=== PATIENT | female | born 1965 | race Caucasian/White ===

== ENCOUNTER 2017-03-24 08:29 | Emergency (ER) | payer MEDICAID ==
--- NOTE | 2017-03-24 09:04 | ER Document Report ---
ED General - General Chief Complaint: Problem with Feeding Tube Stated Complaint: FEEDING TUBE PROBLEMS Time Seen by Provider: 03/24/17 08:35 Mode of Arrival: Ambulatory Information source: Patient Notes: 51-year-old female who has a G-tube in place presents with complaints of having difficulty with removal of her G-tube. Patient notes that [facility] care facility will remove her G-tube notes when I tried to remove it they were unable to deflate the balloon, they then decided to cut the G-tube. Patient denies any fevers or chills nausea vomiting or diarrhea patient notes mild tenderness from the traumatic pulling TRAVEL OUTSIDE OF THE [place] IN LAST 30 DAYS: No - HPI Onset: Just prior to arrival Onset/Duration: Sudden Quality of pain: No pain Severity: None Pain Level: Denies Associated symptoms: None Exacerbated by: Denies Relieved by: Denies Similar symptoms previously: Yes Recently seen / treated by doctor: No - Related Data Allergies/Adverse Reactions: acetaminophen [From Percocet] Allergy (Verified 07/16/16 11:27) codeine [Codeine] Allergy (Verified 07/16/16 11:27) oxycodone HCl [From Percocet] Allergy (Verified 07/16/16 11:27) Past Medical History - Social History Smoking Status: Never Smoker Cigarette use (# per day): No Chew tobacco use (# tins/day): No Smoking Education Provided: No Family History: Reviewed & Not Pertinent - Past Medical History Cardiac Medical History: Denies: Hx Coronary Artery Disease, Hx Heart Attack, Hx Hypertension Pulmonary Medical History: Denies: Hx Asthma, Hx Bronchitis, Hx COPD, Hx Pneumonia Neurological Medical History: Denies: Hx Cerebrovascular Accident, Hx Seizures Musculoskeltal Medical History: Denies Hx Arthritis - Immunizations Hx Diphtheria, Pertussis, Tetanus Vaccination: Yes Review of Systems - Review of Systems Notes: REVIEW OF SYSTEMS: CONSTITUTIONAL : Denies fever, chills, or sweats. Denies recent illness. EENT: Denies eye, ear, throat, or mouth pain or symptoms. Denies nasal or sinus congestion or discharge. Denies throat, tongue, or mouth swelling or difficulty swallowing. CARDIOVASCULAR: Denies chest pain. Denies palpitations or racing or irregular heart beat. Denies ankle edema. RESPIRATORY: Denies cough, cold, or chest congestion. Denies shortness of breath, difficulty breathing, or wheezing. GASTROINTESTINAL: Denies abdominal pain or distention. Denies nausea, vomiting , or diarrhea. Denies blood in vomitus, stools, or per rectum. Denies black, tarry stools. Denies constipation. admits to g tube issue GENITOURINARY: Denies difficulty urinating, painful urination, burning, frequency, blood in urine, or discharge. FEMALE GENITOURINARY: Denies vaginal bleeding, heavy or abnormal periods, irregular periods. Denies vaginal discharge or odor. MUSCULOSKELETAL: Denies back or neck pain or stiffness. Denies joint pain or swelling. SKIN: Denies rash, lesions or sores. HEMATOLOGIC : Denies easy bruising or bleeding. LYMPHATIC: Denies swollen, enlarged glands. NEUROLOGICAL: Denies confusion or altered mental status. Denies passing out or loss of consciousness. Denies dizziness or lightheadedness. Denies headache. Denies weakness or paralysis or loss of use of either side. Denies problems with gait or speech. Denies sensory loss, numbness, or tingling. Denies seizures. PHYSICAL EXAMINATION: GENERAL: Well-appearing, well-nourished and in no acute distress. HEAD: Atraumatic, normocephalic. EYES: Pupils equal round and reactive to light, extraocular movements intact, conjunctiva are normal. ENT: Nares patent, oropharynx clear without exudates. Moist mucous membranes. NECK: Normal range of motion, supple without lymphadenopathy LUNGS: Breath sounds clear to auscultation bilaterally and equal. No wheezes rales or rhonchi. HEART: Regular rate and rhythm without murmurs ABDOMEN: Soft, nontender, nondistended abdomen. No guarding, no rebound. No masses appreciated. g tube noted Female : deferred Musculoskeletal: Normal range of motion, no pitting or edema. No cyanosis. NEUROLOGICAL: Cranial nerves grossly intact. Normal speech, normal gait. Normal sensory, motor exams PSYCH: Normal mood, normal affect. SKIN: Warm, Dry, normal turgor, no rashes or lesions noted. PSYCHIATRIC: Denies anxiety or stress. Denies depression, suicidal ideation, or homicidal ideation. ALL OTHER SYSTEMS REVIEWED AND NEGATIVE. Dictation was performed using [employer] voice recognition software Physical Exam - Vital signs Vitals: Temp Pulse Resp BP Pulse Ox 97.8 F 68 18 141/86 H 94 03/24/17 08:53 03/24/17 08:53 03/24/17 08:53 03/24/17 08:53 03/24/17 08:53 Course - Re-evaluation Re-evalutation: 03/24/17 09:04 I am awaiting a replacement G-tube before I attempt any further 03/24/17 09:19 A 22 Iranian G tube was easily replaced, no complications I will discharge back to care facility at this time After performing a Medical Screening Examination, I estimate there is LOW risk for ACUTE APPENDICITIS, BOWEL OBSTRUCTION, ACUTE CHOLECYSTITIS, PERFORATED DIVERTICULITIS, INCARCERATED HERNIA, PANCREATITIS, PELVIC INFLAMMATORY DISEASE, PERFORATED ULCER, ECTOPIC , or TUBO-OVARIAN ABSCESS, thus I consider the discharge disposition reasonable. Also, there is no evidence or peritonitis , sepsis, or toxicity. I have reevaluated this patient multiple times and no significant life threatening changes are noted. The patient and I have discussed the diagnosis and risks, and we agree with discharging home with close follow-up with the understanding that symptoms and presentations can change. We also discussed returning to the Emergency Department immediately if new or worsening symptoms occur. We have discussed the symptoms which are most concerning (e.g., bloody stool, fever, changing or worsening pain, vomiting) that necessitate immediate return. - Vital Signs Vital signs: Temp Pulse Resp BP Pulse Ox 97.8 F 68 18 141/86 H 94 03/24/17 08:53 03/24/17 08:53 03/24/17 08:53 03/24/17 08:53 03/24/17 08:53 Procedures - Additional Procedures G tube replacement Time performed: 09:20 - using 22f g tube no complications Additional Procedures: Gastric tube replacement Discharge - Discharge Clinical Impression: Complication of gastrostomy tube Condition: Stable Disposition: HOME, SELF-CARE Additional Instructions: Return immediately if there are any other concerns Referrals: MIMI BLOUNT MD [Primary Care Provider] - Follow up tomorrow
[2017-03-24 12:23] VITALS: BP 101/70
== END 2017-03-24 12:15 | disposition home or self-care (01) ==
LOC: ER 08:29
PROC: 0D20XUZ Change Feeding Device in Upper Intestinal Tract, External Approach (ICD-10-PCS; principal; 2017-03-24)
DX: K94.20 Gastrostomy complication, unspecified (principal); Z88.6 Allergy status to analgesic agent
CPT/HCPCS: 99283

== ENCOUNTER → 2018-03-19 | Outpatient (CLI) | payer MEDICAID ==
--- NOTE | 2018-03-19 12:20 | RADIOLOGY REPORT (SQ) ---
EXAM DESCRIPTION: PELVIS AP COMPLETED DATE/TIME: 03/19/2018 11:46 am REASON FOR STUDY: PRESSURE ULCER OF SACRAL REGION, STAGE 4 L89.154 PRESSURE ULCER OF SACRAL REGION, STAGE 4 COMPARISON: None. NUMBER OF VIEWS: One view TECHNIQUE: AP Pelvis LIMITATIONS: None. FINDINGS: MINERALIZATION: Normal. HIPS: No acute fracture or dislocation. No worrisome bone lesions. PELVIS AND SACRUM: No acute fracture or dislocation. No worrisome bone lesions. PUBIS AND ISCHIUM: No acute fracture. LOWER LUMBAR SPINE: No significant findings as visualized. SOFT TISSUES: Multiple bladder stones are present. OTHER: No other significant finding. IMPRESSION: Bladder stones. No osseous abnormality is evident. TECHNICAL DOCUMENTATION: JOB ID: [id number] [employer]- All Rights Reserved Reading location - IP/workstation name: [email or web address]
== END ==
LOC: RAD 11:15
PROVIDERS: ATTEND Nurse Practitioner
DX: L89.154 Pressure ulcer of sacral region, stage 4 (principal)
CPT/HCPCS: 72170

== ENCOUNTER → 2018-04-12 | Day surgery (SDC) | payer MEDICAID ==
--- NOTE | 2018-04-12 15:05 | RADIOLOGY REPORT (SQ) ---
EXAM DESCRIPTION: PICC INSERTION; U/S GUIDE FOR VASCULAR ACCESS; FLUORO/CV PLACEMENT COMPLETED DATE/TIME: 04/12/2018 2:06 pm REASON FOR STUDY: N39.0 URINARY TRACT INFECTION, SITE NOT SPECIFIED; IV ACCESS N39.0 URINARY TRACT INFECTION, SITE NOT SPECIFIED COMPARISON: AP chest 07/16/2016 FLUOROSCOPY TIME: 4 seconds 1 digital fluoroscopic image and 1 ultrasound image saved to PACS. TECHNIQUE: Fluoroscopic and ultrasound guided PICC placement. LIMITATIONS: None. PROCEDURE: After written consent and assessment were obtained, the patient was brought into the fluo roscopy room and place supine on the table. Ultrasound evaluation of potential access sites were perf ormed. After successfully identifying a patent left basilic vein, the left arm was prepped and draped in a sterile fashion along with the ultrasound probe. The entry site was anesthetized with 1% lidoca ine. A 21 gauge 7 cm needle was advanced through the skin and into the basilic vein under live ultras ound guidance. An ultrasound image was saved to PACS confirming access site. A .018 guide wire was then inserted through the needle and into the venous system. The needle was the removed and an 11 lisa de scalpel was used to make a 1cm skin incision. A 5 fr peel-away sheath was advanced over the wire and into the venous system. A measurement was then made using the existing wire and live fluoroscopic guidance. The wire was then removed and the trimmed. The PICC was advanced through the peel-away she ath and into the venous system. The peel-away sheath was removed and the catheter was adhered to the patients arm with a stat lock. The catheter was then aspirated and flushed and a sterile bandage was placed over the access site. A fluoroscopic spot image was saved to PACS confirming the catheter tip within the superior vena cava. IMPRESSION: SUCCESSFUL PLACEMENT OF A 5 FR DUAL LUMEN 35 CM PICC IN THE LEFT BASILIC VEIN. COMMENT: Patient medication list reviewed: Yes- Quality ID# [id number]:Eligible professional attests to doc umenting in the medical record they obtained, updated, or reviewed the patient's current medications. . Quality ID 145: Final reports for procedures using fluoroscopy that document radiation exposure meng william, or exposure time and number of fluorographic images (if radiation exposure indices are not avail able) Quality ID #76: The patient was prepped and draped using maximum sterile barrier technique including cap, mask, sterile gown, sterile gloves, a large sterile sheet, hand hygiene, and 2% Chlorhexidine fo r cutaneous antisepsis. When ultrasound is used, sterile ultrasound techniques are followed requiring sterile gel and sterile probes. TECHNICAL DOCUMENTATION: JOB ID: [id number] [employer]- All Rights Reserved rev-02/26 Reading location - IP/workstation name: [email or web address]
== END ==
LOC: RAD 12:57
PROVIDERS: ATTEND Family Medicine Geriatric Medicine
DX: N39.0 Urinary tract infection, site not specified (principal)
CPT/HCPCS: 36569; 77001; 76937; J1642

== ENCOUNTER → 2018-05-25 | Day surgery (SDC) | payer MEDICAID ==
--- NOTE | 2018-05-25 14:17 | RADIOLOGY REPORT (SQ) ---
EXAM DESCRIPTION: PICC INSERTION; U/S GUIDE FOR VASCULAR ACCESS; FLUORO/CV PLACEMENT COMPLETED DATE/TIME: 05/25/2018 2:01 pm REASON FOR STUDY: IV ABX COMPARISON: None. FLUOROSCOPY TIME: 24 seconds 2 images saved to PACS. TECHNIQUE: Fluoroscopic and ultrasound guided PICC placement. LIMITATIONS: None. PROCEDURE: After written consent and assessment were obtained, the patient was brought into the fluo roscopy room and place supine on the table. Ultrasound evaluation of potential access sites were perf ormed. After successfully identifying a patent left basilic vein, the left arm was prepped and draped in a sterile fashion along with the ultrasound probe. The entry site was anesthetized with 1% lidoca ine. A 21 gauge 7 cm needle was advanced through the skin and into the basilic vein under live ultras ound guidance. An ultrasound image was saved to PACS confirming access site. A .018 guide wire was then inserted through the needle and into the venous system. The needle was the removed and an 11 lisa de scalpel was used to make a 1cm skin incision. A 5 fr peel-away sheath was advanced over the wire and into the venous system. A measurement was then made using the existing wire and live fluoroscopic guidance. The wire was then removed and the trimmed. The PICC was advanced through the peel-away she ath and into the venous system. The peel-away sheath was removed and the catheter was adhered to the patients arm with a stat lock. The catheter was then aspirated and flushed and a sterile bandage was placed over the access site. A fluoroscopic spot image was saved to PACS confirming the catheter tip within the superior vena cava. IMPRESSION: SUCCESSFUL PLACEMENT OF A 5 FR DUAL LUMEN 36 CM PICC IN THE LEFT BASILIC VEIN. COMMENT: Patient medication list reviewed: Yes- Quality ID# [id number]:Eligible professional attests to doc umenting in the medical record they obtained, updated, or reviewed the patient's current medications. . Quality ID 145: Final reports for procedures using fluoroscopy that document radiation exposure meng william, or exposure time and number of fluorographic images (if radiation exposure indices are not avail able) Quality ID #76: The patient was prepped and draped using maximum sterile barrier technique including cap, mask, sterile gown, sterile gloves, a large sterile sheet, hand hygiene, and 2% Chlorhexidine fo r cutaneous antisepsis. When ultrasound is used, sterile ultrasound techniques are followed requiring sterile gel and sterile probes. TECHNICAL DOCUMENTATION: JOB ID: [id number] [employer]- All Rights Reserved Reading location - IP/workstation name: [facility]
== END ==
LOC: RAD 12:46
PROVIDERS: ATTEND Family Medicine Geriatric Medicine
DX: Z45.2 Encounter for adjustment and management of vascular access device (principal)
CPT/HCPCS: 36569; 77001; 76937; J1642

== ENCOUNTER 2018-06-17 03:58 | Inpatient (IN) | payer MEDICAID ==
[2018-06-17] MEDS ORDERED: ONDANSETRON HCL INJ/PF 4 MG/2 ML SDV ONE (04:38)
[2018-06-17] MEDS ORDERED: ACETAMINOPHEN SUSP 160 MG/5 ML ORAL SYRING ONE (04:38)
[2018-06-17] MEDS ORDERED: FENTANYL CITRATE INJ/PF 100 MCG/2 ML AMPUL ONE (04:39)
[2018-06-17] MEDS ORDERED: ACETAMINOPHEN 325 MG TABLET PO PRN (09:13)
[2018-06-17] MEDS ORDERED: NORMAL SALINE 1000 ML 1,000 ML IV ONE (09:15)
[2018-06-17] MEDS ORDERED: CIPROFLOXACIN 400 MG/D5W RTU 400 MG/200 ML RTUPB IV SCH (10:00)
--- NOTE | 2018-06-17 10:35 | RADIOLOGY REPORT (SQ) ---
EXAM DESCRIPTION: CHEST 2 VIEWS COMPLETED DATE/TIME: 06/17/2018 9:34 am REASON FOR STUDY: ABDOMINAL PAIN N/V COMPARISON: AP chest 07/16/2016 EXAM PARAMETERS: NUMBER OF VIEWS: two views TECHNIQUE: Digital Frontal and Lateral radiographic views of the chest acquired. RADIATION DOSE: NA LIMITATIONS: none FINDINGS: LUNGS AND PLEURA: Minimal left basilar atelectasis. Lungs otherwise well inflated and jefe ar. Hyperlucency upper lobe suggests some underlying obstructive disease. No pleural effusion. No pneumothorax. MEDIASTINUM AND HILAR STRUCTURES: No masses or contour abnormalities. HEART AND VASCULAR STRUCTURES: Heart normal size. No evidence for failure. BONES: Osteoporotic HARDWARE: None in the chest. OTHER: No other significant finding. IMPRESSION: Obstructive lung disease. Minimal left basilar atelectasis TECHNICAL DOCUMENTATION: JOB ID: [id number] [employer]- All Rights Reserved Reading location - IP/workstation name: [email or web address]
[2018-06-17 10:37] LABS: ABSOLUTE BASOPHILS # (AUTO) 0.1 10^3/uL (0.0-0.2); ABSOLUTE LYMPHOCYTES (AUTO) 1.6 10^3/uL (0.5-4.7); ABSOLUTE MONOCYTES (AUTO) 0.9 10^3/uL (0.1-1.4); ABSOLUTE NEUT (AUTO) 12.8 10^3/uL (1.7-8.2); BASOPHILS % (AUTO) 0.3 % (0-2); HEMATOCRIT 36.9 % (36.0-47.0); HEMOGLOBIN 12.5 g/dL (12.0-15.5); LYMPHOCYTES % (AUTO) 10.5 % (13-45); MEAN CORPUSCULAR HEMOGLOBIN 27.5 pg (27.0-33.4); MEAN CORPUSCULAR HGB CONC 33.8 g/dL (32.0-36.0); MEAN CORPUSCULAR VOLUME 82 fl (80-97); MONOCYTES % (AUTO) 6.1 % (3-13); PLATELET COUNT 310 10^3/uL (150-450); RED BLOOD COUNT 4.53 10^6/uL (3.72-5.28); RED CELL DISTRIBUTION WIDTH 15.1 % (11.5-14.0); SEGMENTED NEUTROPHILS % (AUTO) 83.1 % (42-78); TOTAL CELLS COUNTED % (AUTO) 100 %; WHITE BLOOD COUNT 15.3 10^3/uL (4.0-10.5)
[2018-06-17 10:44] LABS: APPEARANCE,URINE CLOUDY; BILIRUBIN,URINE NEGATIVE (NEGATIVE); COLOR,URINE YELLOW; GLUCOSE, URINE NEGATIVE (NEGATIVE); KETONES,URINE TRACE mg/dL (NEGATIVE); LEUKOCYTE ESTERASE,URINE LARGE (NEGATIVE); NITRITE,URINE NEGATIVE (NEGATIVE); PROTEIN,URINE 100 mg/dL (NEGATIVE); TRIPLE PHOSPHATE CRYSTAL,URINE TOO NUMEROUS TO CNT /HPF; URINE SPECIFIC GRAVITY 1.018; UROBILINOGEN,URINE NEGATIVE mg/dL (<2.0)
[2018-06-17 10:53] LABS: ALANINE AMINOTRANSFERASE 22 U/L (9-52); ALBUMIN 4.5 g/dL (3.5-5.0); ALKALINE PHOSPHATASE 78 U/L (38-126); ANION GAP 13 (5-19); ASPARTATE AMINO TRANSFERASE 47 U/L (14-36); BILIRUBIN,DIRECT 0.5 mg/dL (0.0-0.4); BILIRUBIN,TOTAL 0.6 mg/dL (0.2-1.3); BLOOD UREA NITROGEN 28 mg/dL (7-20); CALCIUM 10.1 mg/dL (8.4-10.2); CARBON DIOXIDE 24 mmol/L (22-30); CHLORIDE 107 mmol/L (98-107); GLUCOSE 128 mg/dL (75-110); POTASSIUM 3.4 mmol/L (3.6-5.0); SODIUM 144.3 mmol/L (137-145); TOTAL PROTEIN 9.5 g/dL (6.3-8.2)
[2018-06-17] MEDS: VANCOMYCIN HCL INJ 500 MG VIAL PO SCH ×2 (11:25→14:35)
[2018-06-17] MEDS: ENOXAPARIN SODIUM INJ 30 MG/0.3 ML DISP.SYRIN SUBCUT SCH (11:26)
[2018-06-17] MEDS: NORMAL SALINE 1000 ML 1,000 ML IV PRN ×2 (11:27→17:06)
[2018-06-17] MEDS: FENTANYL CITRATE INJ/PF 100 MCG/2 ML AMPUL INJ PRN ×4 (12:27→19:47)
--- NOTE | 2018-06-17 17:42 | PDOC H&P ---
<LUISANAFEROZ A - Last Filed: 06/17/18 17:28> History of Present Illness Admission Date/PCP: 06/17/18 14:36 HÉCTOR BLOUNT MD Patient complains of: DIARRHEA History of Present Illness: ARTURO GILBERT is a 52 year old female is a long-term resident of [facility]. 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 The patient was sent to [facility] ED for nausea, vomiting and watery diarrhea x multiple days. Of note, the patient just completed 1 month of IV vancomycin for treatment of MRSA infection in a sacral decubitus ulcer. Upon arrival to the ED, the patient's blood pressure and heart rate were within normal limits. Low-grade temperature 100.1. The patient was actively vomiting and experiencing incontinent episodes of watery diarrhea. Laboratory studies reveal leukocytosis (WBC 15.1), hypokalemia (K 3.4), and urinalysis indicative of UTI. CXR benign, no significant pathology. Upon assessment, the patient is resting in bed on room air. Her face is grimaced and she appears to be uncomfortable. The patient is complaining of nausea and mild abdominal pain. She states she has been experiencing multiple episodes of vomiting and diarrhea for the last "few days." The patient states that her roommate at [facility] has recently been ill with unspecified symptoms. The roommate is currently admitted to [facility]. The patient appears pale and older than stated age. Skin is cool and dry. Mucous membranes are moist. Good skin turgor. Lungs clear to auscultation. S1-S2. Palpable pulses in upper extremities, very faint in lower extremities. Abdomen is soft but diffusely tender. PEG tube site has dark brown crusty drainage surrounding the insertion site, no erythema , denies TTP. Tunneled sacral decubitus ulcer. Admit to hospitalist service for complicated UTI and colitis (C. difficile versus other infectious organism). Past Medical History Cardiac Medical History: Denies: Coronary Artery Disease, Myocardial Infarction, Hypertension Pulmonary Medical History: Denies: Asthma, Bronchitis, Chronic Obstructive Pulmonary Disease (COPD), Pneumonia Neurological Medical History: Reports: Other - HEMIPLEGIA Denies: Seizures Musculoskeltal Medical History: Denies: Arthritis Psychiatric Medical History: Denies: Depression Hematology: Reports: Anemia Infectious History Note: SEPTIC EMBOLI STEMMING FROM PERIODONTAL ABSCESS Past Surgical History Past Surgical History: Reports: Other - PEG TUBE PLACEMENT Social History Information Source: Patient Lives with: [facility] Smoking Status: Former Smoker Frequency of Alcohol Use: None Hx Recreational Drug Use: No Drugs: None Hx Prescription Drug Abuse: No - Advance Directive Resuscitation Status: Full Code Family History Family History: Reviewed & Not Pertinent Parental Family History Reviewed: No Children Family History Reviewed: NA Sibling(s) Family History Reviewed.: NA Medication/Allergy Home Medications: Acetaminophen [Tylenol Soln 325 mg/10.15 ml Udcup] 325 mg PEG Q4HP PRN 06/17/18 Acetaminophen [Tylenol Soln 325 mg/10.15 ml Udcup] 500 mg PEG Q12 06/17/18 Ascorbic Acid [Vitamin C 500 mg Tablet] 500 mg PEG BID MDD until wound resolves 06/17/18 Bismuth Subsalicylate [Maalox] 20 ml PEG Q4HP PRN 06/17/18 Cephalexin [Cephalexin 500 MG Capsule] 500 mg PEG Q8 06/17/18 Duloxetine HCl [Cymbalta] 30 mg PEG DAILY 06/17/18 Flavoxate HCl [Urispas] 200 mg PEG Q8 06/17/18 Gabapentin [Neurontin 300 mg Capsule] 300 mg PEG Q8 06/17/18 Meloxicam 15 mg PEG DAILY 06/17/18 Metoclopramide HCl [Reglan Oral Soln 10 mg/10 ml Udcup] 5 mg PEG QID 06/17/18 Multivit-Minerals/Ferrous Gluc [Centrum Multivit-Mineral Liq] 10 ml PEG DAILY Omeprazole 40 mg PO Q6AM 06/17/18 Ondansetron [Zofran Odt 4 mg Tablet] 4 mg PEG Q6HP PRN 06/17/18 Oxycodone HCl [Oxy-Ir 5 mg Tablet] 5 mg PO Q4HP PRN 06/17/18 Oxycodone HCl [Oxycontin Sr 10 mg Tablet] 20 mg PO Q8 06/17/18 Promethazine HCl [Phenergan Inj 25 mg/1 ml Vial] 25 mg IM Q6HP PRN MDD 3 doses 06/17/18 Sennosides/Docusate Sodium [Senna-S Tablet] 1 each PEG Q12 MDD hold for loose stool 06/17/18 Solifenacin Succinate [Vesicare] 5 mg PO DAILY 06/17/18 Tizanidine HCl [Zanaflex 4 mg Tablet] 2 mg PEG Q8 06/17/18 Zinc Sulfate [Zinc-220 Capsule] 220 mg PEG DAILY 06/17/18 Allergies/Adverse Reactions: acetaminophen [From Percocet] Allergy (Verified 07/16/16 11:27) codeine [Codeine] Allergy (Verified 07/16/16 11:27) oxycodone HCl [From Percocet] Allergy (Verified 07/16/16 11:27) Review of Systems All systems: reviewed and no additional remarkable complaints except as stated Physical Exam Vital Signs: Temp Pulse Resp BP Pulse Ox 98.9 F 15 121/79 95 06/17/18 11:00 06/17/18 15:01 06/17/18 15:01 06/17/18 15:01 General appearance: PRESENT: mild distress Eye exam: PRESENT: conjunctiva pink, PERRLA Mouth exam: PRESENT: moist Teeth exam: PRESENT: poor dentation Neck exam: PRESENT: full ROM Respiratory exam: PRESENT: clear to auscultation justyna, symmetrical, unlabored Cardiovascular exam: PRESENT: RRR, +S1, +S2 Pulses: PRESENT: normal radial pulses, +1 pedal pulses bilateral Vascular exam: PRESENT: pallor GI/Abdominal exam: PRESENT: normal bowel sounds, soft, tenderness - diffuse, other - PEG TUBE. ABSENT: distended Rectal exam: PRESENT: deferred Gentrourinary exam: PRESENT: indwelling catheter Extremities exam: ABSENT: full ROM, joint swelling Musculoskeletal exam: ABSENT: ambulatory, full ROM Neurological exam: PRESENT: alert, awake, oriented to person, oriented to place , oriented to time, oriented to situation. ABSENT: normal gait Psychiatric exam: PRESENT: appropriate affect Skin exam: PRESENT: dry, intact, pallor. ABSENT: normal color, warm Results Impressions: Chest X-Ray 06/17/18 00:00 IMPRESSION: Obstructive lung disease. Minimal left basilar atelectasis Status: Imported from PACS Assessment & Plan - Diagnosis (1) Diarrhea QualifierTitle: Diarrhea type: presumed infectious Qualified Code(s): R19.7 - Diarrhea, unspecified Is this a current diagnosis for this admission?: Yes Plan: custodial reports watery diarrhea for "days" Recent completion of 1 month IV Vancoymycin for MRSA infected decubital ulcer +leukocytosis. Low grade temperature 100.1. C.Diff PCR negative Stool culture pending Flagyl IV for possible colitis If patient continues to have watery diarrhea, plan to repeat c.diff PCR in 48hrs 1L IVF in ED, continue maintenance IVF (2) VINI (acute kidney injury) Is this a current diagnosis for this admission?: Yes Plan: Pre-renal. Secondary to intravascular depletion related to #1 See plan as above (3) Decubital ulcer QualifierTitle: Pressure injury location: sacral region Pressure injury stage: stage 4 Qualified Code(s): L89.154 - Pressure ulcer of sacral region, stage 4 Is this a current diagnosis for this admission?: Yes Plan: Patient has a history of MRSA infected sacral decubital ulcer Treated for 1 month with IV Vancomycin Wound Vac attached to site while at [facility] Staff reports the vac was "not working well" Consult surgery for evaluation, possible need for debriedement and/or replacement of wound vac (4) MRSA (methicillin resistant Staphylococcus aureus) Is this a current diagnosis for this admission?: Yes Plan: History of MRSA in sacral wound Previously treated with IV vancomycin Contact isolation precautions (5) UTI (urinary tract infection) QualifierTitle: Urinary tract infection type: acute cystitis Is this a current diagnosis for this admission?: Yes Plan: Patient has significant history of UTI Urinalysis indicative of UTI Urine culture pending Plan to remove original indwelling catheter and replaced with new Claire Previous cultures have been positive for Pseudomonas, Klebsiella, E. coli - resistant to multiple antibiotics Initiate cefepime 2 g IV every 12 hours (6) Hypokalemia Is this a current diagnosis for this admission?: Yes Plan: Secondary to GI loss Replacement per electrolyte protocol - Time Time Spent: 30 to 50 Minutes Medications reviewed and adjusted accordingly: Yes Anticipated discharge: SNF - Inpatient Certification Based on my medical assessment, after consideration of the patient's comorbidities, presenting symptoms, or acuity I expect that the services needed warrant INPATIENT care.: Yes I certify that my determination is in accordance with my understanding of Medicare's requirements for reasonable and necessary INPATIENT services [42 CFR 412.3e].: Yes Medical Necessity: Need for IV Antibiotics, Risk of Complication if Not Cared For in Hospital - Plan Summary Plan Summary: ANTIBIOTICS. SURGERY CONSULT FOR WOUND VAC. RESTART ENTERAL FEEDING. IF DIARRHEA CONTINUES PLAN TO REPEAT C.DIFF PCR IN 48 HRS. <IRMA GASPAR M - Last Filed: 06/20/18 18:56> History of Present Illness Admission Date/PCP: 06/17/18 14:36 HÉCTOR BLOUNT MD History of Present Illness: ARTURO GILBERT is a 52 year old female Physical Exam Vital Signs: Temp Pulse Resp BP Pulse Ox 98.1 F 57 L 18 115/66 97 06/20/18 16:00 06/20/18 16:00 06/20/18 16:00 06/20/18 16:00 06/20/18 16:00 Intake & Output 06/19/18 06/20/18 06/21/18 06:59 06:59 06:59 Intake Total 2640 6619 1510 Output Total 2000 3700 2200 Balance 640 2919 -690 Weight 66.5 kg 68.2 kg Results Laboratory Results: 06/20/18 09:21 06/20/18 09:21 06/19/18 06/20/18 06/20/18 21:49 09:21 09:21 WBC 8.8 RBC 3.99 Hgb 11.3 L Hct 33.2 L MCV 83 MCH 28.2 MCHC 34.0 RDW 14.9 H Plt Count 222 Sodium 137.6 Potassium 3.3 L Chloride 104 Carbon Dioxide 26 Anion Gap 8 BUN 9 Creatinine 0.36 L Est GFR ( Amer) > 60 Est GFR (Non-Af Amer) > 60 Glucose 83 Calcium 8.1 L Magnesium 2.0 Total Bilirubin 0.2 AST 23 ALT 31 Alkaline Phosphatase 54 Total Protein 6.2 L Albumin 3.0 L Stool for White Cells NO WBCs SEEN Impressions: Chest X-Ray 06/17/18 00:00 IMPRESSION: Obstructive lung disease. Minimal left basilar atelectasis KUB X-Ray 06/19/18 00:00 IMPRESSION: PEG tube in place. Provider Note Provider Note: I have discussed the patient in detail with MALAIKA Mehta. I am in agreement with her evaluation and plan.
[2018-06-17] MEDS: METRONIDAZOLE 500 MG/NS RTU 500 MG/100 ML RTUPB IV SCH (18:57)
[2018-06-17] MEDS: ONDANSETRON 4 MG TAB.RAPDIS PO PRN (21:34)
[2018-06-17] MEDS: CEFEPIME 2 GM/D5W RTU 2 GM/50 ML RTUPB IV SCH (22:56)
[2018-06-18] MEDS: FENTANYL CITRATE INJ/PF 100 MCG/2 ML AMPUL INJ PRN ×4 (01:02→11:12)
[2018-06-18] MEDS: METRONIDAZOLE 500 MG/NS RTU 500 MG/100 ML RTUPB IV SCH ×4 (01:03→17:42)
[2018-06-18 06:58] LABS: ABSOLUTE LYMPHOCYTES (AUTO) 1.9 10^3/uL (0.5-4.7); ABSOLUTE MONOCYTES (AUTO) 1.1 10^3/uL (0.1-1.4); BASOPHILS % (AUTO) 0.1 % (0-2); EOSINOPHILS % (AUTO) 0.1 % (0-6); HEMATOCRIT 31.6 % (36.0-47.0); HEMOGLOBIN 10.7 g/dL (12.0-15.5); LYMPHOCYTES % (AUTO) 19.3 % (13-45); MEAN CORPUSCULAR HEMOGLOBIN 28.2 pg (27.0-33.4); MEAN CORPUSCULAR VOLUME 83 fl (80-97); MONOCYTES % (AUTO) 10.7 % (3-13); PLATELET COUNT 216 10^3/uL (150-450); RED CELL DISTRIBUTION WIDTH 14.6 % (11.5-14.0); SEGMENTED NEUTROPHILS % (AUTO) 69.8 % (42-78); TOTAL CELLS COUNTED % (AUTO) 100 %
[2018-06-18 07:19] LABS: AMYLASE 47 U/L (30-110); ANION GAP 8 (5-19); BLOOD UREA NITROGEN 17 mg/dL (7-20); CALCIUM 8.4 mg/dL (8.4-10.2); CARBON DIOXIDE 22 mmol/L (22-30); CHLORIDE 110 mmol/L (98-107); GLUCOSE 140 mg/dL (75-110); LIPASE 58.1 U/L (23-300); SODIUM 140.1 mmol/L (137-145)
[2018-06-18 07:23] LABS: POTASSIUM 2.7 mmol/L (3.6-5.0)
[2018-06-18] MEDS: NORMAL SALINE 1000 ML 1,000 ML IV PRN ×2 (08:58→22:15)
[2018-06-18] MEDS: CEFEPIME 2 GM/D5W RTU 2 GM/50 ML RTUPB IV SCH ×2 (08:59→22:04)
[2018-06-18] MEDS: ONDANSETRON 4 MG TAB.RAPDIS PO PRN (08:59)
[2018-06-18] MEDS: POTASSI CL 20 MEQ/50 ML RIDER 20 MEQ/50 ML RTUPB IV SCH ×2 (08:59→11:36)
[2018-06-18] MEDS: ENOXAPARIN SODIUM INJ 30 MG/0.3 ML DISP.SYRIN SUBCUT SCH (09:00)
[2018-06-18] MEDS: DULOXETINE HCL 30 MG CAPSULE.DR PEG SCH (09:24)
[2018-06-18] MEDS ORDERED: POTASSIUM CHLORIDE 20 MEQ/15 ML UDCUP PO ONE (09:30)
[2018-06-18] MEDS: ASCORBIC ACID 500 MG TABLET PEG SCH ×2 (11:12→17:42)
[2018-06-18] MEDS: ZINC SULFATE 220 MG CAPSULE PEG SCH (11:12)
[2018-06-18] MEDS: MULTIVITAMIN ORAL LIQUID 60 ML PEG SCH (11:12)
[2018-06-18] MEDS ORDERED: MORPHINE SULFATE 10 MG/ML INJ IV PRN ×2 (11:41→16:49)
[2018-06-18] MEDS: GABAPENTIN 300 MG CAPSULE PEG SCH ×2 (13:48→22:04)
[2018-06-18] MEDS: ONDANSETRON HCL INJ/PF 4 MG/2 ML SDV IV PRN (14:59)
--- NOTE | 2018-06-18 19:32 | PDOC PROGRESS REPORT ---
<FEROZ MEHTA - Last Filed: 06/18/18 19:16> Subjective Progress Note for:: 06/18/18 Subjective:: ARTURO GILBERT is a 52 year old female is a long-term resident of [facility] who presented to [facility] with nausea, vomiting and watery diarrhea x multiple days. 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 Of note, the patient just completed 1 month of IV vancomycin for treatment of MRSA infection in a sacral decubitus ulcer. The patient was seen this morning on rounds. Nursing staff reports multiple episodes of green watery diarrhea and vomiting this morning. Upon assessment, the patient resting in bed on room air. She appears uncomfortable and has an emesis bag positioned close to her face. The patient endorses abdominal pain and "too many to count" episodes of diarrhea. Staff reports she becomes extremely nauseated whenever she is turned/moved after having a bowel movement. Nursing staff offered to place a fecal collection device in the patient's rectum but she refused. Leukocytosis has improved (15-->10). The patient remains afebrile. If diarrhea persists, will re-check C.diff PCR tomorrow. Stool studies pending. Reason For Visit: DIARRHEA,UTI,COLITIS Physical Exam Vital Signs: Temp Pulse Resp BP Pulse Ox 98.1 F 56 L 18 138/72 H 94 06/18/18 14:54 06/18/18 14:54 06/18/18 14:54 06/18/18 14:54 06/18/18 14:54 Intake & Output 06/17/18 06/18/18 06/19/18 06:59 06:59 06:59 Intake Total 1830 1290 Output Total 2125 1100 Balance -295 190 Weight 66.2 kg General appearance: PRESENT: mild distress, thin Head exam: PRESENT: atraumatic Eye exam: PRESENT: conjunctiva pink, PERRLA Mouth exam: PRESENT: moist, tongue midline Teeth exam: PRESENT: poor dentation Neck exam: PRESENT: full ROM Respiratory exam: PRESENT: clear to auscultation justyna, symmetrical, unlabored Cardiovascular exam: PRESENT: bradycardia, RRR, +S1, +S2 Pulses: PRESENT: normal radial pulses, +1 pedal pulses bilateral Vascular exam: PRESENT: pallor GI/Abdominal exam: PRESENT: normal bowel sounds, soft, tenderness - diffuse, other - peg tube. ABSENT: distended Rectal exam: PRESENT: deferred Gentrourinary exam: PRESENT: indwelling catheter Extremities exam: ABSENT: full ROM, pedal edema Musculoskeletal exam: PRESENT: deformity - secondary to paraplegia. ABSENT: ambulatory, full ROM Neurological exam: PRESENT: alert, awake, oriented to person, oriented to place , oriented to time, oriented to situation. ABSENT: normal gait Skin exam: PRESENT: dry, pallor, warm Results Laboratory Results: 06/18/18 05:48 06/18/18 05:48 06/18/18 06/18/18 06/18/18 05:48 05:48 05:48 WBC 10.0 RBC 3.80 Hgb 10.7 L Hct 31.6 L MCV 83 MCH 28.2 MCHC 34.0 RDW 14.6 H Plt Count 216 Seg Neutrophils % 69.8 Lymphocytes % 19.3 Monocytes % 10.7 Eosinophils % 0.1 Basophils % 0.1 Absolute Neutrophils 7.0 Absolute Lymphocytes 1.9 Absolute Monocytes 1.1 Absolute Eosinophils 0.0 Absolute Basophils 0.0 Sodium 140.1 Potassium 2.7 L* Chloride 110 H Carbon Dioxide 22 Anion Gap 8 BUN 17 Creatinine 0.45 L Est GFR ( Amer) > 60 Est GFR (Non-Af Amer) > 60 Glucose 140 H Calcium 8.4 Magnesium Amylase 47 Lipase 58.1 TSH 0.47 06/18/18 05:48 WBC RBC Hgb Hct MCV MCH MCHC RDW Plt Count Seg Neutrophils % Lymphocytes % Monocytes % Eosinophils % Basophils % Absolute Neutrophils Absolute Lymphocytes Absolute Monocytes Absolute Eosinophils Absolute Basophils Sodium Potassium Chloride Carbon Dioxide Anion Gap BUN Creatinine Est GFR ( Amer) Est GFR (Non-Af Amer) Glucose Calcium Magnesium 1.6 Amylase Lipase TSH Impressions: Chest X-Ray 06/17/18 00:00 IMPRESSION: Obstructive lung disease. Minimal left basilar atelectasis Status: Imported from PACS Assessment & Plan - Diagnosis (1) Diarrhea QualifierTitle: Diarrhea type: presumed infectious Qualified Code(s): R19.7 - Diarrhea, unspecified Is this a current diagnosis for this admission?: Yes Plan: detention reports watery diarrhea for "days" Recent completion of 1 month IV Vancoymycin for MRSA infected decubital ulcer Initial leukocytosis 15.0, has since resolved (WBC 10.0) Afebrile Initial C.Diff PCR negative Stool studies are pending Flagyl IV for possible colitis If patient continues to have watery diarrhea, plan to repeat c.diff PCR 1L IVF in ED, continue maintenance IVF (2) VINI (acute kidney injury) Is this a current diagnosis for this admission?: Yes Plan: Pre-renal. Secondary to intravascular depletion related to #1 See plan as above (3) Decubital ulcer QualifierTitle: Pressure injury location: sacral region Pressure injury stage: stage 4 Qualified Code(s): L89.154 - Pressure ulcer of sacral region, stage 4 Is this a current diagnosis for this admission?: Yes Plan: Patient has a history of MRSA infected sacral decubital ulcer Treated for 1 month with IV Vancomycin Wound Vac attached to site while at [facility] Staff reports the vac was "not working well" Consult surgery for evaluation, do not recommend replacement of wound vac due to persistent diarrhea Keep wound covered with mepliex, change q24h or if soiled (4) MRSA (methicillin resistant Staphylococcus aureus) Is this a current diagnosis for this admission?: Yes Plan: History of MRSA in sacral wound Previously treated with IV vancomycin Contact isolation precautions (5) UTI (urinary tract infection) QualifierTitle: Urinary tract infection type: acute cystitis Is this a current diagnosis for this admission?: Yes Plan: Patient has significant history of UTI Urinalysis indicative of UTI Urine culture pending Plan to remove original indwelling catheter and replaced with new Claire Previous cultures have been positive for Pseudomonas, Klebsiella, E. coli - resistant to multiple antibiotics Initiate cefepime 2 g IV every 12 hours (6) Hypokalemia Is this a current diagnosis for this admission?: Yes Plan: Secondary to GI loss Replacement per electrolyte protocol Follow daily chemistries - Time Time Spent with patient: 15-24 minutes Medications reviewed and adjusted accordingly: Yes Anticipated discharge: SNF - Inpatient Certification Based on my medical assessment, after consideration of the patient's comorbidities, presenting symptoms, or acuity I expect that the services needed warrant INPATIENT care.: Yes I certify that my determination is in accordance with my understanding of Medicare's requirements for reasonable and necessary INPATIENT services [42 CFR 412.3e].: Yes Medical Necessity: Need for IV Antibiotics, Risk of Complication if Not Cared For in Hospital - Plan Summary Plan Summary: continue iv abx and ivf. repeat c.diff pcr tomorrow if patient still having diarrhea <SWAYZE,IRMA M - Last Filed: 06/20/18 18:58> Subjective Reason For Visit: DIARRHEA,UTI,COLITIS Physical Exam Vital Signs: Temp Pulse Resp BP Pulse Ox 98.1 F 57 L 18 115/66 97 06/20/18 16:00 06/20/18 16:00 06/20/18 16:00 06/20/18 16:00 06/20/18 16:00 Intake & Output 06/19/18 06/20/18 06/21/18 06:59 06:59 06:59 Intake Total 2640 6619 1510 Output Total 1999 3700 2200 Balance 640 2919 -690 Weight 66.5 kg 68.2 kg Results Laboratory Results: 06/20/18 09:21 06/20/18 09:21 06/19/18 06/20/18 06/20/18 21:49 09:21 09:21 WBC 8.8 RBC 3.99 Hgb 11.3 L Hct 33.2 L MCV 83 MCH 28.2 MCHC 34.0 RDW 14.9 H Plt Count 222 Sodium 137.6 Potassium 3.3 L Chloride 104 Carbon Dioxide 26 Anion Gap 8 BUN 9 Creatinine 0.36 L Est GFR ( Amer) > 60 Est GFR (Non-Af Amer) > 60 Glucose 83 Calcium 8.1 L Magnesium 2.0 Total Bilirubin 0.2 AST 23 ALT 31 Alkaline Phosphatase 54 Total Protein 6.2 L Albumin 3.0 L Stool for White Cells NO WBCs SEEN Impressions: Chest X-Ray 06/17/18 00:00 IMPRESSION: Obstructive lung disease. Minimal left basilar atelectasis KUB X-Ray 06/19/18 00:00 IMPRESSION: PEG tube in place. Provider Note Provider Note: I have discussed this patient with AMLAIKA Mehta in detail. I am in agreement with her evaluation with plan.
[2018-06-18] MEDS ORDERED: LIDOCAINE 5% (700 MG) TRANSDERMAL ADH..PATCH TP ONE (22:00)
[2018-06-18] MEDS ORDERED: LIDOCAINE 5% (700 MG) TRANSDERMAL ADH..PATCH ONE (22:52)
[2018-06-19] MEDS: METRONIDAZOLE 500 MG/NS RTU 500 MG/100 ML RTUPB IV SCH ×5 (00:10→23:39)
[2018-06-19] MEDS: GABAPENTIN 300 MG CAPSULE PEG SCH ×3 (05:54→21:13)
[2018-06-19 07:09] LABS: HEMATOCRIT 33.7 % (36.0-47.0); HEMOGLOBIN 11.4 g/dL (12.0-15.5); MEAN CORPUSCULAR HEMOGLOBIN 27.9 pg (27.0-33.4); MEAN CORPUSCULAR VOLUME 82 fl (80-97); PLATELET COUNT 227 10^3/uL (150-450); WHITE BLOOD COUNT 9.5 10^3/uL (4.0-10.5)
[2018-06-19 07:39] LABS: ALANINE AMINOTRANSFERASE 27 U/L (9-52); ALBUMIN 3.1 g/dL (3.5-5.0); ALKALINE PHOSPHATASE 52 U/L (38-126); ANION GAP 11 (5-19); ASPARTATE AMINO TRANSFERASE 16 U/L (14-36); BILIRUBIN,DIRECT 0.2 mg/dL (0.0-0.4); BILIRUBIN,TOTAL 0.2 mg/dL (0.2-1.3); BLOOD UREA NITROGEN 12 mg/dL (7-20); CALCIUM 8.2 mg/dL (8.4-10.2); CARBON DIOXIDE 22 mmol/L (22-30); CHLORIDE 106 mmol/L (98-107); GLUCOSE 116 mg/dL (75-110); POTASSIUM 3.2 mmol/L (3.6-5.0); SODIUM 138.6 mmol/L (137-145); TOTAL PROTEIN 6.4 g/dL (6.3-8.2)
[2018-06-19] MEDS ORDERED: MAGNESIUM SULFATE/D5W 1 GM/100 ML RTUPB IV ONE (10:31)
[2018-06-19] MEDS ORDERED: HYDROMORPHONE HCL INJ/PF 2 MG/ML AMPULE IV PRN (10:45)
[2018-06-19] MEDS: ASCORBIC ACID 500 MG TABLET PEG SCH ×2 (11:05→19:18)
[2018-06-19] MEDS: ZINC SULFATE 220 MG CAPSULE PEG SCH (11:06)
[2018-06-19] MEDS: MULTIVITAMIN ORAL LIQUID 60 ML PEG SCH (11:07)
[2018-06-19] MEDS: CEFEPIME 2 GM/D5W RTU 2 GM/50 ML RTUPB IV SCH ×2 (11:07→21:12)
[2018-06-19] MEDS: DULOXETINE HCL 30 MG CAPSULE.DR PEG SCH (11:07)
[2018-06-19] MEDS: ENOXAPARIN SODIUM INJ 30 MG/0.3 ML DISP.SYRIN SUBCUT SCH (11:08)
[2018-06-19] MEDS: NORMAL SALINE 1000 ML 1,000 ML IV PRN (11:27)
--- NOTE | 2018-06-19 13:14 | RADIOLOGY REPORT (SQ) ---
EXAM DESCRIPTION: KUB/ABDOMEN (SINGLE VIEW) COMPLETED DATE/TIME: 06/19/2018 12:31 pm REASON FOR STUDY: check PEG tube placement COMPARISON: None. NUMBER OF VIEWS: One view. TECHNIQUE: Supine radiographic image of the abdomen acquired. LIMITATIONS: None. FINDINGS: A single AP view the abdomen after injection of 30 mL dilute Gastrografin via PEG tube dem onstrates no extravasation. There is opacification of the cardia and body of the stomach. IMPRESSION: PEG tube in place. TECHNICAL DOCUMENTATION: JOB ID: [id number] [id number] 2010 [employer]- All Rights Reserved Reading location - IP/workstation name: [email or web address]
[2018-06-19] MEDS: POTASSI CL 20 MEQ/50 ML RIDER 20 MEQ/50 ML RTUPB IV SCH ×2 (15:20→17:27)
[2018-06-19] MEDS: HYDROMORPHONE HCL INJ/PF 2 MG/ML AMPULE IV PRN ×2 (15:57→21:15)
--- NOTE | 2018-06-19 17:40 | PDOC PROGRESS REPORT ---
<FEROZ LIEBERMAN - Last Filed: 06/19/18 17:32> Subjective Progress Note for:: 06/19/18 Subjective:: ARTURO GILBERT is a 52 year old female is a long-term resident of [facility] who presented to [facility] with nausea, vomiting and watery diarrhea x multiple days. 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 Of note, the patient just completed 1 month of IV vancomycin for treatment of MRSA infection in a sacral decubitus ulcer. The patient was seen this morning on rounds. Nursing staff reports the patient is still having diarrhea and that her abdominal pain is poorly controlled. Upon assessment, the patient resting in bed on room air. She appears uncomfortable and has an emesis bag positioned close to her face. The patient endorses abdominal pain and "multiple" episodes of diarrhea. No Leukocytosis. The patient remains afebrile. Re-check C.diff PCR today. Stool studies pending. Plan to expand pain regimen to include iv dilaudid. Reason For Visit: DIARRHEA,UTI,COLITIS Physical Exam Vital Signs: Temp Pulse Resp BP Pulse Ox 98.3 F 56 L 18 131/56 H 100 06/19/18 15:58 06/19/18 15:58 06/19/18 15:58 06/19/18 15:58 06/19/18 15:58 Intake & Output 06/18/18 06/19/18 06/20/18 06:59 06:59 06:59 Intake Total 1830 2640 1300 Output Total 2125 2000 Balance -006 402 3105 Weight 66.2 kg 66.5 kg General appearance: PRESENT: disheveled, thin Eye exam: PRESENT: conjunctiva pink, PERRLA Mouth exam: PRESENT: moist, tongue midline Teeth exam: PRESENT: poor dentation Neck exam: PRESENT: full ROM Respiratory exam: PRESENT: clear to auscultation justyna, symmetrical, unlabored Cardiovascular exam: PRESENT: RRR, +S1, +S2 Pulses: PRESENT: normal radial pulses, +1 pedal pulses bilateral Vascular exam: PRESENT: pallor GI/Abdominal exam: PRESENT: normal bowel sounds, soft, tenderness, other - PEG TUBE. ABSENT: distended Rectal exam: PRESENT: deferred Extremities exam: ABSENT: full ROM, joint swelling, pedal edema Musculoskeletal exam: ABSENT: ambulatory, full ROM Neurological exam: PRESENT: alert, awake, oriented to person, oriented to place , oriented to time, oriented to situation Skin exam: PRESENT: dry, erythema - SURROUNDING PEG TUBE SITE, pallor, warm Results Laboratory Results: 06/19/18 06:30 06/19/18 06:30 18 06/19/18 06:30 06:30 WBC 9.5 RBC 4.10 Hgb 11.4 L Hct 33.7 L MCV 82 MCH 27.9 MCHC 34.0 RDW 15.0 H Plt Count 227 Sodium 138.6 Potassium 3.2 L Chloride 106 Carbon Dioxide 22 Anion Gap 11 BUN 12 Creatinine 0.39 L Est GFR ( Amer) > 60 Est GFR (Non-Af Amer) > 60 Glucose 116 H Calcium 8.2 L Magnesium 1.6 Total Bilirubin 0.2 AST 16 ALT 27 Alkaline Phosphatase 52 Total Protein 6.4 Albumin 3.1 L Impressions: Chest X-Ray 06/17/18 00:00 IMPRESSION: Obstructive lung disease. Minimal left basilar atelectasis KUB X-Ray 06/19/18 00:00 IMPRESSION: PEG tube in place. Status: Imported from PACS Assessment & Plan - Diagnosis (1) Diarrhea QualifierTitle: Diarrhea type: presumed infectious Qualified Code(s): R19.7 - Diarrhea, unspecified Is this a current diagnosis for this admission?: Yes Plan: intermediate reports watery diarrhea for "days" Recent completion of 1 month IV Vancoymycin for MRSA infected decubital ulcer Initial leukocytosis 15.0, has since resolved (WBC 9.5) Afebrile Initial C.Diff PCR negative, plan to repeat today for continued diarrhea Stool studies are pending Flagyl IV for possible colitis Continue maintenance IVF (2) VINI (acute kidney injury) Is this a current diagnosis for this admission?: Yes Plan: Pre-renal. Secondary to intravascular depletion related to #1 See plan as above (3) Decubital ulcer QualifierTitle: Pressure injury location: sacral region Pressure injury stage: stage 4 Qualified Code(s): L89.154 - Pressure ulcer of sacral region, stage 4 Is this a current diagnosis for this admission?: Yes Plan: Patient has a history of MRSA infected sacral decubital ulcer Treated for 1 month with IV Vancomycin Wound Vac attached to site while at [facility] Staff reports the vac was "not working well" Consulted surgery for evaluation, do not recommend replacement of wound vac due to persistent diarrhea Keep wound covered with mepliex, change q24h or if soiled (4) MRSA (methicillin resistant Staphylococcus aureus) Is this a current diagnosis for this admission?: Yes Plan: History of MRSA in sacral wound Previously treated with IV vancomycin Contact isolation precautions (5) UTI (urinary tract infection) QualifierTitle: Urinary tract infection type: acute cystitis Is this a current diagnosis for this admission?: Yes Plan: Patient has significant history of UTI Urinalysis indicative of UTI Removed original indwelling catheter and replaced with new Claire MDR Morganella growing in urine, sensitive to Cefepime Continue cefepime 2 g IV every 12 hours (day 2) for complicated UTI (6) Hypokalemia Is this a current diagnosis for this admission?: Yes Plan: Secondary to GI loss Replacement per electrolyte protocol Follow daily chemistries - Time Time Spent with patient: 15-24 minutes Medications reviewed and adjusted accordingly: Yes Anticipated discharge: SNF Within: within 72 hours - Inpatient Certification Based on my medical assessment, after consideration of the patient's comorbidities, presenting symptoms, or acuity I expect that the services needed warrant INPATIENT care.: Yes I certify that my determination is in accordance with my understanding of Medicare's requirements for reasonable and necessary INPATIENT services [42 CFR 412.3e].: Yes Medical Necessity: Need for IV Antibiotics, Risk of Complication if Not Cared For in Hospital - Plan Summary Plan Summary: CONTINUE IV ABX. SEND REPEAT CDIFF PCR. PAIN REGIMEN TO INCLUDE IV DILAUDID <IRMA GASPAR - Last Filed: 06/20/18 18:59> Subjective Reason For Visit: DIARRHEA,UTI,COLITIS Physical Exam Vital Signs: Temp Pulse Resp BP Pulse Ox 98.1 F 57 L 18 115/66 97 06/20/18 16:00 06/20/18 16:00 06/20/18 16:00 06/20/18 16:00 06/20/18 16:00 Intake & Output 06/19/18 06/20/18 06/21/18 06:59 06:59 06:59 Intake Total 2640 6619 1510 Output Total 1999 3700 2200 Balance 640 2919 -690 Weight 66.5 kg 68.2 kg Results Laboratory Results: 06/20/18 09:21 06/20/18 09:21 06/19/18 06/20/18 06/20/18 21:49 09:21 09:21 WBC 8.8 RBC 3.99 Hgb 11.3 L Hct 33.2 L MCV 83 MCH 28.2 MCHC 34.0 RDW 14.9 H Plt Count 222 Sodium 137.6 Potassium 3.3 L Chloride 104 Carbon Dioxide 26 Anion Gap 8 BUN 9 Creatinine 0.36 L Est GFR ( Amer) > 60 Est GFR (Non-Af Amer) > 60 Glucose 83 Calcium 8.1 L Magnesium 2.0 Total Bilirubin 0.2 AST 23 ALT 31 Alkaline Phosphatase 54 Total Protein 6.2 L Albumin 3.0 L Stool for White Cells NO WBCs SEEN Impressions: Chest X-Ray 06/17/18 00:00 IMPRESSION: Obstructive lung disease. Minimal left basilar atelectasis KUB X-Ray 06/19/18 00:00 IMPRESSION: PEG tube in place.
[2018-06-20] MEDS: HYDROMORPHONE HCL INJ/PF 2 MG/ML AMPULE IV PRN ×6 (03:03→22:28)
[2018-06-20] MEDS: NORMAL SALINE 1000 ML 1,000 ML IV PRN ×2 (03:06→15:47)
[2018-06-20] MEDS: GABAPENTIN 300 MG CAPSULE PEG SCH ×3 (05:54→22:31)
[2018-06-20] MEDS: METRONIDAZOLE 500 MG/NS RTU 500 MG/100 ML RTUPB IV SCH ×3 (05:54→18:21)
[2018-06-20 10:13] LABS: HEMATOCRIT 33.2 % (36.0-47.0); HEMOGLOBIN 11.3 g/dL (12.0-15.5); MEAN CORPUSCULAR HEMOGLOBIN 28.2 pg (27.0-33.4); MEAN CORPUSCULAR VOLUME 83 fl (80-97); PLATELET COUNT 222 10^3/uL (150-450); RED BLOOD COUNT 3.99 10^6/uL (3.72-5.28); RED CELL DISTRIBUTION WIDTH 14.9 % (11.5-14.0); WHITE BLOOD COUNT 8.8 10^3/uL (4.0-10.5)
[2018-06-20] MEDS: DULOXETINE HCL 30 MG CAPSULE.DR PEG SCH (10:22)
[2018-06-20] MEDS: ZINC SULFATE 220 MG CAPSULE PEG SCH (10:22)
[2018-06-20] MEDS: MULTIVITAMIN ORAL LIQUID 60 ML PEG SCH (10:22)
[2018-06-20] MEDS: ASCORBIC ACID 500 MG TABLET PEG SCH ×2 (10:22→18:24)
[2018-06-20] MEDS: ENOXAPARIN SODIUM INJ 30 MG/0.3 ML DISP.SYRIN SUBCUT SCH (10:24)
[2018-06-20] MEDS: CEFEPIME 2 GM/D5W RTU 2 GM/50 ML RTUPB IV SCH ×2 (10:24→22:25)
[2018-06-20 10:38] LABS: ALANINE AMINOTRANSFERASE 31 U/L (9-52); ALKALINE PHOSPHATASE 54 U/L (38-126); ANION GAP 8 (5-19); ASPARTATE AMINO TRANSFERASE 23 U/L (14-36); BILIRUBIN,DIRECT 0.2 mg/dL (0.0-0.4); BILIRUBIN,TOTAL 0.2 mg/dL (0.2-1.3); BLOOD UREA NITROGEN 9 mg/dL (7-20); CALCIUM 8.1 mg/dL (8.4-10.2); CARBON DIOXIDE 26 mmol/L (22-30); CHLORIDE 104 mmol/L (98-107); GLUCOSE 83 mg/dL (75-110); POTASSIUM 3.3 mmol/L (3.6-5.0); SODIUM 137.6 mmol/L (137-145); TOTAL PROTEIN 6.2 g/dL (6.3-8.2)
[2018-06-20] MEDS ORDERED: DIPHENOXYLATE HCL/ATROP SULF 2.5-0.025 MG TABLET PO PRN (18:17)
[2018-06-20] MEDS ORDERED: DIPHENOXYLATE HCL/ATROP SULF 2.5-0.025 MG TABLET PO ONE (18:17)
--- NOTE | 2018-06-20 18:30 | PDOC PROGRESS REPORT ---
<FEROZ LIEBERMAN - Last Filed: 06/20/18 18:30> Subjective Progress Note for:: 06/20/18 Subjective:: ARTURO GILBERT is a 52 year old female is a long-term resident of [facility] who presented to [facility]EDS AT [facility] with nausea, vomiting and watery diarrhea x multiple days. 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 Of note, the patient just completed 1 month of IV vancomycin for treatment of MRSA infection in a sacral decubitus ulcer. The patient was seen this morning on rounds. Nursing staff reports the patient is still having diarrhea but that her abdominal pain is now controlled with dilaudid. She states that the medication "wears off quickly," plan to decrease dose but increase frequency. Upon assessment, the patient resting in bed on room air. She appears much more comfortable today. The patient endorses mild abdominal pain and diarrhea overnight. No Leukocytosis. The patient remains afebrile. Multiple C.diff PCRs negative. Stool studies negative for WBC. Plan to initiate lomitil for relief of diarrhea. Once diarrhea is resolved, patient will need wound vac replaced on sacral decub ulcer. Reason For Visit: DIARRHEA,UTI,COLITIS Physical Exam Vital Signs: Temp Pulse Resp BP Pulse Ox 98.1 F 57 L 18 115/66 97 06/20/18 16:00 06/20/18 16:00 06/20/18 16:00 06/20/18 16:00 06/20/18 16:00 Intake & Output 06/19/18 06/20/18 06/21/18 06:59 06:59 06:59 Intake Total 2640 6619 1000 Output Total 1999 3700 Balance 640 2919 1000 Weight 66.5 kg 68.2 kg General appearance: PRESENT: no acute distress Head exam: PRESENT: atraumatic Eye exam: PRESENT: conjunctiva pink, PERRLA Mouth exam: PRESENT: moist, tongue midline Teeth exam: PRESENT: poor dentation Neck exam: PRESENT: full ROM Respiratory exam: PRESENT: clear to auscultation justyna, symmetrical, unlabored Cardiovascular exam: PRESENT: +S1, +S2 Pulses: PRESENT: normal radial pulses, normal dorsalis pedis pul Vascular exam: PRESENT: pallor GI/Abdominal exam: PRESENT: normal bowel sounds, soft, tenderness - MILD. DIFFUSE. Rectal exam: PRESENT: deferred Extremities exam: ABSENT: full ROM, pedal edema Musculoskeletal exam: ABSENT: ambulatory, full ROM Neurological exam: PRESENT: alert, awake, oriented to person, oriented to place , oriented to time, oriented to situation Psychiatric exam: PRESENT: appropriate affect Skin exam: PRESENT: dry, intact, pallor, other - UNSTAGABLE TUNNELED SACRAL DECUB Results Laboratory Results: 06/20/18 09:21 06/20/18 09:21 06/19/18 06/20/18 06/20/18 21:49 09:21 09:21 WBC 8.8 RBC 3.99 Hgb 11.3 L Hct 33.2 L MCV 83 MCH 28.2 MCHC 34.0 RDW 14.9 H Plt Count 222 Sodium 137.6 Potassium 3.3 L Chloride 104 Carbon Dioxide 26 Anion Gap 8 BUN 9 Creatinine 0.36 L Est GFR ( Amer) > 60 Est GFR (Non-Af Amer) > 60 Glucose 83 Calcium 8.1 L Magnesium 2.0 Total Bilirubin 0.2 AST 23 ALT 31 Alkaline Phosphatase 54 Total Protein 6.2 L Albumin 3.0 L Stool for White Cells NO WBCs SEEN Impressions: Chest X-Ray 06/17/18 00:00 IMPRESSION: Obstructive lung disease. Minimal left basilar atelectasis KUB X-Ray 06/19/18 00:00 IMPRESSION: PEG tube in place. Status: Imported from PACS Assessment & Plan - Diagnosis (1) Diarrhea QualifierTitle: Diarrhea type: presumed infectious Qualified Code(s): R19.7 - Diarrhea, unspecified Is this a current diagnosis for this admission?: Yes Plan: intermediate reports watery diarrhea for "days" Recent completion of 1 month IV Vancoymycin for MRSA infected decubital ulcer Initial leukocytosis 15.0, has since resolved (WBC 9.5) Afebrile C.Diff PCR negative x2 Stool studies negative for WBC Stool culture pending Flagyl IV for possible colitis Continue maintenance IVF (2) VINI (acute kidney injury) Is this a current diagnosis for this admission?: Yes Plan: Pre-renal. Secondary to intravascular depletion related to #1 See plan as above (3) Decubital ulcer QualifierTitle: Pressure injury location: sacral region Pressure injury stage: stage 4 Qualified Code(s): L89.154 - Pressure ulcer of sacral region, stage 4 Is this a current diagnosis for this admission?: Yes Plan: Patient has a history of MRSA infected sacral decubital ulcer Treated for 1 month with IV Vancomycin Wound culture growing E.coli and MDR Morganella - covered with Cefepime Wound Vac attached to site while at [facility] Staff reports the vac was "not working well" Consulted surgery for evaluation, do not recommend replacement of wound vac due to persistent diarrhea Keep wound covered with mepliex, change q24h or if soiled (4) MRSA (methicillin resistant Staphylococcus aureus) Is this a current diagnosis for this admission?: Yes Plan: History of MRSA in sacral wound Previously treated with IV vancomycin Contact isolation precautions (5) UTI (urinary tract infection) QualifierTitle: Urinary tract infection type: acute cystitis Is this a current diagnosis for this admission?: Yes Plan: Patient has significant history of UTI Urinalysis indicative of UTI Removed original indwelling catheter and replaced with new Claire MDR Morganella growing in urine, sensitive to Cefepime Continue cefepime 2 g IV every 12 hours (day 2) for complicated UTI (6) Hypokalemia Is this a current diagnosis for this admission?: Yes Plan: Secondary to GI loss Replacement per electrolyte protocol Follow daily chemistries - Time Time Spent with patient: 15-24 minutes Medications reviewed and adjusted accordingly: Yes Anticipated discharge: Home Within: within 24 hours - Inpatient Certification Based on my medical assessment, after consideration of the patient's comorbidities, presenting symptoms, or acuity I expect that the services needed warrant INPATIENT care.: Yes I certify that my determination is in accordance with my understanding of Medicare's requirements for reasonable and necessary INPATIENT services [42 CFR 412.3e].: Yes Medical Necessity: Need for IV Antibiotics, Risk of Complication if Not Cared For in Hospital - Plan Summary Plan Summary: INITIATE LOMOTIL. <IRMA GASPAR - Last Filed: 06/20/18 19:01> Subjective Reason For Visit: DIARRHEA,UTI,COLITIS Physical Exam Vital Signs: Temp Pulse Resp BP Pulse Ox 98.1 F 57 L 18 115/66 97 06/20/18 16:00 06/20/18 16:00 06/20/18 16:00 06/20/18 16:00 06/20/18 16:00 Intake & Output 06/19/18 06/20/18 06/21/18 06:59 06:59 06:59 Intake Total 2640 6619 1510 Output Total 1999 3700 2200 Balance 640 6854 -352 Weight 66.5 kg 68.2 kg Results Laboratory Results: 06/20/18 09:21 06/20/18 09:21 06/19/18 06/20/18 06/20/18 21:49 09:21 09:21 WBC 8.8 RBC 3.99 Hgb 11.3 L Hct 33.2 L MCV 83 MCH 28.2 MCHC 34.0 RDW 14.9 H Plt Count 222 Sodium 137.6 Potassium 3.3 L Chloride 104 Carbon Dioxide 26 Anion Gap 8 BUN 9 Creatinine 0.36 L Est GFR ( Amer) > 60 Est GFR (Non-Af Amer) > 60 Glucose 83 Calcium 8.1 L Magnesium 2.0 Total Bilirubin 0.2 AST 23 ALT 31 Alkaline Phosphatase 54 Total Protein 6.2 L Albumin 3.0 L Stool for White Cells NO WBCs SEEN Impressions: Chest X-Ray 06/17/18 00:00 IMPRESSION: Obstructive lung disease. Minimal left basilar atelectasis KUB X-Ray 06/19/18 00:00 IMPRESSION: PEG tube in place. Provider Note Provider Note: I have discussed the patient with MALAIKA Lieberman in detail. I am in agreement with her evaluation and plan.
[2018-06-21] MEDS: METRONIDAZOLE 500 MG/NS RTU 500 MG/100 ML RTUPB IV SCH ×5 (00:22→23:13)
[2018-06-21] MEDS: HYDROMORPHONE HCL INJ/PF 2 MG/ML AMPULE IV PRN ×7 (03:06→23:13)
[2018-06-21] MEDS: GABAPENTIN 300 MG CAPSULE PEG SCH ×3 (06:24→21:22)
[2018-06-21] MEDS: NORMAL SALINE 1000 ML 1,000 ML IV PRN (06:25)
[2018-06-21] MEDS: CEFEPIME 2 GM/D5W RTU 2 GM/50 ML RTUPB IV SCH ×2 (09:37→21:22)
[2018-06-21] MEDS: DULOXETINE HCL 30 MG CAPSULE.DR PEG SCH (09:38)
[2018-06-21] MEDS: ENOXAPARIN SODIUM INJ 30 MG/0.3 ML DISP.SYRIN SUBCUT SCH (09:38)
[2018-06-21] MEDS: ASCORBIC ACID 500 MG TABLET PEG SCH ×2 (09:38→17:44)
[2018-06-21] MEDS: ZINC SULFATE 220 MG CAPSULE PEG SCH (09:39)
[2018-06-21] MEDS: MULTIVITAMIN ORAL LIQUID 60 ML PEG SCH (09:39)
[2018-06-21] MEDS: DIPHENOXYLATE HCL/ATROP SULF 2.5-0.025 MG TABLET PO SCH ×3 (13:13→17:44)
[2018-06-21] MEDS: PROMETHAZINE HCL INJ 25 MG/1 ML VIAL IV PRN (19:51)
[2018-06-21] MEDS: ONDANSETRON HCL INJ/PF 4 MG/2 ML SDV IV PRN (23:13)
--- NOTE | 2018-06-22 00:32 | PDOC PROGRESS REPORT ---
Subjective Progress Note for:: 06/22/18 Subjective:: ARTURO GILBERT is a 52 year old female is a long-term resident of [facility] who presented to [facility] with nausea, vomiting and watery diarrhea x multiple days. 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 Of note, the patient just completed 1 month of IV vancomycin for treatment of MRSA infection in a sacral decubitus ulcer. The patient was seen this morning on rounds. Nursing staff reports the patient is still having diarrhea but that her abdominal pain is now controlled with dilaudid. Upon assessment, the patient resting in bed on room air. She appears much more comfortable today. The patient endorses mild abdominal pain and incontinence of stool overnight. No Leukocytosis. The patient remains afebrile. Multiple C.diff PCRs negative. Stool studies negative for WBC. Initiated lomitil for relief of diarrhea. Once diarrhea is resolved, patient will need wound vac replaced on sacral decub ulcer. Reason For Visit: DIARRHEA,UTI,COLITIS Physical Exam Vital Signs: Temp Pulse Resp BP Pulse Ox 97.9 F 60 18 138/60 H 95 06/21/18 20:05 06/21/18 20:05 06/21/18 20:05 06/21/18 20:05 06/21/18 20:05 Intake & Output 06/20/18 06/21/18 06/22/18 06:59 06:59 06:59 Intake Total 6619 2760 3635 Output Total 3700 3880 2075 Balance 2919 -1120 1560 Weight 68.2 kg 66.1 kg General appearance: PRESENT: no acute distress, well-developed, well-nourished Eye exam: PRESENT: conjunctiva pink, PERRLA Mouth exam: PRESENT: moist Teeth exam: PRESENT: poor dentation Neck exam: PRESENT: full ROM Respiratory exam: PRESENT: clear to auscultation justyna, symmetrical, unlabored Cardiovascular exam: PRESENT: +S1, +S2 Pulses: PRESENT: normal radial pulses, normal dorsalis pedis pul Vascular exam: PRESENT: pallor GI/Abdominal exam: PRESENT: normal bowel sounds, soft. ABSENT: distended, tenderness Rectal exam: PRESENT: deferred Gentrourinary exam: PRESENT: indwelling catheter Extremities exam: ABSENT: full ROM, pedal edema Musculoskeletal exam: PRESENT: other - hemiplegia. ABSENT: ambulatory, full ROM Neurological exam: PRESENT: alert, awake, oriented to person, oriented to place , oriented to time, oriented to situation Skin exam: PRESENT: dry, intact, pallor Results Laboratory Results: 06/20/18 09:21 06/20/18 09:21 Impressions: Chest X-Ray 06/17/18 00:00 IMPRESSION: Obstructive lung disease. Minimal left basilar atelectasis KUB X-Ray 06/19/18 00:00 IMPRESSION: PEG tube in place. Status: Imported from PACS Assessment & Plan - Diagnosis (1) Diarrhea Qualifiers: Diarrhea type: presumed infectious Qualified Code(s): R19.7 - Diarrhea, unspecified Is this a current diagnosis for this admission?: Yes Plan: custodial reports watery diarrhea for "days" Recent completion of 1 month IV Vancoymycin for MRSA infected decubital ulcer Initial leukocytosis 15.0, has since resolved (WBC 9.5) Afebrile C.Diff PCR negative x2 Stool studies negative for WBC Stool culture pending Flagyl IV for possible colitis Continue maintenance IVF (2) VINI (acute kidney injury) Is this a current diagnosis for this admission?: Yes Plan: Pre-renal. Secondary to intravascular depletion related to #1 See plan as above (3) Decubital ulcer Qualifiers: Pressure injury location: sacral region Pressure injury stage: stage 4 Qualified Code(s): L89.154 - Pressure ulcer of sacral region, stage 4 Is this a current diagnosis for this admission?: Yes Plan: Stage 4 decub ulcer - chronic. Patient presented to hospital with this ilcer. Patient has a history of MRSA infected sacral decubital ulcer Treated for 1 month with IV Vancomycin Wound culture growing E.coli and MDR Morganella - covered with Cefepime Wound Vac attached to site while at [facility] Staff reports the vac was "not working well" Consulted surgery for evaluation, do not recommend replacement of wound vac due to persistent diarrhea Keep wound covered with mepliex, change q24h or if soiled (4) MRSA (methicillin resistant Staphylococcus aureus) Is this a current diagnosis for this admission?: Yes Plan: History of MRSA in sacral wound Previously treated with IV vancomycin Contact isolation precautions (5) UTI (urinary tract infection) Qualifiers: Urinary tract infection type: acute cystitis Is this a current diagnosis for this admission?: Yes Plan: Patient has significant history of UTI Urinalysis indicative of UTI Removed original indwelling catheter and replaced with new Claire MDR Morganella growing in urine, sensitive to Cefepime Continue cefepime 2 g IV every 12 hours (day 2) for complicated UTI (6) Hypokalemia Is this a current diagnosis for this admission?: Yes Plan: Secondary to GI loss Replacement per electrolyte protocol Follow daily chemistries - Time Time Spent with patient: 15-24 minutes Medications reviewed and adjusted accordingly: Yes Anticipated discharge: SNF Within: within 72 hours - Inpatient Certification Based on my medical assessment, after consideration of the patient's comorbidities, presenting symptoms, or acuity I expect that the services needed warrant INPATIENT care.: Yes I certify that my determination is in accordance with my understanding of Medicare's requirements for reasonable and necessary INPATIENT services [42 CFR 412.3e].: Yes Medical Necessity: Need for IV Antibiotics - Plan Summary Plan Summary: continue abx. consult surgery re: replacing wound vac.
[2018-06-22] MEDS: NORMAL SALINE 1000 ML 1,000 ML IV PRN ×3 (02:10→22:16)
[2018-06-22] MEDS: GABAPENTIN 300 MG CAPSULE PEG SCH ×3 (05:10→22:02)
[2018-06-22] MEDS: HYDROMORPHONE HCL INJ/PF 2 MG/ML AMPULE IV PRN ×4 (05:10→22:14)
[2018-06-22] MEDS: PROMETHAZINE HCL INJ 25 MG/1 ML VIAL IV PRN ×2 (05:10→22:15)
[2018-06-22] MEDS: METRONIDAZOLE 500 MG/NS RTU 500 MG/100 ML RTUPB IV SCH ×3 (05:11→17:17)
[2018-06-22 06:01] LABS: HEMATOCRIT 31.7 % (36.0-47.0); HEMOGLOBIN 10.7 g/dL (12.0-15.5); MEAN CORPUSCULAR HEMOGLOBIN 28.3 pg (27.0-33.4); MEAN CORPUSCULAR HGB CONC 33.8 g/dL (32.0-36.0); MEAN CORPUSCULAR VOLUME 84 fl (80-97); PLATELET COUNT 190 10^3/uL (150-450); RED BLOOD COUNT 3.79 10^6/uL (3.72-5.28); RED CELL DISTRIBUTION WIDTH 14.7 % (11.5-14.0); WHITE BLOOD COUNT 7.4 10^3/uL (4.0-10.5)
[2018-06-22 06:31] LABS: ANION GAP 9 (5-19); BLOOD UREA NITROGEN 9 mg/dL (7-20); CARBON DIOXIDE 27 mmol/L (22-30); CHLORIDE 104 mmol/L (98-107); GLUCOSE 109 mg/dL (75-110); POTASSIUM 3.1 mmol/L (3.6-5.0); SODIUM 139.5 mmol/L (137-145)
[2018-06-22] MEDS: ONDANSETRON HCL INJ/PF 4 MG/2 ML SDV IV PRN (08:20)
[2018-06-22] MEDS ORDERED: OXYCODONE HCL IR 5 MG TABLET PO PRN ×2 (08:41→12:00)
[2018-06-22] MEDS ORDERED: POTASSIUM CHLORIDE 10 MEQ CAPSULE.ER PO ONE (09:30)
[2018-06-22] MEDS: ENOXAPARIN SODIUM INJ 30 MG/0.3 ML DISP.SYRIN SUBCUT SCH (09:36)
[2018-06-22] MEDS: DULOXETINE HCL 30 MG CAPSULE.DR PEG SCH (09:38)
[2018-06-22] MEDS: MULTIVITAMIN ORAL LIQUID 60 ML PEG SCH (09:38)
[2018-06-22] MEDS: ASCORBIC ACID 500 MG TABLET PEG SCH ×2 (09:38→17:17)
[2018-06-22] MEDS: ZINC SULFATE 220 MG CAPSULE PEG SCH (09:39)
[2018-06-22] MEDS: CEFEPIME 2 GM/D5W RTU 2 GM/50 ML RTUPB IV SCH (09:39)
[2018-06-22] MEDS: DIPHENOXYLATE HCL/ATROP SULF 2.5-0.025 MG TABLET PO SCH ×3 (09:39→17:17)
[2018-06-22] MEDS ORDERED: OXYCODONE HCL IR 5 MG TABLET PO ONE (11:59)
[2018-06-22] MEDS: OXYCODONE HCL IR 5 MG TABLET PO PRN ×2 (14:07→18:45)
[2018-06-22] MEDS: OXYCODONE HCL SR 10 MG TABLET PO SCH ×2 (15:30→22:02)
--- NOTE | 2018-06-22 16:13 | Progress Note ---
Provider Note Provider Note: ID Consult Note Asked to review patient's chart. Pt not seen or examined. Reviewed VS, labs, provider notes. Ms. Aguilar is a 52 [facility] female [facility] with PMH including hemiplegia. She has an indwelling salazar. She was admitted for c/o vomiting and watery diarrhea x several days. According to the H&P, pt recently completed a course of IV vancomycin and PO Augmentin for infected sacral decubitus ulcer with osteomyelitis. At current admission, the patient c/ o nausea and abdominal pain and endorsed having a sick contact - reported that her roommate at the SNF was ill. Pt was noted to be actively vomiting and having episodes of watery diarrhea. She had diffusely tender but soft abdomen. Her labs revealed leukocytosis with WBC 15.1, hypokalemia 3.4. She also had U/A that showed pyuria and bacteriuria. She had no fecal leukocytes, C difficile stool assay was negative, Stool culture for enteric bacterial pathogens was negative, blood cultures were negative. Urine culture grew >100k cfu Morganella morganii. A swab of the sacral decubitus ulcer on admission grew 2+ E coli, 2+ Morganella morganii, and 3 colonies of Pseudomonas aeruginosa. Empirically cefepime and Flagyl were started for suspected catheter associated UTI and colitis on 06/17 and continued to present. Pt has remained afebrile. Leukocytosis resolved. Input was sought regarding wound swab cultures from sacral ulcer. Impression/Recommendations Diarrhea - C diff negative, stool cx negative for enteric bacteria pathogens, fecal leukocytes negative. - Most cases of acute infectious diarrhea are viral, can cause vomiting and fever also. Fecal leukocytes are typically absent in noninflammatory diarrhea, which can include causes such as norovirus, for instance. - At this point, abx therapy not indicated, continue symptomatic management/ supportive care. asymptomatic bacteriuria vs catheter associated UTI - In a patient with indwelling urinary catheter, pyuria is common and is not diagnostic of UTI. Absence of pyuria has good negative predictive value against UTI, but presence of pyuria does not have good positive predictive value for UTI in catheterized patient. Asymptomatic colonization of the urine in someone with an indwelling catheter is common. - It is possible that the patient has acute gastroenteritis without a UTI. Signs or symptoms of a catheter associated UTI could include new fever or altered mental status without other identified cause, flank pain or CVA tenderness or suprapubic pain or pelvic discomfort. If the patient has no other suggestive symptoms or signs besides diffuse abdominal tenderness due to her gastroenteritis, she would be best characterized as having asymptomatic bacteriuria rather than a catheter associated UTI and would not be in need of antibiotic therapy. Sacral decubitus ulcer - Generally superficial wound swabs are not useful in diagnosing infection in chronic ulcers. If the wound appears clinically uninfected, no dedicated antimicrobial therapy would be indicated. If there are cardinal signs of inflammation present (e.g. erythema, purulent drainage), the wound may be infected and would be in need of debridement for source control and deep tissue cultures to guide adjunctive antimicrobial therapy. Deep tissue cultures, if the wound appears to be infected, are best obtained off of antimicrobial therapy as long as the patient is stable from an hemodynamic perspective and not septic, not demonstrating systemic signs of infection. If the wound is clean appearing, the results of a superficial swab likely represent bacterial colonization. Roldan Curry MD [facility] Infectious Diseases pager [phone]
--- NOTE | 2018-06-22 18:15 | PDOC PROGRESS REPORT ---
Subjective Progress Note for:: 06/22/18 Subjective:: The patient is 52 year old female is a long-term resident of [facility]. 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 The patient was sent to [facility] ED for nausea, vomiting and watery diarrhea x multiple days. Of note, the patient just completed 1 month of IV vancomycin for treatment of MRSA infection in a sacral decubitus ulcer admitted for VINI, UTI, loose stools, and a chronic decubital wound. The patient is seen on afternoon rounds. She is found resting in bed comfortably on room air. She is alert and oriented to herself but disoriented to place, time, situation. She denies fevers, chills, chest pain, dyspnea, cough, abdominal pain, nausea and vomiting today. She does not believe that she has had any stools and this is confirmed by nursing; no incontinence of stool today. Overall, she feels that she is in good health and has no new questions or concerns. Reason For Visit: DIARRHEA,UTI,COLITIS Physical Exam Vital Signs: Temp Pulse Resp BP Pulse Ox 98.3 F 55 L 16 122/65 94 06/22/18 15:43 06/22/18 15:43 06/22/18 15:43 06/22/18 15:43 06/22/18 15:43 Intake & Output 06/21/18 06/22/18 06/23/18 06:59 06:59 06:59 Intake Total 2760 4940 623 Output Total 3880 4325 1300 Balance -1120 615 -677 Weight 66.1 kg 65.2 kg General appearance: PRESENT: no acute distress, cooperative, well-developed, well-nourished - Overweight Head exam: PRESENT: atraumatic, normocephalic Eye exam: PRESENT: conjunctiva pink, EOMI, PERRLA. ABSENT: scleral icterus Ear exam: PRESENT: normal external ear exam Mouth exam: PRESENT: moist, tongue midline Teeth exam: PRESENT: poor dentation Neck exam: ABSENT: carotid bruit, JVD, lymphadenopathy, thyromegaly Respiratory exam: PRESENT: clear to auscultation justyna, symmetrical, unlabored. ABSENT: rales, rhonchi, wheezes Cardiovascular exam: PRESENT: RRR. ABSENT: diastolic murmur, rubs, systolic murmur Pulses: PRESENT: normal dorsalis pedis pul Vascular exam: PRESENT: normal capillary refill GI/Abdominal exam: PRESENT: normal bowel sounds, soft, tenderness - mild; none elicited on exam, other - PEG tube. ABSENT: distended, guarding, mass, organolmegaly, rebound Rectal exam: PRESENT: deferred Extremities exam: PRESENT: other - Baseline limited mobility all extremities. ABSENT: calf tenderness, clubbing, pedal edema Neurological exam: PRESENT: alert, awake, oriented to person, oriented to place , oriented to time, oriented to situation, CN II-XII grossly intact. ABSENT: motor sensory deficit Psychiatric exam: PRESENT: appropriate affect, normal mood. ABSENT: homicidal ideation, suicidal ideation Skin exam: PRESENT: dry, warm, other - Chronic decubital ulcer. ABSENT: cyanosis, rash Results Laboratory Results: 06/22/18 05:01 06/22/18 05:01 06/22/18 06/22/18 05:01 05:01 WBC 7.4 RBC 3.79 Hgb 10.7 L Hct 31.7 L MCV 84 MCH 28.3 MCHC 33.8 RDW 14.7 H Plt Count 190 Sodium 139.5 Potassium 3.1 L Chloride 104 Carbon Dioxide 27 Anion Gap 9 BUN 9 Creatinine 0.37 L Est GFR ( Amer) > 60 Est GFR (Non-Af Amer) > 60 Glucose 109 Calcium 8.0 L Phosphorus 3.0 Magnesium 2.0 06/19/18 21:49 Stool - Stool - Final 06/19/18 21:49 Stool - Stool Stool Culture - Final NO SALMONELLA, SHIGELLA, CAMPYLOBACTER, OR E.COLI 0157 RECOVERED. NEGATIVE FOR SHIGA TOXINS 1&2. Impressions: Chest X-Ray 06/17/18 00:00 IMPRESSION: Obstructive lung disease. Minimal left basilar atelectasis KUB X-Ray 06/19/18 00:00 IMPRESSION: PEG tube in place. Assessment & Plan - Diagnosis (1) Diarrhea Qualifiers: Diarrhea type: unspecified type Qualified Code(s): R19.7 - Diarrhea, unspecified Is this a current diagnosis for this admission?: Yes Plan: Resolved; the patient was admitted from a intermediate with report of watery diarrhea for several days following completion of IV vancomycin for MRSA in the decubital ulcer. Leukocytosis has resolved. Patient remains afebrile. C.Diff PCR negative x2 Stool studies negative for WBC Stool culture is negative. The patient was admitted to the medical floor and empirically placed on IV Flagyl for possible colitis and supported with maintenance IV fluids. The patient's loose stools, incontinence, abdominal discomfort have all resolved. She denies nausea or vomiting today and has tolerated tube feeds without difficulty. Infectious disease was consulted; greatly appreciate Dr. Curry's evaluation and recommendations. Will discontinue IV Flagyl per her recommendations as the patient has a benign abdominal exam and no indications of acute infectious process at this time. (2) VINI (acute kidney injury) Is this a current diagnosis for this admission?: Yes Plan: Resolved; prerenal secondary to dehydration in the setting of loose stools. (3) Decubital ulcer Qualifiers: Pressure injury location: sacral region Pressure injury stage: stage 4 Qualified Code(s): L89.154 - Pressure ulcer of sacral region, stage 4 Is this a current diagnosis for this admission?: Yes Plan: Stage 4 decub ulcer - chronic and present on arrival. Patient has a history of MRSA infected sacral decubital ulcer; per outpatient records she is just completed a one-month course of IV Wound culture growing E.coli and MDR Morganella Final blood cultures have no growth at 5 days. The patient was empirically covered with IV cefepime. Surgery was consulted for wound VAC recommendations; advised to hold wound VAC while patient having persistent incontinence of diarrhea. I have reconsulted surgery today; spoke with Dr. Lazcano who will reevaluate the wounds to determine if it requires surgical intervention prior to discharge and provide wound care recommendations. Greatly appreciate his assistance. Infectious disease was consulted; advised against continued IV antibiotics for chronic sacral decubitus ulcer utilizing surface wound culture results. Will discontinue antibiotics as the patient does not appear acutely ill at this time. (4) UTI (urinary tract infection) Qualifiers: Urinary tract infection type: acute cystitis Is this a current diagnosis for this admission?: Yes Plan: Patient has significant history of UTI Urinalysis indicative of UTI Removed original indwelling catheter and replaced with new Claire MDR Morganella growing in urine The patient was empirically placed on IV cefepime. Infectious disease was consulted; as the patient is afebrile, WBCs are normal, with chronic indwelling Claire catheter it is likely that her urinalysis is suggestive of pyuria related to catheter presents with colonized urine and not necessarily office services representative of active infectious process. We will discontinue antibiotics per their recommendation and continue to monitor closely. (5) Hypokalemia Is this a current diagnosis for this admission?: Yes Plan: Secondary to GI losses; anticipate this should improve as nursing reports that her diarrhea has now resolved. Will monitor and continue to replace as necessary. (6) MRSA (methicillin resistant Staphylococcus aureus) Is this a current diagnosis for this admission?: Yes Plan: Contact precautions. Cultures and antibiotics as above. - Time Time Spent with patient: 25-34 minutes Anticipated discharge: SNF - Established resident at [facility] Within: within 24 hours - Pending surgical evaluation
--- NOTE | 2018-06-22 19:32 | PDOC CONSULTATION ---
Consultation Consult Date: 06/22/18 Consult reason:: evaluate sacral decubitus History of Present Illness Admission Date/PCP: 06/17/18 14:36 HÉCTOR BLOUNT MD Patient complains of: Claims has chronic sacral decubitus History of Present Illness: ARTURO GILBERT is a 52 year old female paraplegic from septic emboli about 3 years ago. Developed a sacral decubitus and was treated with Vancomycin for 1 month. Admitted this time for diarrhea. Surgery is consulted to evaluate decubitus. Past Medical History Cardiac Medical History: Denies: Coronary Artery Disease, Myocardial Infarction, Hypertension Pulmonary Medical History: Denies: Asthma, Bronchitis, Chronic Obstructive Pulmonary Disease (COPD), Pneumonia Neurological Medical History: Reports: Other - HEMIPLEGIA Denies: Seizures Musculoskeltal Medical History: Denies: Arthritis Psychiatric Medical History: Denies: Depression Hematology: Reports: Anemia Past Surgical History Past Surgical History: Reports: Other - PEG TUBE PLACEMENT Social History Lives with: [facility] Smoking Status: Former Smoker Frequency of Alcohol Use: None Hx Recreational Drug Use: No Drugs: None Hx Prescription Drug Abuse: No - Advance Directive Resuscitation Status: Full Code Family History Family History: Reviewed & Not Pertinent Parental Family History Reviewed: Yes Children Family History Reviewed: No Sibling(s) Family History Reviewed.: No Medication/Allergy Home Medications: Acetaminophen [Tylenol Soln 325 mg/10.15 ml Udcup] 325 mg PEG Q4HP PRN 06/17/18 Acetaminophen [Tylenol Soln 325 mg/10.15 ml Udcup] 500 mg PEG Q12 06/17/18 Ascorbic Acid [Vitamin C 500 mg Tablet] 500 mg PEG BID MDD until wound resolves 06/17/18 Bismuth Subsalicylate [Maalox] 20 ml PEG Q4HP PRN 06/17/18 Cephalexin [Cephalexin 500 MG Capsule] 500 mg PEG Q8 06/17/18 Duloxetine HCl [Cymbalta] 30 mg PEG DAILY 06/17/18 Flavoxate HCl [Urispas] 200 mg PEG Q8 06/17/18 Gabapentin [Neurontin 300 mg Capsule] 300 mg PEG Q8 06/17/18 Meloxicam 15 mg PEG DAILY 06/17/18 Metoclopramide HCl [Reglan Oral Soln 10 mg/10 ml Udcup] 5 mg PEG QID 06/17/18 Multivit-Minerals/Ferrous Gluc [Centrum Multivit-Mineral Liq] 10 ml PEG DAILY Omeprazole 40 mg PO Q6AM 06/17/18 Ondansetron [Zofran Odt 4 mg Tablet] 4 mg PEG Q6HP PRN 06/17/18 Oxycodone HCl [Oxy-Ir 5 mg Tablet] 5 mg PO Q4HP PRN 06/17/18 Oxycodone HCl [Oxycontin Sr 10 mg Tablet] 20 mg PO Q8 06/17/18 Promethazine HCl [Phenergan Inj 25 mg/1 ml Vial] 25 mg IM Q6HP PRN MDD 3 doses 06/17/18 Sennosides/Docusate Sodium [Senna-S Tablet] 1 each PEG Q12 MDD hold for loose stool 06/17/18 Solifenacin Succinate [Vesicare] 5 mg PO DAILY 06/17/18 Tizanidine HCl [Zanaflex 4 mg Tablet] 2 mg PEG Q8 06/17/18 Zinc Sulfate [Zinc-220 Capsule] 220 mg PEG DAILY 06/17/18 Allergies/Adverse Reactions: codeine [Codeine] Allergy (Verified 07/16/16 11:27) oxycodone HCl [From Percocet] Allergy (Verified 07/16/16 11:27) Review of Systems Constitutional: PRESENT: other - no fever/chills Eyes: PRESENT: other - no visual/hearing changes Cardiovascular: PRESENT: other - no chest pains/cough Gastrointestinal: PRESENT: other - no abdominal pains Musculoskeletal: PRESENT: muscle weakness - paralyze Integumentary: PRESENT: other - Grade 4 sacral decubitus ulcer Neurological: PRESENT: other - contracted upper extremities and paralyzed legs Physical Exam Vital Signs: Temp Pulse Resp BP Pulse Ox 98.3 F 55 L 16 122/65 94 06/22/18 15:43 06/22/18 15:43 06/22/18 15:43 06/22/18 15:43 06/22/18 15:43 Intake & Output 06/21/18 06/22/18 06/23/18 06:59 06:59 06:59 Intake Total 2760 4940 623 Output Total 3880 4325 1300 Balance -1120 615 -677 Weight 66.1 kg 65.2 kg General appearance: PRESENT: no acute distress Head exam: PRESENT: atraumatic Eye exam: PRESENT: conjunctiva pink Mouth exam: PRESENT: moist Neck exam: PRESENT: other - no thyromegaly Respiratory exam: PRESENT: clear to auscultation justyna Cardiovascular exam: PRESENT: RRR Pulses: PRESENT: normal radial pulses GI/Abdominal exam: PRESENT: soft Rectal exam: PRESENT: other - sacral decubitus ulcer about 2.5 cm in dameter that looks clean and dry Musculoskeletal exam: PRESENT: other - paraplegic Neurological exam: PRESENT: alert, oriented to person, oriented to place, oriented to time, oriented to situation Psychiatric exam: PRESENT: appropriate affect Skin exam: PRESENT: normal color, warm Results Laboratory Results: 06/22/18 05:01 06/22/18 05:01 06/22/18 06/22/18 05:01 05:01 WBC 7.4 RBC 3.79 Hgb 10.7 L Hct 31.7 L MCV 84 MCH 28.3 MCHC 33.8 RDW 14.7 H Plt Count 190 Sodium 139.5 Potassium 3.1 L Chloride 104 Carbon Dioxide 27 Anion Gap 9 BUN 9 Creatinine 0.37 L Est GFR ( Amer) > 60 Est GFR (Non-Af Amer) > 60 Glucose 109 Calcium 8.0 L Phosphorus 3.0 Magnesium 2.0 06/19/18 21:49 Stool - Stool - Final 06/19/18 21:49 Stool - Stool Stool Culture - Final NO SALMONELLA, SHIGELLA, CAMPYLOBACTER, OR E.COLI 0157 RECOVERED. NEGATIVE FOR SHIGA TOXINS 1&2. Impressions: Chest X-Ray 06/17/18 00:00 IMPRESSION: Obstructive lung disease. Minimal left basilar atelectasis KUB X-Ray 06/19/18 00:00 IMPRESSION: PEG tube in place. Assessment & Plan - Diagnosis (1) Decubital ulcer Qualifiers: Pressure injury location: sacral region Pressure injury stage: stage 4 Qualified Code(s): L89.154 - Pressure ulcer of sacral region, stage 4 Is this a current diagnosis for this admission?: Yes - Time Time Spent: 30 to 50 Minutes - Plan Summary Plan Summary: The sacral ulcer looks clean. Continue with wet to dry dressings BID No need for surgical intervention at this time.
[2018-06-23] MEDS: ONDANSETRON HCL INJ/PF 4 MG/2 ML SDV IV PRN (04:34)
[2018-06-23] MEDS: HYDROMORPHONE HCL INJ/PF 2 MG/ML AMPULE IV PRN ×2 (04:34→10:44)
[2018-06-23 05:41] LABS: ANION GAP 8 (5-19); BLOOD UREA NITROGEN 8 mg/dL (7-20); CALCIUM 8.3 mg/dL (8.4-10.2); CARBON DIOXIDE 28 mmol/L (22-30); CHLORIDE 103 mmol/L (98-107); GLUCOSE 117 mg/dL (75-110); POTASSIUM 3.5 mmol/L (3.6-5.0)
[2018-06-23] MEDS: GABAPENTIN 300 MG CAPSULE PEG SCH ×2 (06:38→13:58)
[2018-06-23] MEDS: OXYCODONE HCL SR 10 MG TABLET PO SCH ×2 (06:38→13:58)
--- NOTE | 2018-06-23 09:25 | PDOC TRANSFER SUMMARY ---
General - Admit/Disc Date/PCP Admission Date/Primary Care Provider: 06/17/18 14:36 HÉCTOR BLOUNT MD Discharge Date: 06/23/18 - Discharge Diagnosis (1) Diarrhea Is this a current diagnosis for this admission?: Yes Summary: Resolved. Leukocytosis has resolved. Patient remains afebrile. C.Diff PCR negative x2 Stool studies negative for WBC Stool culture is negative. The patient was admitted to the medical floor and empirically placed on IV Flagyl for possible colitis and supported with maintenance IV fluids. Infectious disease was consulted; antibiotics were discontinued per their recommendations as the patient has a benign abdominal exam and no indications of acute infectious process at this time. At time of discharge, the patient is in stable condition, asymtomatic, and tolerating tube feeds at her goal rate. She is discharged to [facility] where she is an established resident. (2) VINI (acute kidney injury) Is this a current diagnosis for this admission?: Yes Summary: Resolved; prerenal secondary to dehydration in the setting of loose stools. (3) Decubital ulcer Is this a current diagnosis for this admission?: Yes Summary: Stage 4 decub ulcer - chronic and present on arrival. Patient has a history of MRSA infected sacral decubital ulcer; per outpatient records she is just completed a one-month course of IV Wound culture growing E.coli and MDR Morganella Final blood cultures have no growth at 5 days. The patient was empirically covered with IV cefepime. Surgery was consulted for wound VAC recommendations; advised to hold wound VAC while patient having persistent incontinence of diarrhea. They were reconsulted to evaluate yesterday for wound care recommendations. Dr. Lazcano did see the patient and did not find indications for surgical interventions; he recommends twice daily wet-to-dry dressings. Infectious disease was consulted; advised against continued IV antibiotics for chronic sacral decubitus ulcer utilizing surface wound culture results, therefore the IV Cefempime was discontinued. Recommend continued wet-to-dry dressing changes twice daily and for the patient to follow up with the [facility] as scheduled. (4) UTI (urinary tract infection) Is this a current diagnosis for this admission?: Yes Summary: Ruled out; likely asymptomatic bacteriuria with pyuria secondary to chronic salazar. Patient has significant history of UTI Removed original indwelling catheter and replaced with new Salazar MDR Morganella growing in urine Infectious disease was consulted; as the patient has a chronic indwelling Salazar catheter, has remained afebrile, with normal WBCs, with chronic indwelling Salazar catheter it is likely that her urinalysis is suggestive of pyuria related to catheter presence with colonized urine and not necessarily special service representative of active infectious process. The patient had been empirically covered with IV Cefepime which has been discontinued per ID's recommendations. (5) Hypokalemia Is this a current diagnosis for this admission?: Yes Summary: Resolved; secondary to GI losses. Recommend repeat BMP in 7-10 days. (6) MRSA (methicillin resistant Staphylococcus aureus) Is this a current diagnosis for this admission?: Yes - Additional Information Resuscitation Status: Full Code Discharge Diet: Tube Feeding (Comments) Home Medications: Acetaminophen [Tylenol Soln 325 mg/10.15 ml Udcup] 325 mg PEG Q4HP PRN 06/17/18 Acetaminophen [Tylenol Soln 325 mg/10.15 ml Udcup] 500 mg PEG Q12 06/17/18 Ascorbic Acid [Vitamin C 500 mg Tablet] 500 mg PEG BID MDD until wound resolves 06/17/18 Bismuth Subsalicylate [Maalox] 20 ml PEG Q4HP PRN 06/17/18 Duloxetine HCl [Cymbalta] 30 mg PEG DAILY 06/17/18 Flavoxate HCl [Urispas] 200 mg PEG Q8 06/17/18 Gabapentin [Neurontin 300 mg Capsule] 300 mg PEG Q8 06/17/18 Meloxicam 15 mg PEG DAILY 06/17/18 Metoclopramide HCl [Reglan Oral Soln 10 mg/10 ml Udcup] 5 mg PEG QID 06/17/18 Multivit-Minerals/Ferrous Gluc [Centrum Multivit-Mineral Liq] 10 ml PEG DAILY Omeprazole 40 mg PO Q6AM 06/17/18 Ondansetron [Zofran Odt 4 mg Tablet] 4 mg PEG Q6HP PRN 06/17/18 Oxycodone HCl [Oxy-Ir 5 mg Tablet] 5 mg PO Q4HP PRN 06/17/18 Oxycodone HCl [Oxycontin Sr 10 mg Tablet] 20 mg PO Q8 06/17/18 Promethazine HCl [Phenergan Inj 25 mg/1 ml Vial] 25 mg IM Q6HP PRN MDD 3 doses 06/17/18 Sennosides/Docusate Sodium [Senna-S Tablet] 1 each PEG Q12 MDD hold for loose stool 06/17/18 Solifenacin Succinate [Vesicare] 5 mg PO DAILY 06/17/18 Tizanidine HCl [Zanaflex 4 mg Tablet] 2 mg PEG Q8 06/17/18 Zinc Sulfate [Zinc-220 Capsule] 220 mg PEG DAILY 06/17/18 History of Present Illness Admission Date/PCP: 06/17/18 14:36 HÉCTOR BLOUNT MD History of Present Illness: Per H&P by Rishi Mehta NP-C: ARTURO GILBERT is a 52 year old female is a long- term resident of [facility]. 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 The patient was sent to [facility] ED for nausea, vomiting and watery diarrhea x multiple days. Of note, the patient just completed 1 month of IV vancomycin for treatment of MRSA infection in a sacral decubitus ulcer. Upon arrival to the ED, the patient's blood pressure and heart rate were within normal limits. Low-grade temperature 100.1. The patient was actively vomiting and experiencing incontinent episodes of watery diarrhea. Laboratory studies reveal leukocytosis (WBC 15.1), hypokalemia (K 3.4), and urinalysis indicative of UTI. CXR benign, no significant pathology. Upon assessment, the patient is resting in bed on room air. Her face is grimaced and she appears to be uncomfortable. The patient is complaining of nausea and mild abdominal pain. She states she has been experiencing multiple episodes of vomiting and diarrhea for the last "few days." The patient states that her roommate at [facility] has recently been ill with unspecified symptoms. The roommate is currently admitted to [facility]. The patient appears pale and older than stated age. Skin is cool and dry. Mucous membranes are moist. Good skin turgor. Lungs clear to auscultation. S1-S2. Palpable pulses in upper extremities, very faint in lower extremities. Abdomen is soft but diffusely tender. PEG tube site has dark brown crusty drainage surrounding the insertion site, no erythema , denies TTP. Tunneled sacral decubitus ulcer. Admit to hospitalist service for complicated UTI and colitis (C. difficile versus other infectious organism). Physical Exam Vital Signs: Temp Pulse Resp BP Pulse Ox 98.2 F 75 16 102/80 93 06/23/18 07:27 06/23/18 07:27 06/23/18 07:27 06/23/18 07:27 06/23/18 07:27 Intake & Output 06/22/18 06/23/18 06/24/18 06:59 06:59 06:59 Intake Total 4940 3331 Output Total 4325 3000 Balance 615 331 Weight 65.2 kg 67.1 kg General appearance: PRESENT: no acute distress, cooperative, well-developed, well-nourished Head exam: PRESENT: atraumatic, normocephalic Eye exam: PRESENT: conjunctiva pink, EOMI, PERRLA. ABSENT: scleral icterus Ear exam: PRESENT: normal external ear exam Mouth exam: PRESENT: moist, tongue midline Teeth exam: PRESENT: poor dentation Neck exam: ABSENT: carotid bruit, JVD, lymphadenopathy, thyromegaly Respiratory exam: PRESENT: clear to auscultation justyna, symmetrical, unlabored. ABSENT: rales, rhonchi, wheezes Cardiovascular exam: PRESENT: RRR, +S1, +S2. ABSENT: diastolic murmur, rubs, systolic murmur Pulses: PRESENT: normal dorsalis pedis pul Vascular exam: PRESENT: normal capillary refill GI/Abdominal exam: PRESENT: normal bowel sounds, soft. ABSENT: distended, guarding, mass, organolmegaly, rebound, tenderness Rectal exam: PRESENT: deferred Extremities exam: PRESENT: other - Baseline limited mobility. ABSENT: calf tenderness, clubbing, pedal edema Neurological exam: PRESENT: alert, awake, oriented to person, oriented to place , oriented to time, oriented to situation, CN II-XII grossly intact. ABSENT: motor sensory deficit Psychiatric exam: PRESENT: appropriate affect, normal mood. ABSENT: homicidal ideation, suicidal ideation Skin exam: PRESENT: dry, warm, other - Chronic decubital ulcer. ABSENT: cyanosis, intact, rash Results Laboratory Results: 06/22/18 05:01 06/23/18 04:18 06/23/18 04:18 Sodium 139.0 Potassium 3.5 L Chloride 103 Carbon Dioxide 28 Anion Gap 8 BUN 8 Creatinine 0.41 L Est GFR ( Amer) > 60 Est GFR (Non-Af Amer) > 60 Glucose 117 H Calcium 8.3 L Magnesium 1.9 06/19/18 21:49 Stool - Stool - Final 06/19/18 21:49 Stool - Stool Stool Culture - Final NO SALMONELLA, SHIGELLA, CAMPYLOBACTER, OR E.COLI 0157 RECOVERED. NEGATIVE FOR SHIGA TOXINS 1&2. Impressions: Chest X-Ray 06/17/18 00:00 IMPRESSION: Obstructive lung disease. Minimal left basilar atelectasis KUB X-Ray 06/19/18 00:00 IMPRESSION: PEG tube in place. Transfer Plan - Disposition Transfer Plan: Discharge to [facility]. Qualifiers - * PATIENT BEING DISCHARGED WITH ANY OF THE FOLLOWING DIAGNOSIS: No Plan Discharge Plan: Discharge to [facility] where the patient is an established resident. Recommend follow up with her primary care provider within 1 week. Recommend she follow up with the [facility] as scheduled; continue twice daily wet-to-dry dressing changes. Recommend repeat CBC and BMP in 7-10 days. Time Spent: Less than 30 Minutes
[2018-06-23] MEDS: ENOXAPARIN SODIUM INJ 30 MG/0.3 ML DISP.SYRIN SUBCUT SCH (10:44)
[2018-06-23] MEDS: DULOXETINE HCL 30 MG CAPSULE.DR PEG SCH (10:45)
[2018-06-23] MEDS: ZINC SULFATE 220 MG CAPSULE PEG SCH (10:45)
[2018-06-23] MEDS: DIPHENOXYLATE HCL/ATROP SULF 2.5-0.025 MG TABLET PO SCH (10:45)
[2018-06-23] MEDS: MULTIVITAMIN ORAL LIQUID 60 ML PEG SCH (10:45)
[2018-06-23] MEDS: ASCORBIC ACID 500 MG TABLET PEG SCH (10:45)
[2018-06-23 12:29] VITALS: BP 121/75
[2018-06-23] MEDS: OXYCODONE HCL IR 5 MG TABLET PO PRN (12:39)
== END 2018-06-23 14:30 | DRG 391 ==
LOC: ER 03:58 → EH 14:36 → 4N 16:01
PROVIDERS: ADMIT Internal Medicine; ATTEND Internal Medicine
DX: K52.9 Noninfective gastroenteritis and colitis, unspecified (principal); L89.154 Pressure ulcer of sacral region, stage 4; N30.00 Acute cystitis without hematuria; G81.90 Hemiplegia, unspecified affecting unspecified side; E86.0 Dehydration; B96.20 Unspecified Escherichia coli [E. coli] as the cause of diseases classified elsewhere; B96.4 Proteus (mirabilis) (morganii) as the cause of diseases classified elsewhere; E87.6 Hypokalemia; B96.1 Klebsiella pneumoniae [K. pneumoniae] as the cause of diseases classified elsewhere; D64.9 Anemia, unspecified; Z93.1 Gastrostomy status; Z79.899 Other long term (current) drug therapy; Z87.891 Personal history of nicotine dependence; Z88.6 Allergy status to analgesic agent; Z86.14 Personal history of Methicillin resistant Staphylococcus aureus infection
CPT/HCPCS: 36415; 51702; 71046; 74018; 80048; 80053; 81001; 82150; 83605; 83690; 83735; 84100; 84443; 85025; 85027; 87040; 87045; 87070; 87077; 87086; 87088; 87186; 87205; 87493; 89055; 96361; 96365; 96367; 96375; 96376; 99285; C1758; J0692; J0744; J1170; J1650; J2270; J2405; J2550; J3010; J3370; J3475; J3480; J3490; J7030; S0119

== ENCOUNTER 2018-07-18 10:00 | Emergency (ER) | payer MEDICAID ==
[2018-07-18] MEDS ORDERED: NORMAL SALINE 1000 ML 1,000 ML IV ONE (10:12)
[2018-07-18] MEDS ORDERED: ONDANSETRON HCL INJ/PF 4 MG/2 ML SDV IV ONE (10:21)
[2018-07-18] MEDS ORDERED: MORPHINE SULFATE 10 MG/ML INJ IV ONE (10:21)
--- NOTE | 2018-07-18 11:19 | RADIOLOGY REPORT (SQ) ---
EXAM DESCRIPTION: KUB/ABDOMEN (SINGLE VIEW) COMPLETED DATE/TIME: 07/18/2018 10:55 am REASON FOR STUDY: n/v/d COMPARISON: KUB 06/19/2018. AP pelvis 03/19/2018. NUMBER OF VIEWS: One view. TECHNIQUE: Supine radiographic image of the abdomen acquired. LIMITATIONS: None. FINDINGS: BOWEL GAS PATTERN: Nonspecific bowel-gas pattern. CALCIFICATIONS: There are multiple calcifications within the urinary bladder compatible with bladder calculi. SOFT TISSUES: No gross mass or suggestion of organomegaly. HARDWARE: None in the abdomen. BONES: No acute fracture. No worrisome bone lesions. OTHER: PEG tube overlying left upper quadrant. IMPRESSION: Bladder calculi. Peg tube in in position. Nonspecific bowel-gas pattern. TECHNICAL DOCUMENTATION: JOB ID: [id number] 2010 [employer] All Rights Reserved Reading location - IP/workstation name: [email or web address]
[2018-07-18 11:30] LABS: ABSOLUTE LYMPHOCYTES (AUTO) 1.4 10^3/uL (0.5-4.7); ABSOLUTE MONOCYTES (AUTO) 0.4 10^3/uL (0.1-1.4); ABSOLUTE NEUT (AUTO) 8.2 10^3/uL (1.7-8.2); BASOPHILS % (AUTO) 0.2 % (0-2); EOSINOPHILS % (AUTO) 0.1 % (0-6); HEMATOCRIT 36.3 % (36.0-47.0); HEMOGLOBIN 12.1 g/dL (12.0-15.5); LYMPHOCYTES % (AUTO) 14.1 % (13-45); MEAN CORPUSCULAR HEMOGLOBIN 27.3 pg (27.0-33.4); MEAN CORPUSCULAR HGB CONC 33.4 g/dL (32.0-36.0); MEAN CORPUSCULAR VOLUME 82 fl (80-97); PLATELET COUNT 359 10^3/uL (150-450); RED BLOOD COUNT 4.44 10^6/uL (3.72-5.28); RED CELL DISTRIBUTION WIDTH 15.3 % (11.5-14.0); SEGMENTED NEUTROPHILS % (AUTO) 81.6 % (42-78); TOTAL CELLS COUNTED % (AUTO) 100 %
[2018-07-18 11:31] LABS: AMORPHOUS SEDIMENT,URINE 1+ /HPF; APPEARANCE,URINE TURBID; BILIRUBIN,URINE NEGATIVE (NEGATIVE); COLOR,URINE AMBER; GLUCOSE, URINE NEGATIVE (NEGATIVE); KETONES,URINE NEGATIVE (NEGATIVE); LEUKOCYTE ESTERASE,URINE LARGE (NEGATIVE); NITRITE,URINE NEGATIVE (NEGATIVE); PROTEIN,URINE >=500 mg/dL (NEGATIVE); TRIPLE PHOSPHATE CRYSTAL,URINE TOO NUMEROUS TO CNT /HPF; URINE SPECIFIC GRAVITY 1.018; UROBILINOGEN,URINE NEGATIVE mg/dL (<2.0)
[2018-07-18] MEDS ORDERED: KETOROLAC TROMETHAMINE INJ/PF 30 MG/1 ML SDV IV ONE (12:04)
[2018-07-18 14:25] LABS: ALANINE AMINOTRANSFERASE 22 U/L (9-52); ALBUMIN 3.7 g/dL (3.5-5.0); ALKALINE PHOSPHATASE 75 U/L (38-126); ANION GAP 10 (5-19); ASPARTATE AMINO TRANSFERASE 19 U/L (14-36); BILIRUBIN,DIRECT 0.4 mg/dL (0.0-0.4); BILIRUBIN,TOTAL 0.4 mg/dL (0.2-1.3); BLOOD UREA NITROGEN 19 mg/dL (7-20); CALCIUM 9.3 mg/dL (8.4-10.2); CARBON DIOXIDE 22 mmol/L (22-30); CHLORIDE 109 mmol/L (98-107); GLUCOSE 104 mg/dL (75-110); LIPASE 75.8 U/L (23-300); POTASSIUM 4.1 mmol/L (3.6-5.0); SODIUM 140.6 mmol/L (137-145); TOTAL PROTEIN 7.6 g/dL (6.3-8.2)
[2018-07-18] MEDS ORDERED: OXYCODONE HCL IR 5 MG TABLET PO ONE (14:38)
--- NOTE | 2018-07-18 14:46 | ER Document Report ---
ED General - General Chief Complaint: Nausea/Vomiting/Diarrhea Stated Complaint: NAUSEA Time Seen by Provider: 07/18/18 10:13 TRAVEL OUTSIDE OF THE [place] IN LAST 30 DAYS: No - HPI Patient complains to provider of: Nausea vomiting diarrhea Notes: Patient coming in for nausea vomiting diarrhea diffuse body aches ongoing for approximately 1 week body aches 2 days according to residential notes. Patient states recently was admitted to the hospital felt better however worse over the last week. Patient has a feeding tube in place along with a Claire catheter. Patient states Claire catheter was recently changed approximately 1 week ago. Patient denies any specific area of pain just complains of diffuse body aches. Patient denies any fevers chills. Patient is on chronic pain medication states that she did receive her pain medication earlier this morning at 7:00 in the morning however is unaware she was given this by mouth or by feeding tube. Patient otherwise looks to be no obvious distress upon my evaluation. - Related Data Allergies/Adverse Reactions: codeine [Codeine] Allergy (Verified 07/16/16 11:27) oxycodone HCl [From Percocet] Allergy (Verified 07/16/16 11:27) Past Medical History - Social History Smoking Status: Unknown if Ever Smoked Chew tobacco use (# tins/day): No Frequency of alcohol use: None Drug Abuse: None Family History: Reviewed & Not Pertinent Patient has suicidal ideation: No Patient has homicidal ideation: No - Past Medical History Cardiac Medical History: Denies: Hx Coronary Artery Disease, Hx Heart Attack, Hx Hypertension Pulmonary Medical History: Denies: Hx Asthma, Hx Bronchitis, Hx COPD, Hx Pneumonia Neurological Medical History: Denies: Hx Cerebrovascular Accident, Hx Seizures Renal/ Medical History: Denies: Hx Peritoneal Dialysis Musculoskeletal Medical History: Denies Hx Arthritis Psychiatric Medical History: Denies: Hx Depression Past Surgical History: Reports: Other - PEG TUBE PLACEMENT - Immunizations Hx Diphtheria, Pertussis, Tetanus Vaccination: Yes Review of Systems - Review of Systems Constitutional: No symptoms reported EENT: No symptoms reported Cardiovascular: No symptoms reported Respiratory: No symptoms reported Gastrointestinal: Diarrhea, Nausea, Vomiting Genitourinary: No symptoms reported Female Genitourinary: No symptoms reported Musculoskeletal: No symptoms reported Skin: No symptoms reported Hematologic/Lymphatic: No symptoms reported Neurological/Psychological: No symptoms reported -: Yes All other systems reviewed and negative Physical Exam - Vital signs Vitals: Resp Pulse Ox 17 93 07/18/18 10:58 07/18/18 10:58 Interpretation: Normal - General General appearance: Appears well, Alert - HEENT Head: Normocephalic, Atraumatic Eyes: Normal Pupils: PERRL - Respiratory Respiratory status: No respiratory distress Chest status: Nontender Breath sounds: Normal Chest palpation: Normal - Cardiovascular Rhythm: Regular Heart sounds: Normal auscultation Murmur: No - Abdominal Inspection: Normal Distension: No distension Bowel sounds: Normal Tenderness: Nontender Organomegaly: No organomegaly Notes: Claire catheter in place - Rectal Notes: History of decubitus ulcer patient was rolled area was dressed there is no blushing of the dressing no signs of cellulitic process around the dressing - Back Back: Normal, Nontender - Extremities General upper extremity: Nontender, Normal temperature General lower extremity: Nontender, Normal temperature - Neurological Neuro grossly intact: Yes Cognition: Normal Orientation: AAOx4 Fenton Coma Scale Eye Opening: Spontaneous Fenton Coma Scale Verbal: Oriented Lluvia Coma Scale Motor: Obeys Commands Fenton Coma Scale Total: 15 Speech: Normal Sensory: Normal - Psychological Associated symptoms: Normal affect, Normal mood - Skin Skin Temperature: Warm Skin Moisture: Dry Skin Color: Normal Course - Re-evaluation Re-evalutation: 07/18/18 15:11 Laboratory studies not show any acute pathology. KUB also was negative for any signs of obstructive etiology. Patient had no vomiting nor any diarrhea. Unable to obtain a stool sample for stool testing. Patient requesting pain medication initially was given morphine patient upon discharge again was asking for pain medication and a dose of the patient's home medication was ordered oxycodone however patient refused to take her pain medication. Otherwise no critical etiology seen upon her evaluation at this time will discharge patient back to her residential. - Vital Signs Vital signs: Temp Pulse Resp BP Pulse Ox 19 96 07/18/18 11:00 07/18/18 11:00 - Laboratory Result Diagrams: 07/18/18 11:05 07/18/18 13:48 Laboratory results interpreted by me: 07/18/18 07/18/18 07/18/18 11:05 11:05 13:48 RDW 15.3 H Seg Neutrophils % 81.6 H Chloride 109 H Creatinine 0.48 L Urine Protein >=500 H Ur Leukocyte Esterase LARGE H Urine Ascorbic Acid 40 H Discharge - Discharge Clinical Impression: Nausea vomiting and diarrhea Instructions: Abdominal Pain ([facility]), Gastroenteritis (adult) ([facility]) Additional Instructions: Patient coming in for evaluation of nausea vomiting diarrhea. Patient has not had any vomiting and tolerating water at this time. No stool sample was obtained to send to the laboratory today for testing the patient is not having diarrhea during her ER visit. Would highly recommend that the diarrhea continues that this to be sent out as an outpatient. Otherwise patient's laboratory studies showed no leukocytosis no electrolyte abnormalities. Patient can be followed up from her primary care physician for further evaluation. Recommend Zofran or Reglan for her nausea control patient received Zofran here in the ER. Prior to discharge patient was given a dose of her oxycodone 5 mg Prescriptions: Metoclopramide HCl [Reglan] 5 mg PO Q6 #30 tablet Ondansetron [Zofran Odt] 4 mg PO Q6 PRN #30 tab.rapdis PRN Reason: For Nausea/Vomiting Referrals: HÉCTOR BLOUNT MD [Primary Care Provider] - Follow up as needed
[2018-07-18 21:29] VITALS: BP 151/91
== END 2018-07-18 21:15 ==
LOC: ER 10:00
DX: R11.2 Nausea with vomiting, unspecified (principal); R19.7 Diarrhea, unspecified; M79.10 Myalgia, unspecified site; Z88.6 Allergy status to analgesic agent; Z93.1 Gastrostomy status
CPT/HCPCS: 99285; 96361; 96374; 96375; 36415; 83690; 85025; 80053; 81001; 74018; J1885; J2270; J2405; J7030; J3490

== ENCOUNTER 2018-08-15 04:42 | Emergency (ER) | payer MEDICAID ==
[2018-08-15] MEDS ORDERED: NORMAL SALINE 1000 ML 1,000 ML IV PRN (04:56)
--- NOTE | 2018-08-15 04:56 | ER Document Report ---
ED Medical Screen (RME) - General Stated Complaint: ALTERED MENTAL STATUS Mode of Arrival: Medic Information source: Emergency Med Personnel, [facility] Records Notes: 52-year-old quadriplegic with known hypotension, hypokalemia, dysphagia, chronic pain syndrome, remote history of osteomyelitis, presents via EMS from [facility] who reports that the patient had a fever and was hypotensive. Upon EMS her arrival patient is afebrile but had a blood pressure of 70/40. Patient was not tachycardic at that time. Patient is alert , awake and complaining of abdominal pain. She states abdominal pain started 3 days prior to arrival. She does have a stage IV sacral wound which was found to have MRSA per EMS and nursing facility records. I have greeted and performed a rapid initial assessment of this patient. A comprehensive ED assessment and evaluation of the patient, analysis of test results and completion of medical decision making process we will be contacted by additional ED providers. General; alert, no acute distress Abdomen; G-tube appears dislodged and there is associated erythema and liquid drainage from a stoma. Respiratory; on nasal cannula no respiratory distress TRAVEL OUTSIDE OF THE [place] IN LAST 30 DAYS: No - HPI Onset: Other Quality of pain: Achy, Cramping Severity: Mild Associated Symptoms: Abdominal pain, Fever Exacerbated by: Denies Relieved by: Denies Similar symptoms previously: No Recently seen / treated by doctor: No - Related Data Smoking: Non-smoker Frequency of alcohol use: None Drug Abuse: None Allergies/Adverse Reactions: codeine [Codeine] Allergy (Verified 07/16/16 11:27) oxycodone HCl [From Percocet] Allergy (Verified 07/16/16 11:27) Past Medical History - Past Medical History Cardiac Medical History: Denies: Hx Coronary Artery Disease, Hx Heart Attack, Hx Hypertension Pulmonary Medical History: Denies: Hx Asthma, Hx Bronchitis, Hx COPD, Hx Pneumonia Neurological Medical History: Denies: Hx Cerebrovascular Accident, Hx Seizures Renal/ Medical History: Denies: Hx Peritoneal Dialysis Musculoskeltal Medical History: Denies Hx Arthritis Psychiatric Medical History: Denies: Hx Depression Past Surgical History: Reports: Other - PEG TUBE PLACEMENT - Immunizations Hx Diphtheria, Pertussis, Tetanus Vaccination: Yes Doctor's Discharge - Discharge Referrals: HÉCTOR BLOUNT MD [Primary Care Provider] - Follow up as needed
[2018-08-15 05:13] LABS: INTERNATIONAL RATION (INR) 1.13; PROTHROMBIN TIME 15.1 SEC (11.4-15.4)
[2018-08-15 05:16] LABS: HEMATOCRIT 32.9 % (36.0-47.0); HEMOGLOBIN 10.6 g/dL (12.0-15.5); MEAN CORPUSCULAR HEMOGLOBIN 27.3 pg (27.0-33.4); MEAN CORPUSCULAR HGB CONC 32.4 g/dL (32.0-36.0); MEAN CORPUSCULAR VOLUME 85 fl (80-97); PLATELET COUNT 197 10^3/uL (150-450); RED BLOOD COUNT 3.89 10^6/uL (3.72-5.28); RED CELL DISTRIBUTION WIDTH 15.6 % (11.5-14.0); WHITE BLOOD COUNT 17.2 10^3/uL (4.0-10.5)
[2018-08-15 05:27] LABS: VENOUS BLOOD HCO3 21.9 mmol/L (20-32); VENOUS BLOOD PCO2 48.4 mmHg (35-63); VENOUS BLOOD PH 7.27 (7.30-7.42)
[2018-08-15 05:32] LABS: ALANINE AMINOTRANSFERASE 18 U/L (9-52); ALBUMIN 2.9 g/dL (3.5-5.0); ALKALINE PHOSPHATASE 61 U/L (38-126); ANION GAP 14 (5-19); ASPARTATE AMINO TRANSFERASE 20 U/L (14-36); BILIRUBIN,DIRECT 0.5 mg/dL (0.0-0.4); BILIRUBIN,TOTAL 0.7 mg/dL (0.2-1.3); BLOOD UREA NITROGEN 42 mg/dL (7-20); CALCIUM 8.5 mg/dL (8.4-10.2); CARBON DIOXIDE 22 mmol/L (22-30); CHLORIDE 101 mmol/L (98-107); GLUCOSE 121 mg/dL (75-110); POTASSIUM 4.7 mmol/L (3.6-5.0); SODIUM 137.2 mmol/L (137-145); TOTAL PROTEIN 6.2 g/dL (6.3-8.2)
[2018-08-15 05:57] LABS: ABSOLUTE LYMPHOCYTES# (MANUAL) 2.8 10^3/uL (0.5-4.7); ABSOLUTE MONOCYTES # (MANUAL) 0.5 10^3/uL (0.1-1.4); ABSOLUTE NEUTROPHILS# (MANUAL) 13.8 10^3/uL (1.7-8.2); ANISOCYTOSIS 1+; BAND NEUTROPHILS % (MANUAL) 6 % (3-5); BASOPHILS % (MANUAL) 1 % (0-2); EOSINOPHILS % (MANUAL) 0 % (0-6); LYMPHOCYTES % (MANUAL) 16 % (13-45); MONOCYTES % (MANUAL) 3 % (3-13); POLYCHROMASIA SLIGHT; SEGMENTED NEUTROPHILS % (MAN) 74 % (42-78); TOTAL CELLS COUNTED 100; TOXIC GRANULATION SLIGHT; TOXIC VACUOLATION PRESENT
[2018-08-15 05:58] LABS: HYPOCHROMASIA SLIGHT; PLATELET COMMENT ADEQUATE
--- NOTE | 2018-08-15 06:09 | RADIOLOGY REPORT (SQ) ---
EXAM DESCRIPTION: X-ray single view chest. CLINICAL HISTORY: 52 years Female, sepsis COMPARISON: None. TECHNIQUE: Single portable view of the chest performed on 08/15/2018 at 5:42 AM FINDINGS: The lungs are well expanded. The patient is rotated towards the left. There appears to be airspace disease in the left lower lobe. Evaluation is somewhat difficult due to the rotation of the patient. The lateral costophrenic sulci are clear. There is no evidence of a pneumothorax. The cardiac silhouette is normal in size and configuration. The mediastinal contours are normal. No acute osseous abnormality is identified. There are remote postsurgical changes of the cervical spine. No focal soft tissue abnormalities are seen. Lines and tubes: There are overlying monitor car operator leads. IMPRESSION: 1. Leftward rotation of the patient. 2. Findings suspicious for an airspace process in the left lower lobe concerning for possible pneumonic infiltrate.
[2018-08-15] MEDS ORDERED: VANCOMYCIN HCL INJ 1000 MG VIAL IV ONE ×2 (06:14→09:00)
[2018-08-15] MEDS ORDERED: PIPERACILLIN/TAZOBACTAM 3.375 GM VIAL IV ONE (06:14)
--- NOTE | 2018-08-15 06:20 | ER Document Report ---
ED General - General Chief Complaint: Fever Stated Complaint: ALTERED MENTAL STATUS Time Seen by Provider: 08/15/18 05:55 Mode of Arrival: Medic TRAVEL OUTSIDE OF THE [place] IN LAST 30 DAYS: No - HPI Patient complains to provider of: altered mental status Onset: Other - 52-year-old quadriplegic as a result of a fall 3 years prior at a level in the mid thoracic spine that presents for evaluation of altered mental status from her nursing facility. She was noted to be more confused last night and then this morning became febrile. Her temperature was around 100 degrees her blood pressure was 160/80 at that time per nursing staff, they noted that 2 days prior her chronic indwelling Claire catheter have been changed , she does have what they report is a stage II decubitus ulcer which they have been dressing, she also is fed via G-tube and there is some noted leakage around the G-tube which started this morning that had not been there last night. Currently the woman complains of pain which is documented chronically throughout her entire body, she denies specifically anything that is bothering her however saying that she does not feel that bad other than the pain. - Related Data Allergies/Adverse Reactions: codeine [Codeine] Allergy (Verified 07/16/16 11:27) oxycodone HCl [From Percocet] Allergy (Verified 07/16/16 11:27) Past Medical History - General Information source: Emergency Med Personnel, [facility] Records - Social History Smoking Status: Former Smoker Frequency of alcohol use: None Drug Abuse: None Family History: Reviewed & Not Pertinent - Past Medical History Cardiac Medical History: Denies: Hx Coronary Artery Disease, Hx Heart Attack, Hx Hypertension Pulmonary Medical History: Denies: Hx Asthma, Hx Bronchitis, Hx COPD, Hx Pneumonia Neurological Medical History: Denies: Hx Cerebrovascular Accident, Hx Seizures Renal/ Medical History: Denies: Hx Peritoneal Dialysis Musculoskeletal Medical History: Denies Hx Arthritis Psychiatric Medical History: Denies: Hx Depression Past Surgical History: Reports: Other - PEG TUBE PLACEMENT - Immunizations Hx Diphtheria, Pertussis, Tetanus Vaccination: Yes Review of Systems - Review of Systems -: Yes All other systems reviewed and negative Physical Exam - Vital signs Vitals: Resp Pulse Ox 14 91 L 08/15/18 04:48 08/15/18 04:48 Interpretation: Hypotensive, Tachycardic - General General appearance: Anxious In distress: Moderate - HEENT Head: Normocephalic Eyes: Normal Conjunctiva: Normal Cornea: Normal Extraocular movements intact: Yes Eyelashes: Normal Pupils: PERRL - Respiratory Respiratory status: Tachypnea Chest status: Nontender Breath sounds: Rhonchi Chest palpation: Normal - Cardiovascular Rhythm: Regular Heart sounds: Normal auscultation Murmur: No - Abdominal Inspection: Other - There is a G-tube in the left upper quadrant with a irritated and inflamed stoma at the base that is actively draining what appears to be a combination of purulent material as well as tube feeds Distension: Distended Bowel sounds: Hypoactive Tenderness: Tender Organomegaly: No organomegaly - Back Back: Other - stage 3 sacral decubitus ulcer over the sacrum - Extremities General upper extremity: Other - Marked atrophy of the upper extremities, minimal strength in the flexors General lower extremity: Other - Marked atrophy in the lower extremities, slightly contracted externally rotated - Neurological Neuro grossly intact: No Cognition: Inattentive Orientation: AAOx4 Lluvia Coma Scale Eye Opening: Spontaneous Lluvia Coma Scale Verbal: Oriented Hume Coma Scale Motor: Obeys Commands Lluvia Coma Scale Total: 15 Speech: Normal Cranial nerves: Normal Cerebellar coordination: Other - Paralysis from the level of approximately T3 inferiorly - Psychological Associated symptoms: Flat affect Course - Re-evaluation Re-evalutation: 08/15/18 06:28 This 52-year-old quadriplegic presented for evaluation of fever and can fusion. On examination she has multiple potential sources to have an underlying infectious etiology including but not limited to stage III decubitus ulcer, contaminated appearing urine from an indwelling Claire catheter, G-tube site which is actively draining purulent material, and a recurrent history of aspiration pneumonias. Because I have a concern that she is likely developing what appears to be septic shock given her hypotension will initiate broad-spectrum antibiotics including vancomycin and Zosyn, will initiate fluid resuscitation, currently she is getting 2 L of normal saline 1 through an intraosseous line 1 through a ankle IV. If she is unable to respond appropriately to fluid resuscitation will consider initiation of vasoactive medication. We will obtain a chest x-ray in addition to his CT of the abdomen and pelvis without contrast. This patient does have new onset kidney injury with a markedly elevated creatinine which she is continuing to create urine at this time. 08/15/18 09:25 This ill-appearing woman has continued to decline despite having received 2 L of intra-venous fluids, she is persistently hypotensive has an elevated lactate does have an elevated white count has multiple potential sources of infection. She is received vancomycin as well as Zosyn. We will plan for initiation of vasoactive medication with levo fed initiating at 4 for a goal map of [address] place a central line is currently she has a ankle IV as well as an intraosseous line. Have contacted the medical intensive care unit with Dr. Le at [facility] who agrees to accept this patient in transfer to the medical intensive care unit. Patient be transported to the medical intensive care unit at [facility]. Currently she is hemodynamically stable improved on Levophed to a heart rate of 95 with a map of 90. Currently her legal flat is at 8/kg/min. - Vital Signs Vital signs: Temp Pulse Resp BP Pulse Ox 16 142/77 H 97 08/15/18 09:35 08/15/18 09:35 08/15/18 09:30 - Laboratory Result Diagrams: 08/15/18 04:50 08/15/18 04:50 Laboratory results interpreted by me: 08/15/18 08/15/18 08/15/18 04:50 04:50 04:50 WBC 17.2 H Hgb 10.6 L Hct 32.9 L RDW 15.6 H Band Neutrophils % 6 H Abs Neuts (Manual) 13.8 H VBG pH BUN 42 H Creatinine 2.81 H Est GFR ( Amer) 21 L Est GFR (Non-Af Amer) 18 L Glucose 121 H Lactic Acid 2.3 H Direct Bilirubin 0.5 H Total Protein 6.2 L Albumin 2.9 L Urine Protein Urine Blood Ur Leukocyte Esterase 08/15/18 08/15/18 04:50 09:19 WBC Hgb Hct RDW Band Neutrophils % Abs Neuts (Manual) VBG pH 7.27 L BUN Creatinine Est GFR ( Amer) Est GFR (Non-Af Amer) Glucose Lactic Acid Direct Bilirubin Total Protein Albumin Urine Protein 100 H Urine Blood MODERATE H Ur Leukocyte Esterase LARGE H Procedures - Central Line Right Internal jugular Consent obtained: Yes Central line pre-insertion: Sterile PPE donned Central line lumen type: Triple Anesthetic type: 1% Lidocaine w/epi mL's of anesthesia: 5 Ultrasound guided: Yes CM at insertion site: 15 Line secured with sutures: Yes Central line post-insertion: Blood return from lumens, Biopatch applied, Sutured , Sterile dressing applied Number of attempts: 1 Complications: No Critical Care Note - Critical Care Note Total time excluding time spent on procedures (mins): 65 Discharge - Discharge Clinical Impression: VINI (acute kidney injury) Decubital ulcer Qualifiers: Pressure injury location: unspecified location Pressure injury stage: stage 3 Qualified Code(s): L89.93 - Pressure ulcer of unspecified site, stage 3 UTI (urinary tract infection) Qualifiers: Urinary tract infection type: catheter-associated UTI Indwelling urinary catheter type: indwelling urethral catheter Diarrhea Qualifiers: Diarrhea type: presumed infectious Qualified Code(s): R19.7 - Diarrhea, unspecified Sepsis Qualifiers: Sepsis type: sepsis due to unspecified organism Qualified Code(s): A41.9 - Sepsis, unspecified organism Condition: Serious Disposition: [facility] Referrals: HÉCTOR BLOUNT MD [Primary Care Provider] - Follow up as needed
[2018-08-15] MEDS ORDERED: FENTANYL CITRATE INJ/PF 100 MCG/2 ML AMPUL IV ONE (07:17)
--- NOTE | 2018-08-15 07:38 | RADIOLOGY REPORT (SQ) ---
EXAM DESCRIPTION: CT ABDOMEN PELVIS WITHOUT IV CONTRAST COMPLETED DATE/TME: 08/15/2018 04:51 CLINICAL HISTORY: Diffuse abdominal pain COMPARISON: None Available. TECHNIQUE: CT of the abdomen and pelvis without IV contrast. Evaluation of the solid organs and vasculature is suboptimal due to lack of IV contrast. DLP: 715.63 mGy-cm FINDINGS: Lung Bases: Bibasilar dependent atelectasis. Small foci of air in the right breast soft tissues. Bones: Degenerative change of the spine and hips. Abdomen: Liver: The liver has normal size and density. Gallbladder: No calcified gallstones. Spleen, Pancreas, and Adrenal Glands: The spleen, pancreas, and adrenal glands are unremarkable. Kidneys: Staghorn calculus involving the right renal pelvis and calyces. There is a nonobstructing calculus involving the left renal pelvis. Vasculature: The aorta and IVC have normal caliber and position. Stomach: Gastrostomy tube present. Other: No free intraperitoneal air. No free fluid or lymphadenopathy. Pelvis: Bladder: Claire catheter in the urinary bladder. Multiple large stones identified in the urinary bladder. Bowel: No dilated loops of large or small bowel. Mild wall thickening of the descending and sigmoid colon. No definite pericolic inflammatory change. Appendix: Normal appendix. Pelvis: Uterus is not enlarged. IMPRESSION: 1. Staghorn calculus of the right kidney. Nonobstructing calculus in the left renal pelvis. 2. Numerous large calcified stones within the urinary bladder. 3. Mild wall thickening of the descending and sigmoid colon. This could be seen with colitis of infectious or inflammatory etiology. 4. Punctate foci of air in the right breast subcutaneous soft tissues of indeterminate etiology. This exam was performed according to our departmental dose-optimization program, which includes automated exposure control, adjustment of the mA and/or kV according to patient size and/or use of iterative reconstruction technique.
[2018-08-15] MEDS ORDERED: VANCOMYCIN HCL INJ 1000 MG VIAL ONE (08:26)
[2018-08-15] MEDS ORDERED: NOREPINEPHRINE BITARTRATE INJ/PF 4 MG/4 ML SDV IV ONE (08:41)
[2018-08-15] MEDS: DEXTROSE 5%-WATER 250 ML with NOREPINEPHRINE BITARTRATE 4 MG IV PRN ×4 (08:55→09:30)
[2018-08-15] MEDS ORDERED: FENTANYL CITRATE INJ/PF 100 MCG/2 ML AMPUL ONE (09:21)
[2018-08-15 09:39] LABS: AMORPHOUS SEDIMENT,URINE TRACE /HPF; APPEARANCE,URINE CLOUDY; BILIRUBIN,URINE NEGATIVE (NEGATIVE); COLOR,URINE YELLOW; GLUCOSE, URINE NEGATIVE (NEGATIVE); KETONES,URINE NEGATIVE (NEGATIVE); LEUKOCYTE ESTERASE,URINE LARGE (NEGATIVE); NITRITE,URINE NEGATIVE (NEGATIVE); PROTEIN,URINE 100 mg/dL (NEGATIVE); URINE SPECIFIC GRAVITY 1.013; UROBILINOGEN,URINE NEGATIVE mg/dL (<2.0)
--- NOTE | 2018-08-15 09:39 | EKG REPORT ---
SEVERITY:- NORMAL ECG - SINUS RHYTHM : Confirmed by: Elisha Petersen MD 15-Aug-2018 09:38:33
--- NOTE | 2018-08-15 09:42 | RADIOLOGY REPORT (SQ) ---
EXAM DESCRIPTION: CHEST SINGLE VIEW COMPLETED DATE/TIME: 08/15/2018 9:32 am REASON FOR STUDY: bed 8 s/p central line placement COMPARISON: 08/15/2018 at 0542 hours. EXAM PARAMETERS: NUMBER OF VIEWS: One view. TECHNIQUE: Single frontal radiographic view of the chest acquired. RADIATION DOSE: NA LIMITATIONS: None. FINDINGS: LUNGS AND PLEURA: No opacities, masses or pneumothorax. No pleural effusion. MEDIASTINUM AND HILAR STRUCTURES: No masses. Contour normal. HEART AND VASCULAR STRUCTURES: Heart normal in size. Normal vasculature. BONES: No acute findings. HARDWARE: Central line with the tip at the level of the cavoatrial junction. Hardware in the cervica l spine. OTHER: No other significant finding. IMPRESSION: CENTRAL LINE APPEARS TO BE IN SATISFACTORY POSITION. NO PNEUMOTHORAX. TECHNICAL DOCUMENTATION: JOB ID: [id number] [employer]- All Rights Reserved Reading location - IP/workstation name: [email or web address]
[2018-08-15 09:59] VITALS: BP 142/77
== END 2018-08-15 09:40 | disposition short-term general hospital (02) ==
LOC: ER 04:42
DX: N17.9 Acute kidney failure, unspecified (principal); L89.93 Pressure ulcer of unspecified site, stage 3; T83.511A Infection and inflammatory reaction due to indwelling urethral catheter, initial encounter; Y84.6 Urinary catheterization as the cause of abnormal reaction of the patient, or of later complication, without mention of misadventure at the time of the procedure; A41.9 Sepsis, unspecified organism; R50.9 Fever, unspecified; R41.82 Altered mental status, unspecified; R19.7 Diarrhea, unspecified; Z88.6 Allergy status to analgesic agent; Z93.1 Gastrostomy status
CPT/HCPCS: 36556; 93005; 96376; 99291; 96375; 96365; 96367; 36415; 87040; 87086; 87070; 87205; 85025; 85610; 87075; 87077; 87088; 80053; 81001; 87186; 82803; 83605; 71045; 74176; 93010; C1751; J3010; J3490; J7060; J3370; J2543

== ENCOUNTER 2018-09-02 18:44 | Inpatient (IN) | payer MEDICAID ==
[2018-09-02] MEDS ORDERED: RINGERS SOLUTION,LACTATED 2,000 ML IV ONE (19:05)
[2018-09-02] MEDS ORDERED: ONDANSETRON HCL INJ/PF 4 MG/2 ML SDV IV ONE (19:30)
[2018-09-02] MEDS ORDERED: ACETAMINOPHEN 325 MG TABLET PO ONE (19:30)
--- NOTE | 2018-09-02 19:38 | ER Document Report ---
ED General - General Chief Complaint: Altered Mental Status Stated Complaint: ALTERED MENTAL STATUS Time Seen by Provider: 09/02/18 19:02 Notes: Patient is a 52-year old female, quadriplegic from a prior cord injury for 3 years ago, had a suprapubic catheter in at baseline, recently hospitalized for pyelonephritis with associated sepsis at [facility] who presents from [facility] with concerns of not acting like herself. Apparently staff was worried that the patient was not eating. Her PEG tube had been discontinued well in the hospital at [facility]. The patient herself denies any specific complaints. States she feels slightly tired. Denies that anything seems to improve or worsen her symptoms. States that she is not eating because she does not have a desire to eat. She does have a sacral wound that she complains has a dull, throbbing, constant pain associated with it but that that is not new or different tonight. She states positional changes seem to help that pain and sitting directly worsens the pain. She denies any fever, vomiting, abdominal pain, flank pain, headache or neck pain. TRAVEL OUTSIDE OF THE [place] IN LAST 30 DAYS: No - Related Data Allergies/Adverse Reactions: codeine [Codeine] Allergy (Verified 07/16/16 11:27) oxycodone HCl [From Percocet] Allergy (Verified 07/16/16 11:27) Past Medical History - General Information source: Patient - Social History Smoking Status: Former Smoker Frequency of alcohol use: None Drug Abuse: None Lives with: [facility] Family History: Reviewed & Not Pertinent - Past Medical History Cardiac Medical History: Denies: Hx Coronary Artery Disease, Hx Heart Attack, Hx Hypertension Pulmonary Medical History: Denies: Hx Asthma, Hx Bronchitis, Hx COPD, Hx Pneumonia Neurological Medical History: Denies: Hx Cerebrovascular Accident, Hx Seizures Renal/ Medical History: Denies: Hx Peritoneal Dialysis Musculoskeletal Medical History: Denies Hx Arthritis Psychiatric Medical History: Denies: Hx Depression Past Surgical History: Reports: Other - PEG TUBE PLACEMENT - Immunizations Hx Diphtheria, Pertussis, Tetanus Vaccination: Yes Review of Systems - Review of Systems Notes: Constitutional: Negative for fever. HENT: Negative for sore throat. Eyes: Negative for visual changes. Cardiovascular: Negative for chest pain. Respiratory: Negative for shortness of breath. Gastrointestinal: Negative for abdominal pain, vomiting or diarrhea. Genitourinary: Negative for dysuria. Musculoskeletal: Negative for back pain. Skin: Negative for rash. Neurological: Negative for headaches, weakness or numbness. 10 point ROS negative except as marked above and in HPI. Physical Exam - Vital signs Vitals: Resp Pulse Ox 10 L 95 09/02/18 20:08 09/02/18 20:08 Interpretation: Hypotensive Notes: PHYSICAL EXAMINATION: GENERAL: Appears chronically ill but in no acute distress HEAD: Atraumatic, normocephalic. EYES: Pupils equal round and reactive to light, extraocular movements intact, sclera anicteric, conjunctiva are normal. ENT: nares patent, oropharynx clear without exudates. Moderate dry mucous membranes. NECK: Normal range of motion, supple without lymphadenopathy LUNGS: Breath sounds clear to auscultation bilaterally and equal. No wheezes rales or rhonchi. HEART: Regular rate and rhythm without murmurs ABDOMEN: Soft, nontender, normoactive bowel sounds. No guarding, no rebound. No masses appreciated. EXTREMITIES: no pitting or edema. No cyanosis. NEUROLOGICAL: Quadriplegia at baseline PSYCH: Normal mood, normal affect. SKIN: Warm, Dry, normal turgor, no rashes or lesions noted. 2 x 1 cm well- healing stage II decubitus ulcer without evidence of associated infection Course - Re-evaluation Re-evalutation: 09/02/18 19:37 Patient presents by EMS with concerns of altered mental status. The patient is however alert, oriented x4, does not appear altered. She does seem mildly lethargic, noted to have mild hypotension by EMS. On exam she does have a stage II sacral decubitus ulcer approximately 2 x 1 7 m in size that appears to be healing relatively well, appropriate granulation tissue, no evidence of associated infection. She does have a suprapubic catheter in place with urine that does appear grossly infected. The remainder of her examination is otherwise at baseline as she has a known history of quadriplegia. Her PEG tube has been removed. She states that the nursing facility is main concern was that she is not eating in conjunction with her hypotension. Will begin fluids, obtain sepsis labs, chest x-ray and reassess the patient. 09/02/18 20:48 Map is currently 69. Heart rate 70. Patient sitting in the bed, relatively comfortable in no acute distress. Laboratories do show findings consistent with acute pyelonephritis, associated leukocytosis. Possible left associated basal pneumonia which would be healthcare acquired given that the patient does reside a nursing facility and was recently hospitalized for sepsis. Broad- spectrum antibiotics including cefepime, vancomycin and levofloxacin have been initiated to cover for both healthcare associated pneumonia as well as her urinary tract infection. No indication for initiation of vasopressor agents at this point his map is currently sufficiently elevated and she has not yet received a full fluid resuscitation. She is currently working through her second liter of lactated Ringer's. Will discuss with the hospitalist for admission. - Vital Signs Vital signs: Temp Pulse Resp BP Pulse Ox 76 10 L 92/69 L 96 09/03/18 00:00 09/03/18 00:01 09/03/18 00:01 09/03/18 00:30 - Laboratory Result Diagrams: 09/02/18 19:45 09/02/18 19:45 Laboratory results interpreted by me: 09/02/18 09/02/18 09/02/18 19:45 19:45 19:45 WBC 11.9 H Hgb 11.8 L Hct 35.4 L RDW 16.6 H Sodium 133.1 L Chloride 92 L BUN 60 H Creatinine 2.80 H Est GFR ( Amer) 21 L Est GFR (Non-Af Amer) 18 L AST 43 H Total Protein 8.9 H Urine Blood SMALL H Ur Leukocyte Esterase LARGE H - Diagnostic Test Radiology reviewed: Image reviewed, Reports reviewed Radiology results interpreted by me: 09/02/18 20:48 Chest x-ray: Possible left basilar pneumonia Discharge - Discharge Clinical Impression: Pyelonephritis, Prerenal azotemia Left lower lobe pneumonia Qualifiers: Pneumonia type: due to unspecified organism Qualified Code(s): J18.1 - Lobar pneumonia, unspecified organism Condition: Fair Disposition: ADMITTED INPATIENT Admitting Provider: Hospitalist Unit Admitted: [facility]
--- NOTE | 2018-09-02 19:39 | RADIOLOGY REPORT (SQ) ---
EXAM DESCRIPTION: CHEST SINGLE VIEW COMPLETED DATE/TIME: 09/02/2018 7:27 pm REASON FOR STUDY: sob COMPARISON: 08/15/2018. NUMBER OF VIEWS: One view. TECHNIQUE: Single frontal radiographic view of the chest acquired. LIMITATIONS: None. FINDINGS: LUNGS AND PLEURA: Left basilar airspace disease. Potential pneumonia. Subcentimeter nodu le overlies the left 1st rib end. Lungs otherwise clear. MEDIASTINUM AND HILAR STRUCTURES: No masses. Contour normal. HEART AND VASCULAR STRUCTURES: Cardiac enlargement without failure. BONES: Osteopenic. HARDWARE: None in the chest. OTHER: No other significant finding. IMPRESSION: 1. Suspicious for left basilar pneumonia. 2. Potential left upper lobe nodule. Chest C T if warranted. TECHNICAL DOCUMENTATION: JOB ID: [id number] [employer]- All Rights Reserved Reading location - IP/workstation name: [email or web address]
[2018-09-02 20:10] LABS: ABSOLUTE BASOPHILS # (AUTO) 0.1 10^3/uL (0.0-0.2); ABSOLUTE EOSINOPHILS # (AUTO) 0.4 10^3/uL (0.0-0.6); ABSOLUTE LYMPHOCYTES (AUTO) 2.2 10^3/uL (0.5-4.7); ABSOLUTE MONOCYTES (AUTO) 1.2 10^3/uL (0.1-1.4); BASOPHILS % (AUTO) 1.1 % (0-2); EOSINOPHILS % (AUTO) 3.2 % (0-6); HEMATOCRIT 35.4 % (36.0-47.0); HEMOGLOBIN 11.8 g/dL (12.0-15.5); LYMPHOCYTES % (AUTO) 18.7 % (13-45); MEAN CORPUSCULAR HEMOGLOBIN 27.9 pg (27.0-33.4); MEAN CORPUSCULAR HGB CONC 33.3 g/dL (32.0-36.0); MEAN CORPUSCULAR VOLUME 84 fl (80-97); MONOCYTES % (AUTO) 9.9 % (3-13); PLATELET COUNT 405 10^3/uL (150-450); RED BLOOD COUNT 4.23 10^6/uL (3.72-5.28); RED CELL DISTRIBUTION WIDTH 16.6 % (11.5-14.0); SEGMENTED NEUTROPHILS % (AUTO) 67.1 % (42-78); TOTAL CELLS COUNTED % (AUTO) 100 %; WHITE BLOOD COUNT 11.9 10^3/uL (4.0-10.5)
[2018-09-02 20:33] LABS: ALANINE AMINOTRANSFERASE 28 U/L (9-52); ALBUMIN 4.3 g/dL (3.5-5.0); ALKALINE PHOSPHATASE 96 U/L (38-126); ANION GAP 16 (5-19); ASPARTATE AMINO TRANSFERASE 43 U/L (14-36); BILIRUBIN,DIRECT 0.3 mg/dL (0.0-0.4); BILIRUBIN,TOTAL 0.4 mg/dL (0.2-1.3); BLOOD UREA NITROGEN 60 mg/dL (7-20); CALCIUM 9.2 mg/dL (8.4-10.2); CARBON DIOXIDE 25 mmol/L (22-30); CHLORIDE 92 mmol/L (98-107); GLUCOSE 101 mg/dL (75-110); SODIUM 133.1 mmol/L (137-145); TOTAL PROTEIN 8.9 g/dL (6.3-8.2)
[2018-09-02 20:34] LABS: AMORPHOUS SEDIMENT,URINE TRACE /HPF; APPEARANCE,URINE CLOUDY; BILIRUBIN,URINE NEGATIVE (NEGATIVE); CALCIUM OXALATE CRYSTALS,URINE FEW /HPF; COLOR,URINE YELLOW; GLUCOSE, URINE NEGATIVE (NEGATIVE); KETONES,URINE NEGATIVE (NEGATIVE); LEUKOCYTE ESTERASE,URINE LARGE (NEGATIVE); NITRITE,URINE NEGATIVE (NEGATIVE); PROTEIN,URINE NEGATIVE (NEGATIVE); URINE SPECIFIC GRAVITY 1.006; UROBILINOGEN,URINE NEGATIVE mg/dL (<2.0)
[2018-09-02] MEDS ORDERED: CEFEPIME 2 GM/D5W RTU 2 GM/50 ML RTUPB IV ONE (20:44)
[2018-09-02] MEDS ORDERED: LEVOFLOXACIN 750 MG/D5W RTU 750 MG/150 ML RTUPB IV ONE (20:44)
[2018-09-02] MEDS ORDERED: VANCOMYCIN HCL INJ 1000 MG VIAL IV ONE (20:44)
[2018-09-02] MEDS ORDERED: IPRATROPIUM/ALBUTEROL 0.5-2.5 MG/3 ML AMPUL NEB PRN (21:28)
[2018-09-02] MEDS ORDERED: GUAIFENESIN SYRP 200 MG/10 ML UDC PO PRN (21:28)
[2018-09-02] MEDS ORDERED: NORMAL SALINE 1000 ML 1,000 ML IV PRN (21:30)
[2018-09-02] MEDS ORDERED: VANCOMYCIN HCL 0 MG in DEXTROSE 5%-WATER 250 ML IV NR (21:30)
[2018-09-02] MEDS ORDERED: CEFEPIME 1 GM/D5W RTU 1 GM/50 ML RTUPB IV SCH (22:00)
--- NOTE | 2018-09-02 23:04 | RADIOLOGY REPORT (SQ) ---
EXAM DESCRIPTION: US RETROPERITONEUM LIMITED COMPLETED DATE/TME: 09/02/2018 00:00 CLINICAL HISTORY: 52 years Female, arf, pyelo, hx of nephrolith Comparison:08/15/2018 LIMITATIONS: None. FINDINGS: 9-cm right kidney with staghorn calculus of the right renal pelvis and mild right hydronephrosis; 10-cm left kidney with more than one nonobstructing renal stone at the renal pelvis better discerned with CT August 15, 2018, and decompressed/catheterized urinary bladder appear otherwise of normal size, shape, echotexture, and vascularity. IMPRESSION: 1. Mild right hydronephrosis. 2. Bilateral nephrolithiasis.
[2018-09-02] MEDS ORDERED: VANCOMYCIN HCL INJ 1000 MG VIAL ONE (23:19)
[2018-09-02] MEDS ORDERED: VANCOMYCIN HCL INJ 500 MG VIAL ONE (23:19)
[2018-09-02] MEDS: IPRATROPIUM/ALBUTEROL 0.5-2.5 MG/3 ML AMPUL NEB SCH (23:22)
[2018-09-02] MEDS: GABAPENTIN 300 MG CAPSULE PEG SCH (23:22)
[2018-09-02] MEDS: OXYCODONE HCL SR 10 MG TABLET PO SCH (23:22)
[2018-09-02] MEDS: TIZANIDINE HCL 4 MG TABLET PEG SCH (23:23)
[2018-09-02] MEDS: HEPARIN SOD (PORCINE) 5,000 UNIT/ML 1 ML SYRINGE SUBCUT SCH (23:23)
[2018-09-03] MEDS: METOCLOPRAMIDE HCL ORAL SOLN 10 MG/10 ML UDCUP PO SCH ×5 (00:07→23:05)
[2018-09-03 05:38] LABS: ABSOLUTE BASOPHILS # (AUTO) 0.1 10^3/uL (0.0-0.2); ABSOLUTE EOSINOPHILS # (AUTO) 0.3 10^3/uL (0.0-0.6); ABSOLUTE LYMPHOCYTES (AUTO) 1.4 10^3/uL (0.5-4.7); ABSOLUTE MONOCYTES (AUTO) 0.8 10^3/uL (0.1-1.4); ABSOLUTE NEUT (AUTO) 4.7 10^3/uL (1.7-8.2); BASOPHILS % (AUTO) 1.4 % (0-2); EOSINOPHILS % (AUTO) 3.5 % (0-6); HEMATOCRIT 29.1 % (36.0-47.0); LYMPHOCYTES % (AUTO) 19.5 % (13-45); MEAN CORPUSCULAR HGB CONC 34.1 g/dL (32.0-36.0); MEAN CORPUSCULAR VOLUME 82 fl (80-97); MONOCYTES % (AUTO) 10.8 % (3-13); PLATELET COUNT 309 10^3/uL (150-450); RED BLOOD COUNT 3.54 10^6/uL (3.72-5.28); RED CELL DISTRIBUTION WIDTH 16.1 % (11.5-14.0); SEGMENTED NEUTROPHILS % (AUTO) 64.8 % (42-78); TOTAL CELLS COUNTED % (AUTO) 100 %; WHITE BLOOD COUNT 7.3 10^3/uL (4.0-10.5)
[2018-09-03 05:44] LABS: HEMOGLOBIN 9.9 g/dL (12.0-15.5)
[2018-09-03 05:49] LABS: ANION GAP 13 (5-19); BLOOD UREA NITROGEN 48 mg/dL (7-20); CALCIUM 8.8 mg/dL (8.4-10.2); CARBON DIOXIDE 23 mmol/L (22-30); CHLORIDE 100 mmol/L (98-107); GLUCOSE 86 mg/dL (75-110); POTASSIUM 4.2 mmol/L (3.6-5.0); SODIUM 135.7 mmol/L (137-145)
--- NOTE | 2018-09-03 06:00 | PDOC H&P ---
History of Present Illness Admission Date/PCP: 09/02/18 21:38 HÉCTOR BLOUNT MD Patient complains of: Altered mental status History of Present Illness: ARTURO GILBERT is a 52 year old female, quadriplegic from prior cord injury 3 years ago, had a suprapubic catheter and PEG tube with recent discontinuation. Patient was hospitalized for pyelonephritis with sepsis at [facility] within the last 2 months and was in rehab at [facility] when nursing staff was concerned for poor p.o. intake and confusion. In the emergency room she is found to have severe sepsis with hypotension, acute renal failure, pyuria and a left-sided infiltrate concerning for pneumonia. A 3 x 3 cm stage IV decubitus ulcer, necrotic discharge from suprapubic catheter site and PEG tube site. Patient complains of diffuse pain. In the emergency room she started on empiric antibiotics of Levaquin, vancomycin and cefepime then referred to the hospitalist for admission. Past Medical History Cardiac Medical History: Denies: Coronary Artery Disease, Myocardial Infarction, Hypertension Pulmonary Medical History: Denies: Asthma, Bronchitis, Chronic Obstructive Pulmonary Disease (COPD), Pneumonia Neurological Medical History: Denies: Seizures Musculoskeltal Medical History: Denies: Arthritis Psychiatric Medical History: Denies: Depression Hematology: Reports: Anemia Past Surgical History Past Surgical History: Reports: Other - Suprapubic catheter, PEG TUBE PLACEMENT Social History Information Source: Emergency [facility] Personnel, [facility] Records [facility] with: [facility] Smoking Status: Former Smoker Number of Years Smokin Frequency of Alcohol Use: None Hx Recreational Drug Use: No Drugs: None Hx Prescription Drug Abuse: No - Advance Directive Resuscitation Status: Full Code Family History Family History: Hypertension Parental Family History Reviewed: No Children Family History Reviewed: No Sibling(s) Family History Reviewed.: No Medication/Allergy Home Medications: Acetaminophen [Tylenol Soln 325 mg/10.15 ml Udcup] 325 mg PEG Q4HP PRN 06/17/18 Acetaminophen [Tylenol Soln 325 mg/10.15 ml Udcup] 500 mg PEG Q12 06/17/18 Ascorbic Acid [Vitamin C 500 mg Tablet] 500 mg PEG BID MDD until wound resolves 06/17/18 Bismuth Subsalicylate [Maalox] 20 ml PEG Q4HP PRN 06/17/18 Duloxetine HCl [Cymbalta] 30 mg PEG DAILY 06/17/18 Flavoxate HCl [Urispas] 200 mg PEG Q8 06/17/18 Gabapentin [Neurontin 300 mg Capsule] 300 mg PEG Q8 06/17/18 Meloxicam 15 mg PEG DAILY 06/17/18 Metoclopramide HCl [Reglan Oral Soln 10 mg/10 ml Udcup] 5 mg PEG QID 06/17/18 Multivit-Minerals/Ferrous Gluc [Centrum Multivit-Mineral Liq] 10 ml PEG DAILY Omeprazole 40 mg PO Q6AM 06/17/18 Ondansetron [Zofran Odt 4 mg Tablet] 4 mg PEG Q6HP PRN 06/17/18 Oxycodone HCl [Oxy-Ir 5 mg Tablet] 5 mg PO Q4HP PRN 06/17/18 Oxycodone HCl [Oxycontin Sr 10 mg Tablet] 20 mg PO Q8 06/17/18 Promethazine HCl [Phenergan Inj 25 mg/1 ml Vial] 25 mg IM Q6HP PRN MDD 3 doses 06/17/18 Sennosides/Docusate Sodium [Senna-S Tablet] 1 each PEG Q12 MDD hold for loose stool 06/17/18 Solifenacin Succinate [Vesicare] 5 mg PO DAILY 06/17/18 Tizanidine HCl [Zanaflex 4 mg Tablet] 2 mg PEG Q8 06/17/18 Zinc Sulfate [Zinc-220 Capsule] 220 mg PEG DAILY 06/17/18 Metoclopramide HCl [Reglan] 5 mg PO Q6 #30 tablet 07/18/18 Ondansetron [Zofran Odt] 4 mg PO Q6 PRN #30 tab.rapdis 07/18/18 Allergies/Adverse Reactions: codeine [Codeine] Allergy (Verified 07/16/16 11:27) oxycodone HCl [From Percocet] Allergy (Verified 07/16/16 11:27) Review of Systems ROS unobtainable: Due to mental status - Altered mental status secondary to sepsis Physical Exam Vital Signs: Temp Pulse Resp BP Pulse Ox 97.2 F 61 16 89/54 L 97 09/03/18 03:25 09/03/18 03:25 09/03/18 03:25 09/03/18 03:42 09/03/18 03:25 Intake & Output 09/01/18 09/02/18 09/03/18 11:59 11:59 11:59 Intake Total 150 Balance 150 Weight 62.6 kg General appearance: PRESENT: mild distress. ABSENT: disheveled, hard of hearing , morbidly obese Head exam: PRESENT: atraumatic, normocephalic Eye exam: PRESENT: conjunctiva pink, EOMI, PERRLA. ABSENT: scleral icterus Mouth exam: PRESENT: dry mucosa. ABSENT: laceration, moist Neck exam: ABSENT: carotid bruit, JVD, lymphadenopathy, thyromegaly Respiratory exam: PRESENT: accessory muscle use, crackles, decreased breath sounds, rales, retraction, tachypnea Cardiovascular exam: PRESENT: tachycardia. ABSENT: diastolic murmur, rubs, systolic murmur Pulses: PRESENT: normal dorsalis pedis pul Vascular exam: PRESENT: normal capillary refill GI/Abdominal exam: PRESENT: distended, hyperactive bowel sounds, soft. ABSENT: firm, hypoactive bowel sounds, tenderness Torso Front/Back Image: 1 - PEG ostomy with necrotic discharge 2 - Suprapubic ostomy with necrotic discharge 3 - 3 x 3 cm stage IV sacral decub Rectal exam: PRESENT: deferred Extremities exam: PRESENT: full ROM. ABSENT: calf tenderness, clubbing, pedal edema Neurological exam: PRESENT: alert, awake, oriented to person, oriented to place , oriented to situation, CN II-XII grossly intact. ABSENT: motor sensory deficit Psychiatric exam: PRESENT: appropriate affect, normal mood. ABSENT: homicidal ideation, suicidal ideation Skin exam: PRESENT: dry, intact, warm, other - As described on torso image. ABSENT: cyanosis, rash Results Laboratory Results: 09/03/18 05:17 09/03/18 05:17 WBC 7.3 RBC 3.54 L Hgb 9.9 L Hct 29.1 L MCV 82 MCH 28.0 MCHC 34.1 RDW 16.1 H Plt Count 309 Seg Neutrophils % 64.8 Lymphocytes % 19.5 Monocytes % 10.8 Eosinophils % 3.5 Basophils % 1.4 Absolute Neutrophils 4.7 Absolute Lymphocytes 1.4 Absolute Monocytes 0.8 Absolute Eosinophils 0.3 Absolute Basophils 0.1 Impressions: Renal Ultrasound 09/02/18 00:00 IMPRESSION: 1. Mild right hydronephrosis. 2. Bilateral nephrolithiasis. Chest X-Ray 09/02/18 19:04 IMPRESSION: 1. Suspicious for left basilar pneumonia. 2. Potential left upper lobe nodule. Chest CT if warranted. Assessment & Plan - Diagnosis (1) Left lower lobe pneumonia Qualifiers: Pneumonia type: due to unspecified organism Qualified Code(s): J18.1 - Lobar pneumonia, unspecified organism Is this a current diagnosis for this admission?: Yes Plan: Pneumonia care set, coverage for healthcare associated organism, follow-up blood culture and CBC (2) Complication of ostomy Is this a current diagnosis for this admission?: Yes Plan: Both PEG and suprapubic cath with necrotic discharge, surgery consulted, follow- up wound cultures (3) Prerenal azotemia Is this a current diagnosis for this admission?: Yes Plan: Aggressive IV fluid challenge, avoid nephrotoxic meds and doses reevaluate chemistry (4) Pyelonephritis Is this a current diagnosis for this admission?: Yes Plan: History of staghorn calculi, ultrasound does not suggest hydronephrosis or obstruction, microbiology available, follow-up repeat culture (5) Hypokalemia Is this a current diagnosis for this admission?: Yes Plan: Repletion and reevaluate chemistry (6) Osteomyelitis Is this a current diagnosis for this admission?: Yes Plan: Stage IV sacral decub, surgical consult (7) Acute renal failure Is this a current diagnosis for this admission?: Yes Plan: Secondary to sepsis, IV fluid challenge, avoid nephrotoxic meds and doses, follow-up chemistry - Time Time Spent: 50 to 70 Minutes - Inpatient Certification Medical Necessity: Need Close Monitoring Due to Risk of Patient Decompensation
[2018-09-03] MEDS: OXYCODONE HCL SR 10 MG TABLET PO SCH ×3 (06:43→21:42)
[2018-09-03] MEDS: HEPARIN SOD (PORCINE) 5,000 UNIT/ML 1 ML SYRINGE SUBCUT SCH ×4 (06:45→21:42)
[2018-09-03] MEDS: GABAPENTIN 300 MG CAPSULE PEG SCH (06:45)
[2018-09-03] MEDS: IPRATROPIUM/ALBUTEROL 0.5-2.5 MG/3 ML AMPUL NEB SCH (08:09)
[2018-09-03] MEDS ORDERED: DULOXETINE HCL 30 MG CAPSULE.DR PEG SCH (10:00)
[2018-09-03] MEDS: TIZANIDINE HCL 4 MG TABLET PEG SCH (11:39)
[2018-09-03] MEDS: ASCORBIC ACID 500 MG TABLET PEG SCH ×2 (11:48→11:54)
[2018-09-03] MEDS: CEFEPIME 1 GM/D5W RTU 1 GM/50 ML RTUPB IV SCH ×2 (12:01→21:42)
[2018-09-03] MEDS ORDERED: IPRATROPIUM/ALBUTEROL 0.5-2.5 MG/3 ML AMPUL NEB PRN (13:03)
--- NOTE | 2018-09-03 13:23 | PDOC CONSULTATION ---
History of Present Illness Admission Date/PCP: 09/02/18 21:38 HÉCTOR BLOUNT MD Patient complains of: Drainage at PEG site. History of Present Illness: ARTURO GILBERT is a 52 year old female paraplegic with history of PEG placement for the past 3 years which was removed about 2 weeks ago since patient was taking good p.o. intake. Patient also has a suprapubic catheter for apparent urosepsis for which she was hospitalized. Patient also has long- standing sacral decubitus ulcer. She has had drainage from the PEG site since removal. With irritation of her skin. Past Medical History Cardiac Medical History: Denies: Coronary Artery Disease, Myocardial Infarction, Hypertension Pulmonary Medical History: Denies: Asthma, Bronchitis, Chronic Obstructive Pulmonary Disease (COPD), Pneumonia Neurological Medical History: Reports: Other - Paraplegia along with a limited movement of the upper extremity Denies: Seizures Musculoskeltal Medical History: Denies: Arthritis Psychiatric Medical History: Denies: Depression Hematology: Reports: Anemia Past Surgical History Past Surgical History: Reports: Other - Suprapubic catheter, PEG TUBE PLACEMENT Social History Lives with: [facility] Smoking Status: Former Smoker Number of Years Smokin Frequency of Alcohol Use: None Hx Recreational Drug Use: No Drugs: None Hx Prescription Drug Abuse: No - Advance Directive Resuscitation Status: Full Code Family History Family History: Hypertension Parental Family History Reviewed: No Children Family History Reviewed: No Sibling(s) Family History Reviewed.: No Medication/Allergy Home Medications: Acetaminophen [Tylenol Soln 325 mg/10.15 ml Udcup] 325 mg PEG Q4HP PRN 06/17/18 Acetaminophen [Tylenol Soln 325 mg/10.15 ml Udcup] 500 mg PEG Q12 06/17/18 Ascorbic Acid [Vitamin C 500 mg Tablet] 500 mg PEG BID MDD until wound resolves 06/17/18 Bismuth Subsalicylate [Maalox] 20 ml PEG Q4HP PRN 06/17/18 Duloxetine HCl [Cymbalta] 30 mg PEG DAILY 06/17/18 Flavoxate HCl [Urispas] 200 mg PEG Q8 06/17/18 Gabapentin [Neurontin 300 mg Capsule] 300 mg PEG Q8 06/17/18 Meloxicam 15 mg PEG DAILY 06/17/18 Metoclopramide HCl [Reglan Oral Soln 10 mg/10 ml Udcup] 5 mg PEG QID 06/17/18 Multivit-Minerals/Ferrous Gluc [Centrum Multivit-Mineral Liq] 10 ml PEG DAILY Omeprazole 40 mg PO Q6AM 06/17/18 Ondansetron [Zofran Odt 4 mg Tablet] 4 mg PEG Q6HP PRN 06/17/18 Oxycodone HCl [Oxy-Ir 5 mg Tablet] 5 mg PO Q4HP PRN 06/17/18 Oxycodone HCl [Oxycontin Sr 10 mg Tablet] 20 mg PO Q8 06/17/18 Promethazine HCl [Phenergan Inj 25 mg/1 ml Vial] 25 mg IM Q6HP PRN MDD 3 doses 06/17/18 Sennosides/Docusate Sodium [Senna-S Tablet] 1 each PEG Q12 MDD hold for loose stool 06/17/18 Solifenacin Succinate [Vesicare] 5 mg PO DAILY 06/17/18 Tizanidine HCl [Zanaflex 4 mg Tablet] 2 mg PEG Q8 06/17/18 Zinc Sulfate [Zinc-220 Capsule] 220 mg PEG DAILY 06/17/18 Metoclopramide HCl [Reglan] 5 mg PO Q6 #30 tablet 07/18/18 Ondansetron [Zofran Odt] 4 mg PO Q6 PRN #30 tab.rapdis 07/18/18 Allergies/Adverse Reactions: codeine [Codeine] Allergy (Verified 07/16/16 11:27) oxycodone HCl [From Percocet] Allergy (Verified 07/16/16 11:27) Physical Exam Vital Signs: Temp Pulse Resp BP Pulse Ox 97.7 F 63 16 86/51 L 97 09/03/18 08:23 09/03/18 08:23 09/03/18 08:23 09/03/18 08:23 09/03/18 08:23 Intake & Output 09/02/18 09/03/18 09/04/18 06:59 06:59 06:59 Intake Total 150 50 Output Total 1250 Balance -1100 50 Weight 62.6 kg General appearance: PRESENT: no acute distress, cooperative Respiratory exam: PRESENT: clear to auscultation justyna Cardiovascular exam: PRESENT: RRR GI/Abdominal exam: PRESENT: other - Soft, nondistended, nontender other than at the PEG site where there is irritated skin with a small opening with gauze dressing that had central staining (apparently the gauze dressing was placed last night). Suprapubic catheter in place. No surrounding erythema nor induration. Site appears clean with minimal discharge at this exit point. Neurological exam: PRESENT: alert, awake Psychiatric exam: PRESENT: appropriate affect Skin exam: PRESENT: warm - Sacral decubitus ulcer that appears clean with granulation tissue with no necrotic tissue. It measures about 3-4 cm in size and about 2 cm deep. Results Laboratory Results: 09/03/18 05:17 09/03/18 05:17 09/03/18 09/03/18 05:17 05:17 WBC 7.3 RBC 3.54 L Hgb 9.9 L Hct 29.1 L MCV 82 MCH 28.0 MCHC 34.1 RDW 16.1 H Plt Count 309 Seg Neutrophils % 64.8 Lymphocytes % 19.5 Monocytes % 10.8 Eosinophils % 3.5 Basophils % 1.4 Absolute Neutrophils 4.7 Absolute Lymphocytes 1.4 Absolute Monocytes 0.8 Absolute Eosinophils 0.3 Absolute Basophils 0.1 Sodium 135.7 L Potassium 4.2 Chloride 100 Carbon Dioxide 23 Anion Gap 13 BUN 48 H Creatinine 1.66 H Est GFR ( Amer) 39 L Est GFR (Non-Af Amer) 32 L Glucose 86 Calcium 8.8 Impressions: Renal Ultrasound 09/02/18 00:00 IMPRESSION: 1. Mild right hydronephrosis. 2. Bilateral nephrolithiasis. Chest X-Ray 09/02/18 19:04 IMPRESSION: 1. Suspicious for left basilar pneumonia. 2. Potential left upper lobe nodule. Chest CT if warranted. Assessment & Plan - Diagnosis (1) Suprapubic catheter Is this a current diagnosis for this admission?: Yes Plan: Site looks okay. Typical appearance for suprapubic catheter. I do not think there is an underlying subcutaneous abscess. It appears to be functioning well with good urine output. (2) Sacral decubitus ulcer, stage IV Is this a current diagnosis for this admission?: Yes Plan: Appears very clean with no necrotic tissue no evidence of infection. Recommend wound VAC. 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 Low output as indicated by just central staining of the gauze that was placed yesterday. Recommend managing it conservatively with proton pump inhibitor to reduce the acid irritating effect on the skin, zinc oxide to protect the skin, frequent gauze dressing changes to keep that area dry. Give it some more time for it to spontaneously closed. If it persists more than a few weeks, will consider surgical intervention to close the fistula.
[2018-09-03] MEDS: GABAPENTIN 300 MG CAPSULE PO SCH ×2 (14:47→21:43)
[2018-09-03] MEDS: TIZANIDINE HCL 4 MG TABLET PO SCH ×2 (14:55→23:05)
[2018-09-03] MEDS: LANSOPRAZOLE 30 MG TAB.RAP.DR PO SCH (16:04)
[2018-09-03] MEDS: HYDROCODONE/ACETAMINOPHEN 5-325 MG TABLET PO PRN (16:04)
--- NOTE | 2018-09-03 17:19 | PDOC PROGRESS REPORT ---
Subjective Progress Note for:: 09/03/18 Subjective:: ARTURO GILBERT is a 52 year old female, paraplegic from prior cord injury 3 years ago, had a suprapubic catheter and PEG tube with recent discontinuation. Patient was hospitalized for pyelonephritis with sepsis at [facility] within the last 2 months and was in rehab at [facility] when nursing staff was concerned for poor p.o. intake and confusion. In the emergency room she is found to have severe sepsis with hypotension, acute renal failure, pyuria and a left-sided infiltrate concerning for pneumonia. A 3 x 3 cm stage IV decubitus ulcer, necrotic discharge from suprapubic catheter site and PEG tube site. Patient complains of diffuse pain. In the emergency room she started on empiric antibiotics of Levaquin, vancomycin and cefepime then referred to the hospitalist for admission 09/03/2018. On my encounter patient is resting in bed not in apparent acute distress been complaining of having generalized chronic pain from neck down. She denies any fever, nausea, vomiting, diarrhea, chills, chest pain or any shortness of breath. Reason For Visit: PYELONEPHRITIS ARF PNEUMONIA Physical Exam Vital Signs: Temp Pulse Resp BP Pulse Ox 98.3 F 66 16 92/48 L 96 09/03/18 16:30 09/03/18 12:56 09/03/18 16:30 09/03/18 16:30 09/03/18 12:56 Intake & Output 09/02/18 09/03/18 09/04/18 06:59 06:59 06:59 Intake Total 150 50 Output Total 1250 Balance -1100 50 Weight 62.6 kg General appearance: PRESENT: no acute distress, well-developed, well-nourished Head exam: PRESENT: atraumatic, normocephalic Respiratory exam: PRESENT: clear to auscultation justyna. ABSENT: rales, rhonchi, wheezes Cardiovascular exam: PRESENT: RRR. ABSENT: diastolic murmur, rubs, systolic murmur GI/Abdominal exam: PRESENT: normal bowel sounds, soft, other - Site of PICC to looks irritated with no sign of active discharge process. Suprapubic catheter in place. Mild irritation and erythema around the tube otherwise no active discharge.. ABSENT: distended, guarding, mass, organolmegaly, rebound, tenderness Results Laboratory Results: 09/03/18 05:17 09/03/18 05:17 09/03/18 09/03/18 05:17 05:17 WBC 7.3 RBC 3.54 L Hgb 9.9 L Hct 29.1 L MCV 82 MCH 28.0 MCHC 34.1 RDW 16.1 H Plt Count 309 Seg Neutrophils % 64.8 Lymphocytes % 19.5 Monocytes % 10.8 Eosinophils % 3.5 Basophils % 1.4 Absolute Neutrophils 4.7 Absolute Lymphocytes 1.4 Absolute Monocytes 0.8 Absolute Eosinophils 0.3 Absolute Basophils 0.1 Sodium 135.7 L Potassium 4.2 Chloride 100 Carbon Dioxide 23 Anion Gap 13 BUN 48 H Creatinine 1.66 H Est GFR ( Amer) 39 L Est GFR (Non-Af Amer) 32 L Glucose 86 Calcium 8.8 Impressions: Renal Ultrasound 09/02/18 00:00 IMPRESSION: 1. Mild right hydronephrosis. 2. Bilateral nephrolithiasis. Chest X-Ray 09/02/18 19:04 IMPRESSION: 1. Suspicious for left basilar pneumonia. 2. Potential left upper lobe nodule. Chest CT if warranted. Assessment & Plan - Diagnosis (1) Left lower lobe pneumonia Qualifiers: Pneumonia type: due to unspecified organism Qualified Code(s): J18.1 - Lobar pneumonia, unspecified organism Is this a current diagnosis for this admission?: Yes Plan: Likely healthcare associated. Broad-spectrum antibiotics. Blood cultures negative so far. Leukocytosis improving. (2) Pyelonephritis Is this a current diagnosis for this admission?: Yes Plan: History of staghorn calculi. Ultrasound does not suggest hydronephrosis or obstruction. Continue broad-spectrum antibiotic. Urine culture positive for gram-negative rods likely E. coli. (3) Acute renal failure Is this a current diagnosis for this admission?: Yes Plan: Improving. Likely prerenal caused by hypotension but the underlying infectious process. Continue volume resuscitation. Avoid nephrotoxic agents. Monitor vitals and electrolytes. BMP tomorrow. (4) Complication of ostomy Is this a current diagnosis for this admission?: Yes Plan: Ostomy site has been evaluated by surgery. No intervention indicated. Follow- up wound culture. Follow wound care. Started on PPI. (5) Prerenal azotemia Is this a current diagnosis for this admission?: Yes Plan: Aggressive volume fluid challenge. Avoid nephrotoxic agents. BMP tomorrow (6) Sacral decubitus ulcer, stage IV Is this a current diagnosis for this admission?: Yes Plan: Cubitus ulcer has been evaluated by surgery. Recommending VAC placement. Continue wound care and broad-spectrum antibiotics. (7) Suprapubic catheter Is this a current diagnosis for this admission?: Yes
[2018-09-03] MEDS: ASCORBIC ACID 500 MG TABLET PO SCH (19:04)
[2018-09-03] MEDS ORDERED: VANCOMYCIN HCL 1,000 MG in DEXTROSE 5%-WATER 250 ML IV SCH (22:00)
[2018-09-04] MEDS: HYDROCODONE/ACETAMINOPHEN 5-325 MG TABLET PO PRN ×3 (04:45→21:09)
[2018-09-04] MEDS: ZINC OXIDE 20% OINTMENT 28.35 GM TP PRN ×2 (04:47→21:20)
[2018-09-04 04:57] LABS: ABSOLUTE BASOPHILS # (AUTO) 0.1 10^3/uL (0.0-0.2); ABSOLUTE EOSINOPHILS # (AUTO) 0.4 10^3/uL (0.0-0.6); ABSOLUTE MONOCYTES (AUTO) 0.8 10^3/uL (0.1-1.4); ABSOLUTE NEUT (AUTO) 4.2 10^3/uL (1.7-8.2); EOSINOPHILS % (AUTO) 5.3 % (0-6); HEMATOCRIT 31.2 % (36.0-47.0); HEMOGLOBIN 10.2 g/dL (12.0-15.5); LYMPHOCYTES % (AUTO) 26.5 % (13-45); MEAN CORPUSCULAR HEMOGLOBIN 27.3 pg (27.0-33.4); MEAN CORPUSCULAR HGB CONC 32.7 g/dL (32.0-36.0); MEAN CORPUSCULAR VOLUME 84 fl (80-97); MONOCYTES % (AUTO) 10.3 % (3-13); PLATELET COUNT 314 10^3/uL (150-450); RED BLOOD COUNT 3.74 10^6/uL (3.72-5.28); RED CELL DISTRIBUTION WIDTH 16.6 % (11.5-14.0); SEGMENTED NEUTROPHILS % (AUTO) 56.9 % (42-78); TOTAL CELLS COUNTED % (AUTO) 100 %; WHITE BLOOD COUNT 7.4 10^3/uL (4.0-10.5)
[2018-09-04] MEDS: OXYCODONE HCL SR 10 MG TABLET PO SCH ×3 (05:14→21:08)
[2018-09-04] MEDS: LANSOPRAZOLE 30 MG TAB.RAP.DR PO SCH ×2 (05:14→17:57)
[2018-09-04] MEDS: METOCLOPRAMIDE HCL ORAL SOLN 10 MG/10 ML UDCUP PO SCH ×3 (05:15→17:58)
[2018-09-04] MEDS: HEPARIN SOD (PORCINE) 5,000 UNIT/ML 1 ML SYRINGE SUBCUT SCH ×3 (05:15→21:08)
[2018-09-04] MEDS: GABAPENTIN 300 MG CAPSULE PO SCH ×3 (05:15→21:09)
[2018-09-04] MEDS: TIZANIDINE HCL 4 MG TABLET PO SCH ×3 (05:16→21:09)
[2018-09-04 05:18] LABS: ALANINE AMINOTRANSFERASE 22 U/L (9-52); ALBUMIN 3.4 g/dL (3.5-5.0); ALKALINE PHOSPHATASE 74 U/L (38-126); ANION GAP 11 (5-19); ASPARTATE AMINO TRANSFERASE 20 U/L (14-36); BILIRUBIN,DIRECT 0.2 mg/dL (0.0-0.4); BILIRUBIN,TOTAL 0.2 mg/dL (0.2-1.3); BLOOD UREA NITROGEN 34 mg/dL (7-20); CALCIUM 9.3 mg/dL (8.4-10.2); CARBON DIOXIDE 26 mmol/L (22-30); CHLORIDE 105 mmol/L (98-107); GLUCOSE 99 mg/dL (75-110); POTASSIUM 4.8 mmol/L (3.6-5.0); SODIUM 142.4 mmol/L (137-145)
--- NOTE | 2018-09-04 09:02 | PDOC PROGRESS REPORT ---
Subjective Subjective:: States drainage is less Reason For Visit: PYELONEPHRITIS ARF PNEUMONIA Physical Exam Vital Signs: Temp Pulse Resp BP Pulse Ox 98.1 F 58 L 16 88/48 L 95 09/04/18 08:17 09/04/18 08:38 09/04/18 08:38 09/04/18 08:17 09/04/18 08:38 Intake & Output 09/03/18 09/04/18 09/05/18 06:59 06:59 06:59 Intake Total 150 1091 Output Total 1250 2024 Balance -1100 -934 Weight 62.6 kg 68.2 kg General appearance: PRESENT: other - Patient prefers to lean on her left side GI/Abdominal exam: PRESENT: other - Dressing removed; zinc oxide around fistula site. No active drainage. Patient in a left lateral semi-decubitus position Results Laboratory Results: 09/04/18 04:25 09/04/18 04:25 09/04/18 09/04/18 09/04/18 04:25 04:25 04:25 WBC 7.4 RBC 3.74 Hgb 10.2 L Hct 31.2 L MCV 84 MCH 27.3 MCHC 32.7 RDW 16.6 H Plt Count 314 Seg Neutrophils % 56.9 Lymphocytes % 26.5 Monocytes % 10.3 Eosinophils % 5.3 Basophils % 1.0 Absolute Neutrophils 4.2 Absolute Lymphocytes 2.0 Absolute Monocytes 0.8 Absolute Eosinophils 0.4 Absolute Basophils 0.1 Sodium 142.4 Potassium 4.8 Chloride 105 Carbon Dioxide 26 Anion Gap 11 BUN 34 H Creatinine 0.85 Est GFR ( Amer) > 60 Est GFR (Non-Af Amer) > 60 Glucose 99 Calcium 9.3 Magnesium 2.2 Total Bilirubin 0.2 AST 20 ALT 22 Alkaline Phosphatase 74 Total Protein 7.0 Albumin 3.4 L Impressions: Renal Ultrasound 09/02/18 00:00 IMPRESSION: 1. Mild right hydronephrosis. 2. Bilateral nephrolithiasis. Chest X-Ray 09/02/18 19:04 IMPRESSION: 1. Suspicious for left basilar pneumonia. 2. Potential left upper lobe nodule. Chest CT if warranted. 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 Explained to patient leaning on her right rather than left side will facilitate gastric emptying, and may decrease drainage 2. No indication for surgical intervention at this time. Hopefully drainage will diminish over the next several days and eventually fistula will close spontaneously. 3. Reconsult surgery if needed.
[2018-09-04] MEDS: DULOXETINE HCL 30 MG CAPSULE.DR PO SCH (09:32)
[2018-09-04] MEDS: ASCORBIC ACID 500 MG TABLET PO SCH ×2 (09:32→17:57)
[2018-09-04] MEDS: CEFEPIME 1 GM/D5W RTU 1 GM/50 ML RTUPB IV SCH ×2 (09:33→21:13)
--- NOTE | 2018-09-04 09:57 | PDOC PROGRESS REPORT ---
Subjective Progress Note for:: 09/04/18 Subjective:: ARTURO GILBERT is a 52 year old female, paraplegic from prior cord injury 3 years ago, had a suprapubic catheter and PEG tube with recent discontinuation. Patient was hospitalized for pyelonephritis with sepsis at [facility] within the last 2 months and was in rehab at [facility] when nursing staff was concerned for poor p.o. intake and confusion. In the emergency room she is found to have severe sepsis with hypotension, acute renal failure, pyuria and a left-sided infiltrate concerning for pneumonia. A 3 x 3 cm stage IV decubitus ulcer, necrotic discharge from suprapubic catheter site and PEG tube site. Patient complains of diffuse pain. In the emergency room she started on empiric antibiotics of Levaquin, vancomycin and cefepime then referred to the hospitalist for admission 09/03/2018. On my encounter patient is resting in bed not in apparent acute distress been complaining of having generalized chronic pain from neck down. She denies any fever, nausea, vomiting, diarrhea, chills, chest pain or any shortness of breath. 09/04/2018. No acute events overnight. Patient is stating that she has been having persistent chronic generalized pain below the neck as a result she could not sleep too well. She has not had any fever, chills, nausea, vomiting, diarrhea or constipation. Reason For Visit: PYELONEPHRITIS ARF PNEUMONIA Physical Exam Vital Signs: Temp Pulse Resp BP Pulse Ox 98.1 F 58 L 16 88/48 L 95 09/04/18 08:17 09/04/18 08:38 09/04/18 08:38 09/04/18 08:17 09/04/18 08:38 Intake & Output 09/03/18 09/04/18 09/05/18 06:59 06:59 06:59 Intake Total 150 1315 Output Total 1250 2024 Balance -1100 -710 Weight 62.6 kg 68.2 kg General appearance: PRESENT: no acute distress, well-developed, well-nourished Respiratory exam: PRESENT: clear to auscultation justyna. ABSENT: rales, rhonchi, wheezes GI/Abdominal exam: PRESENT: normal bowel sounds, soft, other - Ostomy site looks clean no active drainage skin irritation improving. Suprapubic cath site clean no active discharge or skin irritation improving.. ABSENT: distended, guarding, mass, organolmegaly, rebound, tenderness Neurological exam: PRESENT: alert, altered, awake, oriented to person, oriented to place, oriented to time, CN II-XII grossly intact Results Laboratory Results: 09/04/18 04:25 09/04/18 04:25 09/04/18 09/04/18 09/04/18 04:25 04:25 04:25 WBC 7.4 RBC 3.74 Hgb 10.2 L Hct 31.2 L MCV 84 MCH 27.3 MCHC 32.7 RDW 16.6 H Plt Count 314 Seg Neutrophils % 56.9 Lymphocytes % 26.5 Monocytes % 10.3 Eosinophils % 5.3 Basophils % 1.0 Absolute Neutrophils 4.2 Absolute Lymphocytes 2.0 Absolute Monocytes 0.8 Absolute Eosinophils 0.4 Absolute Basophils 0.1 Sodium 142.4 Potassium 4.8 Chloride 105 Carbon Dioxide 26 Anion Gap 11 BUN 34 H Creatinine 0.85 Est GFR ( Amer) > 60 Est GFR (Non-Af Amer) > 60 Glucose 99 Calcium 9.3 Magnesium 2.2 Total Bilirubin 0.2 AST 20 ALT 22 Alkaline Phosphatase 74 Total Protein 7.0 Albumin 3.4 L Impressions: Renal Ultrasound 09/02/18 00:00 IMPRESSION: 1. Mild right hydronephrosis. 2. Bilateral nephrolithiasis. Chest X-Ray 09/02/18 19:04 IMPRESSION: 1. Suspicious for left basilar pneumonia. 2. Potential left upper lobe nodule. Chest CT if warranted. Assessment & Plan - Diagnosis (1) Left lower lobe pneumonia Qualifiers: Pneumonia type: due to unspecified organism Qualified Code(s): J18.1 - Lobar pneumonia, unspecified organism Is this a current diagnosis for this admission?: Yes Plan: Likely healthcare associated. Day 2 of cefepime and vancomycin. Blood cultures negative so far. Leukocytosis improving. (2) Pyelonephritis Is this a current diagnosis for this admission?: Yes Plan: History of staghorn calculi. Ultrasound does not suggest hydronephrosis or obstruction. On Vanco and Zosyn for underlying pneumonia. Urine culture positive for gram-negative rods likely E. coli. (3) Acute renal failure Is this a current diagnosis for this admission?: Yes Plan: Resolved. Likely prerenal caused by hypotension but the underlying infectious process. Continue volume resuscitation. Avoid nephrotoxic agents. Monitor vitals and electrolytes. BMP tomorrow. (4) Complication of ostomy Is this a current diagnosis for this admission?: Yes Plan: No active drainage, skin irritation improving. Ostomy site has been evaluated by surgery. No intervention indicated. Follow-up wound culture. Follow wound care. Started on PPI. (5) Sacral decubitus ulcer, stage IV Is this a current diagnosis for this admission?: Yes Plan: Cubitus ulcer has been evaluated by surgery. Wound VAC in place. Surgery following. Continue wound care and broad-spectrum antibiotics. (6) Suprapubic catheter Is this a current diagnosis for this admission?: Yes
[2018-09-04] MEDS: TRAMADOL HCL 50 MG TABLET PO PRN (10:30)
[2018-09-04] MEDS: VANCOMYCIN HCL 750 MG in DEXTROSE 5%-WATER 250 ML IV SCH (17:58)
[2018-09-05] MEDS: TRAMADOL HCL 50 MG TABLET PO PRN ×3 (00:13→22:27)
[2018-09-05] MEDS: METOCLOPRAMIDE HCL ORAL SOLN 10 MG/10 ML UDCUP PO SCH ×4 (00:18→17:37)
[2018-09-05] MEDS: HYDROCODONE/ACETAMINOPHEN 5-325 MG TABLET PO PRN ×2 (03:47→17:37)
[2018-09-05] MEDS: GABAPENTIN 300 MG CAPSULE PO SCH ×3 (05:44→22:27)
[2018-09-05] MEDS: VANCOMYCIN HCL 750 MG in DEXTROSE 5%-WATER 250 ML IV SCH ×2 (05:44→17:38)
[2018-09-05] MEDS: TIZANIDINE HCL 4 MG TABLET PO SCH ×3 (05:44→22:27)
[2018-09-05] MEDS: LANSOPRAZOLE 30 MG TAB.RAP.DR PO SCH ×2 (05:44→17:38)
[2018-09-05] MEDS: OXYCODONE HCL SR 10 MG TABLET PO SCH ×3 (05:46→22:26)
[2018-09-05] MEDS: HEPARIN SOD (PORCINE) 5,000 UNIT/ML 1 ML SYRINGE SUBCUT SCH ×3 (05:48→22:26)
[2018-09-05 06:22] LABS: ABSOLUTE EOSINOPHILS # (AUTO) 0.6 10^3/uL (0.0-0.6); ABSOLUTE LYMPHOCYTES (AUTO) 2.4 10^3/uL (0.5-4.7); ABSOLUTE MONOCYTES (AUTO) 0.5 10^3/uL (0.1-1.4); ABSOLUTE NEUT (AUTO) 3.3 10^3/uL (1.7-8.2); BASOPHILS % (AUTO) 0.4 % (0-2); EOSINOPHILS % (AUTO) 8.6 % (0-6); HEMATOCRIT 30.2 % (36.0-47.0); HEMOGLOBIN 9.9 g/dL (12.0-15.5); LYMPHOCYTES % (AUTO) 35.5 % (13-45); MEAN CORPUSCULAR HEMOGLOBIN 27.4 pg (27.0-33.4); MEAN CORPUSCULAR HGB CONC 32.7 g/dL (32.0-36.0); MEAN CORPUSCULAR VOLUME 84 fl (80-97); MONOCYTES % (AUTO) 7.2 % (3-13); PLATELET COUNT 292 10^3/uL (150-450); RED CELL DISTRIBUTION WIDTH 16.8 % (11.5-14.0); SEGMENTED NEUTROPHILS % (AUTO) 48.3 % (42-78); TOTAL CELLS COUNTED % (AUTO) 100 %; WHITE BLOOD COUNT 6.9 10^3/uL (4.0-10.5)
[2018-09-05 06:58] LABS: ALANINE AMINOTRANSFERASE 20 U/L (9-52); ALBUMIN 3.3 g/dL (3.5-5.0); ALKALINE PHOSPHATASE 73 U/L (38-126); ANION GAP 10 (5-19); ASPARTATE AMINO TRANSFERASE 20 U/L (14-36); BILIRUBIN,DIRECT 0.1 mg/dL (0.0-0.4); BILIRUBIN,TOTAL 0.1 mg/dL (0.2-1.3); BLOOD UREA NITROGEN 20 mg/dL (7-20); CALCIUM 9.3 mg/dL (8.4-10.2); CARBON DIOXIDE 27 mmol/L (22-30); CHLORIDE 103 mmol/L (98-107); GLUCOSE 73 mg/dL (75-110); POTASSIUM 4.6 mmol/L (3.6-5.0); SODIUM 140.2 mmol/L (137-145); TOTAL PROTEIN 6.7 g/dL (6.3-8.2)
[2018-09-05] MEDS: CEFEPIME 1 GM/D5W RTU 1 GM/50 ML RTUPB IV SCH ×2 (09:14→22:28)
[2018-09-05] MEDS: DULOXETINE HCL 30 MG CAPSULE.DR PO SCH (09:14)
[2018-09-05] MEDS: ASCORBIC ACID 500 MG TABLET PO SCH ×2 (09:14→17:37)
[2018-09-05] MEDS: ZINC OXIDE 20% OINTMENT 28.35 GM TP PRN ×2 (13:14→22:36)
--- NOTE | 2018-09-05 17:21 | PDOC PROGRESS REPORT ---
Subjective Progress Note for:: 09/05/18 Subjective:: ARTURO GILBERT is a 52 year old female, paraplegic from prior cord injury 3 years ago, had a suprapubic catheter and PEG tube with recent discontinuation. Patient was hospitalized for pyelonephritis with sepsis at [facility] within the last 2 months and was in rehab at [facility] when nursing staff was concerned for poor p.o. intake and confusion. In the emergency room she is found to have severe sepsis with hypotension, acute renal failure, pyuria and a left-sided infiltrate concerning for pneumonia. A 3 x 3 cm stage IV decubitus ulcer, necrotic discharge from suprapubic catheter site and PEG tube site. Patient complains of diffuse pain. In the emergency room she started on empiric antibiotics of Levaquin, vancomycin and cefepime then referred to the hospitalist for admission 09/03/2018. On my encounter patient is resting in bed not in apparent acute distress been complaining of having generalized chronic pain from neck down. She denies any fever, nausea, vomiting, diarrhea, chills, chest pain or any shortness of breath. 09/04/2018. No acute events overnight. Patient is stating that she has been having persistent chronic generalized pain below the neck as a result she could not sleep too well. She has not had any fever, chills, nausea, vomiting, diarrhea or constipation. 09/05/2018 No acute events overnight. Patient stated that her pain has been managed better since yesterday. She denies any fever, chills, nausea, vomiting, diarrhea or constipation. Reason For Visit: PYELONEPHRITIS ARF PNEUMONIA Physical Exam Vital Signs: Temp Pulse Resp BP Pulse Ox 97.9 F 55 L 14 113/73 92 09/05/18 12:46 09/05/18 14:00 09/05/18 12:46 09/05/18 12:46 09/05/18 12:46 Intake & Output 09/04/18 09/05/18 09/06/18 06:59 06:59 06:59 Intake Total 1315 1867 430 Output Total 2024 1625 375 Balance -710 242 55 Weight 68.2 kg 70.1 kg Results Laboratory Results: 09/05/18 05:21 09/05/18 05:21 09/05/18 09/05/18 09/05/18 05:21 05:21 05:21 WBC 6.9 RBC 3.60 L Hgb 9.9 L Hct 30.2 L MCV 84 MCH 27.4 MCHC 32.7 RDW 16.8 H Plt Count 292 Seg Neutrophils % 48.3 Lymphocytes % 35.5 Monocytes % 7.2 Eosinophils % 8.6 H Basophils % 0.4 Absolute Neutrophils 3.3 Absolute Lymphocytes 2.4 Absolute Monocytes 0.5 Absolute Eosinophils 0.6 Absolute Basophils 0.0 Sodium 140.2 Potassium 4.6 Chloride 103 Carbon Dioxide 27 Anion Gap 10 BUN 20 Creatinine 0.64 Est GFR ( Amer) > 60 Est GFR (Non-Af Amer) > 60 Glucose 73 L Calcium 9.3 Magnesium 1.7 Total Bilirubin 0.1 L AST 20 ALT 20 Alkaline Phosphatase 73 Total Protein 6.7 Albumin 3.3 L Impressions: Renal Ultrasound 09/02/18 00:00 IMPRESSION: 1. Mild right hydronephrosis. 2. Bilateral nephrolithiasis. Chest X-Ray 09/02/18 19:04 IMPRESSION: 1. Suspicious for left basilar pneumonia. 2. Potential left upper lobe nodule. Chest CT if warranted. Assessment & Plan - Diagnosis (1) Left lower lobe pneumonia Qualifiers: Pneumonia type: due to unspecified organism Qualified Code(s): J18.1 - Lobar pneumonia, unspecified organism Is this a current diagnosis for this admission?: Yes Plan: Likely healthcare associated. Day 3 of cefepime and vancomycin. Blood cultures negative so far. Leukocytosis improving. (2) Pyelonephritis Is this a current diagnosis for this admission?: Yes Plan: History of staghorn calculi. Ultrasound does not suggest hydronephrosis or obstruction. On Vanco and Zosyn for underlying pneumonia. Urine culture positive for gram-negative rods likely E. coli. (3) Acute renal failure Is this a current diagnosis for this admission?: Yes Plan: Resolved. Likely prerenal caused by hypotension but the underlying infectious process. Continue volume resuscitation. Avoid nephrotoxic agents. Monitor vitals and electrolytes. BMP tomorrow. (4) Complication of ostomy Is this a current diagnosis for this admission?: Yes Plan: Improving. No active drainage, skin irritation improving. Ostomy site has been evaluated by surgery. No intervention indicated. Follow- up wound culture. Follow wound care. Started on PPI. (5) Sacral decubitus ulcer, stage IV Is this a current diagnosis for this admission?: Yes Plan: Stage IV decubitus ulcer. Wound VAC in place. Surgery following. Continue wound care and broad-spectrum antibiotics. (6) Suprapubic catheter Is this a current diagnosis for this admission?: Yes Plan: Patent. Skin irritation improving.
[2018-09-06] MEDS: METOCLOPRAMIDE HCL ORAL SOLN 10 MG/10 ML UDCUP PO SCH ×4 (00:15→17:38)
[2018-09-06] MEDS: HYDROCODONE/ACETAMINOPHEN 5-325 MG TABLET PO PRN (04:36)
[2018-09-06 06:20] LABS: ABSOLUTE EOSINOPHILS # (AUTO) 0.7 10^3/uL (0.0-0.6); ABSOLUTE LYMPHOCYTES (AUTO) 2.4 10^3/uL (0.5-4.7); ABSOLUTE MONOCYTES (AUTO) 0.5 10^3/uL (0.1-1.4); ABSOLUTE NEUT (AUTO) 3.5 10^3/uL (1.7-8.2); BASOPHILS % (AUTO) 0.3 % (0-2); EOSINOPHILS % (AUTO) 9.3 % (0-6); HEMATOCRIT 32.5 % (36.0-47.0); HEMOGLOBIN 10.7 g/dL (12.0-15.5); LYMPHOCYTES % (AUTO) 33.9 % (13-45); MEAN CORPUSCULAR HEMOGLOBIN 27.5 pg (27.0-33.4); MEAN CORPUSCULAR HGB CONC 33.1 g/dL (32.0-36.0); MEAN CORPUSCULAR VOLUME 83 fl (80-97); MONOCYTES % (AUTO) 7.1 % (3-13); PLATELET COUNT 287 10^3/uL (150-450); RED BLOOD COUNT 3.91 10^6/uL (3.72-5.28); RED CELL DISTRIBUTION WIDTH 16.4 % (11.5-14.0); SEGMENTED NEUTROPHILS % (AUTO) 49.4 % (42-78); TOTAL CELLS COUNTED % (AUTO) 100 %
[2018-09-06] MEDS: TIZANIDINE HCL 4 MG TABLET PO SCH ×3 (06:21→21:36)
[2018-09-06] MEDS: LANSOPRAZOLE 30 MG TAB.RAP.DR PO SCH ×2 (06:22→17:38)
[2018-09-06] MEDS: OXYCODONE HCL SR 10 MG TABLET PO SCH ×3 (06:22→21:32)
[2018-09-06] MEDS: GABAPENTIN 300 MG CAPSULE PO SCH ×3 (06:23→21:32)
[2018-09-06] MEDS: VANCOMYCIN HCL 750 MG in DEXTROSE 5%-WATER 250 ML IV SCH (06:23)
[2018-09-06] MEDS: HEPARIN SOD (PORCINE) 5,000 UNIT/ML 1 ML SYRINGE SUBCUT SCH ×3 (06:30→21:34)
[2018-09-06 06:39] LABS: VANCOMYCIN,TROUGH 20.9 ug/mL (5.0-20.0)
[2018-09-06 06:40] LABS: ALANINE AMINOTRANSFERASE 23 U/L (9-52); ALBUMIN 3.5 g/dL (3.5-5.0); ALKALINE PHOSPHATASE 81 U/L (38-126); ANION GAP 10 (5-19); ASPARTATE AMINO TRANSFERASE 25 U/L (14-36); BILIRUBIN,DIRECT 0.2 mg/dL (0.0-0.4); BILIRUBIN,TOTAL 0.2 mg/dL (0.2-1.3); BLOOD UREA NITROGEN 15 mg/dL (7-20); CALCIUM 9.4 mg/dL (8.4-10.2); CARBON DIOXIDE 28 mmol/L (22-30); CHLORIDE 103 mmol/L (98-107); GLUCOSE 82 mg/dL (75-110); POTASSIUM 4.6 mmol/L (3.6-5.0); SODIUM 141.1 mmol/L (137-145); TOTAL PROTEIN 7.3 g/dL (6.3-8.2)
[2018-09-06] MEDS: TRAMADOL HCL 50 MG TABLET PO PRN ×2 (10:37→20:02)
[2018-09-06] MEDS: ASCORBIC ACID 500 MG TABLET PO SCH ×2 (10:37→17:38)
[2018-09-06] MEDS: DULOXETINE HCL 30 MG CAPSULE.DR PO SCH (10:37)
[2018-09-06] MEDS: CEFEPIME 1 GM/D5W RTU 1 GM/50 ML RTUPB IV SCH ×2 (10:38→21:33)
--- NOTE | 2018-09-06 15:02 | PDOC PROGRESS REPORT ---
Subjective Progress Note for:: 09/06/18 Subjective:: ARTURO GILBERT is a 52 year old female, paraplegic from prior cord injury 3 years ago, had a suprapubic catheter and PEG tube with recent discontinuation. Patient was hospitalized for pyelonephritis with sepsis at [facility] within the last 2 months and was in rehab at [facility] when nursing staff was concerned for poor p.o. intake and confusion. In the emergency room she is found to have severe sepsis with hypotension, acute renal failure, pyuria and a left-sided infiltrate concerning for pneumonia. A 3 x 3 cm stage IV decubitus ulcer, necrotic discharge from suprapubic catheter site and PEG tube site. Patient complains of diffuse pain. In the emergency room she started on empiric antibiotics of Levaquin, vancomycin and cefepime then referred to the hospitalist for admission 09/03/2018. On my encounter patient is resting in bed not in apparent acute distress been complaining of having generalized chronic pain from neck down. She denies any fever, nausea, vomiting, diarrhea, chills, chest pain or any shortness of breath. 09/04/2018. No acute events overnight. Patient is stating that she has been having persistent chronic generalized pain below the neck as a result she could not sleep too well. She has not had any fever, chills, nausea, vomiting, diarrhea or constipation. 09/05/2018 No acute events overnight. Patient stated that her pain has been managed better since yesterday. She denies any fever, chills, nausea, vomiting, diarrhea or constipation. 09/06/2018. No acute events overnight. Patient's pain has been controlled and she has not had any fever, nausea, vomiting, diarrhea or any constipation. Patient has multiple positive cultures which will need ID consultation for antibiotic guidance. Reason For Visit: PYELONEPHRITIS ARF PNEUMONIA Physical Exam Vital Signs: Temp Pulse Resp BP Pulse Ox 98.2 F 78 18 99/65 L 94 09/06/18 11:04 09/06/18 11:04 09/06/18 11:04 09/06/18 11:04 09/06/18 11:04 Intake & Output 09/05/18 09/06/18 09/07/18 06:59 06:59 06:59 Intake Total 1867 1067 300 Output Total 1625 1925 Balance 242 -858 300 Weight 70.1 kg 69 kg Results Laboratory Results: 09/06/18 05:46 09/06/18 05:46 09/06/18 09/06/18 05:46 05:46 WBC 7.0 RBC 3.91 Hgb 10.7 L Hct 32.5 L MCV 83 MCH 27.5 MCHC 33.1 RDW 16.4 H Plt Count 287 Seg Neutrophils % 49.4 Lymphocytes % 33.9 Monocytes % 7.1 Eosinophils % 9.3 H Basophils % 0.3 Absolute Neutrophils 3.5 Absolute Lymphocytes 2.4 Absolute Monocytes 0.5 Absolute Eosinophils 0.7 H Absolute Basophils 0.0 Sodium 141.1 Potassium 4.6 Chloride 103 Carbon Dioxide 28 Anion Gap 10 BUN 15 Creatinine 0.64 Est GFR ( Amer) > 60 Est GFR (Non-Af Amer) > 60 Glucose 82 Calcium 9.4 Magnesium 1.6 Total Bilirubin 0.2 AST 25 ALT 23 Alkaline Phosphatase 81 Total Protein 7.3 Albumin 3.5 09/03/18 05:45 Suprapubic Wound Gram Stain - Final 09/03/18 05:45 Suprapubic Wound Wound Culture - Final Mrsa (Meth Resis Staph Aureus) Skin Korina Impressions: Renal Ultrasound 09/02/18 00:00 IMPRESSION: 1. Mild right hydronephrosis. 2. Bilateral nephrolithiasis. Chest X-Ray 09/02/18 19:04 IMPRESSION: 1. Suspicious for left basilar pneumonia. 2. Potential left upper lobe nodule. Chest CT if warranted. Assessment & Plan - Diagnosis (1) Left lower lobe pneumonia Qualifiers: Pneumonia type: due to unspecified organism Qualified Code(s): J18.1 - Lobar pneumonia, unspecified organism Is this a current diagnosis for this admission?: Yes Plan: Likely healthcare associated. Day 4 of cefepime and vancomycin. Leukocytosis resolved. Good clinical improvement. Saturating 94% on room air. (2) Pyelonephritis Is this a current diagnosis for this admission?: Yes Plan: History of staghorn calculi. Ultrasound does not suggest hydronephrosis or obstruction. On Vanco and Zosyn for underlying pneumonia. Leukocytosis resolved. Good clinical response. Urine cultures growing enterococci. Has multiple positive cultures likely colonization. Pending ID recommendation. (3) Acute renal failure Is this a current diagnosis for this admission?: Yes Plan: Resolved. Likely prerenal caused by hypotension but the underlying infectious process. Continue volume resuscitation. Avoid nephrotoxic agents. Monitor vitals and electrolytes. BMP tomorrow. (4) Complication of ostomy Is this a current diagnosis for this admission?: Yes Plan: Skin irritation has resolved. No active drainage, skin irritation improving. Ostomy site has been evaluated by surgery. No intervention indicated. Follow- up wound culture. Follow wound care. Started on PPI. (5) Sacral decubitus ulcer, stage IV Is this a current diagnosis for this admission?: Yes Plan: Stage IV decubitus ulcer. Wound VAC in place. Surgery following. Continue wound care and broad-spectrum antibiotics. Follow-up surgery recommendation on wound VAC management. Continue wound care. (6) Suprapubic catheter Is this a current diagnosis for this admission?: Yes Plan: Patent. Skin irritation improving. (7) Staghorn calculus Is this a current diagnosis for this admission?: Yes Plan: Right kidney staghorn calculus, hydronephrosis negative for obstruction as per ultrasound. Unfortunately no urology consult available. Patient will benefit from outpatient urology follow-up. Patient was strongly advised to follow-up with a urologist as outpatient for the management of staghorn calculus.
[2018-09-06] MEDS: VANCOMYCIN HCL 500 MG in DEXTROSE 5%-WATER 100 ML IV SCH (17:39)
[2018-09-06] MEDS: ZINC OXIDE 20% OINTMENT 28.35 GM TP PRN (17:41)
[2018-09-07] MEDS: HYDROCODONE/ACETAMINOPHEN 5-325 MG TABLET PO PRN ×2 (01:46→09:05)
[2018-09-07] MEDS: METOCLOPRAMIDE HCL ORAL SOLN 10 MG/10 ML UDCUP PO SCH ×4 (01:47→17:21)
[2018-09-07 05:14] LABS: ABSOLUTE BASOPHILS # (AUTO) 0.1 10^3/uL (0.0-0.2); ABSOLUTE EOSINOPHILS # (AUTO) 0.7 10^3/uL (0.0-0.6); ABSOLUTE LYMPHOCYTES (AUTO) 2.9 10^3/uL (0.5-4.7); ABSOLUTE MONOCYTES (AUTO) 0.7 10^3/uL (0.1-1.4); ABSOLUTE NEUT (AUTO) 4.1 10^3/uL (1.7-8.2); BASOPHILS % (AUTO) 1.3 % (0-2); EOSINOPHILS % (AUTO) 8.8 % (0-6); HEMOGLOBIN 10.4 g/dL (12.0-15.5); LYMPHOCYTES % (AUTO) 33.9 % (13-45); MEAN CORPUSCULAR HEMOGLOBIN 27.8 pg (27.0-33.4); MEAN CORPUSCULAR HGB CONC 33.6 g/dL (32.0-36.0); MEAN CORPUSCULAR VOLUME 83 fl (80-97); MONOCYTES % (AUTO) 7.9 % (3-13); PLATELET COUNT 292 10^3/uL (150-450); RED BLOOD COUNT 3.75 10^6/uL (3.72-5.28); RED CELL DISTRIBUTION WIDTH 16.6 % (11.5-14.0); SEGMENTED NEUTROPHILS % (AUTO) 48.1 % (42-78); TOTAL CELLS COUNTED % (AUTO) 100 %; WHITE BLOOD COUNT 8.4 10^3/uL (4.0-10.5)
[2018-09-07 05:33] LABS: ALANINE AMINOTRANSFERASE 20 U/L (9-52); ALBUMIN 3.5 g/dL (3.5-5.0); ALKALINE PHOSPHATASE 65 U/L (38-126); ANION GAP 11 (5-19); ASPARTATE AMINO TRANSFERASE 28 U/L (14-36); BILIRUBIN,DIRECT 0.3 mg/dL (0.0-0.4); BILIRUBIN,TOTAL 0.3 mg/dL (0.2-1.3); BLOOD UREA NITROGEN 18 mg/dL (7-20); CALCIUM 9.5 mg/dL (8.4-10.2); CARBON DIOXIDE 27 mmol/L (22-30); CHLORIDE 102 mmol/L (98-107); GLUCOSE 90 mg/dL (75-110); SODIUM 139.8 mmol/L (137-145); TOTAL PROTEIN 7.4 g/dL (6.3-8.2)
[2018-09-07] MEDS: HEPARIN SOD (PORCINE) 5,000 UNIT/ML 1 ML SYRINGE SUBCUT SCH ×3 (05:45→21:51)
[2018-09-07] MEDS: GABAPENTIN 300 MG CAPSULE PO SCH ×3 (05:45→21:52)
[2018-09-07] MEDS: VANCOMYCIN HCL 500 MG in DEXTROSE 5%-WATER 100 ML IV SCH (05:46)
[2018-09-07] MEDS: LANSOPRAZOLE 30 MG TAB.RAP.DR PO SCH ×2 (05:46→17:21)
[2018-09-07] MEDS: OXYCODONE HCL SR 10 MG TABLET PO SCH ×3 (05:46→21:52)
[2018-09-07] MEDS: TIZANIDINE HCL 4 MG TABLET PO SCH ×3 (06:56→21:53)
[2018-09-07] MEDS: DULOXETINE HCL 30 MG CAPSULE.DR PO SCH (09:05)
[2018-09-07] MEDS: CEFEPIME 1 GM/D5W RTU 1 GM/50 ML RTUPB IV SCH ×2 (09:05→21:51)
[2018-09-07] MEDS: ASCORBIC ACID 500 MG TABLET PO SCH ×2 (09:05→17:21)
--- NOTE | 2018-09-07 14:26 | PDOC PROGRESS REPORT ---
Subjective Progress Note for:: 09/07/18 Subjective:: 09/07 [id number] female [facility] patient admitted for hypotension acute renal failure pyuria and questionable left lower lobe infiltrate she has stage IV decubitus ulcers status post wound VAC placement patient is comfortably in the bed denies any complaints. Reason For Visit: PYELONEPHRITIS ARF PNEUMONIA Physical Exam Vital Signs: Temp Pulse Resp BP Pulse Ox 98.1 F 67 10 L 93/58 L 94 09/07/18 12:45 09/07/18 12:45 09/07/18 12:45 09/07/18 12:45 09/07/18 12:45 Intake & Output 09/06/18 09/07/18 09/08/18 06:59 06:59 06:59 Intake Total 1067 987 268 Output Total 1925 725 100 Balance -858 262 168 Weight 69 kg 69.3 kg General appearance: PRESENT: no acute distress Head exam: PRESENT: atraumatic Eye exam: PRESENT: PERRLA Neck exam: ABSENT: carotid bruit, JVD, lymphadenopathy, thyromegaly Respiratory exam: PRESENT: clear to auscultation justyna. ABSENT: rales, rhonchi, wheezes Cardiovascular exam: PRESENT: RRR. ABSENT: diastolic murmur, rubs, systolic murmur GI/Abdominal exam: PRESENT: normal bowel sounds, other - Patient has a suprapubic catheter. Neurological exam: PRESENT: alert, awake, oriented to person, oriented to place , oriented to time, oriented to situation, CN II-XII grossly intact. ABSENT: motor sensory deficit Psychiatric exam: PRESENT: appropriate affect, normal mood. ABSENT: homicidal ideation, suicidal ideation Skin exam: PRESENT: other - Patient has stage IV decubitus ulcers with wound VAC. Results Laboratory Results: 09/07/18 04:44 09/07/18 04:44 09/07/18 09/07/18 04:44 04:44 WBC 8.4 RBC 3.75 Hgb 10.4 L Hct 31.0 L MCV 83 MCH 27.8 MCHC 33.6 RDW 16.6 H Plt Count 292 Seg Neutrophils % 48.1 Lymphocytes % 33.9 Monocytes % 7.9 Eosinophils % 8.8 H Basophils % 1.3 Absolute Neutrophils 4.1 Absolute Lymphocytes 2.9 Absolute Monocytes 0.7 Absolute Eosinophils 0.7 H Absolute Basophils 0.1 Sodium 139.8 Potassium 5.0 Chloride 102 Carbon Dioxide 27 Anion Gap 11 BUN 18 Creatinine 0.59 Est GFR ( Amer) > 60 Est GFR (Non-Af Amer) > 60 Glucose 90 Calcium 9.5 Total Bilirubin 0.3 AST 28 ALT 20 Alkaline Phosphatase 65 Total Protein 7.4 Albumin 3.5 09/03/18 05:45 G Tube (Peg Tube) Gram Stain - Final 09/03/18 05:45 G Tube (Peg Tube) Wound Culture - Final C.albicans/C.dubliniensis Yeast, Not Jaye Albicans Skin Korina 09/03/18 05:45 Suprapubic Wound Gram Stain - Final 09/03/18 05:45 Suprapubic Wound Wound Culture - Final Mrsa (Meth Resis Staph Aureus) Skin Korina Impressions: Renal Ultrasound 09/02/18 00:00 IMPRESSION: 1. Mild right hydronephrosis. 2. Bilateral nephrolithiasis. Chest X-Ray 09/02/18 19:04 IMPRESSION: 1. Suspicious for left basilar pneumonia. 2. Potential left upper lobe nodule. Chest CT if warranted. Assessment & Plan - Diagnosis (1) Left lower lobe pneumonia Qualifiers: Pneumonia type: due to unspecified organism Qualified Code(s): J18.1 - Lobar pneumonia, unspecified organism Is this a current diagnosis for this admission?: Yes Plan: 09/07/2018. Patient is afebrile. HEENT is on IV cefepime and vancomycin. Will UBC today is 7.8. Hemoglobin is 15.6. Cultures are no growth. Pulse ox is 94% on room air. (2) Pyelonephritis Is this a current diagnosis for this admission?: Yes Plan: 09/07/2018. Patient is on IV vancomycin and cefepime. ID consult was requested. Suprapubic catheter culture shows MRSA. We will continue the present antibiotics. (3) Acute renal failure Is this a current diagnosis for this admission?: Yes Plan: 09/07/2018-renal failure is resolved. Test creatinine is 0.59. (4) Complication of ostomy Is this a current diagnosis for this admission?: Yes Plan: 09/07/2018. No drainage from the ostomy site site was evaluated by the surgeons. Culture shows Jaye albicans. Started on Diflucan 100 mg p.o. daily. (5) Sacral decubitus ulcer, stage IV Is this a current diagnosis for this admission?: Yes Plan: 09/07/2018-has stage IV decubitus ulcer wound VAC is in place surgery is following the patient. Patient is on broad-spectrum antibiotics. Continue the wound care. - Time Time Spent with patient: 15-24 minutes Medications reviewed and adjusted accordingly: Yes
[2018-09-07] MEDS ORDERED: ZINC OXIDE 20% OINTMENT 28.35 GM TP PRN (15:31)
--- NOTE | 2018-09-07 16:31 | RADIOLOGY REPORT (SQ) ---
EXAM DESCRIPTION: PICC INSERTION; FLUORO/CV PLACEMENT; U/S GUIDE FOR VASCULAR ACCESS COMPLETED DATE/TIME: 09/07/2018 4:21 pm REASON FOR STUDY: sepsis; IV ABX COMPARISON: AP chest 09/02/2018 FLUOROSCOPY TIME: 8 seconds 1 digital chest fluoroscopic image and 1 ultrasound images saved to PACS. TECHNIQUE: Fluoroscopic and ultrasound guided PICC placement. LIMITATIONS: None. PROCEDURE: After written consent and assessment were obtained, the patient was brought into the fluo roscopy room and placed supine on the table. Ultrasound evaluation of potential access sites were per formed. After successfully identifying a patent left basilic vein, the left arm was prepped and drape d in a sterile fashion along with the ultrasound probe. The entry site was anesthetized with 1% lidoc rajesh. A 21 gauge 7 cm needle was advanced through the skin and into the basilic vein under live ultra sound guidance. An ultrasound image was saved to PACS confirming access site. A .018 guide wire was then inserted through the needle and into the venous system. The needle was then removed and an 11 b lade scalpel was used to make a 1cm skin incision. A 5 fr peel-away sheath was advanced over the wir e and into the venous system. A measurement was then made using the existing wire and live fluoroscop ic guidance. The wire was then removed and trimmed. The PICC was advanced through the peel-away sheat h and into the venous system. The peel-away sheath was removed and the catheter was adhered to the pa tients arm with a stat lock. The catheter was then aspirated and flushed and a sterile bandage was pl aced over the access site. A fluoroscopic spot image was saved to PACS confirming the catheter tip w ithin the superior vena cava. IMPRESSION: SUCCESSFUL PLACEMENT OF A 5 FR DUAL LUMEN 37 CM PICC IN THE LEFT BASILIC VEIN. COMMENT: Patient medication list reviewed: Yes- Quality ID# [id number]:Eligible professional attests to doc umenting in the medical record they obtained, updated, or reviewed the patient's current medications. . Quality ID 145: Final reports for procedures using fluoroscopy that document radiation exposure meng william, or exposure time and number of fluorographic images (if radiation exposure indices are not avail able) Quality ID #76: The patient was prepped and draped using maximum sterile barrier technique including cap, mask, sterile gown, sterile gloves, a large sterile sheet, hand hygiene, and 2% Chlorhexidine fo r cutaneous antisepsis. When ultrasound is used, sterile ultrasound techniques are followed requiring sterile gel and sterile probes. TECHNICAL DOCUMENTATION: JOB ID: [id number] [employer]- All Rights Reserved rev-02/26 Reading location - IP/workstation name: [email or web address] [id number]
[2018-09-07] MEDS ORDERED: NORMAL SALINE 10 ML SDV (AFTER EACH USE) IV PRN (16:44)
[2018-09-07] MEDS: NYSTATIN CREAM 15 GM TP SCH (17:21)
[2018-09-07] MEDS: TRAMADOL HCL 50 MG TABLET PO PRN (17:21)
[2018-09-07] MEDS ORDERED: METFORMIN HCL 500 MG TABLET PO SCH (18:00)
--- NOTE | 2018-09-07 20:02 | Progress Note ---
Provider Note Provider Note: ID Consult Note Discussed patient via telephone with Dr Avila and also review patient's chart. Pt not seen or examined. Rachel Aguilar is a 52 year old woman with PMH including quadriplegia from a SCI, s/p suprapubic tube and PEG tube that was discontinued. [facility] with poor PO intake and confusion and was found to have hypotension, VINI, and a L sided infiltrate concerning for pneumonia. Pt's exam was notable for accessory muscle use, decreased breath sounds, tachypnea and crackles on initial exam. Blood cultures were drawn, which yielded no growth, and no sputum was sent. Urinalysis was sent and urine culture, which showed growth of >100k cfu Enterobacter cloacae and 50k-60k cfu of Enterobacter aerogenes. Imaging included Renal ultrasound showed mild R hydronephrosis and b/l kidney stones. CXR single view read as being suspicious for L basilar pneumonia. Surgery was consulted because of drainage at former PEG site with irritation of the surrounding skin. Pt was noted to have a nontender abdomen "other than at the PEG site where there is irritated skin with a small opening... Suprapubic catheter in place. No surrounding erythema nor induration. Site appears clean with minimal discharge at exit point." Sacral decubitus ulcer was also examined and found to be "clean with granulation tissue with no necrotic tissue." On follow up, the impression was that drainage was diminishing and "skin contact dermatitis improving" with use of barrier zinc oxide cream and pt instructed on positioning to facilitate gastric emptying and decrease drainage. Antimicrobial agents that pt has received during hospitalization include vancomycin and cefepime since admission, along with one dose of Levaquin in the ED. Fluconazole has also been ordered. Impression/Recommendations 1. Sacral ulcer and suprapubic tube site have been noted to be clean and uninfected appearing, without cardinal signs of inflammation. As such, culture results represent colonization, and no antibiotic therapy is needed. 2. Erythema and discharge from former PEG tube site: Skin had been noted to have improvement with recommended changes in positioning to facilitate gastric emptying and use of barrier cream. Chemical irritation if gastric juices are getting onto skin can cause dermatitis in itself, but if appearance is consistent with candidal superficial skin infection, then topical nystatin might be considered. Systemic azoles are not needed. Recommend discontinuing fluconazole. 3. Possible complicated UTI: In patient with suprapubic tube or Claire, interpretation of U/A may be limited. Presence of pyuria is likely to be present, regardless of presence or absence of a UTI. The best urine specimen would be obtained through a fresh tube to try to limit colonization of the tube being reflected in the culture, but ultimately, UTI is a clinical diagnosis. In this patient, where classic symptoms might be difficult to elicit from the patient, diagnosis of UTI might be best reserved for situations where no other source of infection is found, given the limitations of actually establishing the diagnosis. In her situation, it is not clear to me she has a complicated UTI with Enterobacter cloacae, but cefepime for 7 days would be sufficient. 4. Pt was suspected of having L basilar pneumonia based on physical exam findings on admission in conjunction with L basilar infiltrate on CXR. Unfortunately with no sputum culture is available, and blood cultures were negative. Pt has improved, and it is likely that vancomycin can be discontinued at the present time. Usually MRSA causes severe, necrotizing pneumonia, which the patient's presentation and imaging is not consistent with. Cefepime can be continued to complete 7 days of treatment (end date 09/09). Roldan Curry MD [facility] pager [phone]
[2018-09-07] MEDS: NORMAL SALINE 10 ML SDV (SCHEDULED) IV SCH (21:53)
[2018-09-08] MEDS: METOCLOPRAMIDE HCL ORAL SOLN 10 MG/10 ML UDCUP PO SCH ×5 (00:27→23:04)
[2018-09-08] MEDS: HYDROCODONE/ACETAMINOPHEN 5-325 MG TABLET PO PRN (03:27)
[2018-09-08] MEDS: OXYCODONE HCL SR 10 MG TABLET PO SCH ×3 (06:13→23:00)
[2018-09-08] MEDS: HEPARIN SOD (PORCINE) 5,000 UNIT/ML 1 ML SYRINGE SUBCUT SCH ×3 (06:14→23:00)
[2018-09-08] MEDS: TIZANIDINE HCL 4 MG TABLET PO SCH ×3 (06:14→23:01)
[2018-09-08] MEDS: LANSOPRAZOLE 30 MG TAB.RAP.DR PO SCH ×2 (06:14→17:50)
[2018-09-08] MEDS: GABAPENTIN 300 MG CAPSULE PO SCH ×3 (06:14→23:00)
[2018-09-08 07:19] LABS: ABSOLUTE BASOPHILS # (AUTO) 0.1 10^3/uL (0.0-0.2); ABSOLUTE EOSINOPHILS # (AUTO) 0.8 10^3/uL (0.0-0.6); ABSOLUTE LYMPHOCYTES (AUTO) 2.6 10^3/uL (0.5-4.7); ABSOLUTE MONOCYTES (AUTO) 0.7 10^3/uL (0.1-1.4); BASOPHILS % (AUTO) 0.9 % (0-2); EOSINOPHILS % (AUTO) 9.4 % (0-6); HEMATOCRIT 30.9 % (36.0-47.0); HEMOGLOBIN 10.1 g/dL (12.0-15.5); MEAN CORPUSCULAR HEMOGLOBIN 27.1 pg (27.0-33.4); MEAN CORPUSCULAR HGB CONC 32.7 g/dL (32.0-36.0); MEAN CORPUSCULAR VOLUME 83 fl (80-97); PLATELET COUNT 300 10^3/uL (150-450); RED BLOOD COUNT 3.73 10^6/uL (3.72-5.28); RED CELL DISTRIBUTION WIDTH 17.2 % (11.5-14.0); SEGMENTED NEUTROPHILS % (AUTO) 48.7 % (42-78); TOTAL CELLS COUNTED % (AUTO) 100 %; WHITE BLOOD COUNT 8.2 10^3/uL (4.0-10.5)
[2018-09-08 07:43] LABS: ALANINE AMINOTRANSFERASE 24 U/L (9-52); ALBUMIN 3.3 g/dL (3.5-5.0); ALKALINE PHOSPHATASE 72 U/L (38-126); ANION GAP 8 (5-19); ASPARTATE AMINO TRANSFERASE 21 U/L (14-36); BILIRUBIN,DIRECT 0.2 mg/dL (0.0-0.4); BILIRUBIN,TOTAL 0.2 mg/dL (0.2-1.3); BLOOD UREA NITROGEN 19 mg/dL (7-20); CALCIUM 9.3 mg/dL (8.4-10.2); CARBON DIOXIDE 31 mmol/L (22-30); CHLORIDE 101 mmol/L (98-107); GLUCOSE 85 mg/dL (75-110); POTASSIUM 4.9 mmol/L (3.6-5.0); SODIUM 139.7 mmol/L (137-145)
[2018-09-08 07:47] LABS: VANCOMYCIN,TROUGH 12.6 ug/mL (5.0-20.0)
[2018-09-08] MEDS: DULOXETINE HCL 30 MG CAPSULE.DR PO SCH (10:09)
[2018-09-08] MEDS: FLUCONAZOLE 100 MG TABLET PO SCH (10:09)
[2018-09-08] MEDS: NORMAL SALINE 10 ML SDV (SCHEDULED) IV SCH ×2 (10:10→23:01)
[2018-09-08] MEDS: ASCORBIC ACID 500 MG TABLET PO SCH ×2 (10:10→17:50)
[2018-09-08] MEDS: CEFEPIME 1 GM/D5W RTU 1 GM/50 ML RTUPB IV SCH ×2 (10:11→23:07)
[2018-09-08] MEDS: NYSTATIN CREAM 15 GM TP SCH ×2 (10:19→17:51)
[2018-09-08] MEDS: TRAMADOL HCL 50 MG TABLET PO PRN ×2 (12:42→20:54)
--- NOTE | 2018-09-08 13:42 | PDOC PROGRESS REPORT ---
Subjective Progress Note for:: 09/08/18 Subjective:: 09/07 [id number] female retirement patient admitted for hypotension acute renal failure pyuria and questionable left lower lobe infiltrate she has stage IV decubitus ulcers status post wound VAC placement patient is comfortably in the bed denies any complaints. 09/08/2018 82-year-old female admitted for hypotension UTI questionable left lower lobe infiltrate. She is afebrile now. Blood pressures are still low today. She is on IV cefepime. Denies any complaints today comfortably in the bed. Reason For Visit: PYELONEPHRITIS ARF PNEUMONIA Physical Exam Vital Signs: Temp Pulse Resp BP Pulse Ox 98.0 F 91 16 87/61 L 95 09/08/18 13:07 09/08/18 13:07 09/08/18 13:07 09/08/18 13:07 09/08/18 13:07 Intake & Output 09/07/18 09/08/18 09/09/18 06:59 06:59 06:59 Intake Total 987 792 50 Output Total 725 800 Balance 262 -8 50 Weight 69.3 kg 68.7 kg General appearance: PRESENT: no acute distress Head exam: PRESENT: atraumatic Eye exam: PRESENT: PERRLA Neck exam: ABSENT: carotid bruit, JVD, lymphadenopathy, thyromegaly Cardiovascular exam: PRESENT: RRR. ABSENT: diastolic murmur, rubs, systolic murmur GI/Abdominal exam: PRESENT: other - PEG tube is in place. Suprapubic catheter. Neurological exam: PRESENT: alert, altered, awake, oriented to time, other - pt is bedbound. Psychiatric exam: PRESENT: appropriate affect, normal mood. ABSENT: homicidal ideation, suicidal ideation Results Laboratory Results: 09/08/18 06:30 09/08/18 06:30 09/08/18 09/08/18 06:30 06:30 WBC 8.2 RBC 3.73 Hgb 10.1 L Hct 30.9 L MCV 83 MCH 27.1 MCHC 32.7 RDW 17.2 H Plt Count 300 Seg Neutrophils % 48.7 Lymphocytes % 32.0 Monocytes % 9.0 Eosinophils % 9.4 H Basophils % 0.9 Absolute Neutrophils 4.0 Absolute Lymphocytes 2.6 Absolute Monocytes 0.7 Absolute Eosinophils 0.8 H Absolute Basophils 0.1 Sodium 139.7 Potassium 4.9 Chloride 101 Carbon Dioxide 31 H Anion Gap 8 BUN 19 Creatinine 0.80 Est GFR ( Amer) > 60 Est GFR (Non-Af Amer) > 60 Glucose 85 Calcium 9.3 Magnesium 1.7 Total Bilirubin 0.2 AST 21 ALT 24 Alkaline Phosphatase 72 Total Protein 7.0 Albumin 3.3 L 09/03/18 05:45 Sacrum - Decubitis Ulcer Gram Stain - Final 09/03/18 05:45 Sacrum - Decubitis Ulcer Wound Culture - Final Morganella Morganii C.albicans/C.dubliniensis Impressions: Renal Ultrasound 09/02/18 00:00 IMPRESSION: 1. Mild right hydronephrosis. 2. Bilateral nephrolithiasis. Chest X-Ray 09/02/18 19:04 IMPRESSION: 1. Suspicious for left basilar pneumonia. 2. Potential left upper lobe nodule. Chest CT if warranted. Guidance Fluoroscopy 09/07/18 00:00 IMPRESSION: SUCCESSFUL PLACEMENT OF A 5 FR DUAL LUMEN 37 CM PICC IN THE LEFT BASILIC VEIN. Interventional Vascular Procedure 09/07/18 00:00 IMPRESSION: SUCCESSFUL PLACEMENT OF A 5 FR DUAL LUMEN 37 CM PICC IN THE LEFT BASILIC VEIN. PICC Line Insertion 09/07/18 00:00 IMPRESSION: SUCCESSFUL PLACEMENT OF A 5 FR DUAL LUMEN 37 CM PICC IN THE LEFT BASILIC VEIN. Assessment & Plan - Diagnosis (1) Left lower lobe pneumonia Qualifiers: Pneumonia type: due to unspecified organism Qualified Code(s): J18.1 - Lobar pneumonia, unspecified organism Is this a current diagnosis for this admission?: Yes Plan: 09/07/2018. Patient is afebrile. she is on IV cefepime and vancomycin. Will UBC today is 7.8. Hemoglobin is 15.6. Cultures are no growth. Pulse ox is 94% on room air. 09/08/2018 she is afebrile but the blood pressures are low today. And is on IV cefapime. I discussed the care with ID wardrobe image consultant she is not convinced about her left lower lobe pneumonia. We will continue the present management. (2) Pyelonephritis Is this a current diagnosis for this admission?: Yes Plan: 09/07/2018. Patient is on IV vancomycin and cefepime. ID consult was requested. Suprapubic catheter culture shows MRSA. We will continue the present antibiotics. 09/08/2018 patient is on IV cefepime. Probable catheter culture showing MRSA may be colonization. Will be sees 8.2. (3) Acute renal failure Is this a current diagnosis for this admission?: Yes Plan: 09/07/2018-renal failure is resolved. Test creatinine is 0.59. 09/08 patient's creatinine is stable. Patient is well-hydrated. (4) Complication of ostomy Is this a current diagnosis for this admission?: Yes Plan: 09/07/2018. No drainage from the ostomy site site was evaluated by the surgeons. Culture shows Jaye albicans. Started on Diflucan 100 mg p.o. daily. 09/08/2018 the ostomy site is clean, cultures are showing Jaye she was started on Diflucan 100 mg p.o. daily yesterday. (5) Sacral decubitus ulcer, stage IV Is this a current diagnosis for this admission?: Yes Plan: 09/07/2018-has stage IV decubitus ulcer wound VAC is in place surgery is following the patient. Patient is on broad-spectrum antibiotics. Continue the wound care. 09/08/2018 patient has stage IV decubitus ulcer, status post debridement, - Time Time Spent with patient: 15-24 minutes Medications reviewed and adjusted accordingly: Yes
[2018-09-09 05:45] LABS: ABSOLUTE BASOPHILS # (AUTO) 0.1 10^3/uL (0.0-0.2); ABSOLUTE LYMPHOCYTES (AUTO) 2.7 10^3/uL (0.5-4.7); ABSOLUTE MONOCYTES (AUTO) 0.8 10^3/uL (0.1-1.4); ABSOLUTE NEUT (AUTO) 3.9 10^3/uL (1.7-8.2); BASOPHILS % (AUTO) 0.7 % (0-2); EOSINOPHILS % (AUTO) 11.6 % (0-6); HEMATOCRIT 28.8 % (36.0-47.0); HEMOGLOBIN 9.6 g/dL (12.0-15.5); LYMPHOCYTES % (AUTO) 31.7 % (13-45); MEAN CORPUSCULAR HEMOGLOBIN 27.8 pg (27.0-33.4); MEAN CORPUSCULAR HGB CONC 33.2 g/dL (32.0-36.0); MEAN CORPUSCULAR VOLUME 84 fl (80-97); MONOCYTES % (AUTO) 9.7 % (3-13); PLATELET COUNT 272 10^3/uL (150-450); RED BLOOD COUNT 3.45 10^6/uL (3.72-5.28); RED CELL DISTRIBUTION WIDTH 17.1 % (11.5-14.0); SEGMENTED NEUTROPHILS % (AUTO) 46.3 % (42-78); TOTAL CELLS COUNTED % (AUTO) 100 %; WHITE BLOOD COUNT 8.4 10^3/uL (4.0-10.5)
[2018-09-09] MEDS: HEPARIN SOD (PORCINE) 5,000 UNIT/ML 1 ML SYRINGE SUBCUT SCH ×2 (05:47→14:14)
[2018-09-09] MEDS: OXYCODONE HCL SR 10 MG TABLET PO SCH ×2 (05:48→14:14)
[2018-09-09] MEDS: METOCLOPRAMIDE HCL ORAL SOLN 10 MG/10 ML UDCUP PO SCH ×2 (05:48→12:43)
[2018-09-09] MEDS: TIZANIDINE HCL 4 MG TABLET PO SCH (05:48)
[2018-09-09] MEDS: LANSOPRAZOLE 30 MG TAB.RAP.DR PO SCH (05:48)
[2018-09-09] MEDS: GABAPENTIN 300 MG CAPSULE PO SCH ×2 (05:48→14:14)
[2018-09-09 06:08] LABS: ALANINE AMINOTRANSFERASE 20 U/L (9-52); ALBUMIN 3.3 g/dL (3.5-5.0); ALKALINE PHOSPHATASE 67 U/L (38-126); ANION GAP 11 (5-19); ASPARTATE AMINO TRANSFERASE 17 U/L (14-36); BILIRUBIN,DIRECT 0.2 mg/dL (0.0-0.4); BILIRUBIN,TOTAL 0.2 mg/dL (0.2-1.3); BLOOD UREA NITROGEN 18 mg/dL (7-20); CALCIUM 9.2 mg/dL (8.4-10.2); CARBON DIOXIDE 28 mmol/L (22-30); CHLORIDE 100 mmol/L (98-107); GLUCOSE 88 mg/dL (75-110); POTASSIUM 4.8 mmol/L (3.6-5.0); SODIUM 139.3 mmol/L (137-145)
[2018-09-09] MEDS: FLUCONAZOLE 100 MG TABLET PO SCH (10:54)
[2018-09-09] MEDS: ASCORBIC ACID 500 MG TABLET PO SCH (10:55)
[2018-09-09] MEDS: CEFEPIME 1 GM/D5W RTU 1 GM/50 ML RTUPB IV SCH (10:55)
[2018-09-09] MEDS: NYSTATIN CREAM 15 GM TP SCH (10:56)
[2018-09-09] MEDS: DULOXETINE HCL 30 MG CAPSULE.DR PO SCH (10:56)
[2018-09-09] MEDS: NORMAL SALINE 10 ML SDV (SCHEDULED) IV SCH (10:59)
[2018-09-09] MEDS: TRAMADOL HCL 50 MG TABLET PO PRN (11:33)
[2018-09-09 12:42] VITALS: BP 103/59
--- NOTE | 2018-09-09 13:04 | PDOC TRANSFER SUMMARY ---
General - Admit/Disc Date/PCP Admission Date/Primary Care Provider: 09/02/18 21:38 HÉCTOR BLOUNT MD Discharge Date: 09/09/18 - Discharge Diagnosis (1) Left lower lobe pneumonia Is this a current diagnosis for this admission?: Yes Summary: 09/09/2018 52-year-old female who is quadriplegic prior to spinal cord injury 3 years ago found to be in severe sepsis with hypotension, acute renal failure pyorrhea left-sided infiltrate concerning for pneumonia in the emergency room. Patient was treated with IV cefepime and IV vancomycin. Later on vancomycin was discontinued. Unfortunately no sputum culture was sent. Chest x-ray initially on 09/02/2017 suspicious for pneumonia. Patient completed 1 week of IV ceftriaxone. She is afebrile for the last several days. I am going to discharge her home on Bactrim DS 1 tablet p.o. twice daily. (2) Pyelonephritis Is this a current diagnosis for this admission?: Yes Summary: 09/09/2018 suprapubic catheter culture shows MRSA. As per the ID probably is a colonization. Patient as I mentioned above end of IV vancomycin and cefepime. And she completed 1 week course of cefepime. We are going to discharge her back to custodial on Bactrim. (3) Acute renal failure Is this a current diagnosis for this admission?: Yes Summary: 09/09/2018 the serum creatinine on admission is a 2.8 it was improved to 0.68 today. So acute renal failure is resolved. (4) Complication of ostomy Is this a current diagnosis for this admission?: Yes Summary: 09/09/2018 no discharge or drainage is seen from the ostomy site. Evaluated by the surgical team. Cultures from the site shows Jaye albicans. She was started on Diflucan 100 mg p.o. daily and will be going to discharge her back to custodial on Diflucan 100 mg p.o. daily for 7 days. (5) Sacral decubitus ulcer, stage IV Is this a current diagnosis for this admission?: Yes Summary: 09/09/2018 patient came in with stage IV sacral decubitus status post debridement and wound VAC placement. She is going to go back with wound VAC as per the surgical recommendations. - Additional Information Resuscitation Status: Full Code Discharge Diet: Diabetic Discharge Activity: Bedrest Prescriptions: Fluconazole [Diflucan 100 mg Tablet] 100 mg PO DAILY #7 tablet Nystatin [Mycostatin Cream 15 gm] 1 applic TP BID #14 tube Oxycodone HCl [Oxycodone HCl 10 MG Tablet] 5 mg PO Q6HP PRN 7 Days tablet PRN Reason: Oxycodone HCl [Oxycontin Sr 10 mg Tablet] 10 mg PO Q12 #60 tab.sr.12h Sulfamethoxazole/Trimethoprim [Bactrim Ds Tablet] 1 each PO BID 7 Days #14 tablet Home Medications: Acetaminophen [Tylenol Soln 325 mg/10.15 ml Udcup] 325 mg PEG Q4HP PRN 06/17/18 Ascorbic Acid [Vitamin C 500 mg Tablet] 500 mg PEG BID 06/17/18 Bismuth Subsalicylate [Maalox] 20 ml PEG Q4HP PRN 06/17/18 Duloxetine HCl [Cymbalta] 30 mg PEG DAILY 06/17/18 Flavoxate HCl [Urispas] 200 mg PEG Q8 06/17/18 Gabapentin [Neurontin 300 mg Capsule] 300 mg PEG Q8 06/17/18 Meloxicam 15 mg PEG DAILY 06/17/18 Metoclopramide HCl [Reglan Oral Soln 10 mg/10 ml Udcup] 5 mg PEG QID 06/17/18 Multivit-Minerals/Ferrous Gluc [Centrum Multivit-Mineral Liq] 10 ml PEG DAILY Omeprazole 40 mg PEG Q6AM 06/17/18 Ondansetron [Zofran Odt 4 mg Tablet] 4 mg PEG Q6HP PRN 06/17/18 Oxycodone HCl [Oxy-Ir 5 mg Tablet] 5 mg PO Q4HP PRN 06/17/18 Oxycodone HCl [Oxycontin Sr 10 mg Tablet] 20 mg PO Q8 06/17/18 Promethazine HCl [Phenergan Inj 25 mg/1 ml Vial] 25 mg IM Q6HP PRN MDD 3 doses 06/17/18 Sennosides/Docusate Sodium [Senna-S Tablet] 1 each PEG Q12 MDD hold for loose stool 06/17/18 Solifenacin Succinate [Vesicare] 5 mg PO DAILY 06/17/18 Tizanidine HCl [Zanaflex 4 mg Tablet] 2 mg PEG Q8 06/17/18 Zinc Sulfate [Zinc-220 Capsule] 220 mg PEG DAILY 06/17/18 Metoclopramide HCl [Reglan] 5 mg PO Q6 #30 tablet 07/18/18 Fluconazole [Diflucan 100 mg Tablet] 100 mg PO DAILY #7 tablet 09/09/18 Nystatin [Mycostatin Cream 15 gm] 1 applic TP BID #14 tube 09/09/18 Oxycodone HCl [Oxycodone HCl 10 MG Tablet] 5 mg PO Q6HP PRN 7 Days tablet 09/09 Oxycodone HCl [Oxycontin Sr 10 mg Tablet] 10 mg PO Q12 #60 tab.sr.12h 09/09/18 Sulfamethoxazole/Trimethoprim [Bactrim Ds Tablet] 1 each PO BID 7 Days #14 tablet 09/09/18 History of Present Illness Admission Date/PCP: 09/02/18 21:38 HÉCTOR BLOUNT MD History of Present Illness: ARTURO GILBERT is a 52 year old female 52 year old female, quadriplegic from prior cord injury 3 years ago, had a suprapubic catheter and PEG tube with recent discontinuation. Patient was hospitalized for pyelonephritis with sepsis at [facility] within the last 2 months and was in rehab at [facility] when nursing staff was concerned for poor p.o. intake and confusion. In the emergency room she is found to have severe sepsis with hypotension, acute renal failure, pyuria and a left-sided infiltrate concerning for pneumonia. A 3 x 3 cm stage IV decubitus ulcer, necrotic discharge from suprapubic catheter site and PEG tube site. Patient complains of diffuse pain. In the emergency room she started on empiric antibiotics of Levaquin, vancomycin and cefepime then referred to the hospitalist for admission. Physical Exam Vital Signs: Temp Pulse Resp BP Pulse Ox 98.1 F 86 12 103/59 L 91 L 09/09/18 12:41 09/09/18 12:41 09/09/18 12:41 09/09/18 12:41 09/09/18 12:41 Intake & Output 09/08/18 09/09/18 09/10/18 06:59 06:59 06:59 Intake Total 792 1344 50 Output Total 800 900 Balance -8 444 50 Weight 68.7 kg 70 kg General appearance: PRESENT: no acute distress Head exam: PRESENT: atraumatic Eye exam: PRESENT: PERRLA Neck exam: ABSENT: carotid bruit, JVD, lymphadenopathy, thyromegaly Respiratory exam: PRESENT: clear to auscultation justyna. ABSENT: rales, rhonchi, wheezes Cardiovascular exam: PRESENT: RRR. ABSENT: diastolic murmur, rubs, systolic murmur GI/Abdominal exam: PRESENT: other - Has PEG and a suprapubic catheter. Musculoskeletal exam: PRESENT: other - Patient is quadriplegic and bedbound. Neurological exam: PRESENT: alert, oriented to person, oriented to time, oriented to situation, other - Patient is quadriplegic secondary to spinal cord injury 3 years ago. Results Laboratory Results: 09/09/18 05:30 09/09/18 05:30 09/09/18 09/09/18 05:30 05:30 WBC 8.4 RBC 3.45 L Hgb 9.6 L Hct 28.8 L MCV 84 MCH 27.8 MCHC 33.2 RDW 17.1 H Plt Count 272 Seg Neutrophils % 46.3 Lymphocytes % 31.7 Monocytes % 9.7 Eosinophils % 11.6 H Basophils % 0.7 Absolute Neutrophils 3.9 Absolute Lymphocytes 2.7 Absolute Monocytes 0.8 Absolute Eosinophils 1.0 H Absolute Basophils 0.1 Sodium 139.3 Potassium 4.8 Chloride 100 Carbon Dioxide 28 Anion Gap 11 BUN 18 Creatinine 0.68 Est GFR ( Amer) > 60 Est GFR (Non-Af Amer) > 60 Glucose 88 Calcium 9.2 Magnesium 1.7 Total Bilirubin 0.2 AST 17 ALT 20 Alkaline Phosphatase 67 Total Protein 7.0 Albumin 3.3 L 09/03/18 05:45 Sacrum - Decubitis Ulcer Gram Stain - Final 09/03/18 05:45 Sacrum - Decubitis Ulcer Wound Culture - Final Morganella Morganii C.albicans/C.dubliniensis Impressions: Renal Ultrasound 09/02/18 00:00 IMPRESSION: 1. Mild right hydronephrosis. 2. Bilateral nephrolithiasis. Chest X-Ray 09/02/18 19:04 IMPRESSION: 1. Suspicious for left basilar pneumonia. 2. Potential left upper lobe nodule. Chest CT if warranted. Guidance Fluoroscopy 09/07/18 00:00 IMPRESSION: SUCCESSFUL PLACEMENT OF A 5 FR DUAL LUMEN 37 CM PICC IN THE LEFT BASILIC VEIN. Interventional Vascular Procedure 09/07/18 00:00 IMPRESSION: SUCCESSFUL PLACEMENT OF A 5 FR DUAL LUMEN 37 CM PICC IN THE LEFT BASILIC VEIN. PICC Line Insertion 09/07/18 00:00 IMPRESSION: SUCCESSFUL PLACEMENT OF A 5 FR DUAL LUMEN 37 CM PICC IN THE LEFT BASILIC VEIN. Transfer Plan - Time Spent with Patient Time spent with patient: Greater than 30 Minutes Qualifiers - * PATIENT BEING DISCHARGED WITH ANY OF THE FOLLOWING DIAGNOSIS: No VTE patient discharged on overlapping Therapy?: Yes
== END 2018-09-09 15:13 | DRG 871 ==
LOC: ER 18:44 → EH 21:38 → 3S 09-03 00:53
PROVIDERS: ADMIT Internal Medicine; ATTEND Internal Medicine
PROC: 02HV33Z Insertion of Infusion Device into Superior Vena Cava, Percutaneous Approach (ICD-10-PCS; principal; 2018-09-07)
DX: A41.9 Sepsis, unspecified organism (principal); L89.154 Pressure ulcer of sacral region, stage 4; G82.50 Quadriplegia, unspecified; J18.9 Pneumonia, unspecified organism; K31.6 Fistula of stomach and duodenum; N17.9 Acute kidney failure, unspecified; T81.83XA Persistent postprocedural fistula, initial encounter; T83.518A Infection and inflammatory reaction due to other urinary catheter, initial encounter; N10 Acute pyelonephritis; M86.9 Osteomyelitis, unspecified; E87.6 Hypokalemia; K94.29 Other complications of gastrostomy; N20.0 Calculus of kidney; B95.62 Methicillin resistant Staphylococcus aureus infection as the cause of diseases classified elsewhere; R41.82 Altered mental status, unspecified; Z96.0 Presence of urogenital implants; Z79.899 Other long term (current) drug therapy
CPT/HCPCS: 36415; 36569; 71045; 76775; 76937; 77001; 80048; 80053; 80202; 81001; 83605; 83735; 85025; 87040; 87070; 87077; 87086; 87088; 87186; 87205; 94640; 94799; 96361; 96365; 96375; 99285; J0692; J1642; J1644; J1956; J2405; J3370; J3490; J7060; J7120; J7620

== ENCOUNTER 2020-08-24 13:10 | Inpatient (IN) | payer MEDICAID ==
[2020-08-24] MEDS ORDERED: ONDANSETRON HCL INJ/PF 4 MG/2 ML SDV IV ONE ×2 (14:32→19:00)
[2020-08-24] MEDS ORDERED: PIPERACILLIN/TAZOBACTAM 3.375 GM VIAL IV ONE ×2 (14:32→19:00)
[2020-08-24] MEDS ORDERED: MORPHINE SULFATE 10 MG/ML INJ IV ONE ×2 (14:33→19:00)
--- NOTE | 2020-08-24 15:01 | RADIOLOGY REPORT (SQ) ---
EXAM DESCRIPTION: CHEST SINGLE VIEW IMAGES COMPLETED DATE/TIME: 08/24/2020 2:51 pm REASON FOR STUDY: fever COMPARISON: 09/02/2018 EXAM PARAMETERS: NUMBER OF VIEWS: One view. TECHNIQUE: Single frontal radiographic view of the chest acquired. RADIATION DOSE: NA LIMITATIONS: None. FINDINGS: LUNGS AND PLEURA: Asymmetric opacity in the left base consistent with atelectasis or pneum onia. Possibly overlying soft tissue. Lung purvis are otherwise clear. No pneumothorax. MEDIASTINUM AND HILAR STRUCTURES: No masses. Contour normal. HEART AND VASCULAR STRUCTURES: Heart normal in size. Normal vasculature. BONES: No acute findings. HARDWARE: None in the chest. OTHER: No other significant finding. IMPRESSION: Asymmetric opacity overlying the left base as described. Possibly focal atelectasis or pneumonia. Possibly confluence of shadows. TECHNICAL DOCUMENTATION: JOB ID: [id number] 2010 [employer]- All Rights Reserved Reading location - IP/workstation name: [email or web address]
--- NOTE | 2020-08-24 15:09 | ER Document Report ---
ED General - General Chief Complaint: Abdominal Pain Stated Complaint: ALL OVER PAIN Time Seen by Provider: 08/24/20 14:01 Primary Care Provider: MILA BANUELOS MD [Primary Care Provider] - Follow up as needed Mode of Arrival: Medic Information source: Patient, H Records, Outside Facility Records Notes: Patient is a 54-year-old female who was sent to the emergency room by [facility] and rehab facility. It was reported that patient went to [facility] yesterday she had the placement of a Ovesco clip performed by . 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 According to Josette [facility]. According to Josette as well there have been a at least 2 other attempts to wall off this fistula without success. She also tells me that patient is normally awake alert and oriented at baseline. She tells me that this morning on giving patient's medications she vomited it back up. Patient is here because she has pain all over. It was also reported the patient has not eaten since returning from [facility] yesterday. There were no reported fevers prior to transport from the facility to ER. Patient has a long significant history to include being a quadriplegic. She has had a history of pyelonephritis, prerenal azotemia, pneumonia, suprapubic catheter, chronic pain, osteomyelitis along with methicillin-resistant staph aureus treatments in the past. Patient was tested for the coronavirus on 08/23/2020 prior to procedure and she was negative according to records. TRAVEL OUTSIDE OF THE [place] IN LAST 30 DAYS: No - HPI Onset: This morning Onset/Duration: Sudden Quality of pain: Achy, Sharp Severity: Moderate Pain Level: 3 Associated symptoms: Body/muscle aches. denies: Nonproductive cough, Diarrhea - Related Data Allergies/Adverse Reactions: codeine [Codeine] Allergy (Verified 07/16/16 11:27) oxycodone HCl [From Percocet] Allergy (Verified 07/16/16 11:27) Past Medical History - Social History Smoking Status: Unknown if Ever Smoked Chew tobacco use (# tins/day): No Frequency of alcohol use: None Drug Abuse: None Lives with: [facility] Family History: Hypertension Patient has homicidal ideation: No - Past Medical History Cardiac Medical History: Denies: Hx Coronary Artery Disease, Hx Heart Attack, Hx Hypertension Pulmonary Medical History: Denies: Hx Asthma, Hx Bronchitis, Hx COPD, Hx Pneumonia Neurological Medical History: Denies: Hx Cerebrovascular Accident, Hx Seizures Renal/ Medical History: Denies: Hx Peritoneal Dialysis Musculoskeletal Medical History: Denies Hx Arthritis Psychiatric Medical History: Denies: Hx Depression Past Surgical History: Reports: Other - Suprapubic catheter, PEG TUBE PLACEMENT - Immunizations Hx Diphtheria, Pertussis, Tetanus Vaccination: Yes Review of Systems - Review of Systems Constitutional: See HPI, Fever EENT: No symptoms reported Cardiovascular: No symptoms reported Respiratory: No symptoms reported Gastrointestinal: See HPI, Abdomen distended, Abdominal pain, Nausea, Vomiting, Poor appetite, Poor fluid intake Genitourinary: See HPI, Other - Has a suprapubic catheter placement Female Genitourinary: No symptoms reported Musculoskeletal: No symptoms reported Skin: No symptoms reported Hematologic/Lymphatic: No symptoms reported Neurological/Psychological: No symptoms reported -: Yes All other systems reviewed and negative Physical Exam - Vital signs Vitals: Temp 98.2 F 08/24/20 13:10 - Notes Notes: PHYSICAL EXAMINATION: GENERAL: Patient is a well-nourished well-developed 54-year-old female though in no apparent distress appears ill. Also in talking to patient currently she is moderately confused thinking it is now 1957 she does know she is in a hospital but cannot tell me her age. According to patient's nurse at [facility] patient is baseline at awake alert and oriented. On examination of the room patient felt warm she was documented having a temp of 98.8. I retook her chapped her because of the feeling of her skin that she was 100.6. HEAD: Atraumatic, normocephalic. EYES: Pupils equal round and reactive to light, extraocular movements intact, conjunctiva are normal. ENT: Nares patent, oropharynx clear without exudates. Moist mucous membranes. NECK: Normal range of motion, supple without lymphadenopathy no meningismal sign LUNGS: Auscultation of his lungs show bilateral breath sounds decreased throughout no rhonchi rales or wheeze are heard. HEART: Regular rate and rhythm without murmurs ABDOMEN: Examination patient's abdomen in a semierect Fowlers shows bowel sounds are present in the upper quadrants but diminished she is tympanic and distended throughout the whole entire abdomen. Moderate tenderness though nonspecific throughout the abdomen. Unable at this point to roll patient on my own further evaluation will be done by nurse and myself at a later time. Female : deferred Musculoskeletal: Patient is a noted quadriplegic. However she does move her upper extremities but has no control of her hands.. NEUROLOGICAL: Currently patient is moderately confused. PSYCH: Normal mood, normal affect. SKIN: Warm, Dry, normal turgor, no rashes or lesions noted. Course - Re-evaluation Re-evalutation: 08/24/20 23:02 Patient's length of stay has been hindered in the fact that she was difficult to establish an IV so labs were not even presented until 4 hours after patient was here. Then it took a while to get her CT report. Once that was back and after evaluating her again the CT showed large amount of stool in the vault area it showed a large amount of retained stool possible fecal impaction it took the nurse another couple of hours in order to get his supplies together and about 45 minutes for him to have patient retain the enema and then according to the nurse she put out approximately 2-1/2 L of peanut butter brown consistency stool. And at seed cleaned her up again he stated that it was still coming out. Patient got a lot of relief from this process. While doing the enema the nurse did report the patient had a decubitus ulcer at her gluteal fold area but it was covered. I have since rediscussed the case with the patient she was going to wound management but states that it is in the healing process currently and she is not in care anymore for it. There are only doing dressing changes at the nursing facility. Patient vocalized that she feels so much better at this point. - Vital Signs Vital signs: Temp Pulse Resp BP Pulse Ox 98.3 F 27 H 108/64 92 08/24/20 23:05 08/24/20 23:01 08/24/20 20:00 08/24/20 13:44 08/24/20 23:05 Also to note that in her H&P I did discuss patient's status with her nurse Josette informing the patient is awake alert and oriented on baseline. And that her decubitus ulcer is healed. - Laboratory Result Diagrams: 08/24/20 16:35 08/24/20 16:35 Laboratory results interpreted by me: 08/24/20 08/24/20 08/24/20 16:35 16:35 20:31 WBC 22.0 H Hgb 11.8 L RDW 15.2 H Seg Neuts % (Manual) 85 H Lymphocytes % (Manual) 10 L Monocytes % (Manual) 1 L Abs Neuts (Manual) 19.6 H Total Protein 8.6 H Urine Protein 30 H Urine Blood MODERATE H Ur Leukocyte Esterase LARGE H Discharge - Discharge Clinical Impression: Sepsis Qualifiers: Sepsis type: sepsis due to unspecified organism Sepsis acute organ dysfunction status: unspecified Qualified Code(s): A41.9 - Sepsis, unspecified organism UTI (urinary tract infection) Qualifiers: Urinary tract infection type: catheter-associated UTI Indwelling urinary catheter type: indwelling urethral catheter Encounter type: initial encounter Qualified Code(s): T83.511A - Infection and inflammatory reaction due to indwelling urethral catheter, initial encounter Condition: Stable Disposition: ADMITTED INPATIENT Admitting Provider: [facility] (Hospitalist) Unit Admitted: Telemetry Referrals: MILA BANUELOS MD [Primary Care Provider] - Follow up as needed
[2020-08-24] MEDS ORDERED: ACETAMINOPHEN 325 MG TABLET PO ONE ×2 (15:14→19:00)
[2020-08-24 16:55] LABS: HEMATOCRIT 36.1 % (36.0-47.0); HEMOGLOBIN 11.8 g/dL (12.0-15.5); MEAN CORPUSCULAR HEMOGLOBIN 27.7 pg (27.0-33.4); MEAN CORPUSCULAR HGB CONC 32.6 g/dL (32.0-36.0); MEAN CORPUSCULAR VOLUME 85 fl (80-97); PLATELET COUNT 232 10^3/uL (150-450); RED BLOOD COUNT 4.25 10^6/uL (3.72-5.28); RED CELL DISTRIBUTION WIDTH 15.2 % (11.5-14.0)
[2020-08-24 16:57] LABS: PARTIAL THROMBOPLASTIN TIME 28.6 SEC (23.5-35.8)
[2020-08-24 17:01] LABS: INTERNATIONAL RATION (INR) 0.97; PROTHROMBIN TIME 13.1 SEC (11.4-15.4)
[2020-08-24 17:12] LABS: ALBUMIN 4.4 g/dL (3.5-5.0); ALKALINE PHOSPHATASE 101 U/L (38-126); ANION GAP 10 (5-19); ASPARTATE AMINO TRANSFERASE 32 U/L (14-36); BILIRUBIN,DIRECT 0.3 mg/dL (0.0-0.4); BILIRUBIN,TOTAL 0.5 mg/dL (0.2-1.3); BLOOD UREA NITROGEN 15 mg/dL (7-20); CALCIUM 9.8 mg/dL (8.4-10.2); CARBON DIOXIDE 25 mmol/L (22-30); CHLORIDE 105 mmol/L (98-107); GLUCOSE 107 mg/dL (75-110); POTASSIUM 3.8 mmol/L (3.6-5.0); TOTAL PROTEIN 8.6 g/dL (6.3-8.2)
[2020-08-24 17:52] LABS: ABSOLUTE LYMPHOCYTES# (MANUAL) 2.2 10^3/uL (0.5-4.7); ABSOLUTE MONOCYTES # (MANUAL) 0.2 10^3/uL (0.1-1.4); BAND NEUTROPHILS % (MANUAL) 4 % (3-5); BASOPHILS % (MANUAL) 0 % (0-2); EOSINOPHILS % (MANUAL) 0 % (0-6); LYMPHOCYTES % (MANUAL) 10 % (13-45); MONOCYTES % (MANUAL) 1 % (3-13); POIKILOCYTOSIS 1+; SEGMENTED NEUTROPHILS % (MAN) 85 % (42-78); TOTAL CELLS COUNTED 100; TOXIC GRANULATION 1+
[2020-08-24 17:53] LABS: PLATELET COMMENT ADEQUATE; STOMATOCYTES 1+
--- NOTE | 2020-08-24 18:28 | RADIOLOGY REPORT (SQ) ---
EXAM DESCRIPTION: CT ABD/PELVIS WITH IV ONLY IMAGES COMPLETED DATE/TIME: 08/24/2020 6:08 pm REASON FOR STUDY: abd pain COMPARISON: 01/31/2016 TECHNIQUE: CT scan of the abdomen and pelvis performed using helical scanning technique with dynamic intravenous contrast injection. No oral contrast. Images reviewed with lung, soft tissue, and bone windows. Reconstructed coronal and sagittal MPR images reviewed. Delayed images for evaluation of the urinary system also acquired. All images stored on PACS. All CT scanners at this facility use dose modulation, iterative reconstruction, and/or weight based d osing when appropriate to reduce radiation dose to as low as reasonably achievable (ALARA). [facility]: Dose Right [facility]: CareDose [facility]: Dose Right [facility]: Teradose 4D [facility]: Plasticell CONTRAST TYPE AND DOSE: contrast/concentration: Isovue 350.00 mmol/ml; Total Contrast Delivered: 78. 0 ml; Total Saline Delivered: 67.0 ml RENAL FUNCTION: BUN 15 creatinine 0.77 RADIATION DOSE: CT Rad equipment meets quality standard of care and radiation dose reduction techniq ues were employed. CTDIvol: 10.3 - 14.0 mGy. DLP: 1314 mGy-cm.. LIMITATIONS: None. FINDINGS: LOWER CHEST: Mild dependent atelectasis. LIVER: Normal size. No masses. No dilated ducts. SPLEEN: Normal size. No focal lesions. PANCREAS: No masses. No significant calcifications. No adjacent inflammation or peripancreatic fluid collections. Pancreatic duct not dilated. GALLBLADDER: Distended. No stones. No wall thickening. ADRENAL GLANDS: No significant masses or asymmetry. RIGHT KIDNEY AND URETER: No solid masses. Nonobstructing intrarenal calculi are seen. No hydronep hrosis or hydroureter. LEFT KIDNEY AND URETER: No solid masses. No significant calcifications. No hydronephrosis or hydr oureter. AORTA AND VESSELS: No aneurysm. No dissection. Renal arteries, SMA, celiac without stenosis. RETROPERITONEUM: A few shotty periaortic nodes are present. BOWEL AND PERITONEAL CAVITY: There is retained stool in the descending colon and rectum. This is par ticularly dense in the rectum. APPENDIX: Not identified. PELVIS: There is a suprapubic catheter in the urinary bladder. ABDOMINAL WALL: No masses. No hernias. BONES: No significant or acute findings. OTHER: No other significant finding. IMPRESSION: Retained stool. Cannot exclude fecal impaction. No other significant findings in the a bdomen or pelvis. TECHNICAL DOCUMENTATION: JOB ID: [id number] Quality ID # [id number]: Final reports with documentation of one or more dose reduction techniques (e.g., Au tomated exposure control, adjustment of the mA and/or kV according to patient size, use of iterative reconstruction technique) 2010 [employer]- All Rights Reserved Reading location - IP/workstation name: [email or web address]
[2020-08-24 20:53] LABS: APPEARANCE,URINE CLOUDY; BILIRUBIN,URINE NEGATIVE (NEGATIVE); COLOR,URINE YELLOW; GLUCOSE, URINE NEGATIVE (NEGATIVE); KETONES,URINE NEGATIVE (NEGATIVE); LEUKOCYTE ESTERASE,URINE LARGE (NEGATIVE); NITRITE,URINE NEGATIVE (NEGATIVE); PROTEIN,URINE 30 mg/dL (NEGATIVE); URINE SPECIFIC GRAVITY 1.014; UROBILINOGEN,URINE NEGATIVE mg/dL (<2.0)
[2020-08-24] MEDS: NORMAL SALINE 1000 ML 1,000 ML IV PRN ×2 (21:10→23:31)
[2020-08-24] MEDS ORDERED: RINGERS SOLUTION,LACTATED 1,000 ML IV ONE (23:18)
[2020-08-24] MEDS ORDERED: VANCOMYCIN HCL INJ 1000 MG VIAL IV ONE (23:58)
[2020-08-25] MEDS ORDERED: ACETAMINOPHEN 325 MG TABLET PO PRN (00:02)
[2020-08-25] MEDS ORDERED: CEFEPIME 2 GM/D5W RTU 2 GM/50 ML RTUPB IV ONE ×2 (00:30→01:28)
[2020-08-25] MEDS: METRONIDAZOLE 500 MG/NS RTU 500 MG/100 ML RTUPB IV SCH ×4 (00:59→17:42)
[2020-08-25] MEDS: HEPARIN SOD (PORCINE) 5,000 UNIT/ML 1 ML VIAL SUBCUT SCH ×4 (01:08→20:59)
--- NOTE | 2020-08-25 01:19 | ER Document Report ---
Doctor's Note Notes: 08/25/20 01:14 I was asked to see the patient by the SANDY. Patient had a procedure recently for an ovesco endoscopic clip. She comes in today for abdominal pain. Patient's x- ray shows likely consolidation. Her CT abdomen showed possible impaction with stool burden. She had been stable throughout her ER stay but then had a blood pressure in the 70s systolic. This is when I was asked to go personally see the patient. Patient is alert and oriented. She is afebrile. She is mentating normally. Her abdomen is soft and nontender. No rigidity or guarding. Lung sounds are clear. She is getting fluid boluses. Patient blood pressure is improving. She will be admitted to the ICU for monitoring. She has already gotten antibiotics. Patient is very agreeable to the plan.
[2020-08-25] MEDS ORDERED: VANCOMYCIN HCL INJ 1000 MG VIAL ONE (01:28)
[2020-08-25] MEDS ORDERED: VANCOMYCIN HCL INJ 1000 MG VIAL IV PRN (02:05)
[2020-08-25] MEDS ORDERED: VANCOMYCIN HCL 1,000 MG in DEXTROSE 5%-WATER 250 ML IV ONE (02:30)
[2020-08-25] MEDS: RINGERS SOLUTION,LACTATED 1,000 ML IV PRN ×3 (03:45→20:45)
--- NOTE | 2020-08-25 05:08 | CRITICAL CARE ADMISSION REPORT ---
HPI Date:: 08/25/20 Time:: 04:02 Reason for ICU Reason:: sepsis with shock Admission Date/Time & PCP: Admission Date/Time: 08/24/20 23:35 Primary Care Provider: MILA BANUELOS MD Admitted to Dr. Burris HPI: 54 year old white female who presented to [facility] from [facility] yesterday with decreased LOC. The patient has a past medical hx to include paraplegic, multiple UTI, prolonged need for salazar, and chronic pain. The patient was seen by the ER provider and an abdominal CT can was performed which revealed the patient to be impacted. Per the ER provider after patient was given an enema had a large amount of stool and the patient then became hypotensive. the patient was seen at [facility] yesterday to have a veseco clip for an attempt to contain a gastrocutaneous fistula caused from extended use of peg. The patient has a suprapubic catheter in place and is a hemiplegic from a fall per the patient. Critical care was consulted for admission and management of this patient\. - Diagnosis/Plan (1) Sepsis Qualifiers: Sepsis type: sepsis due to unspecified organism Sepsis acute organ dysfunction status: unspecified Qualified Code(s): A41.9 - Sepsis, unspecified organism Is this a current diagnosis for this admission?: Yes Plan: aggresive antibiotic therapy and iv fluid hydration trend lactic acid procal in AM (2) UTI (urinary tract infection) Qualifiers: Urinary tract infection type: catheter-associated UTI Indwelling urinary catheter type: indwelling urethral catheter Encounter type: initial encounter Qualified Code(s): T83.511A - Infection and inflammatory reaction due to indwel ling urethral catheter, initial encounter; N39.0 - Urinary tract infection, site not specified Is this a current diagnosis for this admission?: Yes Plan: antibiotic treatment urine culture pending (3) Cellulitis Qualifiers: Site of cellulitis: buttock Qualified Code(s): L03.317 - Cellulitis of buttock Is this a current diagnosis for this admission?: No (4) Chronic pain Qualifiers: Chronic pain type: other chronic pain Qualified Code(s): G89.29 - Other chronic pain Is this a current diagnosis for this admission?: No Plan: consider restarting pain control meds when BP supports (5) 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 Is this a current diagnosis for this admission?: Yes Plan: treat emperically for possible bowel leakage from gastrocutaneous fistula (6) Left lower lobe pneumonia Qualifiers: Pneumonia type: due to unspecified organism Qualified Code(s): J18.9 - Pneumonia, unspecified organism Is this a current diagnosis for this admission?: Yes (7) MRSA (methicillin resistant Staphylococcus aureus) Is this a current diagnosis for this admission?: Yes (8) Prerenal azotemia Is this a current diagnosis for this admission?: No (9) Sacral decubitus ulcer, stage IV Is this a current diagnosis for this admission?: No (10) Suprapubic catheter Is this a current diagnosis for this admission?: Yes Past Medical History Cardiac Medical History: Denies: Coronary Artery Disease, Myocardial Infarction, Hypertension Pulmonary Medical History: Denies: Asthma, Bronchitis, Chronic Obstructive Pulmonary Disease (COPD), Pneumonia Neurological Medical History: Reports: Other - paralysis from fall able to move arms hands contracted Denies: Seizures GI Medical History: Reports: Other - gastrocutaneous fistula from old peg site Musculoskeltal Medical History: Denies: Arthritis Psychiatric Medical History: Reports: Depression Hematology: Reports: Anemia Past Surgical History Past Surgical History: Reports: Other - Suprapubic catheter, PEG TUBE removed, vesio clip for gastrocutaneous fist Social/Family History - Social History Lives with: [facility] Smoking Status: Unknown if Ever Smoked Frequency of Alcohol Use: None Hx Recreational Drug Use: No Drugs: None Hx Prescription Drug Abuse: No - Medication/Allergies Home Medications: Acetaminophen [Tylenol Soln 325 mg/10.15 ml Udcup] 325 mg PEG Q4HP PRN 06/17/18 Ascorbic Acid [Vitamin C 500 mg Tablet] 500 mg PEG BID 06/17/18 Bismuth Subsalicylate [Maalox] 20 ml PEG Q4HP PRN 06/17/18 Duloxetine HCl [Cymbalta] 30 mg PEG DAILY 06/17/18 Flavoxate HCl [Urispas] 200 mg PEG Q8 06/17/18 Gabapentin [Neurontin 300 mg Capsule] 300 mg PEG Q8 06/17/18 Meloxicam 15 mg PEG DAILY 06/17/18 Metoclopramide HCl [Reglan Oral Soln 10 mg/10 ml Udcup] 5 mg PEG QID 09/06/18 Multivit-Min/Ferrous Gluconate [Centrum Multivit-Mineral Liq] 10 ml PEG DAILY 06/17/18 Omeprazole 40 mg PEG Q6AM 06/17/18 Ondansetron [Zofran Odt 4 mg Tablet] 4 mg PEG Q6HP PRN 06/17/18 Oxycodone HCl [Oxy-Ir 5 mg Tablet] 5 mg PO Q4HP PRN 06/17/18 Oxycodone HCl [Oxycontin Sr 10 mg Tablet] 20 mg PO Q8 06/17/18 Promethazine HCl [Phenergan Inj 25 mg/1 ml Vial] 25 mg IM Q6HP PRN MDD 3 doses 06/17/18 Sennosides/Docusate Sodium [Senna-S Tablet] 1 each PEG Q12 MDD hold for loose stool 06/17/18 Solifenacin Succinate [Vesicare] 5 mg PO DAILY 06/17/18 Tizanidine HCl [Zanaflex 4 mg Tablet] 2 mg PEG Q8 06/17/18 Zinc Sulfate [Zinc-220 Capsule] 220 mg PEG DAILY 06/17/18 Metoclopramide HCl [Reglan] 5 mg PO Q6 #30 tablet 07/18/18 Fluconazole [Diflucan 100 mg Tablet] 100 mg PO DAILY #7 tablet 09/09/18 Nystatin [Mycostatin Cream 15 gm] 1 applic TP BID #14 tube 09/09/18 Oxycodone HCl [Oxycodone HCl 10 MG Tablet] 5 mg PO Q6HP PRN 7 Days tablet 09/09/18 Oxycodone HCl [Oxycontin Sr 10 mg Tablet] 10 mg PO Q12 #60 tab.sr.12h 09/09/18 Sulfamethoxazole/Trimethoprim [Bactrim Ds Tablet] 1 each PO BID 7 Days #14 tablet 09/09/18 Sulfamethoxazole/Trimethoprim [Bactrim Ds Tablet] 2 tab PO BID #28 tablet 03/27/19 Allergies/Adverse Reactions: codeine [Codeine] Allergy (Verified 07/16/16 11:27) oxycodone HCl [From Percocet] Allergy (Verified 07/16/16 11:27) Review of Systems Gastrointestinal: PRESENT: abdominal pain, nausea Genitourinary: PRESENT: as per HPI Neurological: PRESENT: other - hemiplegic Physical Exam Vital Signs: Temp Pulse Resp BP Pulse Ox 98.3 F 78 21 H 103/48 L 98 08/25/20 01:04 08/25/20 02:02 08/25/20 03:32 08/25/20 03:32 08/25/20 03:32 Intake & Output 08/23/20 08/24/20 08/25/20 06:59 06:59 06:59 Intake Total 1000 Output Total 750 Balance 250 Weight 67.9 kg Weight/Height Weight 67.9 kg Height 5 ft 6 in General appearance: PRESENT: no acute distress Head exam: PRESENT: atraumatic, normocephalic Eye exam: PRESENT: PERRLA Ear exam: PRESENT: normal external ear exam Mouth exam: PRESENT: dry mucosa Neck exam: PRESENT: full ROM. ABSENT: lymphadenopathy, thyromegaly, tracheal deviation Respiratory exam: PRESENT: decreased breath sounds, unlabored Cardiovascular exam: PRESENT: RRR, +S1, +S2 Pulses: PRESENT: normal radial pulses, +1 pedal pulses bilateral GI/Abdominal exam: PRESENT: hyperactive bowel sounds, soft Rectal exam: PRESENT: deferred Gentrourinary exam: PRESENT: indwelling catheter, other - suprapubic cath Musculoskeletal exam: PRESENT: deformity, other - bilateral hands contracted paralysis lower extremities contracted Neurological exam: PRESENT: alert, awake, oriented to person, oriented to place, oriented to time, oriented to situation Psychiatric exam: PRESENT: appropriate affect Skin exam: PRESENT: dry, other - presure ulcer noted to sacral area and cervical spine Laboratory/Radiographs Laboratory Results: 08/24/20 16:35 08/24/20 16:35 08/24/20 08/24/20 08/24/20 16:35 16:35 16:35 WBC 22.0 H RBC 4.25 Hgb 11.8 L Hct 36.1 MCV 85 MCH 27.7 MCHC 32.6 RDW 15.2 H Plt Count 232 Seg Neutrophils % Not Reportable Sodium 140.4 Potassium 3.8 Chloride 105 Carbon Dioxide 25 Anion Gap 10 BUN 15 Creatinine 0.77 Est GFR ( Amer) > 60 Glucose 107 Lactic Acid 2.1 Calcium 9.8 Total Bilirubin 0.5 AST 32 Alkaline Phosphatase 101 Total Protein 8.6 H Albumin 4.4 Lipase 39.4 Urine Color Urine Appearance Urine pH Ur Specific [place] Urine Protein Urine Glucose (UA) Urine Ketones Urine Blood Urine Nitrite Ur Leukocyte Esterase Urine WBC (Auto) Urine RBC (Auto) 08/24/20 08/24/20 20:31 23:34 WBC RBC Hgb Hct MCV MCH MCHC RDW Plt Count Seg Neutrophils % Sodium Potassium Chloride Carbon Dioxide Anion Gap BUN Creatinine Est GFR ( Amer) Glucose Lactic Acid 1.1 Calcium Total Bilirubin AST Alkaline Phosphatase Total Protein Albumin Lipase Urine Color YELLOW Urine Appearance CLOUDY Urine pH 7.0 Ur Specific [place] 1.014 Urine Protein 30 H Urine Glucose (UA) NEGATIVE Urine Ketones NEGATIVE Urine Blood MODERATE H Urine Nitrite NEGATIVE Ur Leukocyte Esterase LARGE H Urine WBC (Auto) 105 Urine RBC (Auto) 30 08/24/20 08/25/20 16:35 01:15 Troponin I < 0.012 0.015 Impressions: Chest X-Ray 08/24/20 14:31 IMPRESSION: Asymmetric opacity overlying the left base as described. Possibly focal atelectasis or pneumonia. Possibly confluence of shadows. Abdomen/Pelvis CT 08/24/20 14:34 IMPRESSION: Retained stool. Cannot exclude fecal impaction. No other sig nificant findings in the abdomen or pelvis. All labs, radiographs, diagnostic studies and EKGs were personally reviewed: Yes In addition, reports of radiographic and diagnostic studies were read: Yes Critical Time Critical Time (minutes): 55 -: The care of a critically ill patient is dynamic. This note represents a static moment in the admission process. Orders and treatments may be given simultaneously and urgently, and time is not visitor services representative of the treatment process. This patient requires Critical Care secondary to life threatening organ or limb dysfunction. Without Critical Care services, the patient is at risk for increased mortality and morbidity.
[2020-08-25] MEDS ORDERED: DEXTROSE 5%-WATER 250 ML with NOREPINEPHRINE BITARTRATE 4 MG IV PRN ×2 (06:18)
[2020-08-25] MEDS ORDERED: NOREPINEPHRINE BITARTRATE INJ/PF 4 MG/4 ML SDV IV ONE (06:20)
[2020-08-25 06:26] LABS: ABSOLUTE LYMPHOCYTES (AUTO) 1.9 10^3/uL (0.5-4.7); ABSOLUTE MONOCYTES (AUTO) 0.7 10^3/uL (0.1-1.4); ABSOLUTE NEUT (AUTO) 14.3 10^3/uL (1.7-8.2); BASOPHILS % (AUTO) 0.2 % (0-2); EOSINOPHILS % (AUTO) 0.1 % (0-6); HEMATOCRIT 30.4 % (36.0-47.0); MEAN CORPUSCULAR HEMOGLOBIN 27.9 pg (27.0-33.4); MEAN CORPUSCULAR HGB CONC 32.9 g/dL (32.0-36.0); MEAN CORPUSCULAR VOLUME 85 fl (80-97); MONOCYTES % (AUTO) 4.2 % (3-13); PLATELET COUNT 167 10^3/uL (150-450); RED BLOOD COUNT 3.58 10^6/uL (3.72-5.28); RED CELL DISTRIBUTION WIDTH 15.5 % (11.5-14.0); SEGMENTED NEUTROPHILS % (AUTO) 84.5 % (42-78); TOTAL CELLS COUNTED % (AUTO) 100 %; WHITE BLOOD COUNT 16.9 10^3/uL (4.0-10.5)
[2020-08-25 06:50] LABS: ALBUMIN 2.9 g/dL (3.5-5.0); ALKALINE PHOSPHATASE 66 U/L (38-126); ANION GAP 10 (5-19); ASPARTATE AMINO TRANSFERASE 29 U/L (14-36); BILIRUBIN,DIRECT 0.3 mg/dL (0.0-0.4); BILIRUBIN,TOTAL 0.6 mg/dL (0.2-1.3); BLOOD UREA NITROGEN 16 mg/dL (7-20); CALCIUM 8.1 mg/dL (8.4-10.2); CARBON DIOXIDE 21 mmol/L (22-30); CHLORIDE 110 mmol/L (98-107); GLUCOSE 130 mg/dL (75-110); PHOSPHORUS 3.6 mg/dL (2.5-4.5); POTASSIUM 3.3 mmol/L (3.6-5.0)
--- NOTE | 2020-08-25 07:06 | RADIOLOGY REPORT (SQ) ---
EXAM DESCRIPTION: CHEST SINGLE VIEW IMAGES COMPLETED DATE/TIME: 08/25/2020 6:49 am REASON FOR STUDY: cough COMPARISON: 08/24/2020 EXAM PARAMETERS: NUMBER OF VIEWS: One view. TECHNIQUE: Single frontal radiographic view of the chest acquired. RADIATION DOSE: NA LIMITATIONS: None. FINDINGS: LUNGS AND PLEURA: Patchy left basilar airspace disease is present increased to No pleural no pneumothorax MEDIASTINUM AND HILAR STRUCTURES: No masses. Contour normal. HEART AND VASCULAR STRUCTURES: Heart normal in size. Normal vasculature. BONES: No acute findings. HARDWARE: Cervical fusion hardware OTHER: No other significant finding. IMPRESSION: Increased left basilar airspace disease atelectasis versus pneumonia TECHNICAL DOCUMENTATION: JOB ID: [id number] 2010 [employer]- All Rights Reserved Reading location - IP/workstation name: [email or web address]
[2020-08-25] MEDS: PANTOPRAZOLE SODIUM 40 MG TABLET.DR PO SCH ×2 (07:52→17:35)
[2020-08-25] MEDS ORDERED: MORPHINE SULFATE 10 MG/ML INJ ONE ×2 (09:11→17:16)
--- NOTE | 2020-08-25 09:20 | EKG REPORT ---
SEVERITY:- OTHERWISE NORMAL ECG - SINUS TACHYCARDIA : Confirmed by: Leah Vieyra 25-Aug-2020 09:19:00
[2020-08-25] MEDS ORDERED: CEFEPIME 2 GM/D5W RTU 2 GM/50 ML RTUPB IV SCH (10:00)
[2020-08-25] MEDS: CEFEPIME HCL 2 GM in DEXTROSE 5%-WATER 50 ML IV SCH ×2 (10:46→21:00)
[2020-08-25] MEDS ORDERED: ONDANSETRON 4 MG TAB.RAPDIS PO PRN (13:23)
[2020-08-25] MEDS ORDERED: (PENDING PHARMACY ID) (Oxycodone Myristate [Xtampza Er] 36 MG) PO SCH (14:00)
[2020-08-25] MEDS: OXYCODONE HCL IR 5 MG TABLET PO PRN (14:16)
[2020-08-25] MEDS: GABAPENTIN 300 MG CAPSULE PO SCH ×2 (14:16→21:00)
[2020-08-25] MEDS ORDERED: OXYCODONE HCL SR 10 MG TABLET PO PRN (16:52)
[2020-08-25] MEDS: VANCOMYCIN HCL 750 MG in DEXTROSE 5%-WATER 250 ML IV SCH (17:42)
[2020-08-25] MEDS ORDERED: MORPHINE SULFATE 10 MG/ML INJ IV ONE (18:30)
[2020-08-25] MEDS: MORPHINE SULFATE 10 MG/ML INJ IV PRN (20:03)
[2020-08-25] MEDS ORDERED: OXYCODONE HCL SR 10 MG TABLET PO ONE (20:43)
[2020-08-25] MEDS: ONDANSETRON HCL INJ/PF 4 MG/2 ML SDV IV PRN (20:45)
[2020-08-25] MEDS: OXYCODONE HCL SR 10 MG TABLET PO PRN (20:55)
[2020-08-26] MEDS: OXYCODONE HCL IR 5 MG TABLET PO PRN ×3 (01:14→18:44)
[2020-08-26] MEDS: METRONIDAZOLE 500 MG/NS RTU 500 MG/100 ML RTUPB IV SCH ×3 (01:15→12:07)
[2020-08-26] MEDS: MORPHINE SULFATE 10 MG/ML INJ IV PRN ×5 (01:20→21:34)
[2020-08-26] MEDS: RINGERS SOLUTION,LACTATED 1,000 ML IV PRN ×3 (03:40→14:15)
[2020-08-26 05:24] LABS: ABSOLUTE BASOPHILS # (AUTO) 0.1 10^3/uL (0.0-0.2); ABSOLUTE EOSINOPHILS # (AUTO) 0.2 10^3/uL (0.0-0.6); ABSOLUTE LYMPHOCYTES (AUTO) 2.2 10^3/uL (0.5-4.7); ABSOLUTE MONOCYTES (AUTO) 0.6 10^3/uL (0.1-1.4); BASOPHILS % (AUTO) 0.6 % (0-2); EOSINOPHILS % (AUTO) 1.8 % (0-6); HEMATOCRIT 27.7 % (36.0-47.0); HEMOGLOBIN 9.2 g/dL (12.0-15.5); INTERNATIONAL RATION (INR) 1.08; LYMPHOCYTES % (AUTO) 24.3 % (13-45); MEAN CORPUSCULAR HEMOGLOBIN 28.3 pg (27.0-33.4); MEAN CORPUSCULAR HGB CONC 33.1 g/dL (32.0-36.0); MEAN CORPUSCULAR VOLUME 85 fl (80-97); MONOCYTES % (AUTO) 6.3 % (3-13); PLATELET COUNT 149 10^3/uL (150-450); PROTHROMBIN TIME 14.2 SEC (11.4-15.4); RED BLOOD COUNT 3.25 10^6/uL (3.72-5.28); RED CELL DISTRIBUTION WIDTH 15.3 % (11.5-14.0); TOTAL CELLS COUNTED % (AUTO) 100 %; WHITE BLOOD COUNT 8.9 10^3/uL (4.0-10.5)
[2020-08-26 05:39] LABS: ALBUMIN 2.8 g/dL (3.5-5.0); ALKALINE PHOSPHATASE 61 U/L (38-126); ANION GAP 8 (5-19); ASPARTATE AMINO TRANSFERASE 26 U/L (14-36); BILIRUBIN,DIRECT 0.3 mg/dL (0.0-0.4); BILIRUBIN,TOTAL 0.4 mg/dL (0.2-1.3); BLOOD UREA NITROGEN 10 mg/dL (7-20); CALCIUM 8.6 mg/dL (8.4-10.2); CARBON DIOXIDE 23 mmol/L (22-30); CHLORIDE 110 mmol/L (98-107); CHOLESTEROL 171.41 mg/dL (0-200); GLUCOSE 70 mg/dL (75-110); POTASSIUM 3.3 mmol/L (3.6-5.0); TOTAL PROTEIN 5.7 g/dL (6.3-8.2); TRIGLYCERIDES 184 mg/dL (<150)
[2020-08-26 05:50] LABS: DIRECT LDL 98 mg/dL (<100)
[2020-08-26 06:00] LABS: FREE T3 1.5 pg/mL (2.77-5.27); FREE T4 (FREE THYROXINE) 1.09 ng/dL (0.78-2.19)
[2020-08-26 06:01] LABS: VLDL CHOLESTEROL 36.8 mg/dL (10-31)
[2020-08-26 06:13] LABS: THYROID STIMULATING HORMONE 0.49 uIU/mL (0.47-4.68)
[2020-08-26] MEDS: PANTOPRAZOLE SODIUM 40 MG TABLET.DR PO SCH (06:23)
[2020-08-26] MEDS: OXYCODONE HCL SR 10 MG TABLET PO PRN (06:23)
[2020-08-26] MEDS: ONDANSETRON HCL INJ/PF 4 MG/2 ML SDV IV PRN (06:24)
[2020-08-26] MEDS: VANCOMYCIN HCL 750 MG in DEXTROSE 5%-WATER 250 ML IV SCH (06:24)
[2020-08-26] MEDS ORDERED: POTASSIUM CHLORIDE 10 MEQ TABLET.ER PO ONE (07:30)
--- NOTE | 2020-08-26 07:43 | RADIOLOGY REPORT (SQ) ---
EXAM DESCRIPTION: CHEST SINGLE VIEW IMAGES COMPLETED DATE/TIME: 08/26/2020 6:45 am REASON FOR STUDY: cough COMPARISON: Chest films 08/25/2020, 08/24/2020 EXAM PARAMETERS: NUMBER OF VIEWS: One view. TECHNIQUE: Single frontal radiographic view of the chest acquired. RADIATION DOSE: NA LIMITATIONS: None. FINDINGS: LUNGS AND PLEURA: Increasing consolidation at the left lung base worrisome for pneumonia No gross pleural effusion or pneumothorax. MEDIASTINUM AND HILAR STRUCTURES: No masses. Contour normal. HEART AND VASCULAR STRUCTURES: No cardiomegaly BONES: No acute findings. HARDWARE: None in the chest. OTHER: No other significant finding. IMPRESSION: Increasing consolidation at the left lung base worrisome for worsening pneumonia. TECHNICAL DOCUMENTATION: JOB ID: [id number] 2010 [employer]- All Rights Reserved Reading location - IP/workstation name: [email or web address]
[2020-08-26] MEDS: HEPARIN SOD (PORCINE) 5,000 UNIT/ML 1 ML VIAL SUBCUT SCH ×3 (08:25→21:31)
[2020-08-26] MEDS: LEVOTHYROXINE SODIUM 0.025 MG TABLET PO SCH (08:55)
[2020-08-26] MEDS: GABAPENTIN 300 MG CAPSULE PO SCH ×2 (09:56→21:29)
[2020-08-26] MEDS: DULOXETINE HCL 30 MG CAPSULE.DR PO SCH (09:56)
[2020-08-26] MEDS: SENNOSIDES/DOCUSATE 8.6-50 MG 1 EACH TABLET PO SCH ×2 (09:57→17:37)
[2020-08-26] MEDS: METOCLOPRAMIDE HCL ORAL SOLN 10 MG/10 ML UDCUP PO SCH ×4 (09:57→21:32)
[2020-08-26] MEDS: CEFEPIME HCL 2 GM in DEXTROSE 5%-WATER 50 ML IV SCH ×2 (09:58→21:31)
[2020-08-26] MEDS ORDERED: (PENDING PHARMACY ID) (Solifenacin Succinate [Vesicare] 5 MG) PO SCH (10:00)
[2020-08-26] MEDS: MULTIVITAMIN ORAL LIQUID 60 ML PO SCH (10:04)
[2020-08-26] MEDS: MELOXICAM 15 MG TABLET PO SCH (11:55)
--- NOTE | 2020-08-26 12:43 | PDOC CRITICAL CARE PROG REPORT ---
General Date:: 08/26/20 Hospital Day:: 2 Resuscitation Status: Full Code Events in the past 12 to 24 Hours:: BP better, Needs oxycontin. Does not need the ICU Review of systems relevant to events:: CV, Reason for ICU Addmission:: sepsis with shock - Medications: Medications reviewed and adjusted accordingly: Yes Vasopressors:: None Sedation:: None Physical Exam Vital Signs: Temp Pulse Resp BP Pulse Ox 98.3 F 63 14 97/65 L 96 08/26/20 10:00 08/26/20 10:00 08/26/20 10:02 08/26/20 10:02 08/26/20 10:02 Intake & Output 08/25/20 08/26/20 08/27/20 06:59 06:59 06:59 Intake Total 2405 5140 1350 Output Total 1150 3360 775 Balance 1255 1780 575 Weight 67.9 kg 71.6 kg Weight/Height Weight 71.6 kg Height 5 ft 6 in General appearance: PRESENT: no acute distress, cooperative Head exam: PRESENT: atraumatic, normocephalic Eye exam: PRESENT: conjunctiva pink, EOMI, PERRLA. ABSENT: scleral icterus Ear exam: PRESENT: normal external ear exam Mouth exam: PRESENT: dry mucosa Respiratory exam: PRESENT: clear to auscultation justyna. ABSENT: rales, rhonchi, wheezes Cardiovascular exam: PRESENT: RRR, tachycardia. ABSENT: diastolic murmur, rubs, systolic murmur GI/Abdominal exam: PRESENT: normal bowel sounds, soft, other - Previous PEG site with mild erythema, improved according to patient. SP site clean with very small amount of clear fluid.. ABSENT: distended, guarding, mass, organolmegaly, rebo und, tenderness Rectal exam: PRESENT: deferred Gentrourinary exam: PRESENT: indwelling catheter - SP catheter, other Neurological exam: PRESENT: alert, awake, oriented to person, oriented to place, oriented to time, oriented to situation, CN II-XII grossly intact. ABSENT: motor sensory deficit Psychiatric exam: PRESENT: appropriate affect, normal mood. ABSENT: homicidal ideation, suicidal ideation Skin exam: PRESENT: dry, intact, warm. ABSENT: cyanosis, rash Laboratory/Radiographs Laboratory Results: 08/26/20 04:14 08/26/20 04:14 08/26/20 08/26/20 08/26/20 04:14 04:14 04:14 WBC 8.9 RBC 3.25 L Hgb 9.2 L Hct 27.7 L MCV 85 MCH 28.3 MCHC 33.1 RDW 15.3 H Plt Count 149 L Seg Neutrophils % 67.0 Sodium 140.9 Potassium 3.3 L Chloride 110 H Carbon Dioxide 23 Anion Gap 8 BUN 10 Creatinine 0.68 Est GFR ( Amer) > 60 Glucose 70 L Calcium 8.6 Magnesium 1.7 Total Bilirubin 0.4 AST 26 Alkaline Phosphatase 61 Total Protein 5.7 L Albumin 2.8 L Triglycerides 184 H Cholesterol 171.41 LDL Cholesterol Direct 98 VLDL Cholesterol 36.8 H HDL Cholesterol 39 L Lipase 91.0 TSH 0.49 Free T4 1.09 Free T3 pg/mL 1.50 L 08/24/20 08/25/20 08/26/20 16:35 01:15 04:14 Troponin I < 0.012 0.015 NT-Pro-B Natriuret Pep 3640 H Impressions: Abdomen/Pelvis CT 08/24/20 14:34 IMPRESSION: Retained stool. Cannot exclude fecal impaction. No other significant findings in the abdomen or pelvis. Chest X-Ray 08/26/20 06:00 IMPRESSION: Increasing consolidation at the left lung base worrisome for worsening pneumonia. All labs, radiographs, diagnostic studies and EKGs were personally reviewed: Yes In addition, reports of radiographic and diagnostic studies were read: Yes Assessment and Plan - Diagnosis (1) Sepsis Qualifiers: Sepsis type: sepsis due to unspecified organism Sepsis acute organ dysfunction status: unspecified Qualified Code(s): A41.9 - Sepsis, unspecified organism Is this a current diagnosis for this admission?: Yes Plan: atient did qualify for SIRS criteria. The actual source of infection is not clear. A suprapubic tube is never sterile. In view of the fact that there is no encephalopathy, new pain, either S/P or CVA pain, it is hard to call this a UTI let alone a CAUTI. The PAG site is improved and the enema and resulting relief of constipation would make brief translocation from the GI tract more likely. Continue cefepime, all other antibiotics stopped. (2) UTI (urinary tract infection) Qualifiers: Urinary tract infection type: catheter-associated UTI Indwelling urinary catheter type: indwelling urethral catheter Encounter type: initial encounter Qualified Code(s): T83.511A - Infection and inflammatory reaction due to indwelling urethral catheter, initial encounter; N39.0 - Urinary tract infection, site not specified Is this a current diagnosis for this admission?: Yes Plan: Again there is no objective evidence to call this a UTI. The presence od E. coli in the urine even at > 100,000 CFU is not uncommon with a suprapubic tube. I do not call this a CAUTI. 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 (4) Sacral decubitus ulcer, stage IV Is this a current diagnosis for this admission?: Yes Plan: This is not looking acutely infected. (5) Chronic pain Qualifiers: Chronic pain type: other chronic pain Qualified Code(s): G89.29 - Other chronic pain Is this a current diagnosis for this admission?: Yes Plan: She will need a higher dose of oxycontin as we do not have her own brand of long acting MS. Plan Summary: She needs a higher dose of oxycotin and a downgrade to medicins. Critical Time Critical Time (minutes): 35 Level of Care: MEDICAL Anticipated discharge: SNF Anticipated DC Timeframe: Other -: 1. The care of a critical patient is a dynamic process. This note is a construction sales representative synopsis but static in nature. The timeframe for treatments given in order is not necessarily the actual time these treatments may have been done. 2. This patient requires critical care secondary to ongoing requirements for therapy not offered or safe outside the critical care environment. Transfer to a lower level of care will result in altered life or limb morbidity and mortality. 3. Multidisciplinary rounds completed. 4. ABCDE bundle addressed.
[2020-08-26] MEDS: BACLOFEN 10 MG TABLET PO SCH ×2 (13:20→21:30)
[2020-08-26] MEDS: OXYCODONE HCL SR 40 MG TABLET PO SCH ×2 (13:20→21:29)
[2020-08-26] MEDS ORDERED: FLAVOXATE PO SCH (14:00)
[2020-08-26] MEDS: TOLTERODINE TARTRATE 1 MG TABLET PO SCH (21:30)
[2020-08-27] MEDS: MORPHINE SULFATE 10 MG/ML INJ IV PRN ×4 (01:08→20:59)
[2020-08-27 06:52] LABS: ABSOLUTE BASOPHILS # (AUTO) 0.1 10^3/uL (0.0-0.2); ABSOLUTE EOSINOPHILS # (AUTO) 0.4 10^3/uL (0.0-0.6); ABSOLUTE LYMPHOCYTES (AUTO) 2.5 10^3/uL (0.5-4.7); ABSOLUTE MONOCYTES (AUTO) 0.5 10^3/uL (0.1-1.4); ABSOLUTE NEUT (AUTO) 3.3 10^3/uL (1.7-8.2); BASOPHILS % (AUTO) 0.9 % (0-2); EOSINOPHILS % (AUTO) 6.3 % (0-6); HEMATOCRIT 29.6 % (36.0-47.0); HEMOGLOBIN 9.9 g/dL (12.0-15.5); LYMPHOCYTES % (AUTO) 37.5 % (13-45); MEAN CORPUSCULAR HEMOGLOBIN 28.3 pg (27.0-33.4); MEAN CORPUSCULAR HGB CONC 33.4 g/dL (32.0-36.0); MEAN CORPUSCULAR VOLUME 85 fl (80-97); MONOCYTES % (AUTO) 7.5 % (3-13); PLATELET COUNT 165 10^3/uL (150-450); RED BLOOD COUNT 3.49 10^6/uL (3.72-5.28); RED CELL DISTRIBUTION WIDTH 15.2 % (11.5-14.0); SEGMENTED NEUTROPHILS % (AUTO) 47.8 % (42-78); TOTAL CELLS COUNTED % (AUTO) 100 %; WHITE BLOOD COUNT 6.8 10^3/uL (4.0-10.5)
[2020-08-27] MEDS: BACLOFEN 10 MG TABLET PO SCH ×3 (06:58→21:57)
[2020-08-27] MEDS: HEPARIN SOD (PORCINE) 5,000 UNIT/ML 1 ML VIAL SUBCUT SCH ×3 (06:58→21:55)
[2020-08-27] MEDS: LEVOTHYROXINE SODIUM 0.025 MG TABLET PO SCH (06:59)
[2020-08-27] MEDS: PANTOPRAZOLE SODIUM 40 MG TABLET.DR PO SCH (06:59)
[2020-08-27] MEDS: OXYCODONE HCL IR 5 MG TABLET PO PRN ×2 (06:59→17:28)
[2020-08-27 08:01] LABS: ALBUMIN 2.8 g/dL (3.5-5.0); ALKALINE PHOSPHATASE 60 U/L (38-126); ANION GAP 5 (5-19); ASPARTATE AMINO TRANSFERASE 21 U/L (14-36); BILIRUBIN,DIRECT 0.2 mg/dL (0.0-0.4); BILIRUBIN,TOTAL 0.2 mg/dL (0.2-1.3); BLOOD UREA NITROGEN 14 mg/dL (7-20); CALCIUM 8.7 mg/dL (8.4-10.2); CARBON DIOXIDE 25 mmol/L (22-30); CHLORIDE 108 mmol/L (98-107); GLUCOSE 90 mg/dL (75-110); POTASSIUM 4.2 mmol/L (3.6-5.0); TOTAL PROTEIN 6.1 g/dL (6.3-8.2)
[2020-08-27] MEDS: RINGERS SOLUTION,LACTATED 1,000 ML IV PRN (08:03)
--- NOTE | 2020-08-27 08:42 | RADIOLOGY REPORT (SQ) ---
EXAM DESCRIPTION: CHEST SINGLE VIEW IMAGES COMPLETED DATE/TIME: 08/27/2020 6:36 am REASON FOR STUDY: cough COMPARISON: AP view of the chest from 08/26/2020. EXAM PARAMETERS: NUMBER OF VIEWS: One view. TECHNIQUE: An AP view of the chest was obtained. RADIATION DOSE: NA LIMITATIONS: None. FINDINGS: LUNGS AND PLEURA: The opacities in the inferior aspect of the left hemithorax have decreas ed. The left lateral costophrenic sulcus remains blunted. There is no pneumothorax. MEDIASTINUM AND HILAR STRUCTURES: Stable mediastinal and hilar contours. HEART AND VASCULAR STRUCTURES: Stable cardiac silhouette. BONES: No acute findings. HARDWARE: None in the chest. OTHER: No other finding. IMPRESSION: Decreased opacities in the inferior aspect of the left hemithorax. TECHNICAL DOCUMENTATION: JOB ID: [id number] 2010 [employer]- All Rights Reserved Reading location - IP/workstation name: [email or web address]
[2020-08-27] MEDS: MULTIVITAMIN ORAL LIQUID 60 ML PO SCH (09:34)
[2020-08-27] MEDS: METOCLOPRAMIDE HCL ORAL SOLN 10 MG/10 ML UDCUP PO SCH ×4 (09:34→21:55)
[2020-08-27] MEDS: MELOXICAM 15 MG TABLET PO SCH (09:35)
[2020-08-27] MEDS: GABAPENTIN 300 MG CAPSULE PO SCH ×2 (09:35→21:56)
[2020-08-27] MEDS: DULOXETINE HCL 30 MG CAPSULE.DR PO SCH (09:35)
[2020-08-27] MEDS: TOLTERODINE TARTRATE 1 MG TABLET PO SCH ×2 (09:36→21:57)
[2020-08-27] MEDS: SENNOSIDES/DOCUSATE 8.6-50 MG 1 EACH TABLET PO SCH ×2 (09:36→17:29)
[2020-08-27] MEDS: OXYCODONE HCL SR 40 MG TABLET PO SCH ×2 (09:36→21:57)
[2020-08-27] MEDS: CEFEPIME HCL 2 GM in DEXTROSE 5%-WATER 50 ML IV SCH (09:41)
[2020-08-27] MEDS ORDERED: PANTOPRAZOLE SODIUM 40 MG TABLET.DR PO SCH (10:00)
[2020-08-27] MEDS ORDERED: ERTAPENEM SODIUM INJ 1 GM VIAL IV ONE (13:17)
--- NOTE | 2020-08-27 13:18 | PDOC CRITICAL CARE PROG REPORT ---
General Date:: 08/27/20 Hospital Day:: 4 Resuscitation Status: Full Code Events in the past 12 to 24 Hours:: BP better, Needs oxycontin. Does not need the ICU 08/27 The patient is awaiting a bed on the medical floor. little change in status. Reason for ICU Addmission:: sepsis with shock Physical Exam Vital Signs: Temp Pulse Resp BP Pulse Ox 98.4 F 65 14 136/74 H 90 L 08/27/20 10:00 08/27/20 07:00 08/27/20 10:00 08/27/20 09:02 08/27/20 10:00 Intake & Output 08/26/20 08/27/20 08/28/20 06:59 06:59 06:59 Intake Total 5140 2423 1473 Output Total 3360 2125 Balance 9938 305 0412 Weight 71.6 kg 72.8 kg Weight/Height Weight 72.8 kg Height 5 ft 6 in Laboratory/Radiographs Laboratory Results: 08/27/20 04:59 08/27/20 04:59 08/27/20 08/27/20 04:59 04:59 WBC 6.8 RBC 3.49 L Hgb 9.9 L Hct 29.6 L MCV 85 MCH 28.3 MCHC 33.4 RDW 15.2 H Plt Count 165 Seg Neutrophils % 47.8 Sodium 138.3 Potassium 4.2 Chloride 108 H Carbon Dioxide 25 Anion Gap 5 BUN 14 Creatinine 0.77 Est GFR ( Amer) > 60 Glucose 90 Calcium 8.7 Total Bilirubin 0.2 AST 21 Alkaline Phosphatase 60 Total Protein 6.1 L Albumin 2.8 L 08/24/20 08/25/20 08/26/20 16:35 01:15 04:14 Troponin I < 0.012 0.015 NT-Pro-B Natriuret Pep 3640 H Impressions: Abdomen/Pelvis CT 08/24/20 14:34 IMPRESSION: Retained stool. Cannot exclude fecal impaction. No other significant findings in the abdomen or pelvis. Chest X-Ray 08/27/20 06:00 IMPRESSION: Decreased opacities in the inferior aspect of the left hemithorax. Assessment and Plan - Diagnosis (1) UTI (urinary tract infection) Qualifiers: Urinary tract infection type: catheter-associated UTI Indwelling urinary catheter type: indwelling urethral catheter Encounter type: initial encounter Qualified Code(s): T83.511A - Infection and inflammatory reaction due to indwelling urethral catheter, initial encounter; N39.0 - Urinary tract infection, site not specified Is this a current diagnosis for this admission?: Yes Plan: Again there is no objective evidence to call this a UTI. The presence od E. coli in the urine even at > 100,000 CFU is not uncommon with a suprapubic tube. I do not call this a CAUTI. 08/27 The patient has grown out E coli and Proteus from her urine but she has a suprpubic catheter Given the sensitivities to ertapenem we can probabbly switch to it from cefipime. Plan Summary: The patient wioll be transferred when bed is available Critical Time Critical Time (minutes): 15 Level of Care: ICU -: 1. The care of a critical patient is a dynamic process. This note is a repre sentative synopsis but static in nature. The timeframe for treatments given in order is not necessarily the actual time these treatments may have been done. 2. This patient requires critical care secondary to ongoing requirements for therapy not offered or safe outside the critical care environment. Transfer to a lower level of care will result in altered life or limb morbidity and mortality. 3. Multidisciplinary rounds completed. 4. ABCDE bundle addressed.
[2020-08-27] MEDS: ERTAPENEM SODIUM 1 GM in NORMAL SALINE 50 ML IV SCH (18:47)
[2020-08-28] MEDS: MORPHINE SULFATE 10 MG/ML INJ IV PRN ×4 (01:42→18:22)
[2020-08-28] MEDS: PANTOPRAZOLE SODIUM 40 MG TABLET.DR PO SCH (05:47)
[2020-08-28] MEDS: HEPARIN SOD (PORCINE) 5,000 UNIT/ML 1 ML VIAL SUBCUT SCH ×3 (05:47→21:40)
[2020-08-28] MEDS: BACLOFEN 10 MG TABLET PO SCH ×3 (05:47→21:40)
[2020-08-28] MEDS: LEVOTHYROXINE SODIUM 0.025 MG TABLET PO SCH (05:47)
[2020-08-28 05:53] LABS: HEMOGLOBIN 11.8 g/dL (12.0-15.5); MEAN CORPUSCULAR HEMOGLOBIN 27.9 pg (27.0-33.4); MEAN CORPUSCULAR HGB CONC 32.8 g/dL (32.0-36.0); MEAN CORPUSCULAR VOLUME 85 fl (80-97); PLATELET COUNT 179 10^3/uL (150-450); RED BLOOD COUNT 4.23 10^6/uL (3.72-5.28); RED CELL DISTRIBUTION WIDTH 15.3 % (11.5-14.0); WHITE BLOOD COUNT 6.3 10^3/uL (4.0-10.5)
[2020-08-28 06:39] LABS: ABSOLUTE LYMPHOCYTES# (MANUAL) 3.1 10^3/uL (0.5-4.7); ABSOLUTE MONOCYTES # (MANUAL) 0.3 10^3/uL (0.1-1.4); BAND NEUTROPHILS % (MANUAL) 1 % (3-5); BASOPHILS % (MANUAL) 0 % (0-2); EOSINOPHILS % (MANUAL) 5 % (0-6); LYMPHOCYTES % (MANUAL) 49 % (13-45); MONOCYTES % (MANUAL) 4 % (3-13); SEGMENTED NEUTROPHILS % (MAN) 41 % (42-78); TOTAL CELLS COUNTED 100
[2020-08-28 06:40] LABS: ANISOCYTOSIS SLIGHT; PLATELET COMMENT ADEQUATE
[2020-08-28 08:55] LABS: ALBUMIN 3.1 g/dL (3.5-5.0); ALKALINE PHOSPHATASE 67 U/L (38-126); ANION GAP 7 (5-19); ASPARTATE AMINO TRANSFERASE 35 U/L (14-36); BILIRUBIN,DIRECT 0.4 mg/dL (0.0-0.4); BILIRUBIN,TOTAL 0.4 mg/dL (0.2-1.3); BLOOD UREA NITROGEN 14 mg/dL (7-20); CALCIUM 9.3 mg/dL (8.4-10.2); CARBON DIOXIDE 30 mmol/L (22-30); CHLORIDE 100 mmol/L (98-107); GLUCOSE 94 mg/dL (75-110); POTASSIUM 4.2 mmol/L (3.6-5.0); TOTAL PROTEIN 6.4 g/dL (6.3-8.2)
[2020-08-28] MEDS: MULTIVITAMIN ORAL LIQUID 60 ML PO SCH (09:44)
[2020-08-28] MEDS: METOCLOPRAMIDE HCL ORAL SOLN 10 MG/10 ML UDCUP PO SCH ×4 (09:44→21:38)
[2020-08-28] MEDS: MELOXICAM 15 MG TABLET PO SCH (09:45)
[2020-08-28] MEDS: GABAPENTIN 300 MG CAPSULE PO SCH ×2 (09:45→21:40)
[2020-08-28] MEDS: OXYCODONE HCL SR 40 MG TABLET PO SCH ×2 (09:45→21:38)
[2020-08-28] MEDS: TOLTERODINE TARTRATE 1 MG TABLET PO SCH ×2 (09:45→21:39)
[2020-08-28] MEDS: DULOXETINE HCL 30 MG CAPSULE.DR PO SCH (09:45)
[2020-08-28] MEDS: SENNOSIDES/DOCUSATE 8.6-50 MG 1 EACH TABLET PO SCH ×2 (09:45→18:22)
--- NOTE | 2020-08-28 09:47 | RADIOLOGY REPORT (SQ) ---
EXAM DESCRIPTION: CHEST SINGLE VIEW IMAGES COMPLETED DATE/TIME: 08/28/2020 9:29 am REASON FOR STUDY: cough COMPARISON: AP view of the chest from 08/27/2020. EXAM PARAMETERS: NUMBER OF VIEWS: One view. TECHNIQUE: An AP view of the chest was obtained. RADIATION DOSE: NA LIMITATIONS: None. FINDINGS: LUNGS AND PLEURA: Improved aeration of the inferior aspect of the left lung. There is no sizable pleural effusion or pneumothorax. MEDIASTINUM AND HILAR STRUCTURES: No mediastinal or hilar contour abnormality. HEART AND VASCULAR STRUCTURES: The cardiac silhouette and pulmonary vasculature are within normal pearce its. BONES: No acute findings. HARDWARE: ACDF hardware. OTHER: No other finding. IMPRESSION: Improved aeration of the inferior aspect of the left lung. TECHNICAL DOCUMENTATION: JOB ID: [id number] 2010 [employer]- All Rights Reserved Reading location - IP/workstation name: [email or web address]
[2020-08-28] MEDS: RINGERS SOLUTION,LACTATED 1,000 ML IV PRN (13:57)
[2020-08-28] MEDS ORDERED: OXYCODONE HCL IR 5 MG TABLET PO ONE (14:15)
--- NOTE | 2020-08-28 15:55 | PDOC PROGRESS REPORT ---
Subjective Date:: 08/28/20 Subjective:: Patient a 54-year-old female with a past medical history significant for Paraplegia, hypothyroidism, GERD, suprapubic catheter, opiate dependent chronic pain, and recent vascular clip at [facility] to contain a gastrocutaneous fistula related to extended use of PEG (per patient, PEG tube was removed approximately 1 year ago). She was admitted 08/25/2020 with altered mental s tatus and presumed UTI. She is downgraded to the medical floor and transferred to the hospital service. Patient was seen on afternoon rounds. She is found resting in bed, comfortably, on room air. She reports generalized fatigue but otherwise states she is in her usual state of health. She does complain of chronic pain and requests to have her pain medications renewed. She does not recall the events leading up to her hospital admission. She otherwise denies fever, chills, chest pain, palpitations, dyspnea, cough, abdominal pain, nausea vomiting and diarrhea. She has no questions or concerns at this time. No concerns per nursing. Reason For Visit: SEPSIS WITH SHOCK Physical Exam Vital Signs: Temp Pulse Resp BP Pulse Ox 97.8 F 69 19 133/83 H 91 L 08/28/20 12:00 08/28/20 12:00 08/28/20 12:00 08/28/20 12:00 08/28/20 12:00 Intake & Output 08/27/20 08/28/20 08/29/20 06:59 06:59 06:59 Intake Total 2423 2760 Output Total 2125 1300 Balance 298 1460 Weight 72.8 kg 47.6 kg 46.1 kg General appearance: PRESENT: no acute distress, cooperative, well-developed, well-nourished Head exam: PRESENT: atraumatic, normocephalic Eye exam: PRESENT: conjunctiva pink, EOMI, PERRLA. ABSENT: scleral icterus Mouth exam: PRESENT: moist, tongue midline Respiratory exam: PRESENT: clear to auscultation justyna, symmetrical, unlabored, other - Room air. ABSENT: rales, rhonchi, wheezes Cardiovascular exam: PRESENT: RRR, +S1, +S2. ABSENT: diastolic murmur, rubs, systolic murmur Pulses: PRESENT: normal dorsalis pedis pul Vascular exam: PRESENT: normal capillary refill GI/Abdominal exam: PRESENT: normal bowel sounds, soft, other - Previous PEG tube site with purulent drainage, no erythema or tenderness.. ABSENT: distended, guarding, mass, organolmegaly, rebound, tenderness Rectal exam: PRESENT: deferred Extremities exam: PRESENT: full ROM - Baseline paraplegia of lower extremities. ABSENT: calf tenderness, clubbing, pedal edema Neurological exam: PRESENT: alert, awake, oriented to person, oriented to place, oriented to time, oriented to situation, CN II-XII grossly intact. ABSENT: motor sensory deficit Psychiatric exam: PRESENT: appropriate affect, normal mood. ABSENT: homicidal ideation, suicidal ideation Skin exam: PRESENT: dry, intact, warm. ABSENT: cyanosis, rash Results Laboratory Results: 08/28/20 04:33 08/28/20 08:04 08/28/20 08/28/20 08/28/20 04:33 04:33 08:04 WBC 6.3 RBC 4.23 Hgb 11.8 L Hct 36.0 MCV 85 MCH 27.9 MCHC 32.8 RDW 15.3 H Plt Count 179 Seg Neutrophils % Not Reportable Sodium Cancelled 136.9 L Potassium Cancelled 4.2 Chloride Cancelled 100 Carbon Dioxide Cancelled 30 Anion Gap Cancelled 7 BUN Cancelled 14 Creatinine Cancelled 0.72 Est GFR ( Amer) Cancelled > 60 Est GFR (Non-Af Amer) Cancelled Glucose Cancelled 94 Calcium Cancelled 9.3 Total Bilirubin Cancelled 0.4 AST Cancelled 35 Alkaline Phosphatase Cancelled 67 Total Protein Cancelled 6.4 Albumin Cancelled 3.1 L 08/24/20 08/25/20 08/26/20 16:35 01:15 04:14 Troponin I < 0.012 0.015 NT-Pro-B Natriuret Pep 3640 H Impressions: Abdomen/Pelvis CT 08/24/20 14:34 IMPRESSION: Retained stool. Cannot exclude fecal impaction. No other significant findings in the abdomen or pelvis. Chest X-Ray 08/28/20 06:00 IMPRESSION: Improved aeration of the inferior aspect of the left lung. Assessment and Plan - Diagnosis (1) Sepsis Qualifiers: Sepsis type: sepsis due to unspecified organism Sepsis acute organ dysfunction status: unspecified Qualified Code(s): A41.9 - Sepsis, unspecified organism Is this a current diagnosis for this admission?: Yes Plan: Patient did qualify for SIRS criteria, though source of infection not identified. The actual source of infection is not clear. A suprapubic tube is never sterile. In view of the fact that there is no encephalopathy, new pain, either S/P or CVA pain, it is hard to call this a UTI let alone a CAUTI. However, urine culture is revealing multiple microbes; E. coli >100 K colonies, Proteus Mirabella's >100 K colonies, and gram-negative rods and gram-positive cocci in chains. The PEG site is improved per patient. Minimal erythema and slight drainage noted today. Blood cultures negative at 72 hrs. Patient received appropriate IV fluid resuscitation. She does continue on gentle IV fluids. Received Vanco and Zosyn by ED provider. Then placed on cefepime and vancomycin x1 day. Once urine cultures began to result, she was transitioned to ertapenem only. Continues on ertapenem; day #2 Will consult ID to help guide therapy. Currently, patient is A&Ox4, feels well, is asymptomatic, and with a benign exam. (2) UTI (urinary tract infection) Qualifiers: Urinary tract infection type: catheter-associated UTI Indwelling urinary catheter type: indwelling urethral catheter Encounter type: initial encounter Qualified Code(s): T83.511A - Infection and inflammatory reaction due to indwelling urethral catheter, initial encounter; N39.0 - Urinary tract inf ection, site not specified Is this a current diagnosis for this admission?: Yes Plan: There is no objective evidence to call this a UTI. urine culture is revealing multiple microbes; E. coli >100 K colonies, Proteus Mirabella's >100 K colonies, and gram-negative rods and gram-positive cocci in chains. Continues on ertapenem. (3) Chronic pain Qualifiers: Chronic pain type: other chronic pain Qualified Code(s): G89.29 - Other chronic pain Is this a current diagnosis for this admission?: Yes Plan: Continue home dose OxyContin, oxycodone, gabapentin, Cymbalta, and meloxicam. 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 Monitor for evidence of infection. (5) Sacral decubitus ulcer, stage IV Is this a current diagnosis for this admission?: Yes Plan: POA This is not looking acutely infected. Will obtain wound care consultation. - Time Time Spent with patient: 25-34 minutes Medications reviewed and adjusted accordingly: Yes Anticipated Discharge Disposition: Alf Facility - Established resident at [facility] Anticipated Discharge Timeframe: within 72 hours
[2020-08-28] MEDS: ERTAPENEM SODIUM 1 GM in NORMAL SALINE 50 ML IV SCH (18:22)
[2020-08-29] MEDS: MORPHINE SULFATE 10 MG/ML INJ IV PRN ×5 (00:05→19:46)
[2020-08-29] MEDS: RINGERS SOLUTION,LACTATED 1,000 ML IV PRN ×3 (04:44→22:07)
[2020-08-29 05:25] LABS: HEMATOCRIT 34.1 % (36.0-47.0); HEMOGLOBIN 11.2 g/dL (12.0-15.5); MEAN CORPUSCULAR HEMOGLOBIN 27.9 pg (27.0-33.4); MEAN CORPUSCULAR HGB CONC 32.8 g/dL (32.0-36.0); MEAN CORPUSCULAR VOLUME 85 fl (80-97); PLATELET COUNT 198 10^3/uL (150-450); RED BLOOD COUNT 4.02 10^6/uL (3.72-5.28); RED CELL DISTRIBUTION WIDTH 15.2 % (11.5-14.0); WHITE BLOOD COUNT 7.2 10^3/uL (4.0-10.5)
[2020-08-29] MEDS: LEVOTHYROXINE SODIUM 0.025 MG TABLET PO SCH (05:41)
[2020-08-29] MEDS: BACLOFEN 10 MG TABLET PO SCH ×3 (05:41→21:57)
[2020-08-29] MEDS: PANTOPRAZOLE SODIUM 40 MG TABLET.DR PO SCH (05:42)
[2020-08-29] MEDS: HEPARIN SOD (PORCINE) 5,000 UNIT/ML 1 ML VIAL SUBCUT SCH ×3 (05:42→21:57)
[2020-08-29 06:15] LABS: ANION GAP 9 (5-19); BLOOD UREA NITROGEN 15 mg/dL (7-20); CALCIUM 9.3 mg/dL (8.4-10.2); CARBON DIOXIDE 28 mmol/L (22-30); CHLORIDE 102 mmol/L (98-107); GLUCOSE 115 mg/dL (75-110); POTASSIUM 4.2 mmol/L (3.6-5.0)
[2020-08-29] MEDS: OXYCODONE HCL SR 40 MG TABLET PO SCH ×2 (09:53→21:56)
[2020-08-29] MEDS: DULOXETINE HCL 30 MG CAPSULE.DR PO SCH (09:53)
[2020-08-29] MEDS: MELOXICAM 15 MG TABLET PO SCH (09:53)
[2020-08-29] MEDS: SENNOSIDES/DOCUSATE 8.6-50 MG 1 EACH TABLET PO SCH ×2 (09:53→17:42)
[2020-08-29] MEDS: GABAPENTIN 300 MG CAPSULE PO SCH ×2 (09:53→21:56)
[2020-08-29] MEDS: TOLTERODINE TARTRATE 1 MG TABLET PO SCH ×2 (09:54→21:55)
[2020-08-29] MEDS: METOCLOPRAMIDE HCL ORAL SOLN 10 MG/10 ML UDCUP PO SCH ×4 (09:54→21:56)
[2020-08-29] MEDS: MULTIVITAMIN ORAL LIQUID 60 ML PO SCH (09:55)
--- NOTE | 2020-08-29 15:36 | Progress Note ---
Provider Note Provider Note: [facility] ID Telephone Advice consultation Chart reviewed, patient not examined. This is a 54-year-old woman with paraplegia SPC, history of PEG removed 1 year ago and further development of gastrocutaneous fistula, history of UTIs who was admitted due to suspected UTI. She had SIRS on admission without specific kaye rce of infection. She had WBC 22k. CXR with LLL opacity (atelectasis vs pneumonia). Urine culture polymicrobial with E coli, Providencia, Enterococcus and Proteus but these were obtained from old SPC. CT scan of abdomen and pelvis consistent with fecal impaction. Patient was admitted to the ICU and started on cefepime. Therapy was transitioned to ertapenem. CXR demonstrating improvement in LLL opacity. PEG site improved with minimal drainage. Leukocytosis resolved. ID consulted for recommendations. Allergies: codeine [Codeine] Allergy (Verified 07/16/16 11:27) oxycodone HCl [From Percocet] Allergy (Verified 07/16/16 11:27) Medications: Duloxetine HCl [Cymbalta] 60 mg PO DAILY 06/17/18 Flavoxate HCl [Urispas] 200 mg PO Q8 06/17/18 Gabapentin [Neurontin 300 mg Capsule] 600 mg PO Q12 06/17/18 Meloxicam 15 mg PO DAILY 06/17/18 Metoclopramide HCl [Reglan Oral Soln 10 mg/10 ml Udcup] 5 mg PO QID 06/17/18 Multivit-Min/Ferrous Gluconate [Centrum Multivit-Mineral Liq] 10 ml PO DAILY 06/17/18 Omeprazole 40 mg PO Q6AM 06/17/18 Ondansetron [Zofran Odt 4 mg Tablet] 4 mg PO Q6HP PRN 06/17/18 Oxycodone HCl [Oxy-Ir 5 mg Tablet] 5 mg PO Q8HP PRN 06/17/18 Solifenacin Succinate [Vesicare] 5 mg PO DAILY 06/17/18 Baclofen [Baclofen 10 mg Tablet] 5 mg PO Q8 08/25/20 Levothyroxine Sodium [Synthroid 0.025 mg Tablet] 0.025 mg PO Q6AM 08/25/20 Oxycodone Myristate [Xtampza ER] 36 mg PO Q8 11/14/20 Sennosides/Docusate Sodium [Senna Plus 8.6-50 mg Tablet] 1 each PO BID 08/25/20 Vital Signs: Temp Pulse Resp BP Pulse Ox 97.9 F 64 16 148/77 H 92 08/29/20 11:09 08/29/20 11:09 08/29/20 11:09 08/29/20 11:09 08/29/20 11:09 Intake & Output 08/28/20 08/29/20 08/30/20 06:59 06:59 06:59 Intake Total 2760 1350 Output Total 1300 450 Balance 1460 900 Weight 47.6 kg 55.8 kg Weight/Height Weight 55.8 kg Height 5 ft 6 in Laboratories: 08/29/20 04:09 08/29/20 04:09 MCV 85 fl (80-97) 08/29/20 04:09 MCH 27.9 pg (27.0-33.4) 08/29/20 04:09 MCHC 32.8 g/dL (32.0-36.0) 08/29/20 04:09 RDW 15.2 % (11.5-14.0) H 08/29/20 04:09 Seg Neutrophils % Not Reportable 08/28/20 04:33 Chloride 102 mmol/L (98-107) 08/29/20 04:09 Carbon Dioxide 28 mmol/L (22-30) 08/29/20 04:09 Anion Gap 9 (5-19) 08/29/20 04:09 Est GFR ( Amer) > 60 (>60) 08/29/20 04:09 Est GFR (Non-Af Amer) Cancelled 08/28/20 04:33 Glucose 115 mg/dL (75-110) H 08/29/20 04:09 Lactic Acid 1.2 mmol/L (0.7-2.1) 08/25/20 06:14 Calcium 9.3 mg/dL (8.4-10.2) 08/29/20 04:09 Phosphorus 3.6 mg/dL (2.5-4.5) 08/25/20 06:14 Magnesium 1.7 mg/dL (1.6-2.3) 08/26/20 04:14 Total Bilirubin 0.4 mg/dL (0.2-1.3) 08/28/20 08:04 AST 35 U/L (14-36) 08/28/20 08:04 Alkaline Phosphatase 67 U/L (38-126) 08/28/20 08:04 Total Protein 6.4 g/dL (6.3-8.2) 08/28/20 08:04 Albumin 3.1 g/dL (3.5-5.0) L 08/28/20 08:04 Triglycerides 184 mg/dL (<150) H 08/26/20 04:14 Cholesterol 171.41 mg/dL (0-200) 08/26/20 04:14 LDL Cholesterol Direct 98 mg/dL (<100) 08/26/20 04:14 VLDL Cholesterol 36.8 mg/dL (10-31) H 08/26/20 04:14 HDL Cholesterol 39 mg/dL (>40) L 08/26/20 04:14 Lipase 91.0 U/L (23-300) 08/26/20 04:14 TSH 0.49 uIU/mL (0.47-4.68) 08/26/20 04:14 Free T4 1.09 ng/dL (0.78-2.19) 08/26/20 04:14 Free T3 pg/mL 1.50 pg/mL (2.77-5.27) L 08/26/20 04:14 Urine Color YELLOW 08/24/20 20: Urine Appearance CLOUDY 08/24/20 20:31 Urine pH 7.0 (5.0-9.0) 08/24/20 20:31 Ur Specific Union 1.014 08/24/20 20:31 Urine Protein 30 mg/dL (NEGATIVE) H 08/24/20 20:31 Urine Glucose (UA) NEGATIVE mg/dL (NEGATIVE) 08/24/20 20:31 Urine Ketones NEGATIVE mg/dL (NEGATIVE) 08/24/20 20:31 Urine Blood MODERATE (NEGATIVE) H 08/24/20 20:31 Urine Nitrite NEGATIVE (NEGATIVE) 08/24/20 20:31 Ur Leukocyte Esterase LARGE (NEGATIVE) H 08/24/20 20:31 Urine WBC (Auto) 105 /HPF 08/24/20 20:31 Urine RBC (Auto) 30 /HPF 08/24/20 20:31 08/24/20 20:31 Suprapubic Catheter Urine Culture - Final Escherichia Coli Proteus Mirabilis Providencia Stuartii Enterococcus Faecalis(Group D) 08/24/20 08/25/20 08/26/20 16:35 01:15 04:14 Troponin I < 0.012 0.015 NT-Pro-B Natriuret Pep 3640 H Microbiology: Blood cultures: 08/24/20 NGTD Urine Culture: O Ecoli, Proteus, Providencia, Enterococcus faecalis Radiology: Abdomen/Pelvis CT 08/24/20 14:34 IMPRESSION: Retained stool. Cannot exclude fecal impaction. No other significant findings in the abdomen or pelvis. Chest X-Ray 08/28/20 06:00 IMPRESSION: Improved aeration of the inferior aspect of the left lung. Assessment and Recommendations: Patient evaluated for sepsis of unknown source. Possible sources include pneumonia as there was a LLL opacity that has improved with antibiotics, she could've aspirated. Another possibility is abdominal infection as she had a fistula due to previous PEG. This seems to be still draining although no overwhelming signs of infection per notes. Patient also has 2 decubitus ulcers that don't seem to be infected per notes. SPC was not exchanged rpior to urine cultures, therefore this likely represents contamination. Will recommend to continue ertapenem to complete 7 days of therapy to cover for presumptive aspiration pneumonia and possible residual abdominal infection. Please call back if any questions. Maricruz Pruitt MD [facility] ID [phone]
[2020-08-29] MEDS: ERTAPENEM SODIUM 1 GM in NORMAL SALINE 50 ML IV SCH (17:42)
--- NOTE | 2020-08-29 18:07 | PDOC PROGRESS REPORT ---
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 She was admitted 08/25/2020 with altered mental s tatus and presumed UTI. She is downgraded to the medical floor and transferred to the hospital service. Patient was seen on afternoon rounds. She is found resting in bed, comfortably, on room air. She reports generalized fatigue but otherwise states she is in her usual state of health. She does complain of chronic pain; though this is unchanged from her baseline. Otherwise, she feels well and has no new questions or concerns. She denies fever, chills, chest pain, palpitations, dyspnea, cough, abdominal pain, nausea vomiting and diarrhea. No concerns per nursing. Reason For Visit: SEPSIS WITH SHOCK Physical Exam Vital Signs: Temp Pulse Resp BP Pulse Ox 97.8 F 67 18 151/71 H 95 08/29/20 15:30 08/29/20 15:30 08/29/20 15:30 08/29/20 15:30 08/29/20 15:30 Intake & Output 08/28/20 08/29/20 08/30/20 06:59 06:59 06:59 Intake Total 2760 1350 973 Output Total 1300 450 Balance 1460 900 973 Weight 47.6 kg 55.8 kg General appearance: PRESENT: no acute distress, cooperative, well-developed, well-nourished Head exam: PRESENT: atraumatic, normocephalic Eye exam: PRESENT: conjunctiva pink, EOMI, PERRLA. ABSENT: scleral icterus Mouth exam: PRESENT: moist, tongue midline Teeth exam: PRESENT: poor dentation Respiratory exam: PRESENT: clear to auscultation justyna, symmetrical, unlabored, other - room air. ABSENT: rales, rhonchi, wheezes Cardiovascular exam: PRESENT: RRR. ABSENT: diastolic murmur, rubs, systolic murmur Pulses: PRESENT: normal dorsalis pedis pul Vascular exam: PRESENT: normal capillary refill GI/Abdominal exam: PRESENT: normal bowel sounds, soft, other - previous PEG tube site with purulent drainage, no erythema or tenderness. ABSENT: distended, guarding, mass, organolmegaly, rebound, tenderness Rectal exam: PRESENT: deferred Extremities exam: ABSENT: calf tenderness, clubbing, full ROM - Baseline paraplegia of lower extremities, pedal edema Neurological exam: PRESENT: alert, awake, oriented to person, oriented to place, oriented to time, oriented to situation, CN II-XII grossly intact. ABSENT: motor sensory deficit Psychiatric exam: PRESENT: appropriate affect, normal mood. ABSENT: homicidal ideation, suicidal ideation Skin exam: PRESENT: dry, warm. ABSENT: cyanosis, intact - Stage III sacral decubitus ulcer (POA) not visualized; new dressing in place., rash Results Laboratory Results: 08/29/20 04:09 08/29/20 04:09 08/29/20 08/29/20 04:09 04:09 WBC 7.2 RBC 4.02 Hgb 11.2 L Hct 34.1 L MCV 85 MCH 27.9 MCHC 32.8 RDW 15.2 H Plt Count 198 Sodium 138.7 Potassium 4.2 Chloride 102 Carbon Dioxide 28 Anion Gap 9 BUN 15 Creatinine 0.69 Est GFR ( Amer) > 60 Glucose 115 H Calcium 9.3 08/24/20 17:10 Blood Blood Culture - Final NO GROWTH IN 5 DAYS 08/24/20 16:35 Blood Blood Culture - Final NO GROWTH IN 5 DAYS 08/24/20 20:31 Suprapubic Catheter Urine Culture - Final Escherichia Coli Proteus Mirabilis Providencia Stuartii Enterococcus Faecalis(Group D) 08/24/20 08/25/20 08/26/20 16:35 01:15 04:14 Troponin I < 0.012 0.015 NT-Pro-B Natriuret Pep 3640 H Impressions: Abdomen/Pelvis CT 08/24/20 14:34 IMPRESSION: Retained stool. Cannot exclude fecal impaction. No other significant findings in the abdomen or pelvis. Chest X-Ray 08/28/20 06:00 IMPRESSION: Improved aeration of the inferior aspect of the left lung. Assessment and Plan - Diagnosis (1) Sepsis Qualifiers: Sepsis type: sepsis due to unspecified organism Sepsis acute organ dysfunction status: unspecified Qualified Code(s): A41.9 - Sepsis, unspecified organism Is this a current diagnosis for this admission?: Yes Plan: Patient did qualify for SIRS criteria, though source of infection not identified. Possibly aspiration pneumonia versus occult infection related to recent PEG site revision. Urine culture is revealing multiple microbes; E. coli >100 K colonies, Proteus Mirabella's >100 K colonies, and small amount of procidentia and Enterococcus faecalis. Blood cultures negative at 5 days. Patient received appropriate IV fluid resuscitation. She does continue on gentle IV fluids. Received Vanco and Zosyn by ED provider. Then placed on cefepime and vancomycin x1 day. Once urine cultures began to result, she was transitioned to ertapenem only. Continues on ertapenem; day #3/7. Infectious disease consulted; have recommended total 7-day course of ertapenem. (2) UTI (urinary tract infection) Qualifiers: Urinary tract infection type: catheter-associated UTI Indwelling urinary catheter type: indwelling urethral catheter Encounter type: initial encounter Qualified Code(s): T83.511A - Infection and inflammatory reaction due to indwelling urethral catheter, initial encounter; N39.0 - Urinary tract infection, site not specified Is this a current diagnosis for this admission?: Yes Plan: Cultures as above. Continues on ertapenem per ID recommendations. (3) Chronic pain Qualifiers: Chronic pain type: other chronic pain Qualified Code(s): G89.29 - Other chronic pain Is this a current diagnosis for this admission?: Yes Plan: Continue home dose oxycodone, gabapentin, Cymbalta, and meloxicam. OxyContin previously increased by intensivists to 40 mg q8 hrs. Trial lidoderm patches. Patient reports she transfers to chair[facility]wheelchair at SNF. Will obtain PT consult as mobilization will help w/ pain. 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 Monitor for evidence of infection. (5) Sacral decubitus ulcer, stage IV Is this a current diagnosis for this admission?: Yes Plan: POA This is not looking acutely infected. Wound care per wound care nurse's recommendations. - Time Time Spent with patient: 35 or more minutes Medications reviewed and adjusted accordingly: Yes Anticipated Discharge Disposition: [facility] Anticipated Discharge Timeframe: 09/02/20
[2020-08-30] MEDS: MORPHINE SULFATE 10 MG/ML INJ IV PRN ×5 (01:20→21:26)
[2020-08-30] MEDS: PANTOPRAZOLE SODIUM 40 MG TABLET.DR PO SCH (05:51)
[2020-08-30] MEDS: LEVOTHYROXINE SODIUM 0.025 MG TABLET PO SCH (05:51)
[2020-08-30] MEDS: HEPARIN SOD (PORCINE) 5,000 UNIT/ML 1 ML VIAL SUBCUT SCH ×3 (05:51→21:29)
[2020-08-30] MEDS: BACLOFEN 10 MG TABLET PO SCH ×3 (05:51→21:25)
[2020-08-30] MEDS: TOLTERODINE TARTRATE 1 MG TABLET PO SCH ×2 (10:26→21:26)
[2020-08-30] MEDS: MULTIVITAMIN ORAL LIQUID 60 ML PO SCH (10:27)
[2020-08-30] MEDS: METOCLOPRAMIDE HCL ORAL SOLN 10 MG/10 ML UDCUP PO SCH ×4 (10:27→21:24)
[2020-08-30] MEDS: MELOXICAM 15 MG TABLET PO SCH (10:28)
[2020-08-30] MEDS: SENNOSIDES/DOCUSATE 8.6-50 MG 1 EACH TABLET PO SCH ×2 (10:28→17:25)
[2020-08-30] MEDS: OXYCODONE HCL SR 40 MG TABLET PO SCH ×2 (10:28→21:25)
[2020-08-30] MEDS: GABAPENTIN 300 MG CAPSULE PO SCH ×2 (10:28→21:26)
[2020-08-30] MEDS: DULOXETINE HCL 30 MG CAPSULE.DR PO SCH (10:28)
[2020-08-30] MEDS: LIDOCAINE 5% (700 MG) TRANSDERMAL ADH..PATCH TP SCH (10:29)
[2020-08-30] MEDS: ERTAPENEM SODIUM 1 GM in NORMAL SALINE 50 ML IV SCH (17:25)
--- NOTE | 2020-08-30 18:36 | PDOC PROGRESS REPORT ---
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 She was admitted 08/25/2020 with altered mental s tatus and presumed UTI. She is downgraded to the medical floor and transferred to the hospital service. Patient was seen on morning rounds. She is found resting in bed, comfortably, on room air. She was sleeping but woke easilye. Stated that she is tired. Reports continued chronic pain; though this is unchanged from her baseline. No other new concerns. No new questions or concerns. She denies fever, chills, chest pain, palpitations, dyspnea, cough, abdominal pain, nausea vomiting and diarrhea. No concerns per nursing. Reason For Visit: SEPSIS WITH SHOCK Physical Exam Vital Signs: Temp Pulse Resp BP Pulse Ox 97.8 F 65 16 148/86 H 94 08/30/20 15:09 08/30/20 15:09 08/30/20 15:09 08/30/20 15:09 08/30/20 15:09 Intake & Output 08/29/20 08/30/20 08/31/20 06:59 06:59 06:59 Intake Total 1350 1354 Output Total 450 Balance 900 1354 Weight 55.8 kg 59.4 kg General appearance: PRESENT: no acute distress, cooperative, well-developed, well-nourished Head exam: PRESENT: atraumatic, normocephalic Eye exam: PRESENT: conjunctiva pink, EOMI, PERRLA. ABSENT: scleral icterus Ear exam: PRESENT: normal external ear exam Mouth exam: PRESENT: moist, tongue midline Teeth exam: PRESENT: poor dentation Respiratory exam: PRESENT: clear to auscultation justyna, symmetrical, unlabored, other - room air. ABSENT: rales, rhonchi, wheezes Cardiovascular exam: PRESENT: RRR. ABSENT: diastolic murmur, rubs, systolic murmur Vascular exam: PRESENT: normal capillary refill Gentrourinary exam: PRESENT: indwelling catheter - suprapubic Extremities exam: ABSENT: calf tenderness, clubbing, full ROM - Baseline paraplegia of lower extremities. contracture left hand, pedal edema Neurological exam: PRESENT: alert, awake, oriented to person, oriented to place, oriented to time, oriented to situation, CN II-XII grossly intact. ABSENT: motor sensory deficit Psychiatric exam: PRESENT: appropriate affect, normal mood. ABSENT: homicidal ideation, suicidal ideation Skin exam: PRESENT: dry, warm, other - tage III sacral decubitus ulcer (POA) and previous PEG tube site were not visualized; dressings in place.. ABSENT: cyan osis, rash Results Laboratory Results: 08/29/20 04:09 08/29/20 04:09 08/24/20 17:10 Blood Blood Culture - Final NO GROWTH IN 5 DAYS 08/24/20 16:35 Blood Blood Culture - Final NO GROWTH IN 5 DAYS 08/24/20 08/25/20 08/26/20 16:35 01:15 04:14 Troponin I < 0.012 0.015 NT-Pro-B Natriuret Pep 3640 H Impressions: Abdomen/Pelvis CT 08/24/20 14:34 IMPRESSION: Retained stool. Cannot exclude fecal impaction. No other significant findings in the abdomen or pelvis. Chest X-Ray 08/28/20 06:00 IMPRESSION: Improved aeration of the inferior aspect of the left lung. Assessment and Plan - Diagnosis (1) Sepsis Qualifiers: Sepsis type: sepsis due to unspecified organism Sepsis acute organ dysfunction status: unspecified Qualified Code(s): A41.9 - Sepsis, unspecified organism Is this a current diagnosis for this admission?: Yes Plan: Sepsis, present on arrival, per ICU provider's notes. Urine culture is revealing multiple microbes; E. coli >100 K colonies, Proteus Mirabella's >100 K colonies, and small amount of procidentia and Enterococcus faecalis. Blood cultures negative at 5 days. Patient received appropriate IV fluid resuscitation. Received Vanco and Zosyn by ED provider. Then placed on cefepime and vancomycin x1 day. Once urine cultures began to result, she was transitioned to ertapenem only. Continues on ertapenem; day #4/7. Infectious disease consulted; have recommended total 7-day course of ertapenem. (2) UTI (urinary tract infection) Qualifiers: Urinary tract infection type: catheter-associated UTI Indwelling urinary catheter type: indwelling urethral catheter Encounter type: initial encounter Qualified Code(s): T83.511A - Infection and inflammatory reaction due to ind welling urethral catheter, initial encounter; N39.0 - Urinary tract infection, site not specified Is this a current diagnosis for this admission?: Yes Plan: Cultures as above. Continues on ertapenem per ID recommendations. (3) Chronic pain Qualifiers: Chronic pain type: other chronic pain Qualified Code(s): G89.29 - Other chronic pain Is this a current diagnosis for this admission?: Yes Plan: Continue home dose oxycodone, gabapentin, Cymbalta, and meloxicam. OxyContin previously increased by intensivists to 40 mg q8 hrs. Trial lidoderm patches. Patient reports she transfers to chair[facility]wheelchair at SNF. Will obtain PT consult as mobilization will help w/ pain. 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 Monitor for evidence of infection. (5) Sacral decubitus ulcer, stage IV Is this a current diagnosis for this admission?: Yes Plan: POA This is not looking acutely infected. Wound care per wound care nurse's recommendations. - Time Time Spent with patient: 15-24 minutes Medications reviewed and adjusted accordingly: Yes Anticipated Discharge Disposition: [facility] - established resident at [facility] Anticipated Discharge Timeframe: 09/02/20
[2020-08-31] MEDS: MORPHINE SULFATE 10 MG/ML INJ IV PRN ×5 (03:26→22:34)
[2020-08-31] MEDS: RINGERS SOLUTION,LACTATED 1,000 ML IV PRN (03:29)
[2020-08-31] MEDS: BACLOFEN 10 MG TABLET PO SCH ×3 (05:39→21:50)
[2020-08-31] MEDS: PANTOPRAZOLE SODIUM 40 MG TABLET.DR PO SCH (05:39)
[2020-08-31] MEDS: HEPARIN SOD (PORCINE) 5,000 UNIT/ML 1 ML VIAL SUBCUT SCH ×3 (05:39→21:49)
[2020-08-31] MEDS: LEVOTHYROXINE SODIUM 0.025 MG TABLET PO SCH (05:39)
[2020-08-31 05:43] LABS: HEMATOCRIT 32.7 % (36.0-47.0); MEAN CORPUSCULAR HEMOGLOBIN 28.3 pg (27.0-33.4); MEAN CORPUSCULAR HGB CONC 33.5 g/dL (32.0-36.0); MEAN CORPUSCULAR VOLUME 84 fl (80-97); PLATELET COUNT 223 10^3/uL (150-450); RED BLOOD COUNT 3.88 10^6/uL (3.72-5.28); RED CELL DISTRIBUTION WIDTH 15.3 % (11.5-14.0); WHITE BLOOD COUNT 8.9 10^3/uL (4.0-10.5)
[2020-08-31 05:59] LABS: ANION GAP 9 (5-19); BLOOD UREA NITROGEN 16 mg/dL (7-20); CALCIUM 9.3 mg/dL (8.4-10.2); CARBON DIOXIDE 25 mmol/L (22-30); CHLORIDE 104 mmol/L (98-107); GLUCOSE 89 mg/dL (75-110); POTASSIUM 4.1 mmol/L (3.6-5.0)
[2020-08-31] MEDS: OXYCODONE HCL SR 40 MG TABLET PO SCH ×2 (09:34→21:49)
[2020-08-31] MEDS: DULOXETINE HCL 30 MG CAPSULE.DR PO SCH (09:34)
[2020-08-31] MEDS: MELOXICAM 15 MG TABLET PO SCH (09:35)
[2020-08-31] MEDS: SENNOSIDES/DOCUSATE 8.6-50 MG 1 EACH TABLET PO SCH ×2 (09:35→18:05)
[2020-08-31] MEDS: GABAPENTIN 300 MG CAPSULE PO SCH ×2 (09:35→21:50)
[2020-08-31] MEDS: METOCLOPRAMIDE HCL ORAL SOLN 10 MG/10 ML UDCUP PO SCH (09:36)
[2020-08-31] MEDS: LIDOCAINE 5% (700 MG) TRANSDERMAL ADH..PATCH TP SCH (09:43)
[2020-08-31] MEDS: TOLTERODINE TARTRATE 1 MG TABLET PO SCH ×2 (09:43→21:49)
[2020-08-31] MEDS: MULTIVITAMIN ORAL LIQUID 60 ML PO SCH (09:43)
[2020-08-31] MEDS ORDERED: MAGNESIUM HYDROXIDE SUSP 30 ML UDCUP PO PRN (09:56)
--- NOTE | 2020-08-31 15:33 | PDOC PROGRESS REPORT ---
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 She was admitted 08/25/2020 with altered mental s tatus and presumed UTI. She is downgraded to the medical floor and transferred to the hospital service. Patient was seen on morning rounds. She is found resting in bed, comfortably, on room air. She was sleeping but woke easily. Reports continued chronic pain; though this is unchanged from her baseline. No other new concerns. No new questions or concerns. She denies fever, chills, chest pain, palpitations, dyspnea, cough, abdominal pain, nausea vomiting and diarrhea. No concerns per nursing. Reason For Visit: SEPSIS WITH SHOCK Physical Exam Vital Signs: Temp Pulse Resp BP Pulse Ox 97.2 F 67 16 131/76 H 92 08/31/20 11:17 08/31/20 11:17 08/31/20 11:17 08/31/20 11:17 08/31/20 11:17 Intake & Output 08/30/20 08/31/20 09/01/20 06:59 06:59 06:59 Intake Total 1354 1250 Balance 1354 1250 Weight 59.4 kg 56.5 kg General appearance: PRESENT: no acute distress, cooperative, well-developed, well-nourished Head exam: PRESENT: atraumatic, normocephalic Eye exam: PRESENT: conjunctiva pink, EOMI, PERRLA. ABSENT: scleral icterus Mouth exam: PRESENT: moist, tongue midline Teeth exam: PRESENT: poor dentation Respiratory exam: PRESENT: clear to auscultation justyna, symmetrical, unlabored. ABSENT: rales, rhonchi, wheezes Cardiovascular exam: PRESENT: RRR. ABSENT: diastolic murmur, rubs, systolic murmur Vascular exam: PRESENT: normal capillary refill Extremities exam: PRESENT: other - Baseline paraplegia of lower extremities. contracture left hand. ABSENT: calf tenderness, clubbing, full ROM, pedal edema Neurological exam: PRESENT: alert, awake, oriented to person, oriented to place, oriented to time, oriented to situation, CN II-XII grossly intact. ABSENT: motor sensory deficit Psychiatric exam: PRESENT: appropriate affect, normal mood. ABSENT: homicidal ideation, suicidal ideation Skin exam: PRESENT: dry, warm, other - stage III sacral decubitus ulcer (POA) and previous PEG tube site were not visualized; dressings in place. ABSENT: cyanosis, intact, rash Results Laboratory Results: 08/31/20 05:14 08/31/20 05:14 08/31/20 08/31/20 05:14 05:14 WBC 8.9 RBC 3.88 Hgb 11.0 L Hct 32.7 L MCV 84 MCH 28.3 MCHC 33.5 RDW 15.3 H Plt Count 223 Sodium 137.5 Potassium 4.1 Chloride 104 Carbon Dioxide 25 Anion Gap 9 BUN 16 Creatinine 0.69 Est GFR ( Amer) > 60 Glucose 89 Calcium 9.3 08/24/20 08/25/20 08/26/20 16:35 01:15 04:14 Troponin I < 0.012 0.015 NT-Pro-B Natriuret Pep 3640 H Impressions: Abdomen/Pelvis CT 08/24/20 14:34 IMPRESSION: Retained stool. Cannot exclude fecal impaction. No other significant findings in the abdomen or pelvis. Chest X-Ray 08/28/20 06:00 IMPRESSION: Improved aeration of the inferior aspect of the left lung. Assessment and Plan - Diagnosis (1) Sepsis Qualifiers: Sepsis type: sepsis due to unspecified organism Sepsis acute organ dysfunction status: unspecified Qualified Code(s): A41.9 - Sepsis, unspecified organism Is this a current diagnosis for this admission?: Yes Plan: Resolved. Sepsis, present on arrival, per ICU provider's notes. Urine culture is revealing multiple microbes; E. coli >100 K colonies, Proteus Mirabella's >100 K colonies, and small amount of procidentia and Enterococcus faecalis. Blood cultures negative at 5 days. Patient received appropriate IV fluid resuscitation. Received Vanco and Zosyn by ED provider. Then placed on cefepime and vancomycin x1 day. Once urine cultures began to result, she was transitioned to ertapenem only. Continues on ertapenem; day #5/7. Infectious disease consulted; have recommended total 7-day course of ertapenem. (2) UTI (urinary tract infection) Qualifiers: Urinary tract infection type: catheter-associated UTI Indwelling urinary catheter type: indwelling urethral catheter Encounter type: initial encounter Qualified Code(s): T83.511A - Infection and inflammatory reaction due to indwelling urethral catheter, initial encounter; N39.0 - Urinary tract infection, site not specified Is this a current diagnosis for this admission?: Yes Plan: Cultures as above. Continues on ertapenem per ID recommendations. (3) Chronic pain Qualifiers: Chronic pain type: other chronic pain Qualified Code(s): G89.29 - Other chronic pain Is this a current diagnosis for this admission?: Yes Plan: Continue home dose oxycodone, gabapentin, Cymbalta, and meloxicam. OxyContin previously increased by intensivists to 40 mg q8 hrs. Trial lidoderm patches. Patient reports she transfers to chair/wheelchair at SNF. Will obtain PT consult as mobilization will help w/ pain. 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 Monitor for evidence of infection. (5) Sacral decubitus ulcer, stage IV Is this a current diagnosis for this admission?: Yes Plan: POA This is not looking acutely infected. Wound care per wound care nurse's recommendations. - Time Time Spent with patient: 15-24 minutes Anticipated Discharge Disposition: [facility] - established resident Anticipated Discharge Timeframe: within 48 hours
[2020-08-31] MEDS: METOCLOPRAMIDE HCL 10 MG TABLET PO SCH ×2 (15:57→22:37)
[2020-08-31] MEDS: ERTAPENEM SODIUM 1 GM in NORMAL SALINE 50 ML IV SCH (18:05)
[2020-09-01] MEDS: MORPHINE SULFATE 10 MG/ML INJ IV PRN ×6 (02:47→23:54)
[2020-09-01] MEDS: LEVOTHYROXINE SODIUM 0.025 MG TABLET PO SCH (05:33)
[2020-09-01] MEDS: HEPARIN SOD (PORCINE) 5,000 UNIT/ML 1 ML VIAL SUBCUT SCH ×3 (05:33→21:33)
[2020-09-01] MEDS: PANTOPRAZOLE SODIUM 40 MG TABLET.DR PO SCH (05:33)
[2020-09-01] MEDS: BACLOFEN 10 MG TABLET PO SCH ×3 (05:33→21:33)
[2020-09-01] MEDS: METOCLOPRAMIDE HCL 10 MG TABLET PO SCH ×4 (07:55→21:33)
[2020-09-01] MEDS: TOLTERODINE TARTRATE 1 MG TABLET PO SCH ×2 (09:55→21:33)
[2020-09-01] MEDS: DULOXETINE HCL 30 MG CAPSULE.DR PO SCH (09:55)
[2020-09-01] MEDS: MELOXICAM 15 MG TABLET PO SCH (09:55)
[2020-09-01] MEDS: OXYCODONE HCL SR 40 MG TABLET PO SCH ×2 (09:56→21:34)
[2020-09-01] MEDS: GABAPENTIN 300 MG CAPSULE PO SCH ×2 (09:57→21:33)
[2020-09-01] MEDS: LIDOCAINE 5% (700 MG) TRANSDERMAL ADH..PATCH TP SCH (09:57)
[2020-09-01] MEDS: MULTIVITAMIN TABLET PO SCH (09:57)
[2020-09-01] MEDS: SENNOSIDES/DOCUSATE 8.6-50 MG 1 EACH TABLET PO SCH ×2 (09:57→17:58)
[2020-09-01] MEDS ORDERED: NA PHOS,M-B/NA PHOS,DI-BA (ADULT) 133 ML ENEMA PR PRN (10:37)
[2020-09-01] MEDS ORDERED: BISACODYL 10 MG SUPP.RECT PR ONE ×2 (11:00→14:00)
--- NOTE | 2020-09-01 15:44 | PDOC PROGRESS REPORT ---
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 She was admitted 08/25/2020 with altered mental s tatus and presumed UTI. She is downgraded to the medical floor and transferred to the hospital service. Patient was seen on morning rounds. She is found resting in bed, comfortably, on room air. She was sleeping but woke easily. Reports constipation. No other new concerns. No new questions or concerns. She denies fever, chills, chest pain, palpitations, dyspnea, cough, abdominal pain, nausea vomiting and diarrhea. No concerns per nursing. Reason For Visit: SEPSIS WITH SHOCK Physical Exam Vital Signs: Temp Pulse Resp BP Pulse Ox 97.7 F 66 17 115/60 92 09/01/20 12:32 09/01/20 12:32 09/01/20 12:32 09/01/20 12:32 09/01/20 12:32 Intake & Output 08/31/20 09/01/20 09/02/20 06:59 06:59 06:59 Intake Total 1250 850 585 Output Total 675 Balance 1250 850 -90 Weight 56.5 kg 55.4 kg General appearance: PRESENT: no acute distress, cooperative, well-developed, well-nourished Head exam: PRESENT: atraumatic, normocephalic Eye exam: PRESENT: conjunctiva pink, EOMI, PERRLA. ABSENT: scleral icterus Mouth exam: PRESENT: moist, tongue midline Teeth exam: PRESENT: poor dentation Respiratory exam: PRESENT: clear to auscultation justyna, symmetrical, unlabored, other - room air. ABSENT: rales, rhonchi, wheezes Cardiovascular exam: PRESENT: RRR. ABSENT: diastolic murmur, rubs, systolic m urmur Vascular exam: PRESENT: normal capillary refill Extremities exam: PRESENT: other - Baseline paraplegia of lower extremities. contracture left hand. ABSENT: calf tenderness, clubbing, full ROM, pedal edema Neurological exam: PRESENT: alert, awake, oriented to person, oriented to place, oriented to time, oriented to situation, CN II-XII grossly intact. ABSENT: motor sensory deficit Psychiatric exam: PRESENT: appropriate affect, normal mood. ABSENT: homicidal ideation, suicidal ideation Skin exam: PRESENT: dry, warm, other - stage III sacral decubitus ulcer (POA) and previous PEG tube site were not visualized; dressings in place. ABSENT: cyanosis, rash Results Laboratory Results: 08/31/20 05:14 08/31/20 05:14 08/24/20 08/25/20 08/26/20 16:35 01:15 04:14 Troponin I < 0.012 0.015 NT-Pro-B Natriuret Pep 3640 H Impressions: Abdomen/Pelvis CT 08/24/20 14:34 IMPRESSION: Retained stool. Cannot exclude fecal impaction. No other significant findings in the abdomen or pelvis. Chest X-Ray 08/28/20 06:00 IMPRESSION: Improved aeration of the inferior aspect of the left lung. Assessment and Plan - Diagnosis (1) Sepsis Qualifiers: Sepsis type: sepsis due to unspecified organism Sepsis acute organ dysfunction status: unspecified Qualified Code(s): A41.9 - Sepsis, unspecified organism Is this a current diagnosis for this admission?: Yes Plan: Resolved. Sepsis, present on arrival, per ICU provider's notes. Urine culture is revealing multiple microbes; E. coli >100 K colonies, Proteus Mirabella's >100 K colonies, and small amount of procidentia and Enterococcus faecalis. Blood cultures negative at 5 days. Patient received appropriate IV fluid resuscitation. Received Vanco and Zosyn by ED provider. Then placed on cefepime and vancomycin x1 day. Once urine cultures began to result, she was transitioned to ertapenem only. Continues on ertapenem; day #6/7. Infectious disease consulted; have recommended total 7-day course of ertapenem. (2) UTI (urinary tract infection) Qualifiers: Urinary tract infection type: catheter-associated UTI Indwelling urinary catheter type: indwelling urethral catheter Encounter type: initial encounter Qualified Code(s): T83.511A - Infection and inflammatory reaction due to indw elling urethral catheter, initial encounter; N39.0 - Urinary tract infection, site not specified Is this a current diagnosis for this admission?: Yes Plan: Cultures as above. Continues on ertapenem per ID recommendations. (3) Chronic pain Qualifiers: Chronic pain type: other chronic pain Qualified Code(s): G89.29 - Other chronic pain Is this a current diagnosis for this admission?: Yes Plan: Continue home dose oxycodone, gabapentin, Cymbalta, and meloxicam. OxyContin previously increased by intensivists to 40 mg q8 hrs. Trial lidoderm patches. Patient reports she transfers to chair/wheelchair at SNF. Will obtain PT consult as mobilization will help w/ pain. 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 Monitor for evidence of infection. (5) Sacral decubitus ulcer, stage IV Is this a current diagnosis for this admission?: Yes Plan: POA This is not looking acutely infected. Wound care per wound care nurse's recommendations. - Time Time Spent with patient: 15-24 minutes Medications reviewed and adjusted accordingly: Yes Anticipated Discharge Disposition: [facility] - established at [facility] Anticipated Discharge Timeframe: within 24 hours
[2020-09-01] MEDS: ERTAPENEM SODIUM 1 GM in NORMAL SALINE 50 ML IV SCH (17:58)
[2020-09-01] MEDS ORDERED: OXYCODONE HCL IR 5 MG TABLET PO PRN (19:59)
[2020-09-02] MEDS: PANTOPRAZOLE SODIUM 40 MG TABLET.DR PO SCH (06:23)
[2020-09-02] MEDS: BACLOFEN 10 MG TABLET PO SCH (06:23)
[2020-09-02] MEDS: MORPHINE SULFATE 10 MG/ML INJ IV PRN ×2 (06:23→11:04)
[2020-09-02] MEDS: LEVOTHYROXINE SODIUM 0.025 MG TABLET PO SCH (06:23)
[2020-09-02] MEDS: HEPARIN SOD (PORCINE) 5,000 UNIT/ML 1 ML VIAL SUBCUT SCH (06:24)
[2020-09-02] MEDS: METOCLOPRAMIDE HCL 10 MG TABLET PO SCH ×2 (08:46→11:06)
--- NOTE | 2020-09-02 09:42 | PDOC TRANSFER SUMMARY ---
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 Is this a current diagnosis for this admission?: Yes (5) Sacral decubitus ulcer, stage IV Is this a current diagnosis for this admission?: Yes - Additional Information Resuscitation Status: Full Code Discharge Diet: Regular Discharge Activity: Activity As Tolerated, Balance Activity w/Rest Referrals: MILA BANUELOS MD [Primary Care Provider] - Follow up as needed Home Medications: Duloxetine HCl [Cymbalta] 60 mg PO DAILY 06/17/18 Flavoxate HCl [Urispas] 200 mg PO Q8 06/17/18 Gabapentin [Neurontin 300 mg Capsule] 600 mg PO Q12 06/17/18 Meloxicam 15 mg PO DAILY 06/17/18 Metoclopramide HCl [Reglan Oral Soln 10 mg/10 ml Udcup] 5 mg PO QID 06/17/18 Multivit-Min/Ferrous Gluconate [Centrum Multivit-Mineral Liq] 10 ml PO DAILY 06/17/18 Omeprazole 40 mg PO Q6AM 06/17/18 Ondansetron [Zofran Odt 4 mg Tablet] 4 mg PO Q6HP PRN 06/17/18 Oxycodone HCl [Oxy-Ir 5 mg Tablet] 5 mg PO Q8HP PRN 06/17/18 Solifenacin Succinate [Vesicare] 5 mg PO DAILY 06/17/18 Baclofen [Baclofen 10 mg Tablet] 5 mg PO Q8 08/25/20 Levothyroxine Sodium [Synthroid 0.025 mg Tablet] 0.025 mg PO Q6AM 08/25/20 Oxycodone Myristate [Xtampza ER] 36 mg PO Q8 08/25/20 Sennosides/Docusate Sodium [Senna Plus 8.6-50 mg Tablet] 1 each PO BID 08/25/20 Acetaminophen [Tylenol 325 mg Tablet] 650 mg PO Q4HP PRN tablet 09/02/20 History of Present Illiness History of Present Illness: Per H&P by manager of patientJaden: 54 year old white female who presented to [facility] from [facility] yesterday with decreased LOC. The patient has a past medical hx to include paraplegic, multiple UTI, prolonged need for salazar, and chronic pain. The patient was seen by the ER provider and an abdominal CT can was performed which revealed the patient to be impacted. Per the ER provider after patient was given an enema had a large amount of stool and the patient then became hypotensive. the patient was seen at [facility] yesterday to have a veseco clip for an attempt to contain a gastrocutaneous fistula caused from extended use of peg. The patient has a suprapubic catheter in place and is a hemiplegic from a fall per the patient. Critical care was consulted for admission and management of this patient. Hospital Course Hospital Course: (1) Sepsis Resolved. Sepsis, present on arrival, per ICU provider's notes. Urine culture is revealing multiple microbes; E. coli >100 K colonies, Proteus Mirabella's >100 K colonies, and small amount of procidentia and Enterococcus faecalis. Blood cultures negative at 5 days. Patient received appropriate IV fluid resuscitation. Received Vanco and Zosyn by ED provider. Then placed on cefepime and vancomycin x1 day. Once urine cultures began to result, she was transitioned to ertapenem only. Infectious disease consulted; have recommended total 7-day course of ertapenem. Has completed full course of Ertapenem. Stable for d/c to home. (2) UTI (urinary tract infection) Resolved. Cultures as above. Continues on ertapenem per ID recommendations. (3) Chronic pain Continue home dose Ocycontin, oxycodone, gabapentin, Cymbalta, and meloxicam. Trial lidoderm patches. 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 Monitor for evidence of infection. Wound care per wound care nurse's recommendations; change acticoat flex and cover w/ allevyn every 3 day. (5) Sacral decubitus ulcer, stage IV POA; improved, now stage III per [facility] nurse notes. This is not looking acutely infected. Wound care per wound care nurse's recommendations; change acticoat flex and cover w/ allevyn every 3 days Physical Exam Vital Signs: Temp Pulse Resp BP Pulse Ox 97.5 F 69 18 100/55 L 94 09/02/20 07:48 09/02/20 07:48 09/02/20 07:48 09/02/20 07:48 09/02/20 07:48 Intake & Output 09/01/20 09/02/20 09/03/20 06:59 06:59 06:59 Intake Total 850 1160 Output Total 2024 Balance 850 -865 Weight 55.4 kg 54.4 kg General appearance: PRESENT: no acute distress, well-developed, well-nourished Head exam: PRESENT: atraumatic, normocephalic Eye exam: PRESENT: conjunctiva pink, EOMI, PERRLA. ABSENT: scleral icterus Mouth exam: PRESENT: moist, tongue midline Teeth exam: PRESENT: poor dentation Respiratory exam: PRESENT: clear to auscultation justyna, symmetrical, unlabored, other - room air. ABSENT: rales, rhonchi, wheezes Cardiovascular exam: PRESENT: RRR. ABSENT: diastolic murmur, rubs, systolic mur mur Pulses: PRESENT: normal dorsalis pedis pul Vascular exam: PRESENT: normal capillary refill GI/Abdominal exam: PRESENT: normal bowel sounds, soft. ABSENT: distended, guarding, mass, organolmegaly, rebound, tenderness Rectal exam: PRESENT: deferred Gentrourinary exam: PRESENT: indwelling catheter - suprapubic Extremities exam: PRESENT: other - baseline paraplegia of lower extremities. contracture left hand. ABSENT: calf tenderness, clubbing, full ROM, pedal edema Neurological exam: PRESENT: alert, awake, oriented to person, oriented to place, oriented to time, oriented to situation, CN II-XII grossly intact. ABSENT: motor sensory deficit Psychiatric exam: PRESENT: appropriate affect, normal mood. ABSENT: homicidal ideation, suicidal ideation Skin exam: PRESENT: dry, warm, other - stage III sacral decubitus ulcer (POA) and previous PEG tube site were not visualized; dressings in place.. ABSENT: cyanosis, intact, rash Results Laboratory Results: WBC 8.9 10^3/uL (4.0-10.5) 08/31/20 05:14 RBC 3.88 10^6/uL (3.72-5.28) 08/31/20 05:14 Hgb 11.0 g/dL (12.0-15.5) L 08/31/20 05:14 Hct 32.7 % (36.0-47.0) L 08/31/20 05:14 MCV 84 fl (80-97) 08/31/20 05:14 MCH 28.3 pg (27.0-33.4) 08/31/20 05:14 MCHC 33.5 g/dL (32.0-36.0) 08/31/20 05:14 RDW 15.3 % (11.5-14.0) H 08/31/20 05:14 Plt Count 223 10^3/uL (150-450) 08/31/20 05:14 Lymph % (Auto) Not Reportable 08/28/20 04:33 [place] % (Auto) Not Reportable 08/28/20 04:33 Eos % (Auto) Not Reportable 08/28/20 04:33 Baso % (Auto) Not Reportable 08/28/20 04:33 Absolute Neuts (auto) Not Reportable 08/28/20 04:33 Absolute Lymphs (auto) Not Reportable 08/28/20 04:33 Absolute Monos (auto) Not Reportable 08/28/20 04:33 Absolute Eos (auto) Not Reportable 08/28/20 04:33 Absolute Basos (auto) Not Reportable 08/28/20 04:33 Total Counted 100 08/28/20 04:33 Seg Neutrophils % Not Reportable 08/28/20 04:33 Seg Neuts % (Manual) 41 % (42-78) L 08/28/20 04:33 Band Neutrophils % 1 % (3-5) L 08/28/20 04:33 Lymphocytes % (Manual) 49 % (13-45) H 08/28/20 04:33 Monocytes % (Manual) 4 % (3-13) 08/28/20 04:33 Eosinophils % (Manual) 5 % (0-6) 08/28/20 04:33 Basophils % (Manual) 0 % (0-2) 08/28/20 04:33 Abs Neuts (Manual) 2.6 10^3/uL (1.7-8.2) 08/28/20 04:33 Abs Lymphs (Manual) 3.1 10^3/uL (0.5-4.7) 08/28/20 04:33 Abs Monocytes (Manual) 0.3 10^3/uL (0.1-1.4) 08/28/20 04:33 Absolute Eos (Manual) 0.3 10^3/uL (0.0-0.6) 08/28/20 04:33 Abs Basophils (Manual) 0.0 10^3/uL (0.0-0.2) 08/28/20 04:33 Toxic Granulation 1+ 08/24/20 16:35 Platelet Comment ADEQUATE 08/28/20 04:33 Poikilocytosis 1+ 08/24/20 16:35 Anisocytosis SLIGHT 08/28/20 04:33 Stomatocytes 1+ 08/24/20 16:35 PT 14.2 SEC (11.4-15.4) 08/26/20 04:14 INR 1.08 08/26/20 04:14 APTT 28.6 SEC (23.5-35.8) 08/24/20 16:35 Sodium 137.5 mmol/L (137-145) 08/31/20 05:14 Potassium 4.1 mmol/L (3.6-5.0) 08/31/20 05:14 Chloride 104 mmol/L (98-107) 08/31/20 05:14 Carbon Dioxide 25 mmol/L (22-30) 08/31/20 05:14 Anion Gap 9 (5-19) 08/31/20 05:14 BUN 16 mg/dL (7-20) 08/31/20 05:14 Creatinine 0.69 mg/dL (0.52-1.25) 08/31/20 05:14 Est GFR ( Amer) > 60 (>60) 08/31/20 05:14 Est GFR (Non-Af Amer) Cancelled 08/28/20 04:33 Est GFR (MDRD) Non-Af > 60 (>60) 08/31/20 05:14 Glucose 89 mg/dL (75-110) 08/31/20 05:14 Lactic Acid 1.2 mmol/L (0.7-2.1) 08/25/20 06:14 Calcium 9.3 mg/dL (8.4-10.2) 08/31/20 05:14 Phosphorus 3.6 mg/dL (2.5-4.5) 08/25/20 06:14 Magnesium 1.7 mg/dL (1.6-2.3) 08/26/20 04:14 Total Bilirubin 0.4 mg/dL (0.2-1.3) 08/28/20 08:04 Direct Bilirubin 0.4 mg/dL (0.0-0.4) 08/28/20 08:04 Neonat Total Bilirubin Not Reportable 08/28/20 08:04 Neonat Direct Bilirubin Not Reportable 08/28/20 08:04 Neonat Indirect Bili Not Reportable 08/28/20 08:04 AST 35 U/L (14-36) 08/28/20 08:04 ALT 18 U/L (<35) 08/28/20 08:04 Alkaline Phosphatase 67 U/L (38-126) 08/28/20 08:04 Troponin I 0.015 ng/mL 08/25/20 01:15 NT-Pro-B Natriuret Pep 3640 pg/mL (<125) H 08/26/20 04:14 Total Protein 6.4 g/dL (6.3-8.2) 08/28/20 08:04 Albumin 3.1 g/dL (3.5-5.0) L 08/28/20 08:04 Triglycerides 184 mg/dL (<150) H 08/26/20 04:14 Cholesterol 171.41 mg/dL (0-200) 08/26/20 04:14 LDL Cholesterol Direct 98 mg/dL (<100) 08/26/20 04:14 VLDL Cholesterol 36.8 mg/dL (10-31) H 08/26/20 04:14 HDL Cholesterol 39 mg/dL (>40) L 08/26/20 04:14 Lipase 91.0 U/L (23-300) 08/26/20 04:14 EGFR Cancelled 08/28/20 04:33 Procalcitonin 0.88 ng/mL (0.00-0.08) H 08/25/20 06:14 TSH 0.49 uIU/mL (0.47-4.68) 08/26/20 04:14 Free T4 1.09 ng/dL (0.78-2.19) 08/26/20 04:14 Free T3 pg/mL 1.50 pg/mL (2.77-5.27) L 08/26/20 04:14 Urine Color YELLOW 08/24/20 20:31 Urine Appearance CLOUDY 08/24/20 20:31 Urine pH 7.0 (5.0-9.0) 08/24/20 20:31 Ur Specific [place] 1.014 08/24/20 20:31 Urine Protein 30 mg/dL (NEGATIVE) H 08/24/20 20:31 Urine Glucose (UA) NEGATIVE mg/dL (NEGATIVE) 08/24/20 20: Urine Ketones NEGATIVE mg/dL (NEGATIVE) 08/24/20 20: Urine Blood MODERATE (NEGATIVE) H 08/24/20 20: Urine Nitrite NEGATIVE (NEGATIVE) 08/24/20 20:31 Urine Bilirubin NEGATIVE (NEGATIVE) 08/24/20 20:31 Urine Urobilinogen NEGATIVE mg/dL (<2.0) 08/24/20 20: Ur Leukocyte Esterase LARGE (NEGATIVE) H 08/24/20 20:31 Urine WBC (Auto) 105 /HPF 08/24/20 20:31 Urine RBC (Auto) 30 /HPF 08/24/20 20:31 Urine Bacteria (Auto) 1+ /HPF 08/24/20 20:31 Urine WBC Clumps MANY /HPF 08/24/20 20:31 Squamous Epi Cells Auto 4 /HPF 08/24/20 20:31 Urine Mucus (Auto) FEW /LPF 08/24/20 20:31 Urine Ascorbic Acid NEGATIVE (NEGATIVE) 08/24/20 20:31 COVID-19 Source See comment 08/30/20 00:46 COVID-19 (MARYA) Not Detected (Not Detect) 08/30/20 00:46 08/24/20 08/25/20 08/26/20 16:35 01:15 04:14 Troponin I < 0.012 0.015 NT-Pro-B Natriuret Pep 3640 H Impressions: Chest X-Ray 08/24/20 14:31 IMPRESSION: Asymmetric opacity overlying the left base as described. Possibly focal atelectasis or pneumonia. Possibly confluence of shadows. Abdomen/Pelvis CT 08/24/20 14:34 IMPRESSION: Retained stool. Cannot exclude fecal impaction. No other significant findings in the abdomen or pelvis. Chest X-Ray 08/25/20 06:00 IMPRESSION: Increased left basilar airspace disease atelectasis versus pneumoni a Chest X-Ray 08/26/20 06:00 IMPRESSION: Increasing consolidation at the left lung base worrisome for worsening pneumonia. Chest X-Ray 08/27/20 06:00 IMPRESSION: Decreased opacities in the inferior aspect of the left hemithorax. Chest X-Ray 08/28/20 06:00 IMPRESSION: Improved aeration of the inferior aspect of the left lung. 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 She should follow up with her PCP within 1 week. Follow up with Urologist, as scheduled, for management of the suprapubic catheter. Follow up with your Surgeon, as scheduled, for peg tube insertion site wound check. Recommend that wound care to both sacrum and peg site be continued with acticoat flex and cover w/ allevyn; change every three days. Take medications as prescribed. Return to the emergency department, as needed for concerning symptoms. Time Spent: Greater than 30 Minutes Stroke Is this a Stroke Patient?: No Acute Heart Failure Is this a Heart Failure Patient?: No
[2020-09-02] MEDS: SENNOSIDES/DOCUSATE 8.6-50 MG 1 EACH TABLET PO SCH (09:53)
[2020-09-02] MEDS: MULTIVITAMIN TABLET PO SCH (09:53)
[2020-09-02] MEDS: DULOXETINE HCL 30 MG CAPSULE.DR PO SCH (09:53)
[2020-09-02] MEDS: GABAPENTIN 300 MG CAPSULE PO SCH (09:53)
[2020-09-02] MEDS: OXYCODONE HCL SR 40 MG TABLET PO SCH (09:53)
[2020-09-02] MEDS: MELOXICAM 15 MG TABLET PO SCH (09:53)
[2020-09-02] MEDS: LIDOCAINE 5% (700 MG) TRANSDERMAL ADH..PATCH TP SCH (09:54)
[2020-09-02] MEDS: TOLTERODINE TARTRATE 1 MG TABLET PO SCH (09:54)
[2020-09-02] MEDS ORDERED: ERTAPENEM SODIUM 1 GM in NORMAL SALINE 50 ML IV ONE (12:00)
[2020-09-02 12:21] VITALS: BP 118/66
== END 2020-09-02 14:20 | DRG 871 ==
LOC: ER 13:10 → EH 23:35 → 4S 08-25 00:30 → ICU 08-25 01:45 → 4N 08-27 15:43
PROVIDERS: ADMIT Anesthesiology; ATTEND Registered Nurse
DX: A41.51 Sepsis due to Escherichia coli [E. coli] (principal); R65.21 Severe sepsis with septic shock; L89.154 Pressure ulcer of sacral region, stage 4; J18.9 Pneumonia, unspecified organism; T83.511A Infection and inflammatory reaction due to indwelling urethral catheter, initial encounter; N39.0 Urinary tract infection, site not specified; K31.6 Fistula of stomach and duodenum; L03.317 Cellulitis of buttock; G82.20 Paraplegia, unspecified; A41.81 Sepsis due to Enterococcus; A41.89 Other specified sepsis; Z20.828 Contact with and (suspected) exposure to other viral communicable diseases; G89.29 Other chronic pain; K94.29 Other complications of gastrostomy; Y83.3 Surgical operation with formation of external stoma as the cause of abnormal reaction of the patient, or of later complication, without mention of misadventure at the time of the procedure; Y92.9 Unspecified place or not applicable; Y84.6 Urinary catheterization as the cause of abnormal reaction of the patient, or of later complication, without mention of misadventure at the time of the procedure; K21.9 Gastro-esophageal reflux disease without esophagitis; E03.9 Hypothyroidism, unspecified; K59.00 Constipation, unspecified; Z79.899 Other long term (current) drug therapy; Z79.890 Hormone replacement therapy; Z86.14 Personal history of Methicillin resistant Staphylococcus aureus infection; Z88.6 Allergy status to analgesic agent
CPT/HCPCS: 36415; 71045; 74177; 80048; 80053; 80061; 81001; 83605; 83690; 83735; 83880; 84100; 84145; 84439; 84443; 84481; 84484; 85025; 85027; 85610; 85730; 87040; 87086; 87088; 87186; 87635; 93005; 93010; 96361; 96365; 96375; 99221; 99285; 99291; C9803; J0692; J1335; J1644; J2270; J2405; J2543; J3370; J3490; J7030; J7060; J7120; S0119

== ENCOUNTER 2020-11-03 09:07 | Inpatient (IN) | payer MEDICAID ==
[2020-11-03 10:06] LABS: VENOUS BLOOD BASE EXCESS -2.3 mmol/L; VENOUS BLOOD HCO3 24.3 mmol/L (20-32); VENOUS BLOOD PCO2 48.9 mmHg (35-63); VENOUS BLOOD PH 7.31 (7.30-7.42)
[2020-11-03 10:08] LABS: ABSOLUTE BASOPHILS # (AUTO) 0.1 10^3/uL (0.0-0.2); ABSOLUTE EOSINOPHILS # (AUTO) 0.4 10^3/uL (0.0-0.6); ABSOLUTE LYMPHOCYTES (AUTO) 3.1 10^3/uL (0.5-4.7); ABSOLUTE MONOCYTES (AUTO) 0.9 10^3/uL (0.1-1.4); ABSOLUTE NEUT (AUTO) 8.9 10^3/uL (1.7-8.2); BASOPHILS % (AUTO) 0.5 % (0-2); EOSINOPHILS % (AUTO) 2.9 % (0-6); HEMATOCRIT 34.5 % (36.0-47.0); HEMOGLOBIN 10.9 g/dL (12.0-15.5); MEAN CORPUSCULAR HEMOGLOBIN 26.3 pg (27.0-33.4); MEAN CORPUSCULAR HGB CONC 31.7 g/dL (32.0-36.0); MEAN CORPUSCULAR VOLUME 83 fl (80-97); MONOCYTES % (AUTO) 6.9 % (3-13); PLATELET COUNT 336 10^3/uL (150-450); RED BLOOD COUNT 4.16 10^6/uL (3.72-5.28); RED CELL DISTRIBUTION WIDTH 16.5 % (11.5-14.0); SEGMENTED NEUTROPHILS % (AUTO) 66.7 % (42-78); TOTAL CELLS COUNTED % (AUTO) 100 %; WHITE BLOOD COUNT 13.4 10^3/uL (4.0-10.5)
[2020-11-03 10:25] LABS: ALBUMIN 3.4 g/dL (3.5-5.0); ALKALINE PHOSPHATASE 81 U/L (38-126); ANION GAP 7 (5-19); ASPARTATE AMINO TRANSFERASE 27 U/L (14-36); BILIRUBIN,DIRECT 0.4 mg/dL (0.0-0.4); BILIRUBIN,TOTAL 0.4 mg/dL (0.2-1.3); BLOOD UREA NITROGEN 39 mg/dL (7-20); CALCIUM 9.1 mg/dL (8.4-10.2); CARBON DIOXIDE 25 mmol/L (22-30); CHLORIDE 105 mmol/L (98-107); GLUCOSE 100 mg/dL (75-110); POTASSIUM 4.7 mmol/L (3.6-5.0)
--- NOTE | 2020-11-03 10:27 | RADIOLOGY REPORT (SQ) ---
EXAM DESCRIPTION: CHEST SINGLE VIEW IMAGES COMPLETED DATE/TIME: 11/03/2020 9:44 am REASON FOR STUDY: bed 5 sepsis protocol COMPARISON: None. EXAM PARAMETERS: NUMBER OF VIEWS: One view. TECHNIQUE: Single frontal radiographic view of the chest acquired. RADIATION DOSE: NA LIMITATIONS: None. FINDINGS: LUNGS AND PLEURA: Faint left lower lobe infiltrate. Right lung clear. MEDIASTINUM AND HILAR STRUCTURES: No masses. Contour normal. HEART AND VASCULAR STRUCTURES: Heart normal in size. Normal vasculature. BONES: No acute findings. HARDWARE: None in the chest. Hardware in the cervical spine. OTHER: No other significant finding. IMPRESSION: LEFT LOWER LOBE INFILTRATE CONSISTENT WITH PNEUMONIA. TECHNICAL DOCUMENTATION: JOB ID: [id number] 2010 [email or web address]- All Rights Reserved Reading location - IP/workstation name: [email or web address]
[2020-11-03 10:28] LABS: INTERNATIONAL RATION (INR) 1.03; PROTHROMBIN TIME 13.7 SEC (11.4-15.4)
[2020-11-03 10:50] LABS: APPEARANCE,URINE TURBID; BILIRUBIN,URINE SMALL (NEGATIVE); COLOR,URINE AMBER; GLUCOSE, URINE NEGATIVE (NEGATIVE); KETONES,URINE TRACE mg/dL (NEGATIVE); PROTEIN,URINE 100 mg/dL (NEGATIVE)
[2020-11-03] MEDS ORDERED: NALOXONE HCL INJ 2 MG/2 ML DISP.SYRIN IV ONE (10:52)
[2020-11-03] MEDS ORDERED: VANCOMYCIN HCL INJ 1000 MG VIAL IV ONE (10:53)
[2020-11-03] MEDS ORDERED: CEFEPIME 2 GM/D5W RTU 2 GM/50 ML RTUPB IV ONE (10:53)
[2020-11-03] MEDS ORDERED: ACETAMINOPHEN 1,000 MG/100 ML RTUPB IV ONE (11:15)
--- NOTE | 2020-11-03 12:31 | ER Document Report ---
Entered by KOLE MOREL SCRIBE 11/03/20 1041 Acting as scribe for:MAYELIN RODRIGUES MD ED General - General Chief Complaint: Altered Mental Status Stated Complaint: ALTERED MENTAL STATUS Time Seen by Provider: 11/03/20 10:03 Mode of Arrival: Medic Information source: Emergency Med Personnel Cannot obtain history due to: Altered mental status Notes: This 55 year old female patient brought in by EMS from [facility] presents to the ED today for evaluation of altered mental status. Per ED nurse, EMS reports that the staff at the nursing facility noticed that the patient was altered around 0700 when they went in to change the patient's suprapubic catheter. Staff also noted blood in the catheter. ED nurse states that the patient was 91% on room air upon EMS arrival, so they placed the patient on 2L O2 via nasal cannula. Rapid Covid test per EMS was negative. HPI is limited and ROS is unobtainable due to patient's altered mental status. TRAVEL OUTSIDE OF THE [place] IN LAST 30 DAYS: No - Related Data Allergies/Adverse Reactions: codeine [Codeine] Allergy (Verified 11/03/20 09:55) oxycodone HCl [From Percocet] Allergy (Verified 11/03/20 09:55) Past Medical History - General Information source: [facility] Records, Outside Facility Records - Social History Smoking Status: Former Smoker Cigarette use (# per day): No Chew tobacco use (# tins/day): No Smoking Education Provided: No Frequency of alcohol use: None Drug Abuse: None Lives with: Correction Family History: Reviewed & Not Pertinent, Hypertension Endocrine Medical History: Reports: Hx Hypothyroidism GI Medical History: Reports: Hx Gastroesophageal Reflux Disease Skin Medical History: Reports Hx Psoriasis Psychiatric Medical History: Reports: Hx Anxiety, Hx Depression Past Surgical History: Reports: Other - Suprapubic catheter, PEG TUBE removed, vesio clip for gastrocutaneous fist - Immunizations Hx Diphtheria, Pertussis, Tetanus Vaccination: Yes Review of Systems - Review of Systems -: Yes ROS unobtainable due to patient's medical condition - Altered mental status Physical Exam - Vital signs Vitals: Resp Pulse Ox 12 95 11/03/20 09:12 11/03/20 09:12 - General General appearance: Other - Patient is somnolent, but arousable to name and voice. She is slumped to the left. Appears older than stated age In distress: None - HEENT Head: Normocephalic, Atraumatic Eyes: Normal Extraocular movements intact: Yes Pupils: PERRL Neck: Normal, Supple - Respiratory Respiratory status: No respiratory distress, Other - 95-96% on 2L nasal cannula Chest status: Nontender Breath sounds: Normal Chest palpation: Normal - Cardiovascular Rhythm: Regular Heart sounds: Normal auscultation Murmur: No - Abdominal Inspection: Other - She does have a suprapubic cathether. The urine is dark, but there was no gross blood seen. Distension: No distension Bowel sounds: Normal Tenderness: Nontender - Abdomen soft Organomegaly: No organomegaly - Back Back: Normal, Nontender - Extremities General upper extremity: Other - Contractures of the hands bilaterally General lower extremity: Other - Contractures at the knees bilaterally. There are boots on the bilateral lower extremities - Neurological Notes: Patient is somnolent, but arousable to name and voice. She does open her eyes to her name and answers questions with one-word sentences. She is responsive to the environment. - Psychological Associated symptoms: Other - Unable to assess due to patient's medical condition - Skin Skin Temperature: Warm Skin Moisture: Dry Skin Color: Ferriday Course - Re-evaluation Re-evalutation: 11/03/20 11:02 Patient did respond to IV Narcan. 11/03/20 13:42 Patient more alert after IV Narcan and improvement in blood pressure with IV fluid challenge. Patient also was given IV Tylenol acetaminophen for pain that resulted from giving her the Narcan medication to awaken patient. - Vital Signs Vital signs: Temp Pulse Resp BP Pulse Ox 98.4 F 21 H 153/88 H 97 11/03/20 11:00 11/03/20 12:01 11/03/20 12:01 11/03/20 12:01 11/03/20 13:42 Vital signs are stable at this time - Laboratory Results Result Diagrams: 11/03/20 09:35 11/03/20 09:35 Laboratory Results Interpreted: 11/03/20 11/03/20 11/03/20 09:35 09:35 10:15 WBC 13.4 H Hgb 10.9 L Hct 34.5 L MCH 26.3 L MCHC 31.7 L RDW 16.5 H Absolute Neuts (auto) 8.9 H BUN 39 H Creatinine 1.96 H Est GFR ( Amer) 32 L Est GFR (MDRD) Non-Af 26 L Lactic Acid Albumin 3.4 L Urine Protein 100 H Urine Ketones TRACE H Urine Blood LARGE H Urine Bilirubin SMALL H Urine Urobilinogen 4.0 H Leukocyte Esterase Rfl LARGE H Urine Ascorbic Acid 40 H 11/03/20 12:30 WBC Hgb Hct MCH MCHC RDW Absolute Neuts (auto) BUN Creatinine Est GFR ( Amer) Est GFR (MDRD) Non-Af Lactic Acid 2.9 H Albumin Urine Protein Urine Ketones Urine Blood Urine Bilirubin Urine Urobilinogen Leukocyte Esterase Rfl Urine Ascorbic Acid 11/03/20 13:43 Patient has an elevated lactic acid of 2.9 leukocytosis of 13,000 and urinalysis with bacteria 3+ leukocyte esterase positive with cloudy urine consistent with a urinary tract infection. Patient perhaps is presenting to us with urosepsis and pneumonia. Critical Laboratory Results Reviewed: No Critical Results - Radiology Results Radiology Results Interpreted: 11/03/20 12:32 Chest X-Ray 11/03/20 09:15 IMPRESSION: LEFT LOWER LOBE INFILTRATE CONSISTENT WITH PNEUMONIA. 11/03/20 13:44 Chest x-ray shows left lower lobe pneumonia. Critical Radiology Results Reviewed: No Critical Results - EKG Interpretation by Me Additional EKG results interpreted by me: 11/03/20 13:44 Twelve-lead EKG shows normal sinus rhythm rate of 70 artifact present with shaking during the exam. Normal axis normal DC interval normal QRS interval normal QT interval no acute STEMI. Discharge - Discharge Clinical Impression: Left lower lobe pneumonia, Urinary tract infection, Altered mental status, Hypotension, Prerenal azotemia Condition: Serious Disposition: ADMITTED INPATIENT Admitting Provider: Mason (Hospitalist) Unit Admitted: Telemetry I personally performed the services described in the documentation, reviewed and edited the documentation which was dictated to the scribe in my presence, and it accurately records my words and actions.
[2020-11-03] MEDS ORDERED: GLUCAGON,HUMAN RECOMB 1 MG INJ SUBCUT PRN (15:27)
[2020-11-03] MEDS ORDERED: DEXTROSE 50%-WATER 25 GM/50 ML DISP.SYRIN IV PRN ×2 (15:27)
[2020-11-03] MEDS ORDERED: IPRATROPIUM/ALBUTEROL 0.5-2.5 MG/3 ML AMPUL NEB PRN (15:27)
[2020-11-03] MEDS ORDERED: ACETAMINOPHEN 325 MG TABLET PO PRN (15:27)
[2020-11-03] MEDS ORDERED: DEXTROSE 40% GEL 15 GM TUBE PO PRN ×2 (15:27)
[2020-11-03] MEDS ORDERED: ONDANSETRON HCL INJ/PF 4 MG/2 ML SDV IV PRN (15:27)
[2020-11-03] MEDS ORDERED: PIPERACILLIN/TAZOBACTAM 3.375 GM VIAL IV SCH (15:30)
--- NOTE | 2020-11-03 15:32 | RADIOLOGY REPORT (SQ) ---
EXAM DESCRIPTION: CT HEAD WITHOUT IMAGES COMPLETED DATE/TIME: 11/03/2020 1:59 pm REASON FOR STUDY: altered mental status COMPARISON: None. TECHNIQUE: Axial images acquired through the brain without intravenous contrast. Images reviewed wi th bone, brain and subdural windows. Additional sagittal and coronal reconstructions were generated. Images stored on PACS. All CT scanners at this facility use dose modulation, iterative reconstruction, and/or weight based d osing when appropriate to reduce radiation dose to as low as reasonably achievable (ALARA). [facility]: Dose Right [facility]: CareDose [facility]: Dose Right [facility]: Teradose 4D [facility]: [employer] RADIATION DOSE: CT Rad equipment meets quality standard of care and radiation dose reduction techniq ues were employed. CTDIvol: 53.2 mGy. DLP: 1097 mGy-cm. mGy. LIMITATIONS: None. FINDINGS: VENTRICLES: Normal size and contour. CEREBRUM: No masses. No hemorrhage. No midline shift. No evidence for acute infarction. Normal gra y/white matter differentiation. No areas of low density in the white matter. CEREBELLUM: No masses. No hemorrhage. No alteration of density. No evidence for acute infarction. EXTRAAXIAL SPACES: No fluid collections. No masses. ORBITS AND GLOBE: No intra- or extraconal masses. Normal contour of globe without masses. CALVARIUM: No fracture. PARANASAL SINUSES: No fluid or mucosal thickening. SOFT TISSUES: No mass or hematoma. OTHER: No other significant finding. IMPRESSION: NO ACUTE INTRACRANIAL IMAGING FINDINGS. EVIDENCE OF ACUTE STROKE: NO. COMMENT: Quality ID # [id number]: Final reports with documentation of one or more dose reduction techniques (e.g., Automated exposure control, adjustment of the mA and/or kV according to patient size, use of iterative reconstruction technique) TECHNICAL DOCUMENTATION: JOB ID: [id number] 2010 [employer] All Rights Reserved Reading location - IP/workstation name: [email or web address]
[2020-11-03] MEDS: RINGERS SOLUTION,LACTATED 1,000 ML IV PRN (17:37)
[2020-11-03] MEDS: PIPERACILLIN SODIUM/TAZOBACTAM 3.375 GM in NORMAL SALINE 100 ML IV SCH ×2 (17:37→23:40)
--- NOTE | 2020-11-03 18:12 | PDOC H&P ---
History of Present Illness Admission Date/PCP: 11/03/20 13:18 Patient complains of: Altered mental status History of Present Illness: ARTURO GILBERT is a 55 year old female, past medical history of paraplegia, multifocal UTI, prolonged need for Claire, chronic pain who was sent from [facility] today due to altered mental status. Per EMS report they were called in by the staff at the nursing facility because she was noted to be altered at around 7 AM when they were changing her suprapubic catheter. Staff also noted blood in the catheter. She was also apparently saturating 91% on room air upon EMS arrival and was placed on 2 L O2 support via nasal cannula. Rapid Covid test done by EMS was negative. The patient had and was unable to provide any history to me. I attempted to call [facility] but no one was available to talk to me to provide further history or med rec's. In the emergency room blood pressure 85/68, heart rate 72, respiratory rate T1, O2 sat 97% on 2 L nasal cannula, temperature at 8.9. His x-ray showed left lower lobe infiltrate consistent with pneumonia. Urine showed large blood, positive leukocyte esterase, WBC more than 182. Covid test negative. CMP showed mild VINI 1.96 creatinine, [address] acid 2.9. CT head negative. patient was given IV bolus and blood pressure improved to 110s. And was given cefepime and Vanco in the ED. Patient has had multiple episodes of UTI in the past and normally grew gram-negative rods, no prior history of ESBL. So I have started him on Zosyn. Urine culture pending. Past Medical History Cardiac Medical History: Denies: Coronary Artery Disease, Myocardial Infarction, Hypertension Pulmonary Medical History: Denies: Asthma, Bronchitis, Chronic Obstructive Pulmonary Disease (COPD), Pneumonia Neurological Medical History: Denies: Seizures Endocrine Medical History: Reports: Hypothyroidism GI Medical History: Reports: Gastroesophageal Reflux Disease Musculoskeltal Medical History: Denies: Arthritis Skin Medical History: Reports: Psoriasis Psychiatric Medical History: Reports: Depression Hematology: Reports: Anemia Past Surgical History Past Surgical History: Reports: Other - Suprapubic catheter, PEG TUBE removed, vesio clip for gastrocutaneous fist Social History Lives with: Custodial Smoking Status: Former Smoker Frequency of Alcohol Use: None Hx Recreational Drug Use: No Drugs: None Hx Prescription Drug Abuse: No Family History Family History: Reviewed & Not Pertinent, Hypertension Parental Family History Reviewed: Yes Children Family History Reviewed: Yes Sibling(s) Family History Reviewed.: Yes Medication/Allergy Home Medications: Duloxetine HCl [Cymbalta] 60 mg PO DAILY 06/17/18 Flavoxate HCl [Urispas] 200 mg PO Q8 06/17/18 Gabapentin [Neurontin 300 mg Capsule] 600 mg PO Q12 06/17/18 Meloxicam 15 mg PO DAILY 06/17/18 Metoclopramide HCl [Reglan Oral Soln 10 mg/10 ml Udcup] 5 mg PO QID 06/17/18 Multivit-Min/Ferrous Gluconate [Centrum Multivit-Mineral Liq] 10 ml PO DAILY 06/17/18 Omeprazole 40 mg PO Q6AM 06/17/18 Ondansetron [Zofran Odt 4 mg Tablet] 4 mg PO Q6HP PRN 06/17/18 Oxycodone HCl [Oxy-Ir 5 mg Tablet] 5 mg PO Q8HP PRN 06/17/18 Solifenacin Succinate [Vesicare] 5 mg PO DAILY 06/17/18 Baclofen [Baclofen 10 mg Tablet] 5 mg PO Q8 08/25/20 Levothyroxine Sodium [Synthroid 0.025 mg Tablet] 0.025 mg PO Q6AM 08/25/20 Oxycodone Myristate [Xtampza ER] 36 mg PO Q8 08/25/20 Sennosides/Docusate Sodium [Senna Plus 8.6-50 mg Tablet] 1 each PO BID 08/25/20 Acetaminophen [Tylenol 325 mg Tablet] 650 mg PO Q4HP PRN tablet 09/02/20 Allergies/Adverse Reactions: codeine [Codeine] Allergy (Verified 11/03/20 09:55) oxycodone HCl [From Percocet] Allergy (Verified 11/03/20 09:55) Review of Systems ROS unobtainable: Due to mental status Physical Exam Vital Signs: Temp Pulse Resp BP Pulse Ox 98 F 69 12 117/48 L 97 11/03/20 15:21 11/03/20 15:21 11/03/20 15:21 11/03/20 15:21 11/03/20 15:21 Intake & Output 01/22/21 01/23/21 01/24/21 06:59 06:59 06:59 Intake Total 150 Balance 150 Weight 71 kg General appearance: PRESENT: no acute distress, cooperative, thin Head exam: PRESENT: atraumatic, normocephalic Eye exam: PRESENT: EOMI, PERRLA Mouth exam: PRESENT: moist Neck exam: PRESENT: full ROM Respiratory exam: PRESENT: clear to auscultation justyna, symmetrical, unlabored Cardiovascular exam: PRESENT: RRR, +S1, +S2 Pulses: PRESENT: +2 pedal pulses bilateral GI/Abdominal exam: PRESENT: other - Patient has a suprapubic catheter Rectal exam: PRESENT: other - Pressure ulcer buttocks Extremities exam: PRESENT: other - Muscle contractures secondary to paraplegia Neurological exam: PRESENT: alert, awake, oriented to person, oriented to place, oriented to time Psychiatric exam: PRESENT: normal mood Skin exam: PRESENT: normal color Results Laboratory Results: 11/03/20 09:35 11/03/20 09:35 11/03/20 11/03/20 11/03/20 09:35 09:35 09:35 WBC 13.4 H RBC 4.16 Hgb 10.9 L Hct 34.5 L MCV 83 MCH 26.3 L MCHC 31.7 L RDW 16.5 H Plt Count 336 Seg Neutrophils % 66.7 VBG pH VBG pCO2 VBG HCO3 VBG Base Excess Sodium 137.0 Potassium 4.7 Chloride 105 Carbon Dioxide 25 Anion Gap 7 BUN 39 H Creatinine 1.96 H Est GFR ( Amer) 32 L Glucose 100 Lactic Acid 1.9 Calcium 9.1 Total Bilirubin 0.4 AST 27 Alkaline Phosphatase 81 Total Protein 7.0 Albumin 3.4 L Urine Color Urine Appearance Urine pH Ur Specific Weston Urine Protein Urine Glucose (UA) Urine Ketones Urine Blood Urine RBC (Auto) 11/03/20 11/03/20 11/03/20 09:35 10:15 12:30 WBC RBC Hgb Hct MCV MCH MCHC RDW Plt Count Seg Neutrophils % VBG pH 7.31 VBG pCO2 48.9 VBG HCO3 24.3 VBG Base Excess -2.3 Sodium Potassium Chloride Carbon Dioxide Anion Gap BUN Creatinine Est GFR ( Amer) Glucose Lactic Acid 2.9 H Calcium Total Bilirubin AST Alkaline Phosphatase Total Protein Albumin Urine Color LAVON Urine Appearance TURBID Urine pH 5.0 Ur Specific [place] 1.020 Urine Protein 100 H Urine Glucose (UA) NEGATIVE Urine Ketones TRACE H Urine Blood LARGE H Urine RBC (Auto) 146 11/03/20 09:35 Troponin I < 0.012 Impressions: Chest X-Ray 11/03/20 09:15 IMPRESSION: LEFT LOWER LOBE INFILTRATE CONSISTENT WITH PNEUMONIA. Head CT 11/03/20 13:25 IMPRESSION: NO ACUTE INTRACRANIAL IMAGING FINDINGS. EVIDENCE OF ACUTE STROKE: NO. Assessment and Plan - Diagnosis (1) Septic shock Is this a current diagnosis for this admission?: Yes Plan: -Came in with hypotension 72/54 with altered mental status and VINI - lactic acid 2.9 - Crea 1.96 - UA positive blood -Catheter associated UTI as the source. Patient has a chronic suprapubic catheter due to paraplegia -Blood culture and urine culture pending -Received IV bolus -Continue IV fluids -supraPubic catheter replaced -Zosyn for antibiotics -Repeat lactic acid (2) UTI (urinary tract infection) Qualifiers: Urinary tract infection type: catheter-associated UTI Indwelling urinary catheter type: cystostomy catheter Encounter type: subsequent encounter Qualified Code(s): T83.510D - Infection and inflammatory reaction due to cystostomy catheter, subsequent encounter; N39.0 - Urinary tract infection, site not specified Is this a current diagnosis for this admission?: Yes Plan: -Has a history of multiple UTI secondary to suprapubic catheter infection -Coming in now due to altered mental status -A positive blood, positive leukocyte esterase, urine WBC more than 182 -Previous urine isolates were always gram-negative rods no history of ESBL -Started on Zosyn -Blood and urine culture -suprapubic catheter replaced (3) Acute metabolic encephalopathy Is this a current diagnosis for this admission?: Yes Plan: - 2/2 UTI - CT head negative - should improve with treatment of infection (4) VINI (acute kidney injury) Is this a current diagnosis for this admission?: Yes Plan: - Crea 1.96 baseline 0.69 -Likely from ongoing UTI -continue IV fluids - monitor CMP (5) Left lower lobe pneumonia Qualifiers: Pneumonia type: due to unspecified organism Is this a current diagnosis for this admission?: Yes Plan: - CXR showed left lower lobe pneumonia - blood culture pendinh - continue zosyn - duoneb PRN - continue O2 support (6) Chronic pain Qualifiers: Chronic pain type: other chronic pain Qualified Code(s): G89.29 - Other chronic pain Is this a current diagnosis for this admission?: Yes Plan: -On oxycodone -We will hold for now due to altered mental status (7) Sacral decubitus ulcer, stage IV Is this a current diagnosis for this admission?: Yes Plan: -Continue wound dressing -wound Care consult - Time Time Spent with patient: 25-34 minutes Medications reviewed and adjusted accordingly: Yes Anticipated Discharge Disposition: [facility]ust[facility]ial Facility Anticipated Discharge Timeframe: tbd
[2020-11-03] MEDS: SENNOSIDES/DOCUSATE 8.6-50 MG 1 EACH TABLET PO SCH (18:55)
[2020-11-03] MEDS: BACLOFEN 10 MG TABLET PO SCH (21:23)
[2020-11-03] MEDS: GABAPENTIN 300 MG CAPSULE PO SCH (21:23)
[2020-11-03] MEDS ORDERED: OXYCODONE MYRISTATE 36 MG PO SCH (22:00)
[2020-11-03] MEDS ORDERED: FLAVOXATE HCL 100 MG PO SCH (22:00)
--- NOTE | 2020-11-03 22:32 | EKG REPORT ---
SEVERITY:- ABNORMAL ECG - SINUS RHYTHM : Confirmed by: Gualberto See MD 03-Nov-2020 22:31:11
[2020-11-04] MEDS: LEVOTHYROXINE SODIUM 0.025 MG TABLET PO SCH (05:31)
[2020-11-04] MEDS: PANTOPRAZOLE SODIUM 40 MG TABLET.DR PO SCH (05:31)
[2020-11-04] MEDS: BACLOFEN 10 MG TABLET PO SCH ×3 (05:31→21:09)
[2020-11-04 05:36] LABS: HEMATOCRIT 34.4 % (36.0-47.0); HEMOGLOBIN 11.1 g/dL (12.0-15.5); MEAN CORPUSCULAR HEMOGLOBIN 26.8 pg (27.0-33.4); MEAN CORPUSCULAR HGB CONC 32.4 g/dL (32.0-36.0); MEAN CORPUSCULAR VOLUME 83 fl (80-97); PLATELET COUNT 325 10^3/uL (150-450); RED BLOOD COUNT 4.15 10^6/uL (3.72-5.28); RED CELL DISTRIBUTION WIDTH 16.2 % (11.5-14.0); WHITE BLOOD COUNT 20.9 10^3/uL (4.0-10.5)
[2020-11-04] MEDS: PIPERACILLIN SODIUM/TAZOBACTAM 3.375 GM in NORMAL SALINE 100 ML IV SCH ×4 (05:40→23:21)
[2020-11-04 05:56] LABS: ALBUMIN 3.4 g/dL (3.5-5.0); ALKALINE PHOSPHATASE 89 U/L (38-126); ANION GAP 10 (5-19); ASPARTATE AMINO TRANSFERASE 56 U/L (14-36); BILIRUBIN,DIRECT 0.6 mg/dL (0.0-0.4); BILIRUBIN,TOTAL 0.7 mg/dL (0.2-1.3); BLOOD UREA NITROGEN 25 mg/dL (7-20); CARBON DIOXIDE 22 mmol/L (22-30); CHLORIDE 111 mmol/L (98-107); GLUCOSE 91 mg/dL (75-110); POTASSIUM 4.3 mmol/L (3.6-5.0); TOTAL PROTEIN 7.2 g/dL (6.3-8.2)
[2020-11-04 06:21] LABS: ABSOLUTE LYMPHOCYTES# (MANUAL) 1.3 10^3/uL (0.5-4.7); ABSOLUTE MONOCYTES # (MANUAL) 0.6 10^3/uL (0.1-1.4); BASOPHILS % (MANUAL) 0 % (0-2); EOSINOPHILS % (MANUAL) 0 % (0-6); LYMPHOCYTES % (MANUAL) 5 % (13-45); MONOCYTES % (MANUAL) 3 % (3-13); SEGMENTED NEUTROPHILS % (MAN) 91 % (42-78); TOTAL CELLS COUNTED 100
[2020-11-04 06:22] LABS: ANISOCYTOSIS 1+; HELMET CELLS SLIGHT; OVALOCYTES 1+; POIKILOCYTOSIS 1+; TEAR DROP CELLS SLIGHT; TOXIC GRANULATION 1+
[2020-11-04 06:23] LABS: PLATELET COMMENT ADEQUATE
[2020-11-04] MEDS: RINGERS SOLUTION,LACTATED 1,000 ML IV PRN ×2 (08:06→17:40)
[2020-11-04] MEDS ORDERED: SOLIFENACIN SUCCINATE 5 MG PO SCH (10:00)
[2020-11-04] MEDS: DULOXETINE HCL 30 MG CAPSULE.DR PO SCH (10:27)
[2020-11-04] MEDS: SENNOSIDES/DOCUSATE 8.6-50 MG 1 EACH TABLET PO SCH ×2 (10:27→17:40)
[2020-11-04] MEDS: GABAPENTIN 300 MG CAPSULE PO SCH ×2 (10:27→21:09)
[2020-11-04] MEDS: ENOXAPARIN SODIUM INJ 40 MG/0.4 ML DISP.SYRIN SUBCUT SCH (10:28)
--- NOTE | 2020-11-04 15:12 | PDOC PROGRESS REPORT ---
Subjective Date:: 11/04/20 Subjective:: The patient was seen and examined at bedside. She is much more awake and alert t yris. She complains of generalized body pain. She confirms that she normally eats regular food and feeds herself but she ahs been having recently because of her hand. Cultures reviewed and she is growing Gram negative rods so I did not continue her vancomycin. VINI has resolved and her Lactic acid has normalized. Reason For Visit: UTI Physical Exam Vital Signs: Temp Pulse Resp BP Pulse Ox 98.6 F 70 18 124/68 92 11/04/20 10:00 11/04/20 13:59 11/04/20 13:59 11/04/20 07:25 11/04/20 13:59 Intake & Output 11/03/20 11/04/20 11/05/20 06:59 06:59 06:59 Intake Total 1150 Output Total 1875 Balance -725 Weight 71 kg General appearance: PRESENT: no acute distress, cooperative Head exam: PRESENT: atraumatic, normocephalic Eye exam: PRESENT: EOMI, PERRLA Mouth exam: PRESENT: moist Neck exam: PRESENT: full ROM Respiratory exam: PRESENT: clear to auscultation justyna, symmetrical, unlabored Cardiovascular exam: PRESENT: RRR, +S1, +S2 GI/Abdominal exam: PRESENT: normal bowel sounds, soft, other - suprapubic catheter. ABSENT: rebound, tenderness Extremities exam: PRESENT: other - paraplegic with muscle contractures Musculoskeletal exam: PRESENT: deformity Neurological exam: PRESENT: alert, awake, oriented to person, oriented to place, oriented to time, oriented to situation Psychiatric exam: PRESENT: normal mood Skin exam: PRESENT: normal color Results Laboratory Results: 11/04/20 04:27 11/04/20 04:27 11/03/20 11/04/20 11/04/20 19:05 04:27 04:27 WBC 20.9 H RBC 4.15 Hgb 11.1 L Hct 34.4 L MCV 83 MCH 26.8 L MCHC 32.4 RDW 16.2 H Plt Count 325 Seg Neutrophils % Not Reportable Sodium 142.8 Potassium 4.3 Chloride 111 H Carbon Dioxide 22 Anion Gap 10 BUN 25 H Creatinine 1.04 Est GFR ( Amer) > 60 Glucose 91 Lactic Acid 2.2 H Calcium 9.0 Total Bilirubin 0.7 AST 56 H Alkaline Phosphatase 89 Total Protein 7.2 Albumin 3.4 L 11/04/20 08:35 WBC RBC Hgb Hct MCV MCH MCHC RDW Plt Count Seg Neutrophils % Sodium Potassium Chloride Carbon Dioxide Anion Gap BUN Creatinine Est GFR ( Amer) Glucose Lactic Acid 1.2 Calcium Total Bilirubin AST Alkaline Phosphatase Total Protein Albumin 11/03/20 09:35 Troponin I < 0.012 Impressions: Chest X-Ray 11/03/20 09:15 IMPRESSION: LEFT LOWER LOBE INFILTRATE CONSISTENT WITH PNEUMONIA. Head CT 11/03/20 13:25 IMPRESSION: NO ACUTE INTRACRANIAL IMAGING FINDINGS. EVIDENCE OF ACUTE STROKE: NO. Assessment and Plan - Diagnosis (1) Septic shock Is this a current diagnosis for this admission?: Yes Plan: -Came in with hypotension 72/54 with altered mental status and VINI - lactic acid 2.9>1.2 - Crea 1.96>1.04 - UA positive blood -Catheter associated UTI as the source. Patient has a chronic suprapubic catheter due to paraplegia -Blood culture negative x 24 hrs - urine culture gram negative rods -Received IV bolus -Continue IV fluids -supraPubic catheter replaced -Zosyn for antibiotics (2) UTI (urinary tract infection) Qualifiers: Urinary tract infection type: catheter-associated UTI Indwelling urinary catheter type: cystostomy catheter Encounter type: subsequent encounter Qualified Code(s): T83.510D - Infection and inflammatory reaction due to cystostomy catheter, subsequent encounter; N39.0 - Urinary tract infection, site not specified Is this a current diagnosis for this admission?: Yes Plan: -Has a history of multiple UTI secondary to suprapubic catheter infection -Coming in now due to altered mental status -A positive blood, positive leukocyte esterase, urine WBC more than 182 -Previous urine isolates were always gram-negative rods no history of ESBL -Started on Zosyn -Blood negative x 24 - urine culture growing gram negative rods -suprapubic catheter replaced (3) Acute metabolic encephalopathy Is this a current diagnosis for this admission?: Yes Plan: - 2/2 UTI - CT head negative - should improve with treatment of infection (4) VINI (acute kidney injury) Is this a current diagnosis for this admission?: Yes Plan: - Crea 1.96>1.04 RESOLVED baseline 0.69 -Likely from ongoing UTI -continue IV fluids - monitor CMP (5) Left lower lobe pneumonia Qualifiers: Pneumonia type: due to unspecified organism Is this a current diagnosis for this admission?: Yes Plan: - CXR showed left lower lobe pneumonia - blood culture negtaive - continue zosyn - duoneb PRN - continue O2 support (6) Chronic pain Qualifiers: Chronic pain type: other chronic pain Qualified Code(s): G89.29 - Other chronic pain Is this a current diagnosis for this admission?: Yes Plan: -On oxycodone -We will hold for now due to altered mental status (7) Sacral decubitus ulcer, stage IV Is this a current diagnosis for this admission?: Yes Plan: -Continue wound dressing -wound Care consult - Time Time Spent with patient: 25-34 minutes Medications reviewed and adjusted accordingly: Yes Anticipated Discharge Disposition: Assisted Facility Anticipated Discharge Timeframe: tbd
[2020-11-04] MEDS: OXYCODONE HCL IR 5 MG TABLET PO PRN (19:33)
[2020-11-05] MEDS: LEVOTHYROXINE SODIUM 0.025 MG TABLET PO SCH (05:21)
[2020-11-05] MEDS: PANTOPRAZOLE SODIUM 40 MG TABLET.DR PO SCH (05:21)
[2020-11-05] MEDS: PIPERACILLIN SODIUM/TAZOBACTAM 3.375 GM in NORMAL SALINE 100 ML IV SCH ×3 (05:21→17:31)
[2020-11-05] MEDS: BACLOFEN 10 MG TABLET PO SCH ×3 (05:21→21:11)
[2020-11-05] MEDS: OXYCODONE HCL IR 5 MG TABLET PO PRN ×2 (05:24→21:10)
[2020-11-05 05:43] LABS: ABSOLUTE BASOPHILS # (AUTO) 0.1 10^3/uL (0.0-0.2); ABSOLUTE EOSINOPHILS # (AUTO) 0.4 10^3/uL (0.0-0.6); ABSOLUTE LYMPHOCYTES (AUTO) 2.2 10^3/uL (0.5-4.7); ABSOLUTE MONOCYTES (AUTO) 0.7 10^3/uL (0.1-1.4); ABSOLUTE NEUT (AUTO) 6.8 10^3/uL (1.7-8.2); BASOPHILS % (AUTO) 0.7 % (0-2); EOSINOPHILS % (AUTO) 3.9 % (0-6); HEMATOCRIT 31.5 % (36.0-47.0); HEMOGLOBIN 9.9 g/dL (12.0-15.5); LYMPHOCYTES % (AUTO) 21.5 % (13-45); MEAN CORPUSCULAR HEMOGLOBIN 26.4 pg (27.0-33.4); MEAN CORPUSCULAR HGB CONC 31.5 g/dL (32.0-36.0); MEAN CORPUSCULAR VOLUME 84 fl (80-97); MONOCYTES % (AUTO) 7.2 % (3-13); PLATELET COUNT 292 10^3/uL (150-450); RED BLOOD COUNT 3.75 10^6/uL (3.72-5.28); RED CELL DISTRIBUTION WIDTH 16.4 % (11.5-14.0); SEGMENTED NEUTROPHILS % (AUTO) 66.7 % (42-78); TOTAL CELLS COUNTED % (AUTO) 100 %; WHITE BLOOD COUNT 10.3 10^3/uL (4.0-10.5)
[2020-11-05 06:10] LABS: ALBUMIN 3.2 g/dL (3.5-5.0); ALKALINE PHOSPHATASE 74 U/L (38-126); ANION GAP 8 (5-19); ASPARTATE AMINO TRANSFERASE 33 U/L (14-36); BILIRUBIN,DIRECT 0.5 mg/dL (0.0-0.4); BILIRUBIN,TOTAL 0.6 mg/dL (0.2-1.3); BLOOD UREA NITROGEN 13 mg/dL (7-20); CARBON DIOXIDE 20 mmol/L (22-30); CHLORIDE 114 mmol/L (98-107); GLUCOSE 76 mg/dL (75-110); POTASSIUM 3.7 mmol/L (3.6-5.0); TOTAL PROTEIN 6.7 g/dL (6.3-8.2)
[2020-11-05] MEDS: RINGERS SOLUTION,LACTATED 1,000 ML IV PRN (06:36)
[2020-11-05] MEDS: DULOXETINE HCL 30 MG CAPSULE.DR PO SCH (09:28)
[2020-11-05] MEDS: SENNOSIDES/DOCUSATE 8.6-50 MG 1 EACH TABLET PO SCH ×3 (09:29→17:37)
[2020-11-05] MEDS: GABAPENTIN 300 MG CAPSULE PO SCH ×2 (09:29→21:10)
[2020-11-05] MEDS: ENOXAPARIN SODIUM INJ 40 MG/0.4 ML DISP.SYRIN SUBCUT SCH (09:29)
[2020-11-05] MEDS ORDERED: ACETAMINOPHEN 325 MG TABLET PO PRN (14:01)
--- NOTE | 2020-11-05 14:08 | PDOC PROGRESS REPORT ---
Subjective Date:: 11/05/20 Subjective:: Patient complains of some pain and stiffness in her arms. Notably she is bedbou nd from a cervical spinal injury in 2014. Reason For Visit: UTI Physical Exam Vital Signs: Temp Pulse Resp BP Pulse Ox 97.8 F 60 20 149/63 H 96 11/05/20 11:28 11/05/20 11:28 11/05/20 11:28 11/05/20 11:28 11/05/20 11:28 Intake & Output 11/04/20 11/05/20 11/06/20 06:59 06:59 06:59 Intake Total 1150 1957 Output Total 1875 1400 600 Balance -725 557 -600 Weight 71 kg 69.5 kg General appearance: PRESENT: no acute distress, cooperative Neck exam: ABSENT: JVD Respiratory exam: PRESENT: symmetrical, unlabored. ABSENT: accessory muscle use, tachypnea, wheezes Cardiovascular exam: PRESENT: RRR, +S1, +S2. ABSENT: tachycardia GI/Abdominal exam: PRESENT: soft, tenderness. ABSENT: rebound, rigid Neurological exam: PRESENT: alert, awake, oriented to person, oriented to place, oriented to time, oriented to situation Results Laboratory Results: 11/05/20 04:10 11/05/20 04:10 11/05/20 11/05/20 04:10 04:10 WBC 10.3 RBC 3.75 Hgb 9.9 L Hct 31.5 L MCV 84 MCH 26.4 L MCHC 31.5 L RDW 16.4 H Plt Count 292 Seg Neutrophils % 66.7 Sodium 142.2 Potassium 3.7 Chloride 114 H Carbon Dioxide 20 L Anion Gap 8 BUN 13 Creatinine 0.75 Est GFR ( Amer) > 60 Glucose 76 Calcium 9.0 Total Bilirubin 0.6 AST 33 Alkaline Phosphatase 74 Total Protein 6.7 Albumin 3.2 L 11/03/20 09:35 Troponin I < 0.012 Impressions: Chest X-Ray 11/03/20 09:15 IMPRESSION: LEFT LOWER LOBE INFILTRATE CONSISTENT WITH PNEUMONIA. Head CT 11/03/20 13:25 IMPRESSION: NO ACUTE INTRACRANIAL IMAGING FINDINGS. EVIDENCE OF ACUTE STROKE: NO. Assessment and Plan - Diagnosis (1) UTI (urinary tract infection) Qualifiers: Urinary tract infection type: catheter-associated UTI Indwelling urinary catheter type: cystostomy catheter Encounter type: subsequent encounter Qualified Code(s): T83.510D - Infection and inflammatory reaction due to cystos rashida catheter, subsequent encounter; N39.0 - Urinary tract infection, site not specified Is this a current diagnosis for this admission?: Yes Plan: Complicated UTI. Urine culture growing Proteus and E. coli. Continue on Zosyn. Plan to switch to oral antibiotics tomorrow. (2) Left lower lobe pneumonia Qualifiers: Pneumonia type: due to unspecified organism Is this a current diagnosis for this admission?: Yes Plan: - CXR showed left lower lobe pneumonia Continue Zosyn. We will try to wean off oxygen today. Currently on 2 L nasal cannula with saturation of 96. (3) Acute metabolic encephalopathy Is this a current diagnosis for this admission?: Yes Plan: - 2 secondary to UTI. Seems to be improved at this point. (4) Septic shock Is this a current diagnosis for this admission?: Yes (5) Chronic pain Qualifiers: Chronic pain type: other chronic pain Qualified Code(s): G89.29 - Other chronic pain Is this a current diagnosis for this admission?: Yes (6) Sacral decubitus ulcer, stage IV Is this a current diagnosis for this admission?: Yes - Time Time Spent with patient: Less than 15 minutes Anticipated Discharge Disposition: [facility] Facility Anticipated Discharge Timeframe: within 24 hours
[2020-11-05] MEDS: MELOXICAM 15 MG TABLET PO SCH (14:18)
[2020-11-06] MEDS: PIPERACILLIN SODIUM/TAZOBACTAM 3.375 GM in NORMAL SALINE 100 ML IV SCH ×3 (01:02→11:32)
[2020-11-06] MEDS: BACLOFEN 10 MG TABLET PO SCH (05:52)
[2020-11-06] MEDS: LEVOTHYROXINE SODIUM 0.025 MG TABLET PO SCH (05:52)
[2020-11-06] MEDS: PANTOPRAZOLE SODIUM 40 MG TABLET.DR PO SCH (05:53)
[2020-11-06 05:56] LABS: ABSOLUTE EOSINOPHILS # (AUTO) 0.1 10^3/uL (0.0-0.6); ABSOLUTE LYMPHOCYTES (AUTO) 1.8 10^3/uL (0.5-4.7); ABSOLUTE MONOCYTES (AUTO) 0.4 10^3/uL (0.1-1.4); ABSOLUTE NEUT (AUTO) 2.5 10^3/uL (1.7-8.2); BASOPHILS % (AUTO) 0.9 % (0-2); EOSINOPHILS % (AUTO) 1.5 % (0-6); HEMATOCRIT 33.9 % (36.0-47.0); LYMPHOCYTES % (AUTO) 36.9 % (13-45); MEAN CORPUSCULAR HEMOGLOBIN 26.7 pg (27.0-33.4); MEAN CORPUSCULAR HGB CONC 32.4 g/dL (32.0-36.0); MEAN CORPUSCULAR VOLUME 83 fl (80-97); MONOCYTES % (AUTO) 9.2 % (3-13); PLATELET COUNT 277 10^3/uL (150-450); RED BLOOD COUNT 4.11 10^6/uL (3.72-5.28); SEGMENTED NEUTROPHILS % (AUTO) 51.5 % (42-78); TOTAL CELLS COUNTED % (AUTO) 100 %; WHITE BLOOD COUNT 4.9 10^3/uL (4.0-10.5)
[2020-11-06 06:03] LABS: BLOOD UREA NITROGEN 11 mg/dL (7-20); CALCIUM 9.3 mg/dL (8.4-10.2)
[2020-11-06 06:21] LABS: ALBUMIN 3.7 g/dL (3.5-5.0); ALKALINE PHOSPHATASE 70 U/L (38-126); ANION GAP 11 (5-19); ASPARTATE AMINO TRANSFERASE 31 U/L (14-36); BILIRUBIN,DIRECT 0.6 mg/dL (0.0-0.4); BILIRUBIN,TOTAL 0.7 mg/dL (0.2-1.3); CARBON DIOXIDE 24 mmol/L (22-30); CHLORIDE 108 mmol/L (98-107); GLUCOSE 80 mg/dL (75-110); POTASSIUM 3.7 mmol/L (3.6-5.0); TOTAL PROTEIN 7.6 g/dL (6.3-8.2)
[2020-11-06 09:10] VITALS: BP 165/53
[2020-11-06] MEDS ORDERED: CLOTRIMAZOLE/BETAMETHASONE DIP CREAM 15 GM TOP SCH (10:00)
[2020-11-06] MEDS: MELOXICAM 15 MG TABLET PO SCH (10:09)
[2020-11-06] MEDS: ENOXAPARIN SODIUM INJ 40 MG/0.4 ML DISP.SYRIN SUBCUT SCH (10:10)
[2020-11-06] MEDS: GABAPENTIN 300 MG CAPSULE PO SCH (10:10)
[2020-11-06] MEDS: SENNOSIDES/DOCUSATE 8.6-50 MG 1 EACH TABLET PO SCH (10:10)
[2020-11-06] MEDS: DULOXETINE HCL 30 MG CAPSULE.DR PO SCH (10:10)
--- OUTSIDE RECORDS SUMMARY | 2020-11-06 10:12 | XMS REPORT ---
:1965 [facility] [address] [place] [address] Care Team Providers Name Role Phone Umer MELISSA Attending Clinician Unavailable MD Che Gallego Attending Clinician Unavailable MD Che Gallego Attending Clinician Unavailable Allergies, Adverse Reactions, Alerts Allergy Name Allergy Status Severity Reaction(s) Onset Inactive Treat ing Comments Type Date Date Clinician codeine Drug Active nausea intolerance Codeine Codeine Active Derivatives Derivatives Medications Ordered Filled Start Stop Current Ordering Indication Dosage Frequency Signature Comments Components Medication Medication Date Date Medication? Clinician (SIG) Name Name oxyCODONE 5 2019- Yes 5mg 5 mg = 1 mg oral 1-12 cap(s), capsule 13:21: PO, q8h, 00 Pain, breakthrou gh, 0 Refill(s) Reglan 5 mg 2019- Yes 5mg 5 mg = 1 oral tablet 1-12 tab(s), 13:20: PO, QID, 0 00 Refill(s) Xtampza ER 2019- Yes 36mg 36 mg = 1 36 mg oral 1-12 cap(s), capsule, 13:19: PO, TID, 0 extended 00 Refill(s) release flavoxATE 2019- Yes 200mg 200 mg = 2 100 mg oral 1-12 tab(s), tablet 13:15: PO, TID, 0 00 Refill(s) baclofen 5 2019- Yes 5mg 5 mg = 1 mg oral 1-12 tab(s), tablet 13:13: PO, TID, 0 00 Refill(s) Senna S 50 2019- Yes 11 1 tab(s), mg-8.6 mg 1-12 PO, BID, 0 oral tablet 13:10: Refill(s) 00 gabapentin 2019- Yes 600mg 600 mg = 1 600 mg oral 1-12 tab(s), tablet 13:08: PO, BID, 0 00 Refill(s) VESIcare 5 2019-10 Yes 5mg 5 mg = 1 mg oral 1-12 tab(s), tablet 13:05: PO, Daily, 00 0 Refill(s) omeprazole 2019-10 Yes 40mg 40 mg = 2 20 mg oral 1-12 cap(s), delayed 13:03: PO, Daily, release 00 0 capsule Refill(s) Multiple 2019-10 Yes 11 1 cap(s), Vitamins 1-12 PO, Daily, oral 12:55: 0 capsule 00 Refill(s) meloxicam 2019-10 Yes 0 15 mg oral 1-12 Refill(s) tablet 12:53: 00 levothyroxi 2019-10 Yes 25ug 25 mcg = 1 ne 25 mcg 1-12 cap(s), (0.025 mg) 12:52: PO, Daily, oral 00 # 30 capsule cap(s), 0 Refill(s) DULoxetine 2019-10 Yes 3 cap, PO, 20 mg oral 1-12 Daily, 0 delayed 12:50: Refill(s) release 00 capsule Gabapentin Yes Gabapentin 300 MG Oral 300 MG Capsule Oral Capsule three times daily via peg tube Refills: 0 Active Zofran 4 MG Yes Zofran 4 Oral Tablet MG Oral Tablet 1 po every 6hrs as needed Quantity: 20 Refills: 0 Active Maalox 600 Yes Maalox 600 MG Oral MG Oral Tablet Tablet Chewable Chewable USE DIRECTED. Refills: 0 Active Cymbalta 60 Yes Cymbalta MG Oral 60 MG Oral Capsule Capsule Delayed Delayed Release Release Particles Particles Refills: 0 Active flavoxATE Yes flavoxATE HCl - 100 HCl - 100 MG Oral MG Oral Tablet Tablet 200mg by mouth three times daily Refills: 0 Active Esomeprazol Yes Esomeprazo e Magnesium le 40 MG Oral Magnesium Capsule 40 MG Oral Delayed Capsule Release Delayed Release Refills: 0 Active Hydrocortis Yes Hydrocorti one 1 % sone 1 % External External Cream Cream Refills: 0 Active Baclofen 10 Yes Baclofen MG Oral 10 MG Oral Tablet Tablet 5mg every 8hrs Refills: 0 Active Bisacodyl Yes Bisacodyl 10 MG 10 MG Rectal Rectal Suppository Suppositor y Refills: 0 Active flavoxATE Yes flavoxATE HCl - 100 HCl - 100 MG Oral MG Oral Tablet Tablet 200mg Three times daily Refills: 0 Active Fleet Oil Yes Fleet Oil Rectal Rectal Enema Enema Refills: 0 Active Levothyroxi Yes Levothyrox ne Sodium ine Sodium 25 MCG Oral 25 MCG Tablet Oral Tablet Refills: 0 Active Mobic 15 MG Yes Mobic 15 Oral Tablet MG Oral Tablet Refills: 0 Active Gabapentin Yes Gabapentin 250 MG/5ML 250 MG/5ML Oral Oral Solution Solution Refills: 0 Active Maalox 600 Yes Maalox 600 MG Oral MG Oral Tablet Tablet Chewable Chewable Refills: 0 Active oxyCODONE Yes oxyCODONE HCl - 5 MG HCl - 5 MG Oral Tablet Oral Tablet Refills: 0 Active OxyCONTIN Yes OxyCONTIN 20 MG Oral 20 MG Oral Tablet ER Tablet ER 12 Hour 12 Hour Abuse-Deter Abuse-Dete rent rrent Refills: 0 Active Reglan 5 MG Yes Reglan 5 Oral Tablet MG Oral Tablet Refills: 0 Active Sarna Yes Sarna 0.5-0.5 % 0.5-0.5 % External External Lotion Lotion Refills: 0 Active Senna S Yes Senna S 8.6-50 MG 8.6-50 MG Oral Tablet Oral Tablet Refills: 0 Active Ondansetron Yes Ondansetro HCl - 4 MG n HCl - 4 Oral Tablet MG Oral Tablet Refills: 0 Active Jevity LIQD Yes Jevity LIQD Refills: 0 Active VESIcare 5 Yes VESIcare 5 MG Oral MG Oral Tablet Tablet Refills: 0 Active CertaVite/A Yes CertaVite/ ntioxidants Antioxidan LIQD ts LIQD Refills: 0 Active Tylenol 500 Yes Tylenol MG/15ML 500 LIQD MG/15ML LIQD Every 12hrs as needed Refills: 0 Active Vitamin C Yes Vitamin C 500 MG Oral 500 MG Capsule Oral Capsule Refills: 0 Active Zanaflex 2 Yes Zanaflex 2 MG Oral MG Oral Capsule Capsule three times daily as needed Refills: 0 Active Problems Condition Condition Condition Status Onset Resolution Last Treatin g Comments Name Details Category Date Date Treatment Clinician Date Endoscopy Endoscopy(C Problem active 2019-10 (procedure) onfirmed) - 00:00: 00 MDRO MDRO Problem active MDRO (multiple (multiple 7-30 (Ent eroba drug drug 00:00: cter resistant resistant 00 cloa ) organisms) organisms) in sacral resistance( resistance( wound on Confirmed)7 Confirmed)7 05/10/15 Spinal cord Spinal cord Problem Active injury injury Urinary Urinary Problem Active tract tract infection infection Neurogenic Neurogenic Problem Active bladder bladder Urinary Urinary Problem Active retention retention Gastroesoph Gastroesoph Problem Active ageal ageal reflux reflux disease disease without without esophagitis esophagitis Alteration Alteration Problem active Pr oblem in comfort: in comfort: added pain pain(Confir auto matic (finding) med)1 ally b y system based on initiati o n of the Alterati o n in comfort: Pain bhavana n of Care. Alteration Alteration Problem active Pr oblem in in added nutrition nutrition(C au tomatic (finding) onfirmed)2 all y by system based on initiati o n of the Fall Ris k Plan of Care. Discharge Discharge Problem active Prob danya planning planning(Co add ed (procedure) nfirmed)3 au tomatic ally by system based on initiati o n of the Discharg e Planning Plan of Care Extended ESBL Problem active ESBL spectrum Klebsiella prod ucer beta-lactam pneumoniae( in urine ase Confirmed)4 cult ure producing 5 Klebsiella pneumoniae (organism) Impaired Impaired Problem active Proble m mobility mobility(Co add ed (finding) nfirmed)5 auto matic ally by system based on initiati o n of the Bowel Dysfunct i on Plan of Care. Impaired Impaired Problem active Order skin skin entered integrity integrity(C se condary (finding) onfirmed)6 to document i ng a Jayant Score less shila n 15 Disturbance Mood Problem active Prob danya in mood alteration( adde d (finding) Confirmed)8 au tomatic ally by system based on initiati o n of the Mood Alterati o n Plan o f Care. Total Self -care Problem active Probl em self-care deficit(Con ad ded deficit firmed)9 automat ic (finding) ally b y system based on initiati o n of the Self Car e Deficit Plan of Care. Procedures Procedure Date / Time Performed Performing Clinician Devic e CT - Abdomen/Pelvis with and 2020-07-27 00:00:00 without contrast Urinalysis 2020-07-25 00:00:00 History of Cervical Vertebral Fusion Neck1 Results Test Description Test Time Test Comments Text Results Atomic Results Result Comments SARS-CoV-2 RNA Resp Ql MARYA+probe 2020-09-15 00:00:00 Test Item Value Reference Range Comments SARS-CoV-2 RNA Resp Ql MARYA+probe Negative [place] [facility] Case ID: (test code = [id number]) [id number] SARS-CoV-2 RNA Resp Ql [id number] 00:00:00 Test Item Value Reference Range Comments SARS-CoV-2 RNA Resp Ql Negative [place] [facility] Case ID: MARYA+probe (test code = COVID_103 [id number]) SARS-CoV-2 RNA Resp Ql [id number] 00:00:00 Test Item Value Reference Range Comments SARS-CoV-2 RNA Resp Ql Negative [place] [facility] Case ID: MARYA+probe (test code = COVID_103 [id number]) SARS-CoV-2 RNA Resp Ql [id number] 00:00:00 Test Item Value Reference Range Comments SARS-CoV-2 RNA Resp Ql Not detected [place] [facility] Case MARYA+probe (test code = ID: [id number]) ID NOW Covid [id number] 12:29:00 Test Item Value Reference Range Comments ID NOW Covid 19 (test COVID-19 NEGATIVE Result C omment: ID NOW code = ID NOW Covid COVID1-Th is result does 19) not rule out co- infections with other patho gens. False negative results may occur if a specimen is im properly collected, trans ported or handled. False n egative results may also occur if amplification in hibitors are present in the s pecimen or if inadequate level s of viruses are present in t he specimen. Negative results should be considered in th e context of a patient's rece nt exposures, history and the presence of clinical signs a nd symptoms consistent with COVID-1. This assay is only in tended for use under the od and Drug Administration's (FDA) Emergency Use Authorization(EU A). Terms of use require that the following Fact S heets be provided with th is test report: --[facility] ID NOW COVID 1 f or Providers --[facility] ID NOW COVID 1 for Leah ents These Fact Sheets can be accessed at: [email or web address] SARS-CoV-2 RdRp Resp QI [id number] 00:00:00 Test Item Value Reference Range Comments SARS-CoV-2 RdRp Resp QI Negative [facility] Case ID: MARYA+probe (test code = COVID_104 [id number]) SARS-CoV-2 RNA Resp Ql [id number] 00:00:00 Test Item Value Reference Range Comments SARS-CoV-2 RNA Resp Ql Negative [facility] Case ID: MARYA+probe (test code = COVID_103 [id number]) SARS-CoV-2 RNA Resp Ql [id number] 00:00:00 Test Item Value Reference Range Comments SARS-CoV-2 RNA Resp Ql Negative [facility] Case ID: MARYA+probe (test code = COVID_103 [id number]) SARS-CoV-2 RNA Resp Ql [id number] 00:00:00 Test Item Value Reference Range Comments SARS-CoV-2 RNA Resp Ql Negative [facility] Case ID: MARYA+probe (test code = COVID_103 [id number]) SARS-CoV-2 RNA Resp Ql [id number] 00:00:00 Test Item Value Reference Range Comments SARS-CoV-2 RNA Resp Ql Negative [facility] Case ID: MARYA+probe (test code = COVID_103 [id number]) SARS-CoV-2 RNA Resp Ql [id number] 00:00:00 Test Item Value Reference Range Comments SARS-CoV-2 RNA Resp Ql Negative [facility] Case ID: MARYA+probe (test code = COVID_103 [id number]) Assessments Condition Name Status Diagnosis Date Treating Clinici an 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 Neurogenic bladder Active Urinary tract infection Active Urinary retention Active Neurogenic bladder Active Urinary retention Active Neurogenic bladder Active Urinary tract infection Active Urinary retention Active Encounters Start End Encounter Admission Attending Care Care Encounter Date/Time Date/Time Type Type Clinicians Facility Department ID 2020-08-29 2020-08-29 Appointment MUSA OwusuJANN [id number] 11:00:00 08:15:28 ; Abebe Owusu MD 2020-08-23 2020-08-23 [place] [facility] [id number] 12:05:53 14:45:00 John Gallego 2020-07-27 2020-07-27 Appointment [facility] [id number] 14:00:00 14:00:00 ; Abebe Owusu MD 2018-10-25 2018-10-25 Appointment [facility] [id number] 10:45:00 10:45:00 ; Tom Cartagena MD 2018-09-20 2018-09-20 Appointment [facility] [id number] 14:00:00 14:00:00 ; Tom Cartagena MD 2018-07-26 2018-07-26 Appointment [facility] [id number] 13:00:00 13:00:00 ; Tom Cartagena MD Family History Family Member Diagnosis Comments Start Date Stop Date Mother Family history of of parent Father Family history of of parent Payers Payer Name Policy Type Policy Number Effective Date Expiration D ate Plan of Treatment Planned Activity Planned Date Details Comments Future Scheduled Test [code = ] Social History Smoking Status Start Date Stop Date Ex-smoker (finding) Never smoked tobacco (finding) 2020-08-12 2 12:35:48 Social History Observation Description Sex Female Vital Signs Vital Name Observation Time Observation Value Comments Heart Rate Monitored 2020-08-23 14:35:00 74 /min Respiratory Rate 2020-08-23 14:35:00 15 /min Systolic Blood Pressure 2020-08-23 14:35:00 146 mm[Hg] Diastolic Blood Pressure 2020-08-23 14:35:00 98 mm[Hg] Heart Rate Monitored 2020-08-23 14:25:00 68 /min Respiratory Rate 2020-08-23 14:25:00 15 /min Systolic Blood Pressure 2020-08-23 14:25:00 140 mm[Hg] Diastolic Blood Pressure 2020-08-23 14:25:00 104 mm[Hg] Heart Rate Monitored 2020-08-23 14:20:00 70 /min Respiratory Rate 2020-08-23 14:20:00 16 /min Systolic Blood Pressure 2020-08-23 14:20:00 143 mm[Hg] Diastolic Blood Pressure 2020-08-23 14:20:00 92 mm[Hg] Temperature Tympanic 2020-08-23 12:29:00 36.1 Ainsley Apical Heart Rate 2020-08-23 12:29:00 66 /min Systolic blood pressure 2020-07-27 13:53:00 89 mm[Hg] Diastolic blood pressure 2020-07-27 13:53:00 58 mm[Hg] Body height 2020-07-27 13:53:00 66 [in_us] Weight 2020-07-27 13:53:00 139 [lb_av] Body mass index (BMI) [Ratio] 2020-07-27 13:53:00 22.44 kg/m2 Hospital Discharge Instructions NameDatesDetailsInstructions not documentedPatient Nalehazsf41/12/2020 14:34:30Endoscopy Unit/Outpatient Services Discharge Instructions ([facility] - [id number]) (CUSTOM)Endoscopy Unit / Outpatient Services Discharge InstructionsDIET( ) You should not eat or drink until the feeling comes back into your throat.(__X__) No alcoholic beverages for 24 hours.(__X__) Begin with liquids and light foods (jello, soups, etc.)( ) Progress to your normal diet if not nauseated.MEDICATIONS( ) None( ) Prescription(s) sent home with patient. ( ) CareNotes / Drug Information given. ( ) N/A(__X___) Resumeyour usual everyday medication schedule with discharge.ACTIVITIES(__X__) You should rest for the remainder of the day and have limited physical activity.(__X__) If you have been given a sedative or pain medication, do not make important business decisions or sign legal documents for 24 hours.(__X__) If you have been given a sedative or pain medication, mild dizziness/drowsiness is not unusual. Be careful as you walk or climb stairs.( ) May resume normal activities.(__X__) Do not drive a vehicle or operate hazardous machinery for 24 hours.(__X__) A responsible adult will need to remain with you for 24 hours post procedure due to the potential anesthesia effect.THROAT CARE( ) Not applicable(__X___) Use a lozenge or gargle with warm water every 2 hours as needed for temporary sore throat.BOWEL CARE( ) Not applicable( ) Following biopsy(s)/polypectomy(s), you may notice small amountsof blood from your rectum. This is normal.( ) Do not use laxatives or take enemas for 2 days.SPECIAL INSTURCTIONS(__X__) Contact your doctor if you experience uncontrolled/increased pain, bleeding,fever, shortness of breath, or coughing.(__X__) If at any time you are unable to contact your doctor, call the [facility] at .(__X__) IV SITE: If area red/swollen, apply warm compresses. If condition persists more than three (3) days notify physician.FOLLOW-UP CARE( ) If biopsy(s)/polypectomy(s) were done,. you may call your doctor in 1 week for the results if you have not already received from office.( ) No Aspirin or Non-Steroidal Anti- inflammatory drugs for days.(___X__) You should see or call ____Julián in ____1 month .[facility] BY241403/09/2020 14:34:30Upper Endoscopy, Adult, Care AfterUpper Endoscopy, Adult, Care AfterThis sheet gives you information about how to care for yourself after your procedure. Your health care provider may also give you more specific instructions. If you have problems or questions, contact your health care provider.What can I expect after the procedure?After the procedure, it is common to have: A sore throat. Mild stomach pain or discomfort. Bloating. Nausea.Follow these instructions at home: Follow instructions from your health care provider about what to eat or drink after your procedure. Return to your normal activities as told by your health care provider. Ask your health care provider what activities are safe for you. Take fxki-rfx-yqqrbsf and prescription medicines only as told by your health care provider. Do not drive for 24 hours if you were given a sedative during your procedure. Keep all follow-up visits as told by your health care provider. This is important.Contact a health care provider if you have: A sore throat that lasts longer than one day. Trouble swallowing.Get help right away if: You vomit blood or your vomit looks like coffee grounds. You have: A fever. Bloody, black, or tarry stools. A severe sore throat or you cannot swallow. Difficulty breathing. Severe pain in your chest or abdomen.Summary After the procedure, it is common to have a sore throat, mild stomach discomfort, bloating, and nausea. Do not drive for 24 hours if you were given a sedative during the procedure. Follow instructions from your health care provider about what to eat or drink after your procedure. Return to your normal activities as told by your health care provider.This information is not intended to replace advice given to you by your health care provider. Make sure you discuss any questions you have with your health care provider.Document Released: 03/29/2013 Document Revised: 02/28/2019 Document Reviewed: 02/28/2019[employer] Interactive Patient Education ? 2020 [employer].08/23/2020 14:34:30Hand Washing, Vkkr-xa-AwwtXqrk WashingGerms such as bacteria, viruses, and parasites are found everywhere. They can be in the air and water. They can also be on surfaces like food, door handles, and your skin. Every day, your hands touch germs. Many of these germs can make you and your family sick. Washing your hands is one of the best ways to lower your risk of getting and sharing germs.When should I wash my hands?You should wash your hands whenever you think they are dirty. You should also wash your hands: Before: Visiting a baby or anyone with a weakened disease-fighting system (immunesystem). Putting in and taking out contact lenses. After: Using the bathroom or helping someone else use thebathroom. Working or playing outside. Touching or taking out the garbage. Touching anythingdirty around your home. Sneezing, coughing, or blowing your nose. Using a phone, including your mobile phone. Touching an animal, animal food, animal poop, or its toys or leash. Touching money. Using household microsoft dynamics ax developer or poisonous chemicals. Handling dirty clothes, bedding, or rags. Using public transportation. Going shopping, especially if you use a shopping cart or basket. Shaking hands. Handling livestock, such as cows or sheep. Before and after: Preparing food. Eating. Visiting or taking care of someone who is sick. This includes touching used tissues,toys, and clothes. Changing a bandage (dressing). Taking care of an injury or wound. Givingor taking medicine. Preparing a bottle for a baby. Feeding a baby or young child. Changing a diaper.What is the right way to wash my hands?1. Wet your hands with clean, running water. Turn offthe water or move your hands out of the running water.2. Apply liquid soap or bar soap to your hands.3. Rub your hands together quickly to create lather.4. Keep rubbing your hands together for at least20 seconds. Thoroughly scrub all parts of your hands. This includes scrubbing under your fingernailsand between your fingers.5. Rinse your hands with clean, running water. Do this until all the soap is gone.6. Dry your hands using an air dryer or a clean paper or cloth towel, or let your hands air-dry. Do not use your clothing or a dirty towel to dry your hands.If you are in a public restroom, use your towel: To turn off the water faucet. To open the bathroom door.How can I clean my hands if I do not have soap and water?If soap and clean water are not available, use a hand-washing wipe, spray, or gel (hand blind cleaner). Use one that contains at least 60% alcohol. If you are handling food, gels are not recommended as a replacement for hand washing with soap and water.To use these products, follow the directions on the product, and: Apply enough product to cover your hands. Make sure you wipe, rub, or spray the product so that it reaches every part of your hands and wrists. Include thebacks of your hands, between your fingers, and under your fingernails. Rub the product onto your hands until it dries.Summary Every day, your hands touch germs. Many of these germs can make you and your family sick. Washing your hands is one of the best ways to lower your risk of getting and sharing germs. If soap and clean water are not available, use a hand-washing wipe, spray, or gel.This information is not intended to replace advice given to you by your health care provider. Make sure you discuss any questions you have with your health care provider.Document Released: 09/10/2009 Document Revised: 07/07/2018 Document Reviewed: 07/07/2018[employer] Interactive Patient Education ? 2019 [employer].08/23/2020 14:34:30Fall Prevention in the Home, AdultFall Prevention in the Home, AdultFalls can cause injuries and can affect people from all age groups. There are many simple things that you can do to make your home safe and to help prevent falls. Ask for help when making these changes, if needed.What actions can I take to prevent falls?General instructions Use good lighting in all rooms. Replace any light bulbs that burn out. Turn on lights if it is dark. Use night-lights. Place frequently used items in utzg-kw-ypako places. Lower the shelves around your home if necessary. Set up furniture so that there are clear paths around it. Avoid moving your furniture around. Remove throw rugs and other tripping hazards from the floor. Avoid walking on wet floors. Fix anyuneven floor surfaces. Add color or contrast paint or tape to grab bars and handrails in your home. Place contrasting color strips on the first and last steps of stairways. When you use a stepladder, make sure that it is completely opened and that the sides are firmly locked. Have someone hold the ladder while you are using it. Do not climb a closed stepladder. Be aware of any and all pets.What can I do in the bathroom? Keep the floor dry. Immediately clean up any water that spills onto the floor. Remove soap buildup in the tub or shower on a regular basis. Use non-skid mats or decals on the floor of the tub or shower. Attach bath mats securely with double-sided, non-slip rug tape. If you need to sit down while you are in the shower, use a plastic, non-slip stool. Install grab bars by the toilet and in the tub and shower. Do not use towel bars as grab bars.What can I do in the bedroom? Make sure that a bedside light is easy to reach. Do not use oversized beddingthat drapes onto the floor. Have a firm chair that has side arms to use for getting dressed.What can I do in the kitchen? Clean up any spills right away. If you need to reach for something above you, use a sturdy step stool that has a grab bar. Keep electrical cables out of the way. Do not use floor central african or wax that makes floors slippery. If you must use wax, make sure that it is non-skid floor wax.What can I do in the stairways? Do not leave any items on the stairs. Make surethat you have a light switch at the top of the stairs and the bottom of the stairs. Have them installed if you do not have them. Make sure that there are handrails on both sides of the stairs. Fix handrails that are broken or loose. Make sure that handrails are as long as the stairways. Install non- slip stair treads on all stairs in your home. Avoid having throw rugs at the top or bottom of stairways, or secure the rugs with carpet tape to prevent them from moving. Choose a carpet designthat does not hide the edge of steps on the stairway. Check any carpeting to make sure that it isfirmly attached to the stairs. Fix any carpet that is loose or worn.What can I do on the outside of my home? Use bright outdoor lighting. Regularly repair the edges of walkways and driveways and fix any cracks. Remove high doorway thresholds. Trim any shrubbery on the main path into your home. Regularly check that handrails are securely fastened and in good repair. Both sides of any steps should have handrails. Install guardrails along the edges of any raised decks or porches. Clear walkways of debris and clutter, including tools and rocks. Have leaves, snow, and ice clearedregularly. Use sand or salt on walkways during winter months. In the garage, clean up any spills right away, including grease or oil spills.What other actions can I take? Wear closed- toe shoesthat fit well and support your feet. Wear shoes that have rubber soles or low heels. Use mobilityaids as needed, such as canes, walkers, scooters, and crutches. Review your medicines with your health care provider. Some medicines can cause dizziness or changes in blood pressure, which increase your risk of falling.Talk with your health care provider about other ways that you can decrease your risk of falls. This may include working with a physical therapist or horse trainer to improve your strength, balance, and endurance.Where to find more information Centers for Disease Control and Prevention, JAUN: https://www.cdc.gov [employer] [place] [employer] A[place]: https://fj0cscl.lenka.nih.govContact a health care provider if: You are afraid of falling at home. You feel weak, drowsy, or dizzy at home. You fall at home.Summary There are many simple things that you can do to make your home safe and to help prevent falls. Ways to make your home safe include removing tripping hazards and installing grab bars in the bathroom. Ask for help when making these changes in your home.This information is not intended to replace advice given to you by your health care provider. Make sure you discuss any questions you have with your health care provider.Document Released: 09/18/2003 Document Revised: 05/13/2018 Document Reviewed: 05/13/2018An Interactive Patient Education ? 2019 [employer].Follow Up Care08/02/2020 10:15:29With: John Abraham: A Div. of [facility] [place],[address] [place] [address]- Business (1)When: UnknownComments: Call for any needs questions or concernsDr. Gallego's office will contact you about arranging a follow up appointment in 1 month. If you have not heard from them in 1 week, please give the office a call.NameDatesDetailsInstructions not documented
--- NOTE | 2020-11-06 13:20 | PDOC TRANSFER SUMMARY ---
Impression - Admit/DC Date/PCP Admission Date/Primary Care Provider: 11/03/20 13:18 Discharge Date: 11/06/20 - Discharge Diagnosis (1) Complicated UTI (urinary tract infection) Is this a current diagnosis for this admission?: Yes (2) Left lower lobe pneumonia Is this a current diagnosis for this admission?: Yes (3) Acute metabolic encephalopathy Is this a current diagnosis for this admission?: Yes (4) Septic shock Is this a current diagnosis for this admission?: Yes (5) Chronic pain Is this a current diagnosis for this admission?: Yes (6) Sacral decubitus ulcer, stage IV Is this a current diagnosis for this admission?: Yes - Additional Information Referrals: [facility] [Outside] [facility] [Provider Group] Prescriptions: Cephalexin Monohydrate [Keflex 500 mg Capsule] 500 mg PO QID 5 Days #20 capsule Home Medications: Duloxetine HCl [Cymbalta] 60 mg PO DAILY 06/17/18 Flavoxate HCl [Urispas] 200 mg PO QID 06/17/18 Gabapentin [Neurontin 300 mg Capsule] 600 mg PO Q12 06/17/18 Meloxicam 15 mg PO DAILY 06/17/18 Multivit-Min/Ferrous Gluconate [Centrum Multivit-Mineral Liq] 10 ml PO DAILY 06/17/18 Omeprazole 40 mg PO Q6AM 06/17/18 Oxycodone HCl [Oxy-Ir 5 mg Tablet] 5 mg PO Q8HP PRN 06/17/18 Solifenacin Succinate [Vesicare] 5 mg PO DAILY 06/17/18 Baclofen [Baclofen 10 mg Tablet] 5 mg PO Q8 08/25/20 Levothyroxine Sodium [Synthroid 0.025 mg Tablet] 0.025 mg PO Q6AM 08/25/20 Oxycodone Myristate [Xtampza ER] 36 mg PO Q8 08/25/20 Sennosides/Docusate Sodium [Senna Plus 8.6-50 mg Tablet] 1 each PO BID 08/25/20 Ascorbic Acid [Vitamin C 500 mg Tablet] 500 mg PO DAILY 11/05/20 Clotrimazole/Betamethasone Dip [Lotrisone Cream] 15 gm TP DAILY 11/05/20 Endit Cream 1 applic TOP Q2HP PRN 11/05/20 Ergocalciferol (Vitamin D2) [Drisdol 50,000 unit (1.25MG) Capsule] 50,000 unit PO MARIA@1000 11/05/20 Zinc Sulfate [Zinc-220 Capsule] 220 mg PO DAILY 11/05/20 Acetaminophen [Tylenol 325 mg Tablet] 975 mg PO Q6HP PRN tablet 11/06/20 Cephalexin Monohydrate [Keflex 500 mg Capsule] 500 mg PO QID 5 Days #20 capsule 11/06/20 History of Present Illiness History of Present Illness: According to admitting provider: ARTURO GILBERT is a 55 year old female, past medical history of paraplegia, multifocal UTI, prolonged need for Claire, chronic pain who was sent from [facility] today due to altered mental status. Per EMS report they were called in by the staff at the nursing facility because she was noted to be altered at around 7 AM when they were changing her suprapubic catheter. Staff also noted blood in the catheter. She was also apparently saturating 91% on room air upon EMS arrival and was placed on 2 L O2 support via nasal cannula. Rapid Covid test done by EMS was negative. The patient had and was unable to provide any history to me. I attempted to call [facility] but no one was available to talk to me to provide further history or med rec's. In the emergency room blood pressure 85/68, heart rate 72, respiratory rate T1, O2 sat 97% on 2 L nasal cannula, temperature at 8.9. His x-ray showed left lower lobe infiltrate consistent with pneumonia. Urine showed large blood, positive leukocyte esterase, WBC more than 182. Covid test negative. CMP showed mild VINI 1.96 creatinine, lactic acid 2.9. CT head negative. patient was given IV bolus and blood pressure improved to 110s. And was given cefepime and Vanco in the ED. Patient has had multiple episodes of UTI in the past and normally grew gram-negative rods, no prior history of ESBL. So I have started him on Zosyn. Urine culture pending. Hospital Course Hospital Course: Patient was admitted to the hospital for evaluation of acute metabolic encephalopathy and treatment of UTI. Patient was diagnosed with complicated UTI. Urine culture grew E. coli as well as Proteus. She was treated with Zosyn while in the hospital. Chest x-ray did also show some subtle findings suspicious of possible pneumonia. She has received IV antibiotics. Blood cultures have been unimpressive and negative at the 72-hour yessy. Head CT was done on initial presentation to evaluate her altered mental status. The head CT showed no acute findings and no evidence of stroke. It is likely that her encephalopathy was secondary to her UTI. This seems to have resolved. Another possible etiology that could be playing a role here is her narcotics. Please use narcotics cautiously and evaluate other nonnarcotic options for management of patient's chronic pain. I think she would benefit from extensive occupational and physical therapy to help loosen up her stiff rigid limbs. This could help with pain control. Please ensure patient receives extensive occupational physical therapy while at the facility. Continue gabapentin. Also use Tylenol. Consider using lidocaine patches as well. Patient will need to be followed up with [facility]. Regarding patient's infection, she will be discharged with Keflex for 5 more days to complete treatment. Regarding patient's decubitus ulcer, instructional support specialist recommends covering with Allevyn to protect the area and changing this twice a week. Also please ensure that the patient is turned and repositioned every 2 hours. Physical Exam Vital Signs: Temp Pulse Resp BP Pulse Ox 98.2 F 59 L 17 165/53 H 93 11/06/20 10:00 11/06/20 07:24 11/06/20 07:24 11/06/20 07:24 11/06/20 07:24 Intake & Output 11/05/20 11/06/20 11/07/20 06:59 06:59 06:59 Intake Total 1957 1520 Output Total 1400 1825 Balance 557 -305 Weight 69.5 kg General appearance: PRESENT: no acute distress, cooperative Neck exam: ABSENT: JVD Respiratory exam: PRESENT: clear to auscultation justyna, symmetrical, unlabored. ABSENT: decreased breath sounds, rales, wheezes Cardiovascular exam: PRESENT: RRR, +S1, +S2. ABSENT: tachycardia GI/Abdominal exam: PRESENT: soft. ABSENT: tenderness Extremities exam: PRESENT: other - Contractures in her arms. Neurological exam: PRESENT: alert, awake, oriented to person, oriented to place, oriented to time, oriented to situation, motor sensory deficit - Quadriplegic Psychiatric exam: ABSENT: agitated, anxious Results Laboratory Results: WBC 4.9 10^3/uL (4.0-10.5) 11/06/20 04:18 RBC 4.11 10^6/uL (3.72-5.28) 11/06/20 04:18 Hgb 11.0 g/dL (12.0-15.5) L 11/06/20 04:18 Hct 33.9 % (36.0-47.0) L 11/06/20 04:18 MCV 83 fl (80-97) 11/06/20 04:18 MCH 26.7 pg (27.0-33.4) L 11/06/20 04:18 MCHC 32.4 g/dL (32.0-36.0) 11/06/20 04:18 RDW 16.0 % (11.5-14.0) H 11/06/20 04:18 Plt Count 277 10^3/uL (150-450) 11/06/20 04:18 Lymph % (Auto) 36.9 % (13-45) 11/06/20 04:18 Van Zandt % (Auto) 9.2 % (3-13) 11/06/20 04:18 Eos % (Auto) 1.5 % (0-6) 11/06/20 04:18 Baso % (Auto) 0.9 % (0-2) 11/06/20 04:18 Absolute Neuts (auto) 2.5 10^3/uL (1.7-8.2) 11/06/20 04:18 Absolute Lymphs (auto) 1.8 10^3/uL (0.5-4.7) 11/06/20 04:18 Absolute Monos (auto) 0.4 10^3/uL (0.1-1.4) 11/06/20 04:18 Absolute Eos (auto) 0.1 10^3/uL (0.0-0.6) 11/06/20 04:18 Absolute Basos (auto) 0.0 10^3/uL (0.0-0.2) 11/06/20 04:18 Total Counted 100 11/04/20 04:27 Seg Neutrophils % 51.5 % (42-78) 11/06/20 04:18 Seg Neuts % (Manual) 91 % (42-78) H 11/04/20 04:27 Lymphocytes % (Manual) 5 % (13-45) L 11/04/20 04:27 Atypical Lymphs % 1 % (0) 11/04/20 04:27 Monocytes % (Manual) 3 % (3-13) 11/04/20 04:27 Eosinophils % (Manual) 0 % (0-6) 11/04/20 04:27 Basophils % (Manual) 0 % (0-2) 11/04/20 04:27 Abs Neuts (Manual) 19.0 10^3/uL (1.7-8.2) H 11/04/20 04:27 Abs Lymphs (Manual) 1.3 10^3/uL (0.5-4.7) 11/04/20 04:27 Abs Monocytes (Manual) 0.6 10^3/uL (0.1-1.4) 11/04/20 04:27 Absolute Eos (Manual) 0.0 10^3/uL (0.0-0.6) 11/04/20 04:27 Abs Basophils (Manual) 0.0 10^3/uL (0.0-0.2) 11/04/20 04:27 Toxic Granulation 1+ 11/04/20 04:27 Platelet Comment ADEQUATE 11/04/20 04:27 Poikilocytosis 1+ 11/04/20 04:27 Anisocytosis 1+ 11/04/20 04:27 Tear Drop Cells SLIGHT 11/04/20 04:27 Ovalocytes 1+ 11/04/20 04:27 Helmet Cells SLIGHT 11/04/20 04:27 PT 13.7 SEC (11.4-15.4) 11/03/20 09:35 INR 1.03 11/03/20 09:35 VBG pH 7.31 (7.30-7.42) 11/03/20 09:35 VBG pCO2 48.9 mmHg (35-63) 11/03/20 09:35 VBG HCO3 24.3 mmol/L (20-32) 11/03/20 09:35 VBG Base Excess -2.3 mmol/L 11/03/20 09:35 Sodium 142.6 mmol/L (137-145) 11/06/20 04:18 Potassium 3.7 mmol/L (3.6-5.0) 11/06/20 04:18 Chloride 108 mmol/L (98-107) H 11/06/20 04:18 Carbon Dioxide 24 mmol/L (22-30) 11/06/20 04:18 Anion Gap 11 (5-19) 11/06/20 04:18 BUN 11 mg/dL (7-20) 11/06/20 04:18 Creatinine 0.68 mg/dL (0.52-1.25) 11/06/20 04:18 Est GFR ( Amer) > 60 (>60) 11/06/20 04:18 Est GFR (MDRD) Non-Af > 60 (>60) 11/06/20 04:18 Glucose 80 mg/dL (75-110) 11/06/20 04:18 POC Glucose 89 mg/dL (70-110) 11/04/20 11:37 Lactic Acid 1.2 mmol/L (0.7-2.1) 11/04/20 08:35 Calcium 9.3 mg/dL (8.4-10.2) 11/06/20 04:18 Total Bilirubin 0.7 mg/dL (0.2-1.3) 11/06/20 04:18 Direct Bilirubin 0.6 mg/dL (0.0-0.4) H 11/06/20 04:18 Neonat Total Bilirubin Not Reportable 11/06/20 04:18 Neonat Direct Bilirubin Not Reportable 11/06/20 04:18 Neonat Indirect Bili Not Reportable 11/06/20 04:18 AST 31 U/L (14-36) 11/06/20 04:18 ALT 22 U/L (<35) 11/06/20 04:18 Alkaline Phosphatase 70 U/L (38-126) 11/06/20 04:18 Troponin I < 0.012 ng/mL 11/03/20 09:35 Total Protein 7.6 g/dL (6.3-8.2) 11/06/20 04:18 Albumin 3.7 g/dL (3.5-5.0) 11/06/20 04:18 Urine Color LAVON 11/03/20 10:15 Urine Appearance TURBID 11/03/20 10:15 Urine pH 5.0 (5.0-9.0) 11/03/20 10:15 Ur Specific Covel 1.020 11/03/20 10:15 Urine Protein 100 mg/dL (NEGATIVE) H 11/03/20 10:15 Urine Glucose (UA) NEGATIVE mg/dL (NEGATIVE) 11/03/20 10:15 Urine Ketones TRACE mg/dL (NEGATIVE) H 11/03/20 10:15 Urine Blood LARGE (NEGATIVE) H 11/03/20 10:15 Urine Nitrite (Reflex) NEGATIVE (NEGATIVE) 11/03/20 10:15 Urine Bilirubin SMALL (NEGATIVE) H 11/03/20 10:15 Urine Urobilinogen 4.0 mg/dL (<2.0) H 11/03/20 10:15 Leukocyte Esterase Rfl LARGE (NEGATIVE) H 11/03/20 10:15 Urine RBC (Auto) 146 /HPF 11/03/20 10:15 Urine Bacteria (Auto) 3+ /HPF 11/03/20 10:15 Urine WBC (Reflex) > 182 /HPF 11/03/20 10:15 Urine WBC Clumps MANY /HPF 11/03/20 10:15 Squamous Epi Cells Auto 38 /HPF 11/03/20 10:15 U Non-Squamous Epis Auto 2 /HPF 11/03/20 10:15 Urine Mucus (Auto) MANY /LPF 11/03/20 10:15 Urine Ascorbic Acid 40 (NEGATIVE) H 11/03/20 10:15 Influenza A (RT-PCR) NEGATIVE (NEGATIVE) 11/03/20 10:10 Influenza B (RT-PCR) NEGATIVE (NEGATIVE) 11/03/20 10:10 RSV (RT-PCR) NEGATIVE (NEGATIVE) 11/03/20 10:10 SARS-CoV-2 Rap RNA(RT-PCR) NEGATIVE (NEGATIVE) 11/03/20 10:10 11/03/20 09:35 Troponin I < 0.012 Impressions: Chest X-Ray 11/03/20 09:15 IMPRESSION: LEFT LOWER LOBE INFILTRATE CONSISTENT WITH PNEUMONIA. Head CT 11/03/20 13:25 IMPRESSION: NO ACUTE INTRACRANIAL IMAGING FINDINGS. EVIDENCE OF ACUTE STROKE: NO. Plan Time Spent: Greater than 30 Minutes Stroke Is this a Stroke Patient?: No Acute Heart Failure Is this a Heart Failure Patient?: No
== END 2020-11-06 14:43 | DRG 698 ==
LOC: ER 09:07 → EH 13:18 → 4N 15:05
PROVIDERS: ADMIT Internal Medicine; ATTEND Internal Medicine
DX: T83.510A Infection and inflammatory reaction due to cystostomy catheter, initial encounter (principal); L89.154 Pressure ulcer of sacral region, stage 4; G93.41 Metabolic encephalopathy; J18.9 Pneumonia, unspecified organism; R65.21 Severe sepsis with septic shock; A41.9 Sepsis, unspecified organism; G82.20 Paraplegia, unspecified; N17.9 Acute kidney failure, unspecified; N39.0 Urinary tract infection, site not specified; Y84.6 Urinary catheterization as the cause of abnormal reaction of the patient, or of later complication, without mention of misadventure at the time of the procedure; B96.20 Unspecified Escherichia coli [E. coli] as the cause of diseases classified elsewhere; B96.4 Proteus (mirabilis) (morganii) as the cause of diseases classified elsewhere; Z20.822 Contact with and (suspected) exposure to COVID-19; K21.9 Gastro-esophageal reflux disease without esophagitis; F41.9 Anxiety disorder, unspecified; F32.9 Major depressive disorder, single episode, unspecified; Z96.0 Presence of urogenital implants; G89.29 Other chronic pain; E03.9 Hypothyroidism, unspecified; Z79.890 Hormone replacement therapy; Z79.899 Other long term (current) drug therapy; T14.8XXS Other injury of unspecified body region, sequela; X58.XXXS Exposure to other specified factors, sequela; Z87.891 Personal history of nicotine dependence; Z88.6 Allergy status to analgesic agent
CPT/HCPCS: 36415; 70450; 71045; 80053; 81001; 82803; 82962; 83605; 84484; 85025; 85610; 87040; 87086; 87088; 87186; 93005; 93010; 96365; 96368; 96375; 99285; 0241U; C9803; J0131; J0692; J1650; J2310; J2405; J2543; J3370; J3490; J7050; J7120